=== PATIENT | male | born 1945 | race Caucasian/White ===

== ENCOUNTER 2019-12-08 16:08 | Inpatient (IN) ==
--- NOTE | 2019-12-08 17:37 | XRay Report ---
XR chest 1V portable HISTORY: 74 years-old Male Dyspnea acute shortness of breath COMPARISON: None TECHNIQUE: Portable AP view of the chest FINDINGS: Cardiac silhouette is enlarged. Prior median sternotomy and CABG. Calcified plaque of the thoracic ao rtic arch. No pneumothorax, large pleural effusion, overt pulmonary edema or airspace consolidation t ypical for pneumonia. Blunting of the costophrenic angles is likely secondary to scarring/atelectasis . Degenerative changes of the shoulders and spine. IMPRESSION: Cardiomegaly without acute process. ACT 112: Negative or not required by law. The above report was generated using voice recognition software. It may contain grammatical, syntax o r spelling errors. Electronically signed by: Víctor Whalen M.D. 12/08/2019 5:35 PM
[2019-12-08 17:40] LABS: INR 1.5 (0.9-1.1); Partial Thromboplastin Ratio 1.4; Partial Thromboplastin Time 38.1 Seconds (21.0-31.0); Prothrombin Time 15.1 Seconds (9.0-12.0)
[2019-12-08 17:44] LABS: Alanine Aminotransferase 28 U/L (12-78); Albumin Level 2.4 gm/dl (3.4-5.0); Aspartate Aminotransferase 47 U/L (15-37); Blood Urea Nitrogen 25 mg/dl (7-18); Carbon Dioxide 27 mmol/L (21-32); Chloride 107 mmol/L (98-107); Est GFR (African American) 57.7; Est GFR (Non-African American) 49.7; Glucose 105 mg/dl (70-99); Magnesium 1.7 mg/dl (1.8-2.4); Sodium 139 mmol/L (136-145)
[2019-12-08 17:49] LABS: Albumin Globulin Ratio 0.8 (0.9-2); Alkaline Phosphatase 75 U/L (45-117); Bilirubin,Total 0.3 mg/dl (0.2-1); Globulin 3.2 gm/dl (2.5-4.0); NT Pro B Type Natriuretic Pept 6631 pg/ml (0-1800); Total Protein 5.6 gm/dl (6.4-8.2); Troponin I 0.034 ng/ml (0-0.045)
[2019-12-08 18:00] LABS: Hematocrit (blood only) 21.7 % (42-52); Hemoglobin 6.9 g/dL (14.0-18.0); Mean Corpuscular Hgb Conc 31.8 g/dL (32-36); Mean Corpuscular Volume 91.2 fL (80-100); Mean Platelet Volume 9.7 fL (7.4-10.4); Platelet Count 536 K/uL (130-400); RDW Coefficient of Variation 15.6 % (11.5-14.5); RDW Standard Deviation 48.9 fL (36.4-46.3); Red Blood Count 2.38 M/uL (4.7-6.1); White Blood Count 12.03 K/uL (4.8-10.8)
--- NOTE | 2019-12-08 18:05 | Emergency Department Note ---
Impression & Plan Anemia, Edema, peripheral ED Provider Note NAME: LINA APARICIO AGE: 74 SEX: M : 1945 ARRIVES VIA: Walk-In INFORMANT: Patient, ED PROVIDER(S): Hiram Downs DO CHIEF COMPLAINT: Swelling HPI: The patient is a 74-year-old male who presented to the emergency department for an evaluation of lower extremity swelling. The patient has a history of bladder cancer. Because of bladder cancer he has nephrostomy tubes. He states nephrostomy tubes are continuing to drain clear urine. He denies having any chest pain or difficulty breathing. He was seen at the [facility] and sent to the emergency department for further evaluation. According to his daughter she thought the patient needed to be tested for CHF. He has had multiple procedures recently and some of his fluid pills have been held. He denies having any black stool or bloody stool. The patient denies having any headache. He denies any recent falls. He has had some generalized weakness. ROS: See above HPI for pertinent positives & negatives. A total of 10 systems reviewed and were otherwise negative. PAST MEDICAL HISTORY: See Below PAST SURGICAL HISTORY: See Below FAMILY HISTORY: See Below SOCIAL HISTORY: See Below HOME MEDICATIONS: See Below ALLERGIES: See Below VITALS: See Below PHYSICAL EXAMINATION: GENERAL: Patient is awake alert in no acute distress patient is resting comfortably and showing no signs of anxiety EYES: The conjunctivae are clear. The pupils are round and reactive. EARS, NOSE, MOUTH AND THROAT: The nose is without any evidence of any deformity. Mucous membranes are moist. Tongue is midline. NECK: The neck is nontender and supple. RESPIRATORY: Normal respiratory effort is noted there is no evidence of wheezing rhonchi or rales CARDIOVASCULAR: Regular rate and rhythm noted there no murmurs rubs or gallops normal S1 normal S2. GASTROINTESTINAL: The abdomen is soft. Abdomen is nontender. Rectal exam revealed brown stool which was trace heme positive. MUSCULOSKELETAL/EXTREMITIES: There is no evidence of gross deformity full range of motion is noted in the hips and shoulders. SKIN: There is no obvious evidence of any rash. Pedal edema was noted bilaterally. NEUROLOGIC: Patient is awake alert and oriented x3. MEDICAL DECISION MAKING: The patient is a 74-year-old male who presented to the emergency department for peripheral edema. The patient was seen at the [facility] and sent to the emergency department for further evaluation. The patient was noted to have bilateral lower extremity edema. He did not appear to have pulmonary edema on physical exam or by radiographic studies. The patient has had weight gain as well. He has a history of bladder cancer and has bilateral nephrostomy tubes. The patient was found to have significant anemia. He had further testing and this was reviewed with the patient. I discussed the patient's laboratory and radiographic studies with him. Because of the degree of anemia I also [facility] have agreed to evaluate the patient in the emergency department for further management and disposition. Triage Nursing notes reviewed. Prior medical records reviewed Vital Signs: reviewed and remarkable for low blood pressure. Differential diagnosis: Infection, dehydration, metabolic abnormality, hypo/hyperglycemia, electrolyte disturbance, anemia, hypoxia, cardiac sources, intracerebral event, toxicologic, neurologic, as well as other pathologies. ER treatment provided: See below Diagnostics interpreted by me: ECG: EKG was obtained in the emergency department. My interpretation is normal sinus rhythm at 63 bpm. PVCs were noted. There was lateral ST depressions noted. LVH was suggested by voltage criteria. No previous tracing was available. Cardiac Monitoring: An order was placed for continuous cardiac monitoring. The monitor shows a rate of 66 with sinus rhythm. Laboratory studies: As stated above and show below. Imaging studies: See below Consultation(s): 1850: I discussed this case with Dr. Purvis who [facility] They will evaluate the patient in the emergency department for further management and disposition. Past Med/Surg History Medical History (Updated 12/08/19 @ 19:11 by Hiram Downs DO) Atrial fibrillation Bladder cancer CHF (congestive heart failure) COPD (chronic obstructive pulmonary disease) Surgical History (Updated 12/08/19 @ 18:25 by Hiram Downs DO) History of CEA (carotid endarterectomy) History of left hip replacement Hx of appendectomy Hx of CABG Social History Smoking Status: Former smoker Feels Safe at Home: Yes Results & Data (ED) Vital Signs Vital Signs - 24 hr 12/08/19 16:14 12/08/19 17:20 12/08/19 18:51 Temperature 36.6 C Temperature Source Oral Pulse Rate 59 L Pulse Rate [Apical] 65 Respiratory Rate 18 12 Respiratory Effort / Characteristics Non-Labored Non-Labored Spontaneous Respiratory Depth Normal Normal Respiratory Pattern Regular Blood Pressure 132/51 L Blood Pressure [Right Arm] 126/33 L Blood Pressure Mean 78 Blood Pressure Mean [Right Arm] 64 Blood Pressure Position Sitting Pulse Oximetry 100 97 95 Oxygen Delivery Method Room Air Room Air Room Air Sepsis Recent Fever Within 48 Hours No Sepsis New/Unexplained Change in Mental Status No Sepsis Action Taken by Nursing No Action Required Home Medications Current Medication List: was personally reviewed by me Laboratory Data Attestation: I reviewed the patient's lab results. Result diagrams: 12/08/19 17:15 12/08/19 17:15 Lab Results 12/08/19 12/08/19 12/08/19 Range/Units 17:15 17:15 17:15 WBC 12.03 H (4.8-10.8) K/uL RBC 2.38 L (4.7-6.1) M/uL Hgb 6.9 L* (14.0-18.0) g/dL Hct 21.7 L (42-52) % MCV 91.2 (80-100) fL MCH 29.0 (25-34) pg MCHC 31.8 L (32-36) g/dL RDW Std Deviation 48.9 H (36.4-46.3) fL RDW Coeff of Qiana 15.6 H (11.5-14.5) % Plt Count 536 H (130-400) K/uL MPV 9.7 (7.4-10.4) fL Immature Gran % (Auto) 4.9 % Neut % (Auto) 77.3 % Lymph % (Auto) 6.9 % [place] % (Auto) 10.5 % Eos % (Auto) 0.2 % Baso % (Auto) 0.2 % Neut # (Auto) 9.31 H (1.4-6.5) K/uL Lymph # (Auto) 0.83 L (1.2-3.4) K/uL [place] # (Auto) 1.26 H (0.11-0.59) K/uL Eos # (Auto) 0.02 (0-0.5) K/uL Baso # (Auto) 0.02 (0-0.2) K/uL Immature Gran # (Auto) 0.59 H (0.00-0.02) K/uL Polychromasia 1+ Hypochromasia Present PT 15.1 H (9.0-12.0) Seconds INR 1.5 H (0.9-1.1) APTT 38.1 H (21.0-31.0) Seconds PTT Ratio 1.4 Sodium 139 (136-145) mmol/L Potassium 4.0 (3.5-5.1) mmol/L Chloride 107 (98-107) mmol/L Carbon Dioxide 27 (21-32) mmol/L Anion Gap 5.0 (3-11) BUN 25 H (7-18) mg/dl Creatinine 1.37 (0.6-1.4) mg/dl Est Cr Clr Drug Dosing Not Reportable Est GFR ( Amer) 57.7 Est GFR (Non-Af Amer) 49.7 BUN/Creatinine Ratio 18.0 (10-20) Glucose 105 H (70-99) mg/dl Calcium 8.0 L (8.5-10.1) mg/dl Magnesium 1.7 L (1.8-2.4) mg/dl Total Bilirubin 0.3 (0.2-1) mg/dl AST 47 H (15-37) U/L ALT 28 (12-78) U/L Alkaline Phosphatase 75 (45-117) U/L Troponin I 0.034 (0-0.045) ng/ml NT-Pro-B Natriuret Pep 6631 H (0-1800) pg/ml Total Protein 5.6 L (6.4-8.2) gm/dl Albumin 2.4 L (3.4-5.0) gm/dl Globulin 3.2 (2.5-4.0) gm/dl Albumin/Globulin Ratio 0.8 L (0.9-2) Blood Type Antibody Screen 12/08/19 Range/Units 18:12 WBC (4.8-10.8) K/uL RBC (4.7-6.1) M/uL Hgb (14.0-18.0) g/dL Hct (42-52) % MCV (80-100) fL MCH (25-34) pg MCHC (32-36) g/dL RDW Std Deviation (36.4-46.3) fL RDW Coeff of Qiana (11.5-14.5) % Plt Count (130-400) K/uL MPV (7.4-10.4) fL Immature Gran % (Auto) % Neut % (Auto) % Lymph % (Auto) % [place] % (Auto) % Eos % (Auto) % Baso % (Auto) % Neut # (Auto) (1.4-6.5) K/uL Lymph # (Auto) (1.2-3.4) K/uL [place] # (Auto) (0.11-0.59) K/uL Eos # (Auto) (0-0.5) K/uL Baso # (Auto) (0-0.2) K/uL Immature Gran # (Auto) (0.00-0.02) K/uL Polychromasia Hypochromasia PT (9.0-12.0) Seconds INR (0.9-1.1) APTT (21.0-31.0) Seconds PTT Ratio Sodium (136-145) mmol/L Potassium (3.5-5.1) mmol/L Chloride (98-107) mmol/L Carbon Dioxide (21-32) mmol/L Anion Gap (3-11) BUN (7-18) mg/dl Creatinine (0.6-1.4) mg/dl Est Cr Clr Drug Dosing Est GFR ( Amer) Est GFR (Non-Af Amer) BUN/Creatinine Ratio (10-20) Glucose (70-99) mg/dl Calcium (8.5-10.1) mg/dl Magnesium (1.8-2.4) mg/dl Total Bilirubin (0.2-1) mg/dl AST (15-37) U/L ALT (12-78) U/L Alkaline Phosphatase (45-117) U/L Troponin I (0-0.045) ng/ml NT-Pro-B Natriuret Pep (0-1800) pg/ml Total Protein (6.4-8.2) gm/dl Albumin (3.4-5.0) gm/dl Globulin (2.5-4.0) gm/dl Albumin/Globulin Ratio (0.9-2) Blood Type O Positive Antibody Screen NEGATIVE Administered Medications Magnesium Sulfate/Dextrose (Magnesium Sulfate / D5w) 1 gm in 100 mls @ 100 mls/hr IV Q1H REJI Stop: 12/08/19 20:25 Last Admin: 12/08/19 19:53 Dose: 100 mls/hr Documented by: [id number] Infusion: 12/08/19 19:53 Dose: 100 mls/hr Documented by: [id number] Admin: 12/08/19 19:02 Dose: 100 mls/hr Documented by: [id number] Imaging Data Radiologist's Impression: CT soft tissue neck wo con HISTORY: 74 years-old Male right sided pain acute right-sided neck and abdominal pain COMPARISON: Chest radiograph of same day TECHNIQUE: Multiple axial CT images of the soft tissues of the neck were obtained without use of IV contrast. A dose lowering technique was used consistent with the principals of ZENON. FINDINGS: Cardiomegaly. Prior median sternotomy. Extensive calcified plaque of the thoracic aortic arch, carotid arteries and proximal great vessels. Unremarkable thyroid, parotid and submandibular glands. The imaged intracranial structures appear unremarkable. The nasopharynx, oral pharynx and hypopharynx appear unremarkable. The parapharyngeal fat planes are symmetric. There is no adenopathy, drainable fluid collection or significant inflammatory stranding. Moderate emphysema. No pneumothorax. Mild mucosal thickening of the maxillary sinuses. Is advanced multilevel facet arthrosis. Severe disc space narrowing at C6-C7 with multilevel posterior disc osteophyte complex formations. IMPRESSION: 1. Unremarkable appearance of the soft tissues of the neck. 2. Emphysema. 3. No adenopathy. ACT 112: Negative or not required by law. The above report was generated using voice recognition software. It may contain grammatical, syntax or spelling errors. Electronically signed by: Víctor Whalen M.D. 12/08/2019 6:52 PM Dictated: 12/08/[id number] Transcribed: 12/08/191846 XR chest 1V portable HISTORY: 74 years-old Male Dyspnea acute shortness of breath COMPARISON: None TECHNIQUE: Portable AP view of the chest FINDINGS: Cardiac silhouette is enlarged. Prior median sternotomy and CABG. Calcified plaque of the thoracic aortic arch. No pneumothorax, large pleural effusion, overt pulmonary edema or airspace consolidation typical for pneumonia. Blunting of the costophrenic angles is likely secondary to scarring/atelectasis. Degenerative changes of the shoulders and spine. IMPRESSION: Cardiomegaly without acute process. ACT 112: Negative or not required by law. The above report was generated using voice recognition software. It may contain grammatical, syntax or spelling errors. Electronically signed by: Víctor Whalen M.D. 12/08/2019 5:35 PM Dictated: 12/08/[id number] Transcribed: 12/08/191733 ABDOMEN AND PELVIS CT WITHOUT CONTRAST HISTORY: Acute pelvic pain with bladder mass bladder mass TECHNIQUE: Multiaxial CT images of the abdomen and pelvis were performed without contrast. A dose lowering technique was utilized adhering to the principles of ALARA. COMPARISON STUDY: None. FINDINGS: Limited exam without the use of IV contrast. Trace pleural effusions. Bronchial wall thickening with subsegmental bibasilar atelectasis. No pneumatosis or pneumoperitoneum. Cardiomegaly. The unenhanced liver, spleen, pancreas and adrenal glands are unremarkable. The gallbladder is within normal limits. Common bile duct is dilated measuring up to 12 mm. No obstructing common bile duct stone or lesion identified. Bilateral percutaneous nephrostomy catheters are present. Moderate perinephric stranding is present bilaterally. Limited evaluation of the renal parenchyma without the use of IV contrast. There is probable mild dilation of the right superior pole renal calyx. No significant ureteral dilation. Moderate urinary bladder distention with wall thickening and perivesicular stranding. There is suggestion of a urinary bladder diverticulum on the right measuring 6.8 cm with layering radiodense foci suggestive of bladder calculi with a probable smaller diverticulum on the left. Limited evaluation of the urinary bladder and pelvic structures secondary to streak artifact from ORIF hardware of the left hemipelvis and left hip total joint arthroplasty. 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 Aneurysm measures up to approximately 4.1 x 4.8 cm. Femorofemoral bypass graft. Prostamegaly. No definite adenopathy. No bowel obstruction or bowel wall thickening. Moderate fecal retention. Terminal ileum is unremarkable. Appendix not diagnostically visualized. Mild generalized body wall edema. Degenerative changes of the spine, pelvis and right hip. Lumbar levoscoliosis. No suspicious bone lesions or acute fracture. IMPRESSION: 1. Limited exam without the use of IV contrast. Pelvic structures are suboptimally visualized secondary to artifact from left hip ORIF changes. 2. Prostamegaly with urinary bladder wall thickening and diverticula suggestive of chronic bladder outlet obstruction. Correlate with urinalysis to exclude cystitis. The patient's reportedly known bladder mass is not definitively seen on this limited exam. 3. Urinary bladder calculi. 4. Bilateral nephrostomy catheters without significant hydronephrosis. 5. Moderate fecal retention. 6. No bowel obstruction or bowel wall thickening. 7. Trace pleural effusions. 8. Additional findings as above. ACT 112: Negative or not required by law. The above report was generated using voice recognition software. It may contain grammatical, syntax or spelling errors. Electronically signed by: Víctor Whalen M.D. 12/08/2019 7:27 PM Dictated: 12/08/[id number] Transcribed: 12/08/191901 Blood Pressure Blood Pressure Findings: Low blood pressure Discharge Plan Visit Data Chief Complaint: Edema To Extremity Stated Complaint: GAINED 8.5 LBS OVERNIGHT, R SIDED NECK PAIN, AFIB ED Provider: Hiram Downs Discharge Problem: Anemia, Edema, peripheral Patient Disposition: Being Evaluated by Hospitalist Condition: Good Forms Stand Alone Forms: [facility] Referrals Referrals: Lakisha Carson PA-C [Primary Care Provider] - Discharge Problem: Anemia Qualifiers: Anemia type: unspecified type Qualified Code(s): D64.9 - Anemia, unspecified
[2019-12-08 18:17] LABS: Basophils # (auto) 0.02 K/uL (0-0.2); Basophils % (auto) 0.2 %; Eosinophils # (auto) 0.02 K/uL (0-0.5); Eosinophils % (auto) 0.2 %; Hypochromasia Present; Immature Granulocytes # (auto) 0.59 K/uL (0.00-0.02); Immature Granulocytes % (auto) 4.9 %; Lymphocytes # (auto) 0.83 K/uL (1.2-3.4); Lymphocytes % (auto) 6.9 %; Monocytes # (auto) 1.26 K/uL (0.11-0.59); Monocytes % (auto) 10.5 %; Neutrophils # (auto) 9.31 K/uL (1.4-6.5); Neutrophils % (auto) 77.3 %; Polychromasia 1+
--- NOTE | 2019-12-08 18:52 | History & Physical Report ---
Date of Service December 08, 2019 Assessment & Plan (1) Anemia: Chadwick Ortega is a very pleasant 74 year old man with PMH significant for CHF COPD, and recently diagnosed bladder cancer here for lower limb swelling found to have marked edema. Anemia Hemoglobin of 6.9 in ED No history of melena or hemamtochezia on history minimal hemoccult positivity on , CT abdomen negative for retroperitoneal bleed, no other signs of acute bleeding in history Very possibly secondary to chemotherapy, though white count and platelets elevated, possible secondary to unknown GI losses or hematuria, though none actively anemia of chronic disease possible, We do not know his baseline hemoglobin as we have no records Will need to request records in the am Due to increased risk of both arterial and venous thromboembolism I will continue patient's home eliquis and check h and h closely. H and H every 6 hours, if h and h drops or any sign of active bleeding we can hold eliquis Bladder Cancer Patient with metastatic bladder cancer, status post 1 round of chemotherapy, Nephrostomy tubes in place draining clear non bloody urine Due for replacement of nephrostomy tubes in two weeks Second round of chemotherapy next week Will need to get records [facility] and [facility] Leg swelling Likely secondary to high output heart failure from anemia, hypoalbuminemia likely secondary to Patient tells me he has a history of CHF and a history of mitral valve repair no history of heart attack Lasix 20 mg IV bid Echo ordered for am b/l swelling, Calves non tender, on eliquis will defer doppler u/s at this time COPD Former smoker for many years 35+ pack year smoking history Stable on room air at present Atrial Fibrillation Recently diagnosed and hospitalized at [facility] in [place] On Amiodarone and eliquis will continue Simvastatin and amiodarone have interaction at increased doses will decrease simvastatin to 20 mg Hypomagnesemia Replaced 1 gram MGSO4 IV DVT PPx: Eliquis F/E/N: Heart healthy diet Dispo: PCU for transfusion and further workup DNR/DNI (2) Edema, peripheral: (3) COPD (chronic obstructive pulmonary disease): (4) CHF (congestive heart failure): (5) Bladder cancer: (6) Atrial fibrillation: History of Present Illness Primary Care Provider: Lakisha Carson PA-C Ludwin Ortega is a very nice 74 year old gentleman with past medical history significant for abdominal aortic aneurysm with stent placement, CHF, COPD, and recently diagnosed bladder cancer. Bladder cancer was diagnosed at the end of September, while going on a road trip patients develop pain and severe hematuria and was evaluated at [facility] and found to have widespread metastatic disease. Nephrostomy tubes were placed at that time and he got his first round of chemotherapy. He has been at home prior to that, but last week was admitted to [facility] for new onset atrial fibrillation. He was put on amiodarone and eliquis and returned home. We do not have records of either of these encounters and he is not sure what medications his urologists and oncologists are treating him with. He was seen by his PCP today who noticed some increased lower limb swelling and shakiness in the patient they decided that he needed to be evaluated urgently over concern for CHF. On arrival to ED vitals were within normal limits ECG showing sinus rhythm concerning for ST depression in lateral leads, no ECG to compare to. Labwork was significant for a severe anemia with hemoglobin of 6.9, he is also hypoalbuminemic, has an elevated BNP at 6631. Hypomagnesemia of 1.7 Creatinine at the upper limits of normal. Troponin drawn and detectable but not elevated at .034. patient also reports he has a lump in his neck that comes and goes but is not present currently. Imaging of neck was obtained showing no abnormalities or adenopathy, CT abdomen pelvis showing no sign of retroperitoneal bleeding, nephrostomy tubes properly in place and bladder wall thickening. CXR significant only for cardiomegaly. Hemoccult trace positive. Patient is a poor historian and slightly confused, though he does tell me he has not had any tarry and dark stools, has never had any blood, did have some vomiting after chemotherapy but this was non bloody non bilious and has since subsided. He Called his daughter and put her on speaker phone who was able to relay most of the above history for me. She adds that he has been shaky and cold and this has gotten worse over the past few days, she has not noticed anything else on review of systems. He has lost over twenty pounds prior to his cancer diagnosis but since that time he is eating pretty well and not losing weight currently. Energy levels have been good, his mental status is at his baseline currently. He adamantly denies chest pain shortness of breath, exertional dyspnea dyspnea at rest. He tells me he has a history of CHF and is a former smoker for many years but quit seventeen years ago. Lives with his , son in law and grandchildren whom he is very proud of and quick to show pictures. Next round of chemotherapy is already set up for next week, nephrostomy tubes will need to be replaced in next two weeks, still coordinating care for that. Follows with the [facility], we have no records from previous visits at present. Eli amandacharles legs sent from [facility] bilateral nephrostomy tubes bladder cancer has not gotten any treatment yet but it is scheduled. low hemoblobin 6.9. Troponin elevated to .034 mag low bnp elevated 6000's Lump in neck, comes and goes. Scanned neck. Rectal trace heme positive. Nephrostomy tube placed ? due to be changed in a couple weeks. Allergies Allergy/AdvReac Type Severity Reaction Status Date / Time No Known Allergies Allergy Unverified 12/08/19 20:14 Home Medications Home Medications Medication Instructions Recorded Confirmed Type albuterol sulfate 2 puff INHALATION QID PRN 12/08/19 12/08/19 History amiodarone 400 mg PO BID 12/08/19 12/08/19 History apixaban [Eliquis] 5 mg PO BID 12/08/19 12/08/19 History aspirin [Aspir-81] 81 mg PO DAILY 12/08/19 12/08/19 History bisacodyl 5 mg PO DAILY PRN 12/08/19 12/08/19 History epinephrine [EpiPen] 0.3 mg IM UD PRN 12/08/19 12/08/19 History ezetimibe [Zetia] 10 mg PO DAILY 12/08/19 12/08/19 History melatonin 5 mg PO HS 12/08/19 12/08/19 History olanzapine 2.5 mg PO HS 12/08/19 12/08/19 History oxybutynin chloride 10 mg PO DAILY 12/08/19 12/08/19 History oxycodone [OxyContin] 20 mg PO Q12 12/08/19 12/08/19 History pantoprazole [Protonix] 40 mg PO DAILY 12/08/19 12/08/19 History polyethylene glycol 3350 [Miralax] 17 g PO DAILY PRN 12/08/19 12/08/19 History simvastatin 40 mg PO HS 12/08/19 12/08/19 History Past Med/Surg History Medical History (Updated 12/09/19 @ 19:19 by Faheem Akhtar MD) Bladder cancer CAD (coronary artery disease) Chronic combined systolic and diastolic congestive heart failure COPD (chronic obstructive pulmonary disease) Dyslipidemia Hypoalbuminemia Mitral regurgitation Paroxysmal atrial fibrillation Surgical History (Updated 12/09/19 @ 19:17 by Faheem Akhtar MD) History of CEA (carotid endarterectomy) History of left hip replacement Hx of appendectomy Hx of CABG S/P CABG (coronary artery bypass graft) S/P mitral valve repair Social History Smoking Status: Unknown if ever smoked Hx Alcohol Use: No Hx Substance Use: No Preferred Language: Mauritian Communication Ability: Effective Director Workers Compensation Required: No Beliefs That Will Affect Care: None Other Information That Helps Us Care for You: Yes Feels Safe at Home: Yes Safety Concerns: Feels Safe At This Time Review of Systems Review of Systems: All systems reviewed & are unremarkable except as noted in HPI & below Physical Exam Constitutional: + well hydrated and + cachectic; no acute distress, not ill appearing and no altered mental status Eyes: PERRL, conjunctivae normal, anicteric sclerae ENMT: external ear and nose normal, oropharynx normal Respiratory: normal respiratory effort, lungs clear to auscultation no respiratory distress Cardiovascular: Rate/Rhythm: regular rate and regular rhythm Heart Sounds: + murmur (diastolic light murmur best appreciated at PMI) Gastrointestinal (Abdomen): normal bowel sounds, soft, nontender, no hepatosplenomegaly Skin: no rashes, warm and dry Genitourinary: Nephrostomy tubes in place, clear urine draining no blood. Results & Data Results & Data ([facility]) Vital Signs (Past 12 Hours) Vital Signs Temp Pulse Resp BP Pulse Ox 12/08/19 17:20 97 12/08/19 16:14 36.6 C 59 L 18 132/51 L 100 Supervising Physician Co-Signing Physician Notes Attending addendum: I have physically seen this patient, have supervised the medical residents activities, and agree with the H&P unless as otherwise noted. Assessment and Plan: Anemia- Hemoglobin upon admission 6.9. No baseline available Check H&H every 6 hours Potential causes include: Urinary, GI and secondary to chemotherapy. Lower extremity edema/atrial fibrillation- The patient will be admitted to telemetry for serial cardiac enzymes, serial EKG's, cardiac rhythm monitoring and a 2-D echocardiogram with Dopplers. Causes include: High output heart failure, hypoalbuminemia, ischemia Lasix 20 mg IV twice daily Continue amiodarone and Eliquis. Bladder cancer- Bilateral nephrostomy tubes noted to be in place on CT, with nonbloody urine drainage. Has completed 1 round of chemotherapy, with next round next week. Anticipated nephrostomy tube removal in 2 weeks. Remaining orders and notations as noted. Resident Activity Tracking Resident Involvement: Resident Care Provided Care Provided: Adult Hospital Medicine (1) Anemia Anemia type: unspecified type Qualified Code(s): D64.9 - Anemia, unspecified
--- NOTE | 2019-12-08 18:53 | CT Scan Report ---
CT soft tissue neck wo con HISTORY: 74 years-old Male right sided pain acute right-sided neck and abdominal pain COMPARISON: Chest radiograph of same day TECHNIQUE: Multiple axial CT images of the soft tissues of the neck were obtained without use of IV c ontrast. A dose lowering technique was used consistent with the principals of ZENON. FINDINGS: Cardiomegaly. Prior median sternotomy. Extensive calcified plaque of the thoracic aortic arch, caroti d arteries and proximal great vessels. Unremarkable thyroid, parotid and submandibular glands. The im aged intracranial structures appear unremarkable. The nasopharynx, oral pharynx and hypopharynx appea r unremarkable. The parapharyngeal fat planes are symmetric. There is no adenopathy, drainable fluid collection or significant inflammatory stranding. Moderate emphysema. No pneumothorax. Mild mucosal t hickening of the maxillary sinuses. Is advanced multilevel facet arthrosis. Severe disc space narrowi ng at C6-C7 with multilevel posterior disc osteophyte complex formations. IMPRESSION: 1. Unremarkable appearance of the soft tissues of the neck. 2. Emphysema. 3. No adenopathy. ACT 112: Negative or not required by law. The above report was generated using voice recognition software. It may contain grammatical, syntax o r spelling errors. Electronically signed by: Víctor Whalen M.D. 12/08/2019 6:52 PM
[2019-12-08] MEDS: MAGNESIUM SULFATE / D5W 1 GM/100 ML BAG IV SCH ×2 (19:02→19:53)
--- NOTE | 2019-12-08 19:28 | CT Scan Report ---
ABDOMEN AND PELVIS CT WITHOUT CONTRAST HISTORY: Acute pelvic pain with bladder mass bladder mass TECHNIQUE: Multiaxial CT images of the abdomen and pelvis were performed without contrast. A dose lo wering technique was utilized adhering to the principles of ALARA. COMPARISON STUDY: None. FINDINGS: Limited exam without the use of IV contrast. Trace pleural effusions. Bronchial wall thickening with subsegmental bibasilar atelectasis. No pneumatosis or pneumoperitoneum. Cardiomegaly. The unenhanced liver, spleen, pancreas and adrenal glands are unremarkable. The gallbladder is within normal limits. Common bile duct is dilated measuring up to 12 mm. No obstructing common bile duct st one or lesion identified. Bilateral percutaneous nephrostomy catheters are present. Moderate perineph everette stranding is present bilaterally. Limited evaluation of the renal parenchyma without the use of I V contrast. There is probable mild dilation of the right superior pole renal calyx. No significant ur eteral dilation. Moderate urinary bladder distention with wall thickening and perivesicular stranding . There is suggestion of a urinary bladder diverticulum on the right measuring 6.8 cm with layering r adiodense foci suggestive of bladder calculi with a probable smaller diverticulum on the left. Limite d evaluation of the urinary bladder and pelvic structures secondary to streak artifact from ORIF hard iqbal of the left hemipelvis and left hip total joint arthroplasty. 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 Aneurysm measures up to approximately 4.1 x 4.8 cm. Femorofemoral bypass graft. Prostamegaly. No definite adenopathy. No bowel obstruction or bowel wall thickening. Moderate fecal retention. Terminal ileum is unremarkab le. Appendix not diagnostically visualized. Mild generalized body wall edema. Degenerative changes of the spine, pelvis and right hip. Lumbar levoscoliosis. No suspicious bone lesions or acute fracture. IMPRESSION: 1. Limited exam without the use of IV contrast. Pelvic structures are suboptimally visualized seconda ry to artifact from left hip ORIF changes. 2. Prostamegaly with urinary bladder wall thickening and diverticula suggestive of chronic bladder ou tlet obstruction. Correlate with urinalysis to exclude cystitis. The patient's reportedly known bladd er mass is not definitively seen on this limited exam. 3. Urinary bladder calculi. 4. Bilateral nephrostomy catheters without significant hydronephrosis. 5. Moderate fecal retention. 6. No bowel obstruction or bowel wall thickening. 7. Trace pleural effusions. 8. Additional findings as above. ACT 112: Negative or not required by law. The above report was generated using voice recognition software. It may contain grammatical, syntax o r spelling errors. Electronically signed by: Víctor Whalen M.D. 12/08/2019 7:27 PM
[2019-12-08] MEDS ORDERED: bisacodyL 5 MG TABEC PO PRN (21:59)
[2019-12-08] MEDS ORDERED: POLYETHYLENE (MIRALAX) 17 GM PACK PO PRN (21:59)
[2019-12-08] MEDS ORDERED: ALBUMIN 5% 250 ML IV SCH (21:59)
[2019-12-08] MEDS ORDERED: SODIUM CHLORIDE 0.9% 250 ML IV PRN (21:59)
[2019-12-08] MEDS ORDERED: MAGNESIUM HYDROXIDE SUSP 30 ML UDC PO PRN (21:59)
[2019-12-08] MEDS ORDERED: ACETAMINOPHEN 325 MG TAB PO PRN (21:59)
[2019-12-08] MEDS ORDERED: ONDANSETRON INJ 2 MG/ML 2 ML VIAL IV PRN (21:59)
[2019-12-08] MEDS ORDERED: ALBUTEROL HFA 8 GM INHALER INH PRN (21:59)
[2019-12-08] MEDS ORDERED: FUROSEMIDE 40 MG/4 ML VIAL IV SCH (21:59)
[2019-12-08] MEDS ORDERED: SIMVASTATIN 40 MG TAB PO SCH (21:59)
[2019-12-08] MEDS ORDERED: EPINEPHrine INJ 1 MG/ML AMP IM PRN (22:35)
[2019-12-08 22:41] LABS: Hematocrit (blood only) 22.8 % (42-52); Hemoglobin 7.4 g/dL (14.0-18.0)
[2019-12-08] MEDS: OXYCODONE HCL 20 MG TABCR (OXYCONTIN) PO SCH (22:53)
[2019-12-08] MEDS: OLANZAPINE 2.5 MG TAB PO SCH (22:54)
[2019-12-08] MEDS: AMIODARONE 200 MG TAB PO SCH (22:54)
[2019-12-08] MEDS: FUROSEMIDE 20 MG in SYRINGE 0 ML IV SCH (22:54)
[2019-12-08] MEDS: APIXABAN 5 MG TABLET PO SCH (23:08)
[2019-12-09] MEDS ORDERED: EZETIMIBE 10 MG TABLET PO SCH (09:00)
[2019-12-09] MEDS: FUROSEMIDE 20 MG in SYRINGE 0 ML IV SCH ×2 (09:11→16:45)
[2019-12-09] MEDS: AMIODARONE 200 MG TAB PO SCH (09:11)
[2019-12-09] MEDS: APIXABAN 5 MG TABLET PO SCH ×2 (09:12→21:08)
[2019-12-09] MEDS: PANTOprazole 40 MG TAB PO SCH (09:12)
[2019-12-09] MEDS: ASPIRIN 81 MG ECTAB PO SCH (09:12)
[2019-12-09] MEDS: OXYCODONE HCL 20 MG TABCR (OXYCONTIN) PO SCH ×2 (09:12→21:07)
[2019-12-09] MEDS: OXYBUTYNIN CHLORIDE XL 5 MG TABCR PO SCH (09:12)
[2019-12-09 09:25] LABS: Hematocrit (blood only) 30.4 % (42-52); Hemoglobin 9.7 g/dL (14.0-18.0)
[2019-12-09 10:05] LABS: Calcium 8.1 mg/dl (8.5-10.1); Creatinine Clr Calc Pharmacy 43.8 ml/min; Est GFR (African American) 62.6; Potassium 4.6 mmol/L (3.5-5.1)
--- NOTE | 2019-12-09 11:37 | Medical Student Progress Note ---
Date of Service December 09, 2019 Assessment & Plan (1) CHF (congestive heart failure): - BNP eelvated at 6631 -Has hx of CHF and mitral valve repair - no hx of NE -Lasix 20 mg BID -fluid restriction 1500 ml a day -Echo ordered (2) COPD (chronic obstructive pulmonary disease): former smoker with 35 year pack hx. Stable on room air presently with SPO2 above 95. (3) Edema, peripheral: -peripheral edema likely secondary to CHF - IV lasix was given in ED and has helped decrease lower extrem edema. -Lasix 20 mg BID -fluid restriction 1500 ml a day -Echo ordered - swelling of left lower leg trace edema in right lower leg., calves not tender will defer doppler study at this time (4) Anemia: - Hbg was 7.4 in ED and is now 9.7 - no hx of melena or hematachezia. Ct of abdomen negative for retroperitoneal bleed, no other sings of acute bleeding hx. -anemia could be secondary to hemodilution caused by fluid retention - anemia could also secondary to chemotherapy. Could also be secondary to GI loss or hematuria. - Base line hbg unknown and will need records. -Continue patient on eliquis and check H and H closely. - Will check H and H every 6 hours. If levels drop and or there is any sing of active bl Anemia type: unspecified type Qualified Code(s): D64.9 - Anemia, unspecified (5) Bladder cancer: - Patient with metastatic bladder cancer post round one of chemo -nephrostomy tunes are in place and draining clear urine without blood - no signs of hydronephrosis on CT - patient is scheduled for surgery Friday for placement of mediport. - will need records from [facility] and [facility]. Admission and Anticipated Discharge Date Admission Date: December 08, 2019 Supervising Attestation This is a medical student note. Subjective 74 y/o male with hx of CHF, COPD and bladder carcinoma presented to the ED yesterday with concerns over lower extremity edema. He was diagnosed with bladder cancer about 4 weeks. He has received 1 round of chemotherapy so far. His lasix was stopped one week ago. Since stopping his lasix he began to develop lower extremity edema. He was received IV lasix in the ED and his symptoms have since improved. Today he feels well and does not endorse SOB, cough, orthopnea, PND, chest pain, palpitations or dizziness. Review of Systems Review of Systems: All systems reviewed & are unremarkable except as noted in HPI & below Physical Exam Neck: trachea midline, no thyromegaly normal visual inspection Respiratory: Auscultation: + rhonchi; no crackles and no rales Cardiovascular: RRR, no murmur, no edema Heart Sounds: normal S1 and normal S2 Skin: Trauma: + contusion (Bl contusion of upper arms.) Results & Data ([facility]) Vital Signs (Past 12 Hours) Vital Signs Temp Pulse Pulse Resp BP BP Pulse Ox 12/09/19 07:56 36.7 C 77 19 135/45 L 97 12/09/19 06:15 36.8 C 55 L 18 150/61 H 96 12/09/19 05:18 36.5 C 49 L 18 142/57 H 97 12/09/19 04:18 36.6 C 48 L 17 135/49 L 97 12/09/19 03:48 36.5 C 52 L 18 127/40 L 95 12/09/19 03:33 36.9 C 53 L 18 135/55 L 96 12/09/19 03:15 36.5 C 55 L 18 135/51 L 96 12/09/19 02:55 36.5 C 49 L 18 130/51 L 97 12/09/19 02:00 36.5 C 54 L 18 123/51 L 97 12/09/19 01:36 36.4 C L 57 L 18 121/50 L 99 12/09/19 01:00 36.3 C L 57 L 16 116/42 L 98 12/09/19 00:30 36.7 C 63 18 127/51 L 100 12/09/19 00:15 36.9 C 64 18 146/56 H 95 12/08/19 23:53 36.6 C 75 18 154/56 H 95
[2019-12-09 11:54] LABS: Hematocrit (blood only) 31.6 % (42-52); Hemoglobin 10.5 g/dL (14.0-18.0); Mean Corpuscular Hemoglobin 29.6 pg (25-34); Mean Corpuscular Hgb Conc 33.2 g/dL (32-36); Platelet Count 539 K/uL (130-400); RDW Standard Deviation 47.1 fL (36.4-46.3); Red Blood Count 3.55 M/uL (4.7-6.1); White Blood Count 11.98 K/uL (4.8-10.8)
[2019-12-09 12:13] LABS: BUN Creatinine Ratio 16.2 (10-20); Calcium 8.1 mg/dl (8.5-10.1); Creatinine Clr Calc Pharmacy 43.4 ml/min; Est GFR (Non-African American) 53.5; Potassium 4.3 mmol/L (3.5-5.1)
[2019-12-09 18:17] LABS: Hematocrit (blood only) 30.6 % (42-52); Hemoglobin 10.1 g/dL (14.0-18.0)
--- NOTE | 2019-12-09 19:10 | XCELERA ---
[id number]
--- NOTE | 2019-12-09 19:13 | Cardiology Consultation ---
Date of Consultation December 09, 2019 Assessment & Plan (1) Chronic combined systolic and diastolic congestive heart failure: (2) Paroxysmal atrial fibrillation: (3) CAD (coronary artery disease): (4) S/P CABG (coronary artery bypass graft): (5) S/P mitral valve repair: (6) Edema, peripheral: (7) Anemia: (8) Dyslipidemia: (9) Mitral regurgitation: ASSESSMENT/PLAN: 1. Chronic combined systolic and diastolic CHF: It sounds as though he has had significantly reduced LV systolic function in the past. Currently, LV systolic function appears mildly reduced. He appears mildly hypervolemic. Can continue diuretic. Monitor renal function and electrolytes closely. He had been on CATE- inhibitor and beta-bambi in the past but apparently had issues with hypotension while hospitalized at [facility] with urinary obstruction. Could potentially attempt to resume these meds in the future if able. Low- sodium diet. Daily weights. Strict I&Os. 2. Paroxysmal atrial fibrillation: Diagnosed October of 2019. On amiodarone as per [facility]. Continue amiodarone 200 mg twice daily. Monitor transaminase levels and TSH periodically. Currently in sinus rhythm. On anticoagulation for stroke risk reduction. Monitor for bleeding. 3. CAD s/p CABG x 3: No angina. Can continue aspirin if no contraindications. Beta-abmbi has been discontinued in October of 2019 while hospitalized at [facility] with obstructive uropathy and acute kidney injury. Could potentially resume in the future. Continue statin therapy. 4. Mitral regurgitation: Despite mitral valve repair, appears to have moderate mitral regurgitation. Can monitor over time if appropriate. 5. Mitral valve repair: No significant stenosis on echo. 6. Anemia: As per primary service. Received packed red blood cells during this admission. 7. Edema: Likely multifactorial from underlying heart failure but also with hypoalbuminemia. Continue diuresis as above. Low-sodium diet. 8. Bladder cancer: As per Oncology. 9. Dyslipidemia: To improve polypharmacy, Zetia and simvastatin will be discontinued in favor of atorvastatin. 10. Disposition: Chronically ill gentleman with multiple comorbidities. Cardiology will continue to follow. Recommended heart failure program on discharge and he and daughter are agreeable. Highly complex medical issues. Thank you for allowing me to participate in the care of your patient. Please call for any other questions or concerns. Sincerely, Kevin Giovana, M.D. History of Present Illness Reason for Consultation: CHF, paroxysmal Afib, CAD s/p CABG, Mitral valve repair Requesting Physician: Keron Carter Attending Physician: Keron Carter History of Present Illness Mr. Ortega is a pleasant 74-year-old gentleman with history significant for CAD s/p CABG x 3, mitral valve repair, mitral regurgitation, bladder cancer, paroxysmal atrial fibrillation (diagnosed October 2019), CKD, combined systolic and diastolic CHF, dyslipidemia, and COPD. he also has a history of left lower extremity DVT in 2016. He underwent CABG x3 in 2012 or 2013 in the [place] area. He later had a mitral valve repair in 2018 in [place]. He was diagnosed with bladder cancer in October of 2019 when he developed obstructive uropathy with acute kidney injury. He was treated at [facility] from November 01 to November 20, 2019. During that hospitalization, carvedilol, enalapril, Lasix, Plavix, and potassium chloride were discontinued. He apparently was having issues with hypotension, prompting discontinuation of beta-bambi and CATE-inhibitor and Lasix was discontinued due to renal issues with his obstructive uropathy. Plavix was discontinued with placement of his nephrostomy tubes. Only 3 days later on November 23, 2019, he was admitted to [facility] with atrial fibrillation where he was hospitalized for 1 day and sent home on amiodarone 400 mg twice daily for loading dose and then 200 mg twice daily. He was anticoagulated. He has had the following studies/ procedures: 1. CABG x3 [place]. 2. Mitral valve repair 2017 [place]. He was hospitalized on 12/08/2019 with 9 lb weight gain over a 3-4 day span. He had been on Lasix in the past which was discontinued in October while admitted at [facility] with obstructive uropathy and has since undergone nephrostomy tube placement. He has been diagnosed with bladder cancer and has port placement pending next week for further chemotherapy. He has had fatigue and also shortness of breath but currently denies shortness of breath. He was found to be significantly anemic on presentation with a hemoglobin of 6.9. He receiv ed PRBC x1 with improvement of his hemoglobin is size 10.5 earlier today. He has not noted any bleeding such as melena, hematochezia, hematuria. His daughter, Majo, has provided most of the history via telephone. She reported that his heart pumping function has been reduced. He denies chest pain, syncope, near-syncope, palpitations, fevers, or chills. Review of systems: As above. Review of systems otherwise negative/unremarkable. Family history: Father with colon cancer. Mother with lung cancer. No known premature CAD. Social history: Quit smoking in approximately 2004 after approximately 30 pack years. No alcohol. No drugs. Lives with his daughter, Majo Hinton, in [facility]. He has 3 children. Grandchildren. He is but . He was alone in his hospital room. Allergies Allergy/AdvReac Type Severity Reaction Status Date / Time No Known Allergies Allergy Unverified 12/08/19 20:14 Home Medications Home Medications Medication Instructions Recorded Confirmed Type albuterol sulfate 2 puff INHALATION QID PRN 12/08/19 12/08/19 History amiodarone 400 mg PO BID 12/08/19 12/08/19 History apixaban [Eliquis] 5 mg PO BID 12/08/19 12/08/19 History aspirin [Aspir-81] 81 mg PO DAILY 12/08/19 12/08/19 History bisacodyl 5 mg PO DAILY PRN 12/08/19 12/08/19 History epinephrine [EpiPen] 0.3 mg IM UD PRN 12/08/19 12/08/19 History ezetimibe [Zetia] 10 mg PO DAILY 12/08/19 12/08/19 History melatonin 5 mg PO HS 12/08/19 12/08/19 History olanzapine 2.5 mg PO HS 12/08/19 12/08/19 History oxybutynin chloride 10 mg PO DAILY 12/08/19 12/08/19 History oxycodone [OxyContin] 20 mg PO Q12 12/08/19 12/08/19 History pantoprazole [Protonix] 40 mg PO DAILY 12/08/19 12/08/19 History polyethylene glycol 3350 [Miralax] 17 g PO DAILY PRN 12/08/19 12/08/19 History simvastatin 40 mg PO HS 12/08/19 12/08/19 History Patient History Medical History (Updated 12/09/19 @ 19:19 by Faheem Akhtar MD) Bladder cancer CAD (coronary artery disease) Chronic combined systolic and diastolic congestive heart failure COPD (chronic obstructive pulmonary disease) Dyslipidemia Hypoalbuminemia Mitral regurgitation Paroxysmal atrial fibrillation Surgical History (Updated 12/09/19 @ 19:17 by Faheem Akhtar MD) History of CEA (carotid endarterectomy) History of left hip replacement Hx of appendectomy Hx of CABG S/P CABG (coronary artery bypass graft) S/P mitral valve repair Social History Smoking Status: Unknown if ever smoked Hx Alcohol Use: No Hx Substance Use: No Preferred Language: Kazakh Communication Ability: Effective Gyroscopic Engineering Technician Required: No Beliefs That Will Affect Care: None Other Information That Helps Us Care for You: Yes Feels Safe at Home: Yes Safety Concerns: Feels Safe At This Time Physical Exam Physical Exam: Gen.: No acute distress. Alert and oriented to self and year. He did not know the month. He knew he was in a hospital but not which town. HEENT: Anicteric sclera. Neck: JVD noted. Bilateral carotid bruit, right greater than left. Normal carotid upstrokes bilaterally. Cardiac: PMI was nonpalpable. No ventricular heave. Regular rate and rhythm. Normal S1-S2. 1/6 systolic murmur. No rubs, or gallops. Pulmonary: decreased breath sounds, but otherwise clear to auscultation bilaterally without wheezes, rales, or rhonchi. Abdomen: Soft, nontender, nondistended, with normoactive bowel sounds. No bruits noted. Extremities: 2+ right radial pulse. 1+ left radial pulse. 2+ posterior tibialis pulses bilaterally. 2+ bilateral lower extremity edema custodial to the knees. No cyanosis. Psychiatric: Affect appears appropriate. Results & Data ([facility]) Vital Signs (Past 12 Hours) Vital Signs Temp Pulse Pulse Pulse Resp BP BP 12/09/19 16:00 60 12/09/19 15:29 37.3 C 55 L 18 121/42 L 12/09/19 12:00 36.9 C 66 18 115/47 L 12/09/19 07:56 36.7 C 77 19 135/45 L Intake & Output 12/07/19 12/08/19 12/09/19 12/10/19 06:59 06:59 06:59 06:59 Intake Total 805 / 805 775 / 775 Output Total 1480 / 1480 Balance -675 / -675 775 / 775 Weight 63 kg Laboratory Results Laboratory Results - last 24 hr 12/08/19 12/08/19 12/08/19 18:12 22:32 22:32 WBC RBC Hgb 7.4 L Hct 22.8 L MCV MCH MCHC RDW Std Deviation RDW Coeff of Qiana Plt Count MPV Sodium Potassium Chloride Carbon Dioxide Anion Gap BUN Creatinine Est Cr Clr Drug Dosing Est GFR ( Amer) Est GFR (Non-Af Amer) BUN/Creatinine Ratio Glucose Calcium Troponin I 0.043 Blood Type O Positive Blood Type Recheck Antibody Screen NEGATIVE Crossmatch See Detail 12/08/19 12/09/19 12/09/19 22:32 09:12 09:12 WBC RBC Hgb 9.7 L Hct 30.4 L MCV MCH MCHC RDW Std Deviation RDW Coeff of Qiana Plt Count MPV Sodium 139 Potassium 4.6 Chloride 106 Carbon Dioxide 29 Anion Gap 4.0 BUN 22 H Creatinine 1.28 Est Cr Clr Drug Dosing 43.8 Est GFR ( Amer) 62.6 Est GFR (Non-Af Amer) 54.0 BUN/Creatinine Ratio 17.0 Glucose 97 Calcium 8.1 L Troponin I Blood Type Blood Type Recheck O Positive Antibody Screen Crossmatch 12/09/19 12/09/19 12/09/19 09:12 11:38 11:38 WBC 11.98 H RBC 3.55 L Hgb 10.5 L Hct 31.6 L MCV 89.0 MCH 29.6 MCHC 33.2 RDW Std Deviation 47.1 H RDW Coeff of Qiana 15.0 H Plt Count 539 H MPV 10.0 Sodium Potassium Chloride Carbon Dioxide Anion Gap BUN Creatinine Est Cr Clr Drug Dosing Est GFR ( Amer) Est GFR (Non-Af Amer) BUN/Creatinine Ratio Glucose Calcium Troponin I 0.034 0.022 Blood Type Blood Type Recheck Antibody Screen Crossmatch 12/09/19 12/09/19 11:38 18:09 WBC RBC Hgb 10.1 L Hct 30.6 L MCV MCH MCHC RDW Std Deviation RDW Coeff of Qiana Plt Count MPV Sodium 137 Potassium 4.3 Chloride 103 Carbon Dioxide 29 Anion Gap 5.0 BUN 21 H Creatinine 1.29 Est Cr Clr Drug Dosing 43.4 Est GFR ( Amer) 62.0 Est GFR (Non-Af Amer) 53.5 BUN/Creatinine Ratio 16.2 Glucose 99 Calcium 8.1 L Troponin I Blood Type Blood Type Recheck Antibody Screen Crossmatch Diagnostic Findings Echo 12/09/2019: 1. Mildly dilated left ventricle with mildly reduced systolic function. Estimated EF 45%. Akinesis of the basal inferior wall and mid inferoseptum. Hypokinesis of the basal inferoseptum and mid inferior wall. No left ventricular hypertrophy. 2. Normal right ventricular size with mildly reduced systolic function. 3. Severe left atrial dilation. 4. Sclerotic aortic valve without significant stenosis. 5. Mitral valve repair without significant stenosis. 6. Moderate mitral regurgitation. Telemetry personally reviewed: Sinus rhythm. Four beat run of ventricular tachycardia. ECGs personally reviewed: ECG 12/08/2019: Sinus rhythm with PVC 63 bpm. IVCD. Cannot exclude anterior infarct. Nonspecific ST abnormality. Chest x-ray 12/08/2019: No acute process per Radiology. CT abdomen/pelvis 12/08/19: Noncontrast. Bladder wall thickening. Bilateral nephrostomy catheters without significant hydronephrosis. Medications Administered Current Inpatient Medications Acetaminophen (Acetaminophen 325 Mg Tab) 650 mg PO Q4H PRN PRN Reason: Pain or Fever Stop: 01/07/20 21:58 Albuterol (Albuterol Hfa 8 Gm Inhaler) 2 puffs INH QID PRN PRN Reason: Shortness Of Breath Or Wheezin Stop: 01/07/20 21:58 Amiodarone HCl (Amiodarone 200 Mg Tab) 200 mg PO BIDM [facility] Stop: 01/09/20 08:59 Apixaban (Apixaban 5 Mg Tablet) 5 mg PO BID [facility] Stop: 01/07/20 21:58 Last Admin: 12/09/19 09:12 Dose: 5 mg Documented by: Aspirin (Aspirin 81 Mg Ectab) 81 mg PO DAILY [facility] Stop: 01/08/20 08:59 Last Admin: 12/09/19 09:12 Dose: 81 mg Documented by: Bisacodyl (Bisacodyl 5 Mg Tabec) 5 mg PO DAILY PRN PRN Reason: Constipation Stop: 01/07/20 21:58 Ezetimibe (Ezetimibe 10 Mg Tablet) 10 mg PO DAILY [facility] Stop: 01/08/20 08:59 Last Admin: 12/09/19 09:12 Dose: 10 mg Documented by: Epinephrine HCl (Epinephrine Inj 1 Mg/Ml Amp) 0.3 mg IM UD PRN PRN Reason: Allergic Reaction Stop: 01/07/20 22:34 Furosemide 20 mg/ Syringe 2 mls @ 4 mls/min IV BID17 [facility] Stop: 01/07/20 22:29 Last Admin: 12/09/19 16:45 Dose: 4 mls/min Documented by: Magnesium Hydroxide (Magnesium Hydroxide Susp 30 Ml Udc) 30 ml PO Q12H PRN PRN Reason: Constipation Stop: 01/07/20 21:58 Melatonin (Melatonin 3 Mg Tab) 6 mg PO HS [facility]; Protocol Stop: 01/08/20 20:59 Olanzapine (Olanzapine 2.5 Mg Tab) 2.5 mg PO HS [facility] Stop: 01/07/20 21:58 Last Admin: 12/08/19 22:54 Dose: 2.5 mg Documented by: Ondansetron HCl (Ondansetron Inj 2 Mg/Ml 2 Ml Vial) 4 mg IV Q6H PRN PRN Reason: Nausea Stop: 01/07/20 21:58 Oxybutynin Chloride (Oxybutynin Chloride Xl 5 Mg Tabcr) 10 mg PO DAILY [facility] Stop: 01/08/20 08:59 Last Admin: 12/09/19 09:12 Dose: 10 mg Documented by: Oxycodone HCl (Oxycodone Hcl 20 Mg Tabcr (Oxycontin)) 20 mg PO BID [facility] Stop: 12/22/19 22:29 Last Admin: 12/09/19 09:12 Dose: 20 mg Documented by: Pantoprazole Sodium (Pantoprazole 40 Mg Tab) 40 mg PO DAILY [facility] Stop: 01/08/20 08:59 Last Admin: 12/09/19 09:12 Dose: 40 mg Documented by: Polyethylene Glycol (Polyethylene (Miralax) 17 Gm Pack) 17 gm PO DAILY PRN PRN Reason: Constipation Stop: 01/07/20 21:58 Simvastatin (Simvastatin 20 Mg Tab) 20 mg PO HS [facility] Stop: 01/08/20 20:59 PG Care Time/CCT Total # of Minutes Spent Total Time Spent with Patient: Total time spent is greater than 50% in coord ination of care (as documented) at patient's floor/unit and/or counseling patient: Coding Level of Care Code 16043 Initial Inpt Care Lvl 3 Diagnoses Chronic combined systolic and diastolic congestive heart failure I50.42 Paroxysmal atrial fibrillation I48.0 CAD (coronary artery disease) I25.10 S/P CABG (coronary artery bypass graft) Z95.1 S/P mitral valve repair Z98.890 Edema, peripheral R60.9 Anemia D64.9 Anemia type: unspecified type Dyslipidemia E78.5 Mitral regurgitation I34.0 (1) Anemia Anemia type: unspecified type Qualified Code(s): D64.9 - Anemia, unspecified
[2019-12-09] MEDS ORDERED: ATORVASTATIN 40 MG TAB PO SCH (21:00)
[2019-12-09] MEDS ORDERED: SIMVASTATIN 20 MG TAB PO SCH (21:00)
[2019-12-09] MEDS ORDERED: MELATONIN 3 MG TAB PO SCH (21:00)
[2019-12-09] MEDS: OLANZAPINE 2.5 MG TAB PO SCH (21:07)
--- NOTE | 2019-12-09 22:01 | Billing Data ---
Date of Service December 09, 2019 Coding Level of Care Code 45734 Initial Inpt Care Lvl 3
[2019-12-09 23:33] LABS: Hematocrit (blood only) 28.9 % (42-52); Hemoglobin 9.3 g/dL (14.0-18.0)
--- NOTE | 2019-12-10 05:59 | Electrocardiogram Report ---
Test Reason : Blood Pressure : / mmHG Vent. Rate : 063 BPM Atrial Rate : 063 BPM P-R Int : 158 ms QRS Dur : 126 ms QT Int : 456 ms P-R-T Axes : 082 049 062 degrees QTc Int : 466 ms Poor data quality, interpretation may be adversely affected Sinus rhythm with occasional Premature ventricular complexes Non-specific intra-ventricular conduction block Cannot rule out Anterior infarct , age undetermined Nonspecific ST abnormality Abnormal ECG No previous ECGs available Confirmed by Faheem Akhtar ([id number]) on 12/10/2019 5:59:25 AM Referred By: REFERRED SELF Confirmed By:Faheem Akhtar
[2019-12-10 06:33] LABS: BUN Creatinine Ratio 15.1 (10-20); Calcium 7.3 mg/dl (8.5-10.1); Est GFR (African American) 50.4; Est GFR (Non-African American) 43.5; Potassium 4.2 mmol/L (3.5-5.1)
[2019-12-10] MEDS ORDERED: AMIODARONE 200 MG TAB PO SCH (09:00)
[2019-12-10] MEDS: ASPIRIN 81 MG ECTAB PO SCH (09:07)
[2019-12-10] MEDS: APIXABAN 5 MG TABLET PO SCH (09:07)
[2019-12-10] MEDS: OXYBUTYNIN CHLORIDE XL 5 MG TABCR PO SCH (09:07)
[2019-12-10] MEDS: OXYCODONE HCL 20 MG TABCR (OXYCONTIN) PO SCH (09:07)
[2019-12-10] MEDS: PANTOprazole 40 MG TAB PO SCH (09:08)
--- NOTE | 2019-12-10 10:17 | Cardiology Progress Note ---
Date of Service December 10, 2019 Assessment & Plan (1) Chronic combined systolic and diastolic congestive heart failure: (2) Paroxysmal atrial fibrillation: (3) CAD (coronary artery disease): (4) S/P CABG (coronary artery bypass graft): (5) S/P mitral valve repair: (6) Edema, peripheral: (7) Anemia: (8) Dyslipidemia: (9) Mitral regurgitation: ASSESSMENT/PLAN: 1. Chronic combined systolic and diastolic CHF: It sounds as though he has had significantly reduced LV systolic function in the past. Currently, LV systolic function appears mildly reduced. He now appears euvolemic. I&Os were not completed as he had been discarded in his urine. Hold intravenous diuretic today. Would consider Lasix 20 mg p.o. once daily tomorrow if renal function improves. Monitor renal function and electrolytes closely. He had been on CATE- inhibitor and beta-bambi in the past but apparently had issues with hypotension while hospitalized at [facility] with urinary obstruction. Could potentially attempt to resume these meds in the future if able. Low- sodium diet. Daily weights. Strict I&Os. Heart failure program recommended. Discussed with Radha Terry of the Heart failure program. 2. Paroxysmal atrial fibrillation: Diagnosed October of 2019. On amiodarone as per [facility]. Continue amiodarone 200 mg twice daily. Monitor transaminase levels and TSH periodically. Currently in sinus rhythm. On anticoagulation for stroke risk reduction. Monitor for bleeding. 3. CAD s/p CABG x 3: No angina. Can continue aspirin if no contraindications. Beta-bambi has been discontinued in October of 2019 while hospitalized at [facility] with obstructive uropathy and acute kidney injury. Could potentially resume in the future. Continue statin therapy. 4. Mitral regurgitation: Despite mitral valve repair, appears to have moderate mitral regurgitation, which he states he was told following [facility]. Can monitor over time if appropriate. 5. Mitral valve repair via [facility]: No significant stenosis on echo. 6. Anemia: As per primary service. Received packed red blood cells during this admission. 7. Edema: Likely multifactorial from underlying heart failure but also with hypoalbuminemia. Now only has residual edema in his left lower extremity, which was the site of previous DVT. He appears euvolemic. 8. Bladder cancer: As per Oncology. 9. Dyslipidemia: To improve polypharmacy, Zetia and simvastatin has been discontinued in favor of atorvastatin. 10. Disposition: Chronically ill gentleman with multiple comorbidities. okay to discharge from a cardiac standpoint, but would monitor renal function closely to ensure no worsening. Lasix 20 mg p.o. once daily on discharge if renal function allows. Follow-up next week with heart failure program. Admission and Anticipated Discharge Date Admission Date: December 08, 2019 Subjective He feels much better today. He appears to have diuresed well as he described all the urine that he had made, but he dumped the urine in the toilet before was measured by nursing staff so I&Os are not accurate. He acknowledges that his edema has improved although he has had chronic left lower extremity edema following DVT, which remains unchanged. He denies chest pain, shortness of breath, syncope, near-syncope, palpitations. His energy level has improved. He wants to go home today. Review of systems: As above. Physical Exam Physical Exam: Gen.: No acute distress. Alert. HEENT: Anicteric sclera. Neck: No appreciable JVD. Cardiac: PMI was nonpalpable. No ventricular heave. Regular rate and rhythm. Normal S1-S2. 1/6 systolic murmur. No rubs, or gallops. Pulmonary: Decreased breath sounds, but otherwise clear to auscultation bilaterally without wheezes, rales, or rhonchi. Abdomen: Soft, nontender, nondistended, with normoactive bowel sounds. No bruits noted. Extremities: 2+ right radial pulse. 1+ left radial pulse. 2+ posterior tibialis pulses bilaterally. 1+ left lower extremity (prior DVT). No right lower extremity edema. No cyanosis. Psychiatric: Affect appears appropriate. Results & Data ([facility]) Vital Signs (Past 12 Hours) Vital Signs Temp Pulse Pulse Pulse Resp BP Pulse Ox 12/10/19 08:00 64 12/10/19 07:57 36.6 C 72 18 118/54 L 92 12/10/19 03:00 36.7 C 49 L 18 94/39 L 93 Intake & Output 12/08/19 12/09/19 12/10/19 12/11/19 06:59 06:59 06:59 06:59 Intake Total 805 / 805 1375 / 1375 Output Total 1480 / 1480 250 / 250 Balance -675 / -675 1125 / 1125 Weight 63 kg 61.9 kg Laboratory Results Laboratory Results - last 24 hr 12/09/19 12/09/19 12/09/19 11:38 11:38 11:38 WBC 11.98 H RBC 3.55 L Hgb 10.5 L Hct 31.6 L MCV 89.0 MCH 29.6 MCHC 33.2 RDW Std Deviation 47.1 H RDW Coeff of Qiana 15.0 H Plt Count 539 H MPV 10.0 Sodium 137 Potassium 4.3 Chloride 103 Carbon Dioxide 29 Anion Gap 5.0 BUN 21 H Creatinine 1.29 Est Cr Clr Drug Dosing 43.4 Est GFR ( Amer) 62.0 Est GFR (Non-Af Amer) 53.5 BUN/Creatinine Ratio 16.2 Glucose 99 Calcium 8.1 L Troponin I 0.022 12/09/19 12/09/19 12/10/19 18:09 23:19 05:38 WBC RBC Hgb 10.1 L 9.3 L Hct 30.6 L 28.9 L MCV MCH MCHC RDW Std Deviation RDW Coeff of Qiana Plt Count MPV Sodium 141 Potassium 4.2 Chloride 107 Carbon Dioxide 30 Anion Gap 4.0 BUN 23 H Creatinine 1.53 H Est Cr Clr Drug Dosing 36.0 Est GFR ( Amer) 50.4 Est GFR (Non-Af Amer) 43.5 BUN/Creatinine Ratio 15.1 Glucose 97 Calcium 7.3 L Troponin I Diagnostic Findings Telemetry personally reviewed: Sinus rhythm. No arrhythmia. Medications Administered Current Inpatient Medications Acetaminophen (Acetaminophen 325 Mg Tab) 650 mg PO Q4H PRN PRN Reason: Pain or Fever Stop: 01/07/20 21:58 Albuterol (Albuterol Hfa 8 Gm Inhaler) 2 puffs INH QID PRN PRN Reason: Shortness Of Breath Or Wheezin Stop: 01/07/20 21:58 Amiodarone HCl (Amiodarone 200 Mg Tab) 200 mg PO BIDM [facility] Stop: 01/09/20 08:59 Last Admin: 12/10/19 09:08 Dose: 200 mg Documented by: Apixaban (Apixaban 5 Mg Tablet) 5 mg PO BID [facility] Stop: 01/07/20 21:58 Last Admin: 12/10/19 09:07 Dose: 5 mg Documented by: Aspirin (Aspirin 81 Mg Ectab) 81 mg PO DAILY [facility] Stop: 01/08/20 08:59 Last Admin: 12/10/19 09:07 Dose: 81 mg Documented by: Atorvastatin Calcium (Atorvastatin 40 Mg Tab) 40 mg PO HS [facility] Stop: 01/08/20 20:59 Last Admin: 12/09/19 21:07 Dose: 40 mg Documented by: Bisacodyl (Bisacodyl 5 Mg Tabec) 5 mg PO DAILY PRN PRN Reason: Constipation Stop: 01/07/20 21:58 Epinephrine HCl (Epinephrine Inj 1 Mg/Ml Amp) 0.3 mg IM UD PRN PRN Reason: Allergic Reaction Stop: 01/07/20 22:34 Magnesium Hydroxide (Magnesium Hydroxide Susp 30 Ml Udc) 30 ml PO Q12H PRN PRN Reason: Constipation Stop: 01/07/20 21:58 Melatonin (Melatonin 3 Mg Tab) 6 mg PO HS [facility]; Protocol Stop: 01/08/20 20:59 Last Admin: 12/09/19 21:07 Dose: 6 mg Documented by: Olanzapine (Olanzapine 2.5 Mg Tab) 2.5 mg PO HS [facility] Stop: 01/07/20 21:58 Last Admin: 12/09/19 21:07 Dose: 2.5 mg Documented by: Ondansetron HCl (Ondansetron Inj 2 Mg/Ml 2 Ml Vial) 4 mg IV Q6H PRN PRN Reason: Nausea Stop: 01/07/20 21:58 Oxybutynin Chloride (Oxybutynin Chloride Xl 5 Mg Tabcr) 10 mg PO DAILY [facility] Stop: 01/08/20 08:59 Last Admin: 12/10/19 09:07 Dose: 10 mg Documented by: Oxycodone HCl (Oxycodone Hcl 20 Mg Tabcr (Oxycontin)) 20 mg PO BID [facility] Stop: 12/22/19 22:29 Last Admin: 12/10/19 09:07 Dose: 20 mg Documented by: Pantoprazole Sodium (Pantoprazole 40 Mg Tab) 40 mg PO DAILY [facility] Stop: 01/08/20 08:59 Last Admin: 12/10/19 09:08 Dose: 40 mg Documented by: Polyethylene Glycol (Polyethylene (Miralax) 17 Gm Pack) 17 gm PO DAILY PRN PRN Reason: Constipation Stop: 01/07/20 21:58 PG Care Time/CCT Total # of Minutes Spent Total Time Spent with Patient: Total time spent is greater than 50% in coord ination of care (as documented) at patient's floor/unit and/or counseling patient: Coding Level of Care Code 53754 Subseq Hosp Care Lvl 3 Diagnoses Chronic combined systolic and diastolic congestive heart failure I50.42 Paroxysmal atrial fibrillation I48.0 CAD (coronary artery disease) I25.10 S/P CABG (coronary artery bypass graft) Z95.1 S/P mitral valve repair Z98.890 Edema, peripheral R60.9 Anemia D64.9 Anemia type: unspecified type Dyslipidemia E78.5 Mitral regurgitation I34.0 (1) Anemia Anemia type: unspecified type Qualified Code(s): D64.9 - Anemia, unspecified
[2019-12-10 12:05] LABS: Hematocrit (blood only) 30.9 % (42-52); Hemoglobin 9.4 g/dL (14.0-18.0); Mean Corpuscular Hemoglobin 27.5 pg (25-34); Mean Corpuscular Hgb Conc 30.4 g/dL (32-36); Mean Corpuscular Volume 90.4 fL (80-100); Mean Platelet Volume 10.4 fL (7.4-10.4); Platelet Count 584 K/uL (130-400); RDW Coefficient of Variation 15.4 % (11.5-14.5); Red Blood Count 3.42 M/uL (4.7-6.1); White Blood Count 9.34 K/uL (4.8-10.8)
--- NOTE | 2019-12-10 14:01 | History & Physical Report ---
Date of Service December 10, 2019 Assessment & Plan (1) Anemia: Chadwick Ortega is a very pleasant 74 year old man with PMH significant for CHF COPD, and recently diagnosed bladder cancer here for lower limb swelling found to have marked edema. Anemia Hemoglobin of 6.9 in ED Hemoglobin improved after transfusion. will continue to monitor. No history of melena or hemamtochezia on history minimal hemoccult positivity on , CT abdomen negative for retroperitoneal bleed, no other signs of acute bleeding in history Very possibly secondary to chemotherapy, though white count and platelets elevated, possible secondary to unknown GI losses or hematuria, though none actively anemia of chronic disease possible, We do not know his baseline hemoglobin as we have no records Will need to request records in the am Due to increased risk of both arterial and venous thromboembolism I will continue patient's home eliquis and check h and h closely. Updated daughter Bladder Cancer Patient with metastatic bladder cancer, status post 1 round of chemotherapy, Nephrostomy tubes in place draining clear non bloody urine Due for replacement of nephrostomy tubes in two weeks Second round of chemotherapy next week Will need to get records from [facility] and [facility] Leg swelling Likely secondary to high output heart failure from anemia, hypoalbuminemia likely secondary to Patient tells me he has a history of CHF and a history of mitral valve repair no history of heart attack Lasix 20 mg IV bid Echo ordered for am b/l swelling, Calves non tender, on eliquis will defer doppler u/s at this time COPD Former smoker for many years 35+ pack year smoking history Stable on room air at present Atrial Fibrillation Recently diagnosed and hospitalized at [facility] in [place] On Amiodarone and eliquis will continue Simvastatin and amiodarone have interaction at increased doses will decrease simvastatin to 20 mg Hypomagnesemia Replaced 1 gram MGSO4 IV DVT PPx: Eliquis F/E/N: Heart healthy diet Dispo: PCU for transfusion and further workup DNR/DNI (2) Edema, peripheral: (3) COPD (chronic obstructive pulmonary disease): (4) CHF (congestive heart failure): (5) Bladder cancer: (6) Atrial fibrillation: Admission and Anticipated Discharge Date Admission Date: December 08, 2019 History of Present Illness Primary Care Provider: Lakisha Carson PA-C Allergies Allergy/AdvReac Type Severity Reaction Status Date / Time No Known Allergies Allergy Unverified 12/08/19 20:14 Home Medications Home Medications Medication Instructions Recorded Confirmed Type albuterol sulfate 2 puff INHALATION QID PRN 12/08/19 12/08/19 History amiodarone 400 mg PO BID 12/08/19 12/08/19 History apixaban [Eliquis] 5 mg PO BID 12/08/19 12/08/19 History aspirin [Aspir-81] 81 mg PO DAILY 12/08/19 12/08/19 History bisacodyl 5 mg PO DAILY PRN 12/08/19 12/08/19 History epinephrine [EpiPen] 0.3 mg IM UD PRN 12/08/19 12/08/19 History melatonin 5 mg PO HS 12/08/19 12/08/19 History olanzapine 2.5 mg PO HS 12/08/19 12/08/19 History oxybutynin chloride 10 mg PO DAILY 12/08/19 12/08/19 History oxycodone [OxyContin] 20 mg PO Q12 12/08/19 12/08/19 History pantoprazole [Protonix] 40 mg PO DAILY 12/08/19 12/08/19 History polyethylene glycol 3350 [Miralax] 17 g PO DAILY PRN 12/08/19 12/08/19 History amiodarone 200 mg PO BIDM #30 tab 12/10/19 Rx atorvastatin 40 mg PO HS #30 tab 12/10/19 Rx furosemide [Lasix] 20 mg PO DAILY #30 tab 12/10/19 Rx Past Med/Surg History Medical History (Updated 12/09/19 @ 19:19 by Faheem Akhtar MD) Bladder cancer CAD (coronary artery disease) Chronic combined systolic and diastolic congestive heart failure COPD (chronic obstructive pulmonary disease) Dyslipidemia Hypoalbuminemia Mitral regurgitation Paroxysmal atrial fibrillation Surgical History (Updated 12/09/19 @ 19:17 by Faheem Akhtar MD) History of CEA (carotid endarterectomy) History of left hip replacement Hx of appendectomy Hx of CABG S/P CABG (coronary artery bypass graft) S/P mitral valve repair Social History Smoking Status: Unknown if ever smoked Hx Alcohol Use: No Hx Substance Use: No Preferred Language: Hebrew Communication Ability: Effective Berry Picker Required: No Beliefs That Will Affect Care: None Feels Safe at Home: Yes Results & Data Results & Data ([facility]) Vital Signs (Past 12 Hours) Vital Signs Temp Pulse Pulse Pulse Resp BP BP 12/10/19 11:32 37.1 C 77 18 143/55 H 12/10/19 08:00 64 12/10/19 07:57 36.6 C 72 18 118/54 L 12/10/19 03:00 36.7 C 49 L 18 94/39 L Pulse Ox 12/10/19 11:32 94 12/10/19 08:00 12/10/19 07:57 92 12/10/19 03:00 93 Code Status & VTE Plan VTE Prophylaxis Plan VTE Prophylaxis will be ordered: Yes PG Care Time/CCT Total # of Minutes Spent Total Time Spent with Patient: Total time spent is greater than 50% in coordination of care (as documented) at patient's floor/unit and/or counseling patient: Coding Diagnoses Anemia D64.9 Anemia type: unspecified type Edema, peripheral R60.9 COPD (chronic obstructive pulmonary disease) J44.9 CHF (congestive heart failure) I50.9 Bladder cancer C67.9 Atrial fibrillation I48.91 (1) Anemia Anemia type: unspecified type Qualified Code(s): D64.9 - Anemia, unspecified
--- NOTE | 2019-12-10 14:08 | Hospitalist Progress Note ---
Date of Service December 09, 2019 Assessment & Plan (1) Anemia: Chadwick Ortega is a very pleasant 74 year old man with PMH significant for CHF COPD, and recently diagnosed bladder cancer here for lower limb swelling found to have marked edema. Anemia Hemoglobin of 6.9 in ED Hemoglobin improved after transfusion. will continue to monitor. No history of melena or hemamtochezia on history minimal hemoccult positivity on , CT abdomen negative for retroperitoneal bleed, no other signs of acute bleeding in history Very possibly secondary to chemotherapy, though white count and platelets elevated, possible secondary to unknown GI losses or hematuria, though none actively anemia of chronic disease possible, We do not know his baseline hemoglobin as we have no records Will need to request records in the am Due to increased risk of both arterial and venous thromboembolism I will continue patient's home eliquis and check h and h closely. Updated daughter Bladder Cancer Patient with metastatic bladder cancer, status post 1 round of chemotherapy, Nephrostomy tubes in place draining clear non bloody urine Due for replacement of nephrostomy tubes in two weeks Second round of chemotherapy next week Will need to get records from [facility] and [facility] Leg swelling Likely secondary to high output heart failure from anemia, hypoalbuminemia likely secondary to Patient tells me he has a history of CHF and a history of mitral valve repair no history of heart attack Lasix 20 mg IV bid Echo ordered for am b/l swelling, Calves non tender, on eliquis will defer doppler u/s at this time COPD Former smoker for many years 35+ pack year smoking history Stable on room air at present Atrial Fibrillation Recently diagnosed and hospitalized at [facility] in [place] On Amiodarone and eliquis will continue Simvastatin and amiodarone have interaction at increased doses will decrease simvastatin to 20 mg Hypomagnesemia Replaced 1 gram MGSO4 IV DVT PPx: Eliquis F/E/N: Heart healthy diet Dispo: PCU for transfusion and further workup DNR/DNI (2) Edema, peripheral: (3) COPD (chronic obstructive pulmonary disease): (4) CHF (congestive heart failure): (5) Bladder cancer: (6) Atrial fibrillation: Admission and Anticipated Discharge Date Admission Date: December 08, 2019 Subjective 74 yo male reports feeling much better. He has no new complaints. Review of Systems Review of Systems: All systems reviewed & are unremarkable except as noted in HPI & below Physical Exam Physical Exam: Constitutional: + well hydrated and + cachectic; no acute distress, not ill appearing and no altered mental status Eyes: PERRL, conjunctivae normal, anicteric sclerae ENMT: external ear and nose normal, oropharynx normal Respiratory: normal respiratory effort, lungs clear to auscultation no respiratory distress Cardiovascular: Rate/Rhythm: regular rate and regular rhythm Heart Sounds: + murmur (diastolic light murmur best appreciated at PMI) Gastrointestinal (Abdomen): normal bowel sounds, soft, nontender, no hep atosplenomegaly Skin: no rashes, warm and dry Genitourinary: Nephrostomy tubes in place, clear urine draining no blood. Results & Data Results & Data ([facility]) Vital Signs (Past 12 Hours) Vital Signs Temp Pulse Pulse Pulse Resp BP BP 12/10/19 14:00 37.1 C 72 77 18 143/55 H 118/54 L 12/10/19 11:32 37.1 C 77 18 143/55 H 12/10/19 08:00 64 12/10/19 07:57 36.6 C 72 18 118/54 L 12/10/19 03:00 36.7 C 49 L 18 94/39 L Pulse Ox 12/10/19 14:00 94 12/10/19 11:32 94 12/10/19 08:00 12/10/19 07:57 92 12/10/19 03:00 93 PG Care Time/CCT Total # of Minutes Spent Total Time Spent with Patient: Total time spent is greater than 50% in coordination of care (as documented) at patient's floor/unit and/or counseling patient: Coding Level of Care Code 71798 Subseq Hosp Care Lvl 3 Diagnoses Anemia D64.9 Anemia type: unspecified type Edema, peripheral R60.9 COPD (chronic obstructive pulmonary disease) J44.9 CHF (congestive heart failure) I50.9 Bladder cancer C67.9 Atrial fibrillation I48.91 Time Spent (min) 35 (1) Anemia Anemia type: unspecified type Qualified Code(s): D64.9 - Anemia, unspecified
--- NOTE | 2019-12-10 15:44 | Heart Failure Progress Note ---
Date of Service December 10, 2019 Assessment & Plan (1) Chronic combined systolic and diastolic congestive heart failure: (2) Paroxysmal atrial fibrillation: (3) CAD (coronary artery disease): (4) Edema, peripheral: (5) S/P mitral valve repair: Patient was evaluated at the bedside today. We discussed the nature of heart failure and the goals of the program. He is agreeable to participation. He currently lives with his daughter in [place] and she transports him to appointments. Recommend Lasix 20 mg daily on discharge. Follow up labs next week. Initial heart failure appointment scheduled for 12/16/19. Recommend daily standing weights. He was advised to document weights and bring them to his appointment. Low sodium diet, less than 2,000 mg daily. Discussed reasons to notify the heart failure program. Disposition: Planning for discharge today. He has home services through [facility]. Follow up 12/15 with the heart failure program, labs prior. Admission and Anticipated Discharge Date Admission Date: December 08, 2019 Subjective Mr. Ortega is a pleasant 74-year-old gentleman with history significant for CAD s/p CABG x 3, mitral valve repair, mitral regurgitation, bladder cancer, paroxysmal atrial fibrillation (diagnosed October 2019), CKD, combined systolic and diastolic CHF, dyslipidemia, hypoalbuminemia, and COPD. He also has a history of left lower extremity DVT in 2016. He's currently admitted for anemia. He presented with lower extremity edema and the daughter was concerned for CHF. Patient has recently undergone multiple procedures and diuretics have been held on multiple occasions. He had 9 lb weight gain. According to the ED notes he did not examine hypervolemic on admission. Echocardiogram demonstrates mildly reduced systolic function, EF 45%. He is feeling improved today and is awaiting discharge. He denies shortness of breath. He continues to have lower extremity edema, left side only. He was slightly azotemic on labs today so diuretics were held. I&Os inaccurate. Results & Data ([facility]) Vital Signs (Past 12 Hours) Vital Signs Temp Pulse Pulse Pulse Resp BP BP 12/10/19 14:00 98.8 F 72 77 18 143/55 H 118/54 L 12/10/19 11:32 98.8 F 77 18 143/55 H 12/10/19 08:00 64 12/10/19 07:57 97.9 F 72 18 118/54 L Pulse Ox 12/10/19 14:00 94 12/10/19 11:32 94 12/10/19 08:00 12/10/19 07:57 92 PG Care Time/CCT Total # of Minutes Spent Total Time Spent with Patient: Total time spent is greater than 50% in coordination of care (as documented) at patient's floor/unit and/or counseling patient: Coding Level of Care Code None Diagnoses Chronic combined systolic and diastolic congestive heart failure I50.42 Paroxysmal atrial fibrillation I48.0 CAD (coronary artery disease) I25.10 Edema, peripheral R60.9 S/P mitral valve repair Z98.890
--- NOTE | 2019-12-16 08:00 | Discharge Summary ---
Date of Service December 09, 2019 Principal Diagnosis Anemia Discharge Exam Constitutional: + well hydrated and + cachectic; no acute distress, not ill appearing and no altered mental status Eyes: PERRL, conjunctivae normal, anicteric sclerae ENMT: external ear and nose normal, oropharynx normal Respiratory: normal respiratory effort, lungs clear to auscultation no respiratory distress Cardiovascular: Rate/Rhythm: regular rate and regular rhythm Heart Sounds: + murmur (diastolic light murmur best appreciated at PMI) Gastrointestinal (Abdomen): normal bowel sounds, soft, nontender, no hepatosplenomegaly Skin: no rashes, warm and dry Genitourinary: Nephrostomy tubes in place, clear urine draining no blood. Discharge Data Allergies Allergy/AdvReac Type Severity Reaction Status Date / Time No Known Allergies Allergy Verified 12/14/19 11:06 Consultations 12/08/19 18:54 ED Decision to Admit Stat 12/09/19 09:33 Consult Health Information Management Routine 12/09/19 14:01 Consult Cardiology Routine Ordered Studies 12/08/19 17:30 CT abd pelvis wo con Stat CT soft tissue neck wo con Stat Hospital Course (1) CHF (congestive heart failure): (2) COPD (chronic obstructive pulmonary disease): (3) Edema, peripheral: (4) Anemia: Chadwick Ortega is a very pleasant 74 year old man with PMH significant for CHF COPD, and recently diagnosed bladder cancer here for lower limb swelling found to have marked edema. Anemia Hemoglobin of 6.9 in ED Hemoglobin improved after transfusion. No history of melena or hemamtochezia on history minimal hemoccult positivity on , CT abdomen negative for retroperitoneal bleed, no other signs of acute bleeding in history Very possibly secondary to chemotherapy, though white count and platelets elevated, possible secondary to unknown GI losses or hematuria, though none actively anemia of chronic disease possible, Had discussed hemoglobin with daughter, it appears it has dropped in the past couple of weeks. Will recommend to continue to monitor her level. Due to increased risk of both arterial and venous thromboembolism I will continue patient's home eliquis and check h and h as an outpatient. Bladder Cancer Patient with metastatic bladder cancer, status post 1 round of chemotherapy, Nephrostomy tubes in place draining clear non bloody urine Due for replacement of nephrostomy tubes in two weeks Second round of chemotherapy next week Will need to get records from [facility] and [facility] Leg swelling Likely secondary to high output heart failure from anemia, hypoalbuminemia likely secondary to Patient tells me he has a history of CHF and a history of mitral valve repair no history of heart attack Lasix 20 mg IV bid Echo ordered for am bilateral lef swelling has improved, Calves non tender, on eliquis COPD Former smoker for many years 35+ pack year smoking history Stable on room air at present Atrial Fibrillation Recently diagnosed and hospitalized at [facility] in [place] On Amiodarone and eliquis will continue Simvastatin and amiodarone have interaction at increased doses will decrease simvastatin to 20 mg CHF Patient was evaluated at the bedside today. We discussed the nature of heart failure and the goals of the program. He is agreeable to participation. He currently lives with his daughter in [place] and she transports him to appointments. Recommend Lasix 20 mg daily on discharge. Follow up labs next week. Initial heart failure appointment scheduled for 12/16/19. Recommend daily standing weights. He was advised to document weights and bring them to his ap pointment. Low sodium diet, less than 2,000 mg daily. Discussed reasons to notify the heart failure program. Hypomagnesemia Replaced 1 gram MGSO4 IV DVT PPx: Eliquis F/E/N: Heart healthy diet Dispo: PCU for transfusion and further workup DNR/DNI (5) Bladder cancer: Total Time Total Time Spent Total Time Spent (In Minutes): 32 Total Time Includes: Examination of the Patient, Discharge Planning and Medication Reconciliation Discharge Plan Discharge Items Patient Disposition: Home - Home Health Services Reason For Visit: AMENIA, LOWER EXTREMITY ANEMIA Discharge Diagnosis: Anemia Condition on Discharge: Good Activity: Resume your previous activity Non-emergency contact: Primary Care Provider Call non-emergency contact if: you have any medication questions Follow-up/Referrals: Radha Terry PA-C [Physician Slurry Worker] - 12/16/19 2:00 am (Congestive Heart Failure Program Appointment Information Early follow up is essential to managing your heart failure. An appointment has been scheduled for you with the [facility] Heart Failure Program within 7 days of discharge. Anticipate this visit to be 30-60 minutes long. Please expect a aircraft instrument tester phone call from one of our nurses approximately 48 hours from discharge. They will also be placing an order for lab work to be completed 1-2 days prior to your heart failure follow up appointment. Please be sure to have this done so we can go over the results when you come in. Office Location The cardiology office building is located in front of the hospital at [address] Bring the following with you to your follow-up doctor appointments: Please bring your daily weight log any discharge paperwork all of your medication bottles with you to this visit. ) Lakisha Carson PA-C [Primary Care Provider] - Diet: Heart Healthy Corey Attending Provider Instructions: You have been hospitalized for an acute medical problem. During your stay at [facility], we have made an effort to correct the problem that brought you to the hospital while keeping you as comfortable as possible. Medications were used to bring your condition under control and your discharge instructions will include directions for any medications you should take after leaving the hospital. Please make sure you see your Primary Care Provider as part of your follow up plan. Junie Violin Mechanic Provider Instructions: Call your Primary Care doctor if any of the following symptoms or problems start or get worse: * Shortness of breath or difficulty breathing * Wake up at night short of breath * Chest pain * Cough * Swelling of your hands, feet, or legs * More fatigued or tired with your normal activity * Palpitations - sudden fast heart beats WEIGHT * Weigh yourself every morning after using the bathroom. * Use the same scale. * Wear the same amount of clothing. * Write your weight down on a chart. * Call your Primary Care doctor if you gain more than 2-3 pounds in 1-2 days. MEDICATIONS * Use this discharge instruction sheet for medication instructions. * Take your medications at the time your doctor ordered. * Do not skip a dose of your medicines. * If you miss a dose of medicine, take it as soon as possible, but DO NOT DOUBLE A DOSE. * Read your medicine information when you get home. * Know all of the side effects of your medicine. If in doubt, ask your pharmacist * Call your Primary Care doctor's office if you have any side effects. * Be sure all of your doctors know what medicine and herbs you take (including cold, flu, and herbal medicine). Take the following with you to your follow-up doctor appointments: * Weight Chart * Medication List * List of questions Do not drink excessive alcohol, beer or wine. Pending Studies at Discharge: No Stand-Alone Forms: My [facility], Smoking Cessation Medications and DC Order Prescriptions: New amiodarone 200 mg tablet 200 mg PO BID Qty: 60 RF: 0 atorvastatin 40 mg tablet 40 mg PO PM Qty: 30 RF: 0 Continued polyethylene glycol 3350 [Miralax] 17 gram Powder In Packet 17 g PO DAILY PRN (Reason: Constipation) RF: 0 oxybutynin chloride 10 mg Tablet Extended Release 24hr 10 mg PO QAM RF: 0 olanzapine 2.5 mg Tablet 2.5 mg PO HS RF: 0 aspirin [Aspir-81] 81 mg Tablet,Delayed Release (Dr/Ec) 81 mg PO QAM RF: 0 pantoprazole [Protonix] 40 mg Tablet,Delayed Release (Dr/Ec) 40 mg PO QAM RF: 0 bisacodyl 5 mg Tablet,Delayed Release (Dr/Ec) 5 mg PO DAILY PRN (Reason: Constipation) RF: 0 epinephrine [EpiPen] 0.3 mg/0.3 mL Auto-Injector 0.3 mg IM UD PRN (Reason: Allergic Reaction) RF: 0 melatonin 5 mg Tablet 5 mg PO HS RF: 0 Eliquis 5 mg Tablet 5 mg PO BID RF: 0 albuterol sulfate 90 mcg/actuation Hfa Aerosol Inhaler 2 puff INHALATION QID PRN (Reason: Shortness Of Breath Or Wheezing) RF: 0 Discontinued simvastatin 40 mg Tablet 40 mg PO HS RF: 0 ezetimibe [Zetia] 10 mg Tablet 10 mg PO DAILY RF: 0 No Action furosemide [Lasix] 20 mg tablet 20 mg PO BID RF: 0 oxycodone 20 mg Tablet 20 mg PO BID RF: 0 oxycodone-acetaminophen [Percocet] 5-325 mg tablet 1 tab PO Q6H PRN (Reason: pain) Qty: 10 RF: 0 Discharge Orders: Discharge Order (Routine); Ordered 12/10/19 Ordered By: Keron Carter Admission Data Admit Date/Time: 12/08/19 20:43 Attending Provider: Keron Carter Admit Provider: Baudilio Tsai Primary Care Provider: Lakisha Carson Other Providers: Easton Purvis ; [facility],Home Healthcare ; Merrill Bower Other Interventions: Discharge Summary Assessment (RN) Last Done: 12/10/19 14:00 Coding Level of Care Code D/C Day Management >30 mins Diagnoses CHF (congestive heart failure) I50.9 COPD (chronic obstructive pulmonary disease) J44.9 Edema, peripheral R60.9 Anemia D64.9 Anemia type: unspecified type Bladder cancer C67.9 Time Spent (min) 32
== END 2019-12-10 15:52 | disposition home health service (06) | DRG 812 ==
LOC: ED 16:08 → 2S 20:43 → SUATTDRO 20:43 → 2S 21:37

== ENCOUNTER 2019-12-28 17:56 | Inpatient (IN) ==
[2019-12-28] MEDS ORDERED: SODIUM CHLORIDE 0.9% 1000ML 1,000 ML IV SCH (18:15)
--- NOTE | 2019-12-28 19:03 | Emergency Department Note ---
Impression & Plan Nausea & vomiting, Abdominal pain, lower, Malignant neoplasm metastatic from bladder, Cough ED Provider Note INFORMANT: Patient family ED PROVIDER(S): Clemente Nieves MD CHIEF COMPLAINT: Dehydration PLAN: Disposition: Admitted Condition: Good MEDICAL DECISION MAKING: Patient presented with complaints of dehydration. Chemistry panel revealed dehydration and mild hyperglycemia. CBC was very concerning for profound leukopenia and moderate anemia. Chest x-ray was negative for pneumonia. Cover testing negative. CT imaging of the abdomen pelvis reveals no evidence of obstruction. ECG did not reveal acute findings. The patient was hydrated. He was feeling somewhat better. Given the situation further management in the hospital was felt to be appropriate. The patient had a consultation placed with internal medicine. Patient was evaluated by the [facility] service for further management. Patient has not provided a urine sample at the time of this dictation. Triage Nursing notes reviewed and agree them. Additional history obtained from family Prior medical records reviewed prior labs reviewed and revealed the patient does have baseline anemia. Vital Signs: reviewed and remarkable for no significant abnormalities Differential diagnosis: Etiologies such as complication of chemotherapy, obstruction, pneumonia, COPD, gastroenteritis, food borne illness, infections, appendicitis, diverticulitis, inflammatory bowel disease, GI bleed, biliary pathology, as well as others were entertained. Diagnostics interpreted by me: ECG: Twelve-lead ECG reveals a normal sinus rhythm at 63 bpm. There is a nonspecific intraventricular conduction block present. Nonspecific ST. No elevation. No PVCs. Cardiac Monitoring: Cardiac monitoring ordered by me: The patient was placed on continuous cardiac monitoring and observed. It revealed a normal sinus rhythm at 68 beats per minute without ectopy or evidence of dysrhythmia. Imaging studies: Chest x-ray. Findings: A chest x-ray was performed and revealed no pneumothorax, effusion, infiltrate, pulmonary edema, free air under the diaphragm, or wide mediastinum. Impression: No acute disease. CT scan of the abdomen pelvis reveals no evidence of bowel obstruction. There is abnormality of the urinary bladder. Radiology recommended correlation with urinalysis. Urinalysis is pending at this time. Consultation(s): [facility] service HPI: The patient is a 74 year old male who presents to the Emergency Room with complaints of dehydration. This started 4 days ago and is persisting. The patient also notes the following associated symptoms, runny nose, sore throat, nausea, vomiting, lower abdominal pain, cough productive of yellow sputum. The patient is actively receiving chemotherapy for metastatic bladder cancer. Family states due to the multiple areas of metastasis the patient was told he is a high risk for bowel obstruction. The patient has found no relieving factors. Current pain is rated as 4/10. Patient has nephrostomy tubes. Pt denies LOC, headache, fevers, chills, diaphoresis, visual changes, neck pain, chest pain, breathing difficulties, back pain, melena, hematochezia, numbness, weakness, lymphadenopathy, rash, or other complaints. ROS: See above HPI for pertinent positives & negatives. A total of 10 systems reviewed and were otherwise negative. PAST MEDICAL HISTORY:See Below metastatic bladder cancer, anemia PAST SURGICAL HISTORY:See Below, nephrostomy tube, Mediport FAMILY HISTORY:See Below SOCIAL HISTORY:See Below lives with family HOME MEDICATIONS:See Below ALLERGIES:See Below VITALS:See Below PHYSICAL EXAMINATION: GENERAL: Awake, alert, tired-appearing, in no distress HENT: Normocephalic, atraumatic. Oropharynx unremarkable. EYES: Normal conjunctiva. Sclera non-icteric. NECK: Inspection normal. Non-tender. Supple. No nuchal rigidity. FROM. No masses. RESPIRATORY: Clear to auscultation. No wheezes. No rales. Normal respiratory effort. CARDIAC: Normal rate. Normal rhythm. No murmurs. No rubs. Extremities warm and well perfused. Pulses equal. No JVD. GI: Soft, non-distended. Left lower quadrant tenderness to palpation. No rebound or guarding. No masses. RECTAL: Deferred. MUSCULOSKELETAL: Atraumatic. Chest examination reveals no tenderness. Mediport in the right upper chest. The back is symmetrical on inspection without obvious abnormality. There is no CVA tenderness to palpation. No joint edema. LOWER EXTREMITIES: Calves are equal size bilaterally and non-tender. No edema. No discoloration. NEURO: Normal sensorium. No sensory or motor deficits noted. SKIN: No rash or jaundice noted. ED COURSE: Critical Care: None Clemente Nieves MD Past Med/Surg History Medical History (Updated 12/28/19 @ 19:01 by Clemente Nieves MD) Abdominal aortic aneurysm S/p previous stent placement; per 12/08/19 CT scan - "Fusiform aneurysm dilation of the abdominal aorta with aortobiiliac stent graft. Aneurysm measures up to approximately 4.1 x 4.8 cm. Femoral-femoral bypass graft. Anemia Hgb 6.9 on 12/08/19- did get packed RBCs when admitted to [facility] Bladder cancer DX 6 WEEKS AGO > HAS HAD 1ST ROUND CHEMO CAD (coronary artery disease) S/p CABG 3 vessel 2012 or 2013 Chronic combined systolic and diastolic congestive heart failure Will be following with [facility] COPD (chronic obstructive pulmonary disease) WELL CONTROLLED PER PT DVT (deep venous thrombosis) left leg > 2015 > unknown cause Dyslipidemia Edema, peripheral JUST DC FROM [facility] FOR THIS PER PT 12/08/19 Hard of hearing Hypoalbuminemia Mitral regurgitation S/p MV repair Paroxysmal atrial fibrillation DX OCTOBER 2019 > NO CARDIOVERSIONS Poor historian Surgical History History of cardiac cath 5 yrs ago> no known cardiac stents History of CEA (carotid endarterectomy) 6 YRS AGO- NO MENTION OF CEA PER RECORDS- NO RECENT CAROTID IMAGING ON FILE EITHER History of endovascular stent graft for abdominal aortic aneurysm History of left hip replacement History of pelvic surgery Fractured pelvis repair History of tooth extraction Hx of appendectomy Hx of CABG 7 YRS AGO > [place] > TRIPLE BYPASS> FOLLOWS DR. COOK IN [place] S/P mitral valve repair 2018 per records > [facility] Family History Father Colon cancer Social History Smoking Status: Former smoker Second Hand Exposure: Yes; Hx Alcohol Use: No Hx Substance Use: No Preferred Language: Slovenian Communication Ability: Effective Regional Trainer Required: No Beliefs That Will Affect Care: None Current Living Situation: Family Feels Safe at Home: Yes Allergies Allergies Allergy/AdvReac Type Severity Reaction Status Date / Time No Known Allergies Allergy Verified 12/28/19 23:37 Home Meds Home Medications Medication Instructions Recorded Confirmed Eliquis 5 mg PO BID 12/08/19 12/28/19 albuterol sulfate 2 puff INHALATION QID PRN 12/08/19 12/28/19 aspirin [Aspir-81] 81 mg PO QAM 12/08/19 12/28/19 melatonin 5 mg PO HS 12/08/19 12/28/19 olanzapine 2.5 mg PO HS 12/08/19 12/28/19 oxybutynin chloride 10 mg PO QAM 12/08/19 12/28/19 pantoprazole [Protonix] 40 mg PO QAM 12/08/19 12/28/19 furosemide [Lasix] 20 mg PO BID 12/13/19 12/28/19 oxycodone 20 mg PO BID 12/13/19 12/28/19 Previous Rx's Medication Instructions Recorded amiodarone 200 mg PO BID #60 tab 12/10/19 atorvastatin 40 mg PO PM #30 tab 12/10/19 oxycodone-acetaminophen [Percocet] 1 tab PO Q6H PRN #10 tab 12/14/19 Results & Data (ED) Vital Signs Vital Signs - 24 hr 12/28/19 18:03 12/28/19 18:38 12/28/19 18:40 Temperature 37.1 C Temperature Source Oral Pulse Rate 66 59 L Pulse Rate [Right Finger] Pulse Rate from SpO2 Sensor 59 L Pulse Rhythm Regular Pulse Strength Normal Respiratory Rate 18 15 Respiratory Effort / Characteristics Non-Labored Spontaneous Respiratory Depth Normal Respiratory Pattern Regular Blood Pressure 111/57 L Blood Pressure [Right Arm] Blood Pressure Mean 75 Blood Pressure Mean [Right Arm] Blood Pressure Position Sitting Blood Pressure Position [Right Arm] Pulse Oximetry 99 95 98 Oxygen Delivery Method Room Air Room Air Sepsis Recent Fever Within 48 Hours No Sepsis New/Unexplained Change in Mental Status No Sepsis Action Taken by Nursing No Action Required 12/28/19 18:43 12/28/19 18:45 12/28/19 18:56 Temperature Temperature Source Pulse Rate 60 59 L 58 L Pulse Rate [Right Finger] Pulse Rate from SpO2 Sensor 59 L 59 L 59 L Pulse Rhythm Pulse Strength Respiratory Rate 16 Respiratory Effort / Characteristics Respiratory Depth Respiratory Pattern Blood Pressure 136/52 L 156/54 H Blood Pressure [Right Arm] Blood Pressure Mean 65 89 Blood Pressure Mean [Right Arm] Blood Pressure Position Blood Pressure Position [Right Arm] Pulse Oximetry 95 95 96 Oxygen Delivery Method Sepsis Recent Fever Within 48 Hours Sepsis New/Unexplained Change in Mental Status Sepsis Action Taken by Nursing 12/28/19 19:00 12/28/19 19:01 12/28/19 21:26 Temperature Temperature Source Pulse Rate 57 L 55 L Pulse Rate [Right Finger] 57 L Pulse Rate from SpO2 Sensor 57 L 56 L Pulse Rhythm Pulse Strength Respiratory Rate 16 12 16 Respiratory Effort / Characteristics Respiratory Depth Normal Respiratory Pattern Blood Pressure 156/51 H Blood Pressure [Right Arm] 130/50 L Blood Pressure Mean 88 Blood Pressure Mean [Right Arm] 76 Blood Pressure Position Blood Pressure Position [Right Arm] Lying Pulse Oximetry 94 94 Oxygen Delivery Method Sepsis Recent Fever Within 48 Hours Sepsis New/Unexplained Change in Mental Status Sepsis Action Taken by Nursing Laboratory Data Result diagrams: 12/28/19 18:40 12/28/19 18:40 Lab Results 12/28/19 12/28/19 12/28/19 Range/Units 18:40 18:40 18:40 WBC 0.44 L* (4.8-10.8) K/uL RBC 3.09 L (4.7-6.1) M/uL Hgb 8.8 L (14.0-18.0) g/dL Hct 27.7 L (42-52) % MCV 89.6 (80-100) fL MCH 28.5 (25-34) pg MCHC 31.8 L (32-36) g/dL RDW Std Deviation 50.9 H (36.4-46.3) fL RDW Coeff of Qiana 15.7 H (11.5-14.5) % Plt Count 106 L (130-400) K/uL MPV 11.2 H (7.4-10.4) fL Immature Gran % (Auto) Cancelled Neut % (Auto) Cancelled Lymph % (Auto) Cancelled [place] % (Auto) Cancelled Eos % (Auto) Cancelled Baso % (Auto) Cancelled Neut # (Auto) Cancelled Lymph # (Auto) Cancelled [place] # (Auto) Cancelled Eos # (Auto) Cancelled Baso # (Auto) Cancelled Immature Gran # (Auto) Cancelled Neutrophils % (Manual) Cancelled Band Neutrophils % Cancelled Lymphocytes % (Manual) Cancelled Prolymphocyte % Cancelled Reactive Lymphs % (Man) Cancelled Monocytes % (Manual) Cancelled Eosinophils % (Manual) Cancelled Basophils % (Manual) Cancelled Metamyelocytes % (Man) Cancelled Myelocytes % (Man) Cancelled Promyelocytes % (Man) Cancelled Blast Cells % (Manual) Cancelled Plasma Cell % (Manual) Cancelled Other Cells % Cancelled Nucleated RBC % Cancelled Neutrophils # (Manual) Cancelled Band Neutrophils # Cancelled Total Absolute Neuts Cancelled Lymphocytes # (Manual) Cancelled Prolymphocyte # Cancelled Reactive Lymphs # Cancelled Total Abs Lymphocytes Cancelled Monocytes # (Manual) Cancelled Eosinophils # (Manual) Cancelled Basophils # (Manual) Cancelled Metamyelocytes # (Man) Cancelled Myelocytes # (Manual) Cancelled Promyelocytes # (Man) Cancelled Blast Cells # (Man) Cancelled Plasma Cell # (Manual) Cancelled Other Cells # Cancelled Nucleated RBCs # (Man) Cancelled Hypersegmented Neuts Cancelled Hyposegmented Neuts Cancelled Hypogranular Neuts Cancelled Large Granular Lymphs Cancelled # Lrg Granular Lymphs Cancelled Hairy Cells Cancelled Smudge Cells Cancelled Toxic Granulation Cancelled Toxic Vacuolation Cancelled Dohle Bodies Cancelled Elda Rods Cancelled Hypogranular Platelets Cancelled Clumped Platelets Cancelled Giant Platelets Cancelled Platelet Satelliting Cancelled RBC Morphology Cancelled Polychromasia Cancelled Hypochromasia Cancelled Poikilocytosis Cancelled Basophilic Stippling Cancelled Anisocytosis Cancelled Microcytosis Cancelled Macrocytosis Cancelled Spherocytes Cancelled Pappenheimer Bodies Cancelled Sickle Cells Cancelled Target Cells Cancelled Tear Drop Cells Cancelled Ovalocytes Cancelled Stomatocytes Cancelled [place] Bodies Cancelled Echinocytes Cancelled Acanthocytes (Spur) Cancelled Rouleaux Cancelled RBC Agglutinates Cancelled Schistocytes Cancelled RBC Morph Comment Cancelled Sezary Cell Cancelled PT 13.5 H (9.0-12.0) Seconds INR 1.3 H (0.9-1.1) APTT 40.9 H (21.0-31.0) Seconds PTT Ratio 1.5 Sodium 138 (136-145) mmol/L Potassium 3.8 (3.5-5.1) mmol/L Chloride 103 (98-107) mmol/L Carbon Dioxide 29 (21-32) mmol/L Anion Gap 6.0 (3-11) BUN 39 H (7-18) mg/dl Creatinine 1.31 (0.6-1.4) mg/dl Est Cr Clr Drug Dosing 38.0 ml/min Est GFR ( Amer) 60.9 Est GFR (Non-Af Amer) 52.5 BUN/Creatinine Ratio 30.1 H (10-20) Glucose 152 H (70-99) mg/dl Lactate (0.4-2.0) mmol/L Calcium 8.6 (8.5-10.1) mg/dl Magnesium 1.6 L (1.8-2.4) mg/dl Total Bilirubin 0.7 (0.2-1) mg/dl AST 24 (15-37) U/L ALT 12 (12-78) U/L Alkaline Phosphatase 79 (45-117) U/L Troponin I 0.029 (0-0.045) ng/ml Total Protein 6.3 L (6.4-8.2) gm/dl Albumin 2.7 L (3.4-5.0) gm/dl Globulin 3.6 (2.5-4.0) gm/dl Albumin/Globulin Ratio 0.8 L (0.9-2) COVID-19 Eval Order COVID-19 PCR (Negative) 12/28/19 12/28/19 12/28/19 Range/Units 18:40 18:50 18:50 WBC (4.8-10.8) K/uL RBC (4.7-6.1) M/uL Hgb (14.0-18.0) g/dL Hct (42-52) % MCV (80-100) fL MCH (25-34) pg MCHC (32-36) g/dL RDW Std Deviation (36.4-46.3) fL RDW Coeff of Qiana (11.5-14.5) % Plt Count (130-400) K/uL MPV (7.4-10.4) fL Immature Gran % (Auto) Neut % (Auto) Lymph % (Auto) [place] % (Auto) Eos % (Auto) Baso % (Auto) Neut # (Auto) Lymph # (Auto) [place] # (Auto) Eos # (Auto) Baso # (Auto) Immature Gran # (Auto) Neutrophils % (Manual) Band Neutrophils % Lymphocytes % (Manual) Prolymphocyte % Reactive Lymphs % (Man) Monocytes % (Manual) Eosinophils % (Manual) Basophils % (Manual) Metamyelocytes % (Man) Myelocytes % (Man) Promyelocytes % (Man) Blast Cells % (Manual) Plasma Cell % (Manual) Other Cells % Nucleated RBC % Neutrophils # (Manual) Band Neutrophils # Total Absolute Neuts Lymphocytes # (Manual) Prolymphocyte # Reactive Lymphs # Total Abs Lymphocytes Monocytes # (Manual) Eosinophils # (Manual) Basophils # (Manual) Metamyelocytes # (Man) Myelocytes # (Manual) Promyelocytes # (Man) Blast Cells # (Man) Plasma Cell # (Manual) Other Cells # Nucleated RBCs # (Man) Hypersegmented Neuts Hyposegmented Neuts Hypogranular Neuts Large Granular Lymphs # Lrg Granular Lymphs Hairy Cells Smudge Cells Toxic Granulation Toxic Vacuolation Dohle Bodies Elda Rods Hypogranular Platelets Clumped Platelets Giant Platelets Platelet Satelliting RBC Morphology Polychromasia Hypochromasia Poikilocytosis Basophilic Stippling Anisocytosis Microcytosis Macrocytosis Spherocytes Pappenheimer Bodies Sickle Cells Target Cells Tear Drop Cells Ovalocytes Stomatocytes [place] Bodies Echinocytes Acanthocytes (Spur) Rouleaux RBC Agglutinates Schistocytes RBC Morph Comment Sezary Cell PT (9.0-12.0) Seconds INR (0.9-1.1) APTT (21.0-31.0) Seconds PTT Ratio Sodium (136-145) mmol/L Potassium (3.5-5.1) mmol/L Chloride (98-107) mmol/L Carbon Dioxide (21-32) mmol/L Anion Gap (3-11) BUN (7-18) mg/dl Creatinine (0.6-1.4) mg/dl Est Cr Clr Drug Dosing ml/min Est GFR ( Amer) Est GFR (Non-Af Amer) BUN/Creatinine Ratio (10-20) Glucose (70-99) mg/dl Lactate 1.2 (0.4-2.0) mmol/L Calcium (8.5-10.1) mg/dl Magnesium (1.8-2.4) mg/dl Total Bilirubin (0.2-1) mg/dl AST (15-37) U/L ALT (12-78) U/L Alkaline Phosphatase (45-117) U/L Troponin I (0-0.045) ng/ml Total Protein (6.4-8.2) gm/dl Albumin (3.4-5.0) gm/dl Globulin (2.5-4.0) gm/dl Albumin/Globulin Ratio (0.9-2) COVID-19 Eval Order Covid19 Done at [facility] COVID-19 PCR NEGATIVE (Negative) Administered Medications Discontinued Medications Sodium Chloride (Nss 1000ml) 1,000 mls @ 999 mls/hr IV .[id number] REJI Stop: 12/28/19 19:12 Last Admin: 12/28/19 19:05 Dose: 999 mls/hr Documented by: [id number] Discharge Plan Visit Data Chief Complaint: Dehydration Stated Complaint: severly dehydrated, vomit, nausea ED Provider: Clemente Nieves Discharge Problem: Nausea & vomiting, Abdominal pain, lower, Malignant neoplasm metastatic from bladder, Cough Forms Stand Alone Forms: [facility] [place] Prescriptions Prescriptions: No Action oxybutynin chloride 10 mg Tablet Extended Release 24hr 10 mg PO QAM RF: 0 olanzapine 2.5 mg Tablet 2.5 mg PO HS RF: 0 aspirin [Aspir-81] 81 mg Tablet,Delayed Release (Dr/Ec) 81 mg PO QAM RF: 0 pantoprazole [Protonix] 40 mg Tablet,Delayed Release (Dr/Ec) 40 mg PO QAM RF: 0 melatonin 5 mg Tablet 5 mg PO HS RF: 0 Eliquis 5 mg Tablet 5 mg PO BID RF: 0 albuterol sulfate 90 mcg/actuation Hfa Aerosol Inhaler 2 puff INHALATION QID PRN (Reason: Shortness Of Breath Or Wheezing) RF: 0 amiodarone 200 mg tablet 200 mg PO BID Qty: 60 RF: 0 atorvastatin 40 mg tablet 40 mg PO PM Qty: 30 RF: 0 furosemide [Lasix] 20 mg tablet 20 mg PO BID RF: 0 oxycodone 20 mg Tablet 20 mg PO BID RF: 0 oxycodone-acetaminophen [Percocet] 5-325 mg tablet 1 tab PO Q6H PRN (Reason: pain) Qty: 10 RF: 0
[2019-12-28 19:28] LABS: INR 1.3 (0.9-1.1); Partial Thromboplastin Ratio 1.5; Partial Thromboplastin Time 40.9 Seconds (21.0-31.0); Prothrombin Time 13.5 Seconds (9.0-12.0)
[2019-12-28 19:29] LABS: Albumin Level 2.7 gm/dl (3.4-5.0); BUN Creatinine Ratio 30.1 (10-20); Calcium 8.6 mg/dl (8.5-10.1); Est GFR (African American) 60.9; Est GFR (Non-African American) 52.5; Magnesium 1.6 mg/dl (1.8-2.4); Potassium 3.8 mmol/L (3.5-5.1)
[2019-12-28 19:34] LABS: Albumin Globulin Ratio 0.8 (0.9-2); Bilirubin,Total 0.7 mg/dl (0.2-1); Globulin 3.6 gm/dl (2.5-4.0); Total Protein 6.3 gm/dl (6.4-8.2); Troponin I 0.029 ng/ml (0-0.045)
--- NOTE | 2019-12-28 19:38 | XRay Report ---
SINGLE VIEW CHEST CLINICAL HISTORY: Sepsis. FINDINGS: An AP, portable, upright chest radiograph is compared to study dated 12/14/2019. A right int ernal jugular central venous infusion port is unchanged in position. The patient is status post midli ne sternotomy. The heart is mildly enlarged noting atherosclerotic calcification of the thoracic aort a. The pulmonary vasculature is noncongested. Enlargement of the central pulmonary arteries suggests pulmonary artery hypertension. Emphysematous change is again noted. There is bibasilar scarring/atele ctasis. No airspace consolidation or large pleural effusion is identified. No pneumothorax is seen. T he skeletal structures are osteopenic. The bony thorax is grossly intact. IMPRESSION: Clinically and emphysema with no acute cardiopulmonary abnormality. ACT 112: Negative or not required by law. Electronically signed by: Yandel Holley M.D. 12/28/2019 7:37 PM
[2019-12-28 19:41] LABS: Hematocrit (blood only) 27.7 % (42-52); Hemoglobin 8.8 g/dL (14.0-18.0); Mean Corpuscular Hemoglobin 28.5 pg (25-34); Mean Corpuscular Hgb Conc 31.8 g/dL (32-36); Mean Corpuscular Volume 89.6 fL (80-100); Mean Platelet Volume 11.2 fL (7.4-10.4); Platelet Count 106 K/uL (130-400); RDW Coefficient of Variation 15.7 % (11.5-14.5); RDW Standard Deviation 50.9 fL (36.4-46.3); Red Blood Count 3.09 M/uL (4.7-6.1); White Blood Count 0.44 K/uL (4.8-10.8)
[2019-12-29] MEDS ORDERED: OLANZAPINE 2.5 MG TAB PO SCH (00:04)
--- NOTE | 2019-12-29 00:33 | History & Physical Report ---
Date of Service December 29, 2019 Assessment & Plan (1) Nausea & vomiting: Ludwin Ortega is a 74 y/o male with past medical hx of metastatic bladder ca (on palliative chemo), chronic combined systolic and diastolic CHF, paroxysmal afib, CAD s/p CABG, Mitral regurg, mitral valve repair, anemia, edema, HLD, who presented to [facility] ED for intractable vomiting. - Suspect side effect from chemotherapy. No SBO to support cause from CT Abd/pelvis imaging. I don't see any record of Zofran or anti-emetics being given in ED. But currently no abdominal pain and no active vomiting. - Treatment will be supportive care, already received 1L NSS bolus in ED. Still appears dry on exam, will give another 500cc bolus. Suspect with reported number of episodes of emesis and lack of PO intake that he would benefit from more IV fluids. - He is aware of guarded prognosis with his bladder cancer, but wants to continue to fight. He is a DNR/DNI, and wouldn't want peg tube placement. Review of old EMR shows that current treatment is palliative. - Will have Zofran 4mg IV ordered PRN. - Will continue with supportive care, anti-emetics. - Discussed Palliative care visit but he defers this as he notes he [facility] but denies having seen a Palliative care provider there. Perhaps could benefit patient to have ongoing discussion. - Measure Is and Os - No signs of hemodynamic instability, BP same as prior and Pulse as well. No current need for Tele. - Aspiration precautions FENGI: Start Heart healthy (hx of edema consider risks/benefits of no food restrictions as low weight and poor care home prognosis); c/w home PPI DVT ppx: C/w home Eliquis Code: DNR/DNI Dispo: Full admit, med/surg (2) Malignant neoplasm metastatic from bladder: w/bilateral nephrostomy tubes. I told him that I wasn't familiar with timing/frequency for standard nephrostomy tubing, will defer to day team if able to provide outpatient referral or if case management could assist...? Note from Onc states home health was providing dressing change. Finished chemo last week Since supportive care for current visit, will defer any current need for Oncology referral. c/w home pain regimen Will add docusate to help with bowel movements Currently sees Dr. 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 First chem was on 11/16/19 Etoposide/carboplatin Day 1,2,3every 3 weeks for a total of 6 cycles, last session last week. He now has new onset Leukopenia, CBC w/diff wasn't performed. Will order for AM labs. - will order Isolation precautions bc possibly neutropenic. (3) Cough: clinically follow, not currently requiring supplemental O2, no dyspnea complaints (4) Anemia: No signs of active bleeding, is on eliquis monitor for bleeding, most likely lower value from chemotherapy effect on Bone Marrow Most likely contributing to general weakness (5) S/P CABG (coronary artery bypass graft): No angina c/w home aspirin Beta-bambi has been discontinued in October of 2019 while hospitalized at [facility] with obstructive uropathy and acute kidney injury. Continue statin therapy. (6) Dyslipidemia: Continue statin therapy. (7) Mitral regurgitation: moderate mitral regurgitation, Mitral valve repair via Mitraclip: No significant stenosis on prior echo (8) S/P mitral valve repair: as above (9) Hypoalbuminemia: history suggests difficulty maintaining proper nutrition (10) CAD (coronary artery disease): as above (11) Paroxysmal atrial fibrillation: (12) Chronic combined systolic and diastolic congestive heart failure: follow with heart failure clinic at [facility], saw them on 12/24/19 Dry weight will be 125 lb In setting of hypovoluemia will hold home Lasix 20mg, monitor for LE edema. (13) COPD (chronic obstructive pulmonary disease): notes well controlled will hold on PRN meds for now (14) Drug-induced leukopenia: Etiology most likely from chemotherapy Contact precautions as above No signs of any current infectious etiology. Trend. States he got WBC stimulating factor after last chemo session last friday but wasn't sure. (15) Hypomagnesemia: 1.6, 2gm IV Mag replacement ordered Trend in AM COVID 19 testing done in ED and negative History of Present Illness Chief Complaint: Intractable Vomiting Primary Care Provider: Lakisha Carson PA-C Ludwin Ortega is a 74 y/o male with past medical hx of metastatic bladder ca (on palliative chemo), chronic combined systolic and diastolic CHF, paroxysmal afib, CAD s/p CABG, Mitral regurg, mitral valve repair, anemia, edema, HLD, who presented to [facility] ED for intractable vomiting. He notes onset was about 3.5-4 days ago. He notes numerous episodes daily of vomiting without bloody, coffee ground, or blood tinged emesis. He notes vomiting was worsened with food. He has no current abdominal pain. He was concerned about a possible bowel obstruction as was told his is high risk because of bladder mets. He notes feeling weak, having poor PO intake of solids and liquids, he noted that he felt dehydrated. He received NSS 1.6L total in ED. He denies fever, chills. He does not productive sputum that yellow now clear for the past 3-4 days. He notes former smoker and has had productive cough intermittently. He did have a Port inserted 12/13. He recently was hospitalized here with DC on 12/10/19. He also notes that he felt constipated with no BM over the past 3 days. He notes poor PO intake of food again as well. He noted to take Miralax yesterday with two additional laxatives today. He notes a small BM today of loose stools. He had chemotherapy last week on Friday, Friday, and Friday. He has bilateral nephrostomy tubes that he notes were placed at [place] or [facility]. He notes he was told they would need to be changed but does not know frequency/timing. He states that changing is overdue. He notes that [facility] to [facility] out [facility] information for him. He states he wasn't given any provider follow up/instructions regarding care of his nephrostomy tubes. He did have a CT Abd/Pelvis that wasn't remarkable for acute process, no bowel obstruction seen. There was colonic stool retention seen. Allergies Allergy/AdvReac Type Severity Reaction Status Date / Time No Known Allergies Allergy Verified 12/28/19 23:37 Home Medications Home Medications Medication Instructions Recorded Confirmed Type Eliquis 5 mg PO BID 12/08/19 12/28/19 History albuterol sulfate 2 puff INHALATION QID PRN 12/08/19 12/28/19 History aspirin [Aspir-81] 81 mg PO QAM 12/08/19 12/28/19 History melatonin 5 mg PO HS 12/08/19 12/28/19 History olanzapine 2.5 mg PO HS 12/08/19 12/28/19 History oxybutynin chloride 10 mg PO QAM 12/08/19 12/28/19 History pantoprazole [Protonix] 40 mg PO QAM 12/08/19 12/28/19 History amiodarone 200 mg PO BID #60 tab 12/10/19 12/28/19 Rx atorvastatin 40 mg PO PM #30 tab 12/10/19 12/28/19 Rx furosemide [Lasix] 20 mg PO BID 12/13/19 12/28/19 History oxycodone 20 mg PO BID 12/13/19 12/28/19 History oxycodone-acetaminophen [Percocet] 1 tab PO Q6H PRN #10 tab 12/14/19 12/28/19 Rx docusate sodium 100 mg PO BID #30 cap 12/29/19 Rx ondansetron 4 mg PO Q8H PRN 10 Days #10 tab 12/29/19 Rx Past Med/Surg History Medical History (Updated 12/30/19 @ 00:03 by Jaiden Hoffman) Abdominal aortic aneurysm S/p previous stent placement; per 12/08/19 CT scan - "Fusiform aneurysm dilation of the abdominal aorta with aortobiiliac stent graft. Aneurysm measures up to approximately 4.1 x 4.8 cm. Femoral-femoral bypass graft. Abdominal pain, lower Anemia Hgb 6.9 on 12/08/19- did get packed RBCs when admitted to [facility] Bladder cancer DX 6 WEEKS AGO > HAS HAD 1ST ROUND CHEMO CAD (coronary artery disease) S/p CABG 3 vessel 2012 or 2013 Chronic combined systolic and diastolic congestive heart failure Will be following with Heart Failure Clinic COPD (chronic obstructive pulmonary disease) WELL CONTROLLED PER PT Cough DVT (deep venous thrombosis) left leg > 2015 > unknown cause Dyslipidemia Edema, peripheral JUST DC FROM [facility] FOR THIS PER PT 12/08/19 Hard of hearing Hypoalbuminemia Mitral regurgitation S/p MV repair Nausea & vomiting Paroxysmal atrial fibrillation DX OCTOBER 2019 > NO CARDIOVERSIONS Poor historian Surgical History History of cardiac cath 5 yrs ago> no known cardiac stents History of CEA (carotid endarterectomy) 6 YRS AGO- NO MENTION OF CEA PER RECORDS- NO RECENT CAROTID IMAGING ON FILE EITHER History of endovascular stent graft for abdominal aortic aneurysm History of left hip replacement History of pelvic surgery Fractured pelvis repair History of tooth extraction Hx of appendectomy Hx of CABG 7 YRS AGO > [place] > TRIPLE BYPASS> 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 Beliefs That Will Affect Care: None Current Living Situation: Family Current Living Situation Comment: dtr Feels Safe at Home: Yes Review of Systems Review of Systems: All systems reviewed & are unremarkable except as noted in HPI & below Constitutional: no fever and no chills Eyes: no diplopia and no spots in vision Ear, Nose, Mouth, Throat: no nasal congestion, no nasal obstruction and no epistaxis Respiratory: as per Subjective / HPI; no hemoptysis Cardiovascular: no chest pain and no syncope Gastrointestinal: as per Subjective / HPI; no hematemesis and no blood in stools Genitourinary: + as per Subjective / HPI Musculoskeletal: no back pain and no neck pain Integumentary: no rash and no lesions Neurologic: no localized weakness and no syncope Physical Exam Constitutional: + thin, cooperative and comfortable no active vomiting in room Eyes: PERRL, conjunctivae normal, anicteric sclerae ENMT: dry mucous membranes, external ear and nose normal Neck: normal visual inspection and trachea midline Respiratory: normal respiratory effort, lungs clear to auscultation Cardiovascular: Rate/Rhythm: regular rhythm and + bradycardic infusiport to right chest wall with dressing and no active signs of infection Gastrointestinal (Abdomen): Percussion/Palpation: abdomen soft; abdomen nontender, no guarding and abdomen not rigid Musculoskeletal: Head/Neck/Chest: normocephalic and head atraumatic Skin: no rashes, warm and dry scalp alopecia Neurologic: moves all extremities and awake Psychiatric: A+Ox3, euthymic affect Results & Data Results & Data ([facility]) Vital Signs (Past 12 Hours) Vital Signs Temp Pulse Pulse Resp BP BP Pulse Ox 12/28/19 21:26 57 L 16 130/50 L 12/28/19 19:01 55 L 12 94 12/28/19 19:00 57 L 16 156/51 H 94 12/28/19 18:56 58 L 156/54 H 96 12/28/19 18:45 59 L 95 12/28/19 18:43 60 16 136/52 L 95 12/28/19 18:40 98 12/28/19 18:38 59 L 15 95 12/28/19 18:03 37.1 C 66 18 111/57 L 99 Laboratory Results Laboratory Results - last 24 hr 12/28/19 12/28/19 12/28/19 18:40 18:40 18:40 WBC 0.44 L* RBC 3.09 L Hgb 8.8 L Hct 27.7 L MCV 89.6 MCH 28.5 MCHC 31.8 L RDW Std Deviation 50.9 H RDW Coeff of Qiana 15.7 H Plt Count 106 L MPV 11.2 H Immature Gran % (Auto) Cancelled Neut % (Auto) Cancelled Lymph % (Auto) Cancelled Coosa % (Auto) Cancelled Eos % (Auto) Cancelled Baso % (Auto) Cancelled Neut # (Auto) Cancelled Lymph # (Auto) Cancelled Coosa # (Auto) Cancelled Eos # (Auto) Cancelled Baso # (Auto) Cancelled Immature Gran # (Auto) Cancelled Neutrophils % (Manual) Cancelled Band Neutrophils % Cancelled Lymphocytes % (Manual) Cancelled Prolymphocyte % Cancelled Reactive Lymphs % (Man) Cancelled Monocytes % (Manual) Cancelled Eosinophils % (Manual) Cancelled Basophils % (Manual) Cancelled Metamyelocytes % (Man) Cancelled Myelocytes % (Man) Cancelled Promyelocytes % (Man) Cancelled Blast Cells % (Manual) Cancelled Plasma Cell % (Manual) Cancelled Other Cells % Cancelled Nucleated RBC % Cancelled Neutrophils # (Manual) Cancelled Band Neutrophils # Cancelled Total Absolute Neuts Cancelled Lymphocytes # (Manual) Cancelled Prolymphocyte # Cancelled Reactive Lymphs # Cancelled Total Abs Lymphocytes Cancelled Monocytes # (Manual) Cancelled Eosinophils # (Manual) Cancelled Basophils # (Manual) Cancelled Metamyelocytes # (Man) Cancelled Myelocytes # (Manual) Cancelled Promyelocytes # (Man) Cancelled Blast Cells # (Man) Cancelled Plasma Cell # (Manual) Cancelled Other Cells # Cancelled Nucleated RBCs # (Man) Cancelled Hypersegmented Neuts Cancelled Hyposegmented Neuts Cancelled Hypogranular Neuts Cancelled Large Granular Lymphs Cancelled # Lrg Granular Lymphs Cancelled Hairy Cells Cancelled Smudge Cells Cancelled Toxic Granulation Cancelled Toxic Vacuolation Cancelled Dohle Bodies Cancelled Elda Rods Cancelled Hypogranular Platelets Cancelled Clumped Platelets Cancelled Giant Platelets Cancelled Platelet Satelliting Cancelled RBC Morphology Cancelled Polychromasia Cancelled Hypochromasia Cancelled Poikilocytosis Cancelled Basophilic Stippling Cancelled Anisocytosis Cancelled Microcytosis Cancelled Macrocytosis Cancelled Spherocytes Cancelled Pappenheimer Bodies Cancelled Sickle Cells Cancelled Target Cells Cancelled Tear Drop Cells Cancelled Ovalocytes Cancelled Stomatocytes Cancelled Peña-Parksdale Bodies Cancelled Echinocytes Cancelled Acanthocytes (Spur) Cancelled Rouleaux Cancelled RBC Agglutinates Cancelled Schistocytes Cancelled RBC Morph Comment Cancelled Sezary Cell Cancelled PT 13.5 H INR 1.3 H APTT 40.9 H PTT Ratio 1.5 Sodium 138 Potassium 3.8 Chloride 103 Carbon Dioxide 29 Anion Gap 6.0 BUN 39 H Creatinine 1.31 Est Cr Clr Drug Dosing 38.0 Est GFR ( Amer) 60.9 Est GFR (Non-Af Amer) 52.5 BUN/Creatinine Ratio 30.1 H Glucose 152 H Lactate Calcium 8.6 Magnesium 1.6 L Total Bilirubin 0.7 AST 24 ALT 12 Alkaline Phosphatase 79 Troponin I 0.029 Total Protein 6.3 L Albumin 2.7 L Globulin 3.6 Albumin/Globulin Ratio 0.8 L COVID-19 Eval Order COVID-19 PCR 12/28/19 12/28/19 12/28/19 18:40 18:50 18:50 WBC RBC Hgb Hct MCV MCH MCHC RDW Std Deviation RDW Coeff of Qiana Plt Count MPV Immature Gran % (Auto) Neut % (Auto) Lymph % (Auto) Coosa % (Auto) Eos % (Auto) Baso % (Auto) Neut # (Auto) Lymph # (Auto) Coosa # (Auto) Eos # (Auto) Baso # (Auto) Immature Gran # (Auto) Neutrophils % (Manual) Band Neutrophils % Lymphocytes % (Manual) Prolymphocyte % Reactive Lymphs % (Man) Monocytes % (Manual) Eosinophils % (Manual) Basophils % (Manual) Metamyelocytes % (Man) Myelocytes % (Man) Promyelocytes % (Man) Blast Cells % (Manual) Plasma Cell % (Manual) Other Cells % Nucleated RBC % Neutrophils # (Manual) Band Neutrophils # Total Absolute Neuts Lymphocytes # (Manual) Prolymphocyte # Reactive Lymphs # Total Abs Lymphocytes Monocytes # (Manual) Eosinophils # (Manual) Basophils # (Manual) Metamyelocytes # (Man) Myelocytes # (Manual) Promyelocytes # (Man) Blast Cells # (Man) Plasma Cell # (Manual) Other Cells # Nucleated RBCs # (Man) Hypersegmented Neuts Hyposegmented Neuts Hypogranular Neuts Large Granular Lymphs # Lrg Granular Lymphs Hairy Cells Smudge Cells Toxic Granulation Toxic Vacuolation Dohle Bodies Elda Rods Hypogranular Platelets Clumped Platelets Giant Platelets Platelet Satelliting RBC Morphology Polychromasia Hypochromasia Poikilocytosis Basophilic Stippling Anisocytosis Microcytosis Macrocytosis Spherocytes Pappenheimer Bodies Sickle Cells Target Cells Tear Drop Cells Ovalocytes Stomatocytes Peña-Parksdale Bodies Echinocytes Acanthocytes (Spur) Rouleaux RBC Agglutinates Schistocytes RBC Morph Comment Sezary Cell PT INR APTT PTT Ratio Sodium Potassium Chloride Carbon Dioxide Anion Gap BUN Creatinine Est Cr Clr Drug Dosing Est GFR ( Amer) Est GFR (Non-Af Amer) BUN/Creatinine Ratio Glucose Lactate 1.2 Calcium Magnesium Total Bilirubin AST ALT Alkaline Phosphatase Troponin I Total Protein Albumin Globulin Albumin/Globulin Ratio COVID-19 Eval Order Covid19 Done at [facility] COVID-19 PCR NEGATIVE Diagnostic Findings CT Abd/pelvis without contrast. CXR with no acute process, emphysema Code Status & VTE Plan VTE Prophylaxis Plan VTE Prophylaxis will be ordered: Yes Supervising Physician Co-Signing Physician Notes Attending addendum: I have physically seen this patient, have supervised the medical residents activities, and agree with the H&P unless as otherwise noted. Assessment and Plan: Intractable nausea and vomiting- Likely related to chemotherapy, with most recent therapy last week. Zofran 4 mg IV every 6 hours PRN Received 1 L normal saline in ED. Give additional 5 g cc normal saline now, and then 100 mils per hour. Follow serial laboratories. No signs of infection at this time. Probable neutropenia, without fever- Differential pending. Place on neutropenic precautions Follow serial laboratories Malignant neoplasm metastatic to bladder, with bilateral nephrostomy tubes- Follow urine culture and sensitivity. 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 Resident Activity Tracking Resident Involvement: Resident Care Provided Care Provided: Adult Hospital Medicine (1) Anemia Anemia type: unspecified type Qualified Code(s): D64.9 - Anemia, unspecified
[2019-12-29] MEDS: SODIUM CHLORIDE 0.9% 1000ML 600 ML IV SCH ×2 (01:53→02:47)
[2019-12-29] MEDS ORDERED: POLYETHYLENE (MIRALAX) 17 GM PACK PO PRN (02:37)
[2019-12-29] MEDS ORDERED: OXYCODONE/ACETAMINOPHEN 5mg/325mg TAB PO PRN (02:37)
[2019-12-29] MEDS ORDERED: MELATONIN 3 MG TAB PO PRN (02:37)
[2019-12-29] MEDS ORDERED: ACETAMINOPHEN 325 MG TAB PO PRN (02:37)
[2019-12-29] MEDS ORDERED: SODIUM CHLORIDE 0.9% 1000ML 500 ML IV ONE (02:37)
[2019-12-29] MEDS ORDERED: ONDANSETRON INJ 2 MG/ML 2 ML VIAL IV PRN (02:37)
[2019-12-29] MEDS: AMIODARONE 200 MG TAB PO SCH ×2 (03:00→09:13)
[2019-12-29] MEDS: APIXABAN 5 MG TABLET PO SCH ×2 (03:01→09:13)
[2019-12-29] MEDS: MAGNESIUM SULFATE / D5W 1 GM/100 ML BAG IV SCH ×2 (03:01→05:03)
[2019-12-29] MEDS ORDERED: HEPARIN 100 UNIT/ML 5ML FLUSH FLUSH PRN (05:48)
[2019-12-29 06:48] LABS: Estimated Average Glucose 128 mg/dl; Hemoglobin A1C 6.1 % (4.5-5.6)
[2019-12-29 06:59] LABS: BUN Creatinine Ratio 30.8 (10-20); Calcium 8.1 mg/dl (8.5-10.1); Creatinine Clr Calc Pharmacy 51.2 ml/min; Est GFR (African American) 77.7; Est GFR (Non-African American) 67.1; Magnesium 2.1 mg/dl (1.8-2.4); Potassium 3.6 mmol/L (3.5-5.1)
[2019-12-29 07:19] LABS: Basophils # (auto) 0.01 K/uL (0-0.2); Basophils % (auto) 1.9 %; Eosinophils # (auto) 0.01 K/uL (0-0.5); Eosinophils % (auto) 1.9 %; Hematocrit (blood only) 24.8 % (42-52); Hemoglobin 8.1 g/dL (14.0-18.0); Lymphocytes # (auto) 0.35 K/uL (1.2-3.4); Lymphocytes % (auto) 64.8 %; Mean Corpuscular Hgb Conc 32.7 g/dL (32-36); Mean Corpuscular Volume 91.9 fL (80-100); Mean Platelet Volume 12.2 fL (7.4-10.4); Monocytes # (auto) 0.07 K/uL (0.11-0.59); Neutrophils % (auto) 18.4 %; Platelet Count 96 K/uL (130-400); Platelet Estimate Decreased (Normal); RDW Coefficient of Variation 15.6 % (11.5-14.5); RDW Standard Deviation 52.5 fL (36.4-46.3); White Blood Count 0.54 K/uL (4.8-10.8)
--- NOTE | 2019-12-29 07:38 | CT Scan Report ---
CT SCAN OF THE ABDOMEN AND PELVIS WITHOUT CONTRAST CLINICAL HISTORY: Lower abdominal pain. Possible bowel obstruction COMPARISON STUDY: 12/08/2019 TECHNIQUE: CT scan of the abdomen and pelvis was performed from the lung bases to the proximal femurs . Images are reviewed in the axial, sagittal, and coronal planes. IV contrast was not administered fo r this examination. A dose lowering technique was utilized adhering to the principles of ALARA. CT DOSE: 310.49 mGy.cm FINDINGS: Lower chest: There is lower lobe bronchial wall thickening and mucous plugging. There are no signific ant pleural effusions Liver: The unenhanced liver is normal in size, contour, and attenuation. There is no intrahepatic jean pierre iary ductal dilatation. Gallbladder: Unremarkable. Spleen: Normal in size and attenuation. Pancreas: Unremarkable. Adrenal glands: Unremarkable. Kidneys: Bilateral nephrostomy tubes are visualized. No renal calculi are identified Bowel: There is mild fecal retention. There are no transition zones indicate bowel obstruction. There are no findings to indicate acute diverticulitis. The appendix is not visualized with certainty. The re are no findings to indicate acute appendicitis. Peritoneum: There is no intraperitoneal free air or abdominal ascites. Vasculature: There is a 4.8 cm infrarenal abdominal aortic aneurysm status post aortobiiliac stenting . There are diffuse atheromatous changes present. There is a femorofemoral bypass graft present. Adenopathy: None. Pelvic viscera: Large cystic structures posterior the bladder likely represent bladder diverticula. T here is artifact from prior pelvic surgery. Skeletal structures: There is a total left hip arthroplasty. There is extensive artifact secondary to an internally fixated left pelvic fracture. IMPRESSION: 1. No evidence of bowel obstruction. No evidence of free air 2. Moderate fecal retention 3. Indwelling bilateral nephrostomy catheters 4. Suspected large bladder diverticula 5. Lower lobe bronchial wall thickening and mucous plugging ACT 112: Negative or not required by law. Electronically signed by: Fab Callaway M.D. 12/29/2019 7:36 AM
[2019-12-29] MEDS ORDERED: OXYCODONE HCL 20 MG TABCR (OXYCONTIN) PO SCH (09:00)
[2019-12-29] MEDS ORDERED: DOCUSATE SODIUM 100 MG CAP PO SCH (09:00)
[2019-12-29] MEDS ORDERED: PANTOprazole 40 MG TAB PO SCH (09:00)
[2019-12-29] MEDS ORDERED: ASPIRIN 81 MG ECTAB PO SCH (09:00)
--- NOTE | 2019-12-29 11:25 | Hospitalist Progress Note ---
Date of Service December 29, 2019 Assessment & Plan Admission and Anticipated Discharge Date Admission Date: December 28, 2019 Results & Data Results & Data ([facility]) Vital Signs (Past 12 Hours) Vital Signs Temp Pulse Pulse Resp BP BP Pulse Ox 12/29/19 07:28 36.2 C L 67 16 123/57 L 94 12/29/19 02:32 36.8 C 62 18 136/42 L 94 12/29/19 01:56 56 L 16 121/51 L 98 12/29/19 00:00 57 L 16 124/46 L 98 Pulse Ox 12/29/19 07:28 12/29/19 02:32 94 12/29/19 01:56 12/29/19 00:00 PG Care Time/CCT Total # of Minutes Spent Total Time Spent with Patient: Total time spent is greater than 50% in coordination of care (as documented) at patient's floor/unit and/or counseling patient: Coding
--- NOTE | 2019-12-29 15:51 | Discharge Summary ---
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 ED for intractable vomiting. He notes onset was about 3.5-4 days ago. He notes numerous episodes daily of vomiting without bloody, coffee ground, or blood tinged emesis. He notes vomiting was worsened with food. He has no current abdominal pain. He was concerned about a possible bowel obstruction as was told his is high risk because of bladder mets. He notes feeling weak, having poor PO intake of solids and liquids, he noted that he felt dehydrated. He received NSS 1.6L total in ED. He denies fever, chills. He does not productive sputum that yellow now clear for the past 3-4 days. He notes former smoker and has had productive cough intermittently. He did have a Port inserted 12/13. He recently was hospitalized here with DC on 12/10/19. He also notes that he felt constipated with no BM over the past 3 days. He notes poor PO intake of food again as well. He noted to take Miralax yesterday with two additional laxatives today. He notes a small BM today of loose stools. He had chemotherapy last week on Friday, Friday, and Friday. He has bilateral nephrostomy tubes that he notes were placed at [facility] or [facility]. He notes he was told they would need to be changed but does not know frequency/timing. He states that changing is overdue. He notes that the [facility] is working to try to find out this information for him. He states he wasn't given any provider follow up/instructions regarding care of his nephrostomy tubes. He did have a CT Abd/Pelvis that wasn't remarkable for acute process, no bowel obstruction seen. There was colonic stool retention seen. Admission Exam Per Admitting Provider Constitutional: + thin, cooperative and comfortable no active vomiting in room Eyes: PERRL, conjunctivae normal, anicteric sclerae ENMT: dry mucous membranes, external ear and nose normal Neck: normal visual inspection and trachea midline Respiratory: normal respiratory effort, lungs clear to auscultation Cardiovascular: Rate/Rhythm: regular rhythm and + bradycardic infusiport to right chest wall with dressing and no active signs of infection Gastrointestinal (Abdomen): Percussion/Palpation: abdomen soft; abdomen nontender, no guarding and abdomen not rigid Musculoskeletal: Head/Neck/Chest: normocephalic and head atraumatic Skin: no rashes, warm and dry scalp alopecia Neurologic: moves all extremities and awake Psychiatric: A+Ox3, euthymic affect Principal Diagnosis Intractable Nausea and Vomiting Discharge Exam Constitutional + thin and + cachectic; no acute distress Eyes + anicteric sclerae and PERRL ENMT Ears: no hearing impairment Nose: no external nose abnormality Neck normal visual inspection Respiratory normal respiratory effort, lungs clear to auscultation Auscultation: + diminished lung sounds Cardiovascular Rate/Rhythm: regular rhythm and + bradycardic Heart Sounds: no murmur Vessels: no JVD Extremities: no edema Chest (Breasts) Additional Comments: Aport -- R chest Gastrointestinal (Abdomen) normal bowel sounds, soft, nontender, no hepatosplenomegaly b/l nephrostomy tubes in place dressings c/d/i Musculoskeletal no cyanosis or clubbing, extremities motor strength 5/5 Skin cool, dry Neurologic patellar DTR's 2+ bilat, sensation intact and PERRL, EOMI, accommodation nl, no face palsy, no dysarthria Psychiatric Orientation: alert and oriented x 3 Lymphatic no cervical or axillary lymphadenopathy Discharge Data Allergies Allergy/AdvReac Type Severity Reaction Status Date / Time No Known Allergies Allergy Verified 12/31/19 14:09 Consultations 12/28/19 22:22 ED Decision to Admit Stat 12/29/19 02:37 Consult Case Management - Discharge Planning Routine 12/29/19 09:13 Consult Oncology Routine Ordered Studies 12/28/19 20:30 CT abd pelvis wo con Urgent CXR Hospital Course (1) Nausea & vomiting: Ludwin Ortega is a 74 y/o male with past medical hx of metastatic bladder ca (on palliative chemo), chronic combined systolic and diastolic CHF, paroxysmal afib, CAD s/p CABG, Mitral regurg, mitral valve repair, anemia, edema, HLD, who presented to [facility] ED for intractable vomiting. Suspect side effect from chemotherapy. No SBO to support cause from CT Abd/pelvis imaging. Treated with supportive care: IVF, antiemetics. Guarded prognosis with bladder ca but still wanting to fight to have grandchildren remember him. Is a DNR/DNI and would not want PEG tube placement if it came to that. Current treatment plan is palliative in nature. [facility]. Advanced diet to clears --> patient wanting to continue liquid diet for couple of days but I did discuss continuing Ensure/Boost/nutiritional supplements to ensure proper nutrition. Patient also had relief of n/v following BM with colace and rec'd to continue at discharge to keep him regular and prevent further constipation/pain/n/v due to this. Patient feeling vastly improved and no further n/v and requested to be discharged. Labs do show neutropenia although patient did just have chemo. --> Had engineering secretary call for follow up appointment this upcoming week with his oncologist with repeat labs prior to appointment. 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 w/bilateral nephrostomy tubes. Discussed that these were placed approximately 8-9 weeks ago and that we had nurse navigator arrange follow up appointment in two weeks at [facility] for exchange. Home health had previously been flushing these at home. No current s/sx infection from these although discussed that he will need follow up and if any issues arise prior to that, he should return to the closest emergency room Docusate to be continued at discharge as he had great success with regulating his bowels and req'd at discharge First chem was on 11/16/19 Etoposide/carboplatin Day 1,2,3every 3 weeks for a total of 6 cycles, last session last week. Neutropenic on labs but without fever or s/sx acute infection and patient at higher risk of analisa illness inpatient and stating he felt vastly improved and ready for discharge. Follow up scheduled for Oncology in next week with repeat labs -- he follows with Dr. Montes in [place] (3) Cough: Not currently requiring supplemental O2 (95% on RA), no dyspnea complaints (4) Anemia: No signs of active bleeding, is on eliquis. Expect from chemotherapy effect on bone marrow. No cp/sob/signs of bleeding. H/h 8.1/24.8 Given order for repeat labs outpatient prior to appt with oncology (5) S/P CABG (coronary artery bypass graft): No angina Continued home aspirin Beta-bambi has been discontinued in October of 2019 while hospitalized at [facility] with obstructive uropathy and acute kidney injury. Continued statin therapy. (6) Dyslipidemia: Continued statin therapy. (7) Mitral regurgitation: Noted moderate mitral regurgitation, Mitral valve repair via Mitraclip: No significant stenosis on prior echo (8) S/P mitral valve repair: as above (9) Hypoalbuminemia: history suggests difficulty maintaining proper nutrition Encouraged to continue Ensure/Boost supplementation at discharge (10) CAD (coronary artery disease): as above (11) Paroxysmal atrial fibrillation: (12) Chronic combined systolic and diastolic congestive heart failure: follows with heart failure clinic at [facility], saw them on 12/24/19 In setting of hypovoluemia, initially held home lasix 20mg Resumed at discharge F/u as scheduled with CHF clinic at discharge (13) COPD (chronic obstructive pulmonary disease): notes well controlled (14) Drug-induced leukopenia: Etiology most likely from chemotherapy Contact precautions as above No signs of any current infectious etiology. States he got WBC stimulating factor after last chemo session last Friday but wasn't sure To follow up with Oncology in the next week (15) Hypomagnesemia: 1.6 -- 2gm IV Mag replacement ordered Resolved -- Repeat 2.1 A1c 6.1 and technically pre-DM. --Education/counseling although patient with poor nutritional status and likely would benefit from electrical tech outpatient if continues to have poor PO intake/weight loss Patient scheduled appt for [facility] Jan 11 for nephrostomy tubes. Follow up with Oncology in next week -- will have repeat CBC, BMP, Mag prior to that appointment. To have follow up with PCP nikita -- may benefit from Palliative care at follow up appointment if continues to decline. Total Time Total Time Spent Total Time Spent (In Minutes): 70 Discharge Plan Discharge Items Patient Disposition: Home - Self-Care Reason For Visit: INTRACTABLE VOMITING Discharge Diagnosis: Intractable Nausea and Vomiting Goals: You have been hospitalized for an acute medical problem. During [facility] stay [facility], we have made an effort to correct the problem that brought you to the hospital while keeping you as comfortable as possible. Medications were used to bring your condition under control and your discharge instructions will include directions for any medications you should take after leaving the hospital. Please make sure you see your Primary Care Provider as part of your follow up plan. Activity: Resume your previous activity Non-emergency contact: Primary Care Provider and Oncologist Call non-emergency contact if: you have any medication questions, your symptoms worsen and your pain is not controlled Follow-up/Referrals: Lakisha Carson PA-C [Primary Care Provider] - ([facility] WILL SET UP FOLLOW UP APPT. STATED PATIENT WAS BEING DC'D TODAY.) Cheryl Montes MD [Hospitalist] - (1 week - [facility] Secretary will be in touch with you regarding an appt with Dr. Montes.) Diet: Heart Healthy Ambulatory Orders: Basic Metabolic Panel (Routine) Timeframe: 3 Days Location: Determined by Patient Ordered By: Halie Rothman Complete Blood Count with Diff (Timed) Timeframe: 3 Days Location: Determined by Patient Ordered By: Halie Rothman Magnesium (Routine) Timeframe: 3 Days Location: Determined by Patient Ordered By: Halie Zaman Attending Provider Instructions: An appointment has been made for you at [facility] to change your nephrostomy tubes. This is for at 12:30pm and this is their first available appt. If you have questions or need to change the appt., please call [phone], option 1. 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 This is likely as a side effect from your chemotherapy and you were treated with IV fluids and antiemetics (anti-nausea medications). You should continue to try and stay well hydrated and you may utilize COLACE as needed to help with constipation. This medication can be purchased over the counter. It is important to get protein and nutrition in for proper healing and to prevent infection and you should continue to utilize Ensure/Boost multiple times throughout the day to make sure you get enough calories. You have been given a short prescription of Zofran to use as needed for nausea. You have been set up follow up appointments with Hematology/Oncology to monitor your progress and chemotherapy. Please have repeat labs drawn prior to this appointment at the facility of your choosing. Lab slips have been provided. You have also been set up an appointment with [facility] January 11 for changing of your nephrostomy tubes unless otherwise directed by your oncologist at follow up appointment. Please follow up with your PCP in the next week to monitor your progress. Your A1c level was elevated at 6.1 and this is termed pre-DM. Please return to the emergency department if you are unable to keep oral intake down, worsening nausea/vomiting, fever, or for any other symptoms that are concerning for you. It has been a pleasure being a part of the care team providing for you while you have been in the hospital. Take care! Pending Studies at Discharge: No Stand-Alone Forms: My [facility], Opioid Pain Management, Smoking Cessation Medications and DC Order Prescriptions: New ondansetron 4 mg tablet,disintegrating 4 mg PO Q8H PRN (Reason: nausea and vomiting) 10 Days Qty: 10 RF: 0 Continued oxybutynin chloride 10 mg Tablet Extended Release 24hr 10 mg PO QAM RF: 0 olanzapine 2.5 mg Tablet 2.5 mg PO HS RF: 0 aspirin [Aspir-81] 81 mg Tablet,Delayed Release (Dr/Ec) 81 mg PO QAM RF: 0 pantoprazole [Protonix] 40 mg Tablet,Delayed Release (Dr/Ec) 40 mg PO QAM RF: 0 melatonin 5 mg Tablet 5 mg PO HS RF: 0 Eliquis 5 mg Tablet 5 mg PO BID RF: 0 albuterol sulfate 90 mcg/actuation Hfa Aerosol Inhaler 2 puff INHALATION QID PRN (Reason: Shortness Of Breath Or Wheezing) RF: 0 amiodarone 200 mg tablet 200 mg PO BID Qty: 60 RF: 0 atorvastatin 40 mg tablet 40 mg PO PM Qty: 30 RF: 0 oxycodone-acetaminophen [Percocet] 5-325 mg tablet 1 tab PO Q6H PRN (Reason: pain) Qty: 10 RF: 0 No Action docusate sodium 100 mg capsule 100 mg PO BID PRN (Reason: Constipation) RF: 0 OxyContin 20 mg Tablet Extended Release 12 Hr 20 mg PO BID RF: 0 Discharge Orders: Discharge Order (Routine); Ordered 12/29/19 Ordered By: Halie Sheldon/Other Patient Handouts: A1C Admission Data Admit Date/Time: 12/28/19 23:58 Attending Provider: Yahir Walker Admit Provider: William Addison Primary Care Provider: Lakisha Carson Other Providers: Josue Russell Isak Sharpe Other Interventions: Discharge Summary Assessment (RN) Last Done: 12/29/19 18:05 Supervising Physician Co-Signing Physician Notes Patient seen and examined on the day of discharge. I agree with the discharge summary by Halie LEBLANC. I have reviewed the chart including labs, imaging and plans for discharge. patient feeling a lot better, he is tolerating clears, has no interest in trying more food, will try to drink nutritional supplements he has no pain, is breathing well he feels energized, wants to go home to have more time with his family - Nausea and vomiting: likely chemotherapy induced, now nearly resolved, he will follow a liquid diet for time being - Bladder cancer with mets: follow up with oncology he is DNR/DNI and would not want PEG tube for nutrition he is continuing with treatment to try to get more time with grand children has bilateral nephrostomy tubes, scheduled for follow up with [facility] in two weeks to get them changed - Chronic combined heart failure: follow up heart failure clinic Coding Level of Care Code D/C Day Management >30 mins Diagnoses Nausea & vomiting R11.2 Malignant neoplasm metastatic from bladder C67.9 Cough R05 Anemia D64.9 Anemia type: unspecified type S/P CABG (coronary artery bypass graft) Z95.1 Dyslipidemia E78.5 Mitral regurgitation I34.0 S/P mitral valve repair Z98.890 Hypoalbuminemia E88.09 CAD (coronary artery disease) I25.10 Paroxysmal atrial fibrillation I48.0 Chronic combined systolic and diastolic congestive heart failure I50.42 COPD (chronic obstructive pulmonary disease) J44.9 Drug-induced leukopenia D70.2 Hypomagnesemia E83.42
[2019-12-29] MEDS ORDERED: ATORVASTATIN 40 MG TAB PO SCH (21:00)
--- NOTE | 2019-12-29 21:01 | Electrocardiogram Report ---
Test Reason : Blood Pressure : / mmHG Vent. Rate : 063 BPM Atrial Rate : 063 BPM P-R Int : 136 ms QRS Dur : 132 ms QT Int : 462 ms P-R-T Axes : 072 069 099 degrees QTc Int : 472 ms Poor data quality, interpretation may be adversely affected Normal sinus rhythm Non-specific intra-ventricular conduction block Nonspecific ST and T wave abnormality Abnormal ECG When compared with ECG of 08-DEC-2019 17:24, Premature ventricular complexes are no longer Present Minimal criteria for Anterior infarct are no longer Present Confirmed by Faheem Akhtar ([id number]) on 12/29/2019 9:00:48 PM Referred By: Lakisha Carson Confirmed By:Faheem Akhtar
--- NOTE | 2019-12-30 02:06 | Billing Data ---
Date of Service December 30, 2019 Coding Level of Care Code 57372 Initial Inpt Care Lvl 3
== END 2019-12-29 18:33 | disposition home or self-care (01) | DRG 392 ==
LOC: ED 17:56 → SUATTDRO 12-29 → 3W 12-29

== ENCOUNTER 2019-12-31 11:10 | Inpatient (IN) ==
[2019-12-31] MEDS ORDERED: SODIUM CHLORIDE 0.9% 250 ML IV PRN ×3 (12:18→21:30)
[2019-12-31] MEDS ORDERED: SODIUM CHLORIDE 0.9% 1000ML 500 ML IV ONE (12:18)
[2019-12-31 12:28] LABS: Mean Corpuscular Hgb Conc 32.2 g/dL (32-36)
[2019-12-31 12:33] LABS: Hematocrit (blood only) 24.5 % (42-52); Hemoglobin 7.9 g/dL (14.0-18.0); Mean Corpuscular Hemoglobin 29.2 pg (25-34); Mean Corpuscular Volume 90.4 fL (80-100); RDW Coefficient of Variation 15.8 % (11.5-14.5); Red Blood Count 2.71 M/uL (4.7-6.1); White Blood Count 1.59 K/uL (4.8-10.8)
[2019-12-31 12:46] LABS: Alanine Aminotransferase 24 U/L (12-78); Albumin Level 2.4 gm/dl (3.4-5.0); Aspartate Aminotransferase 38 U/L (15-37); BUN Creatinine Ratio 24.1 (10-20); Blood Urea Nitrogen 45 mg/dl (7-18); Calcium 8.3 mg/dl (8.5-10.1); Carbon Dioxide 24 mmol/L (21-32); Chloride 102 mmol/L (98-107); Est GFR (African American) 39.6; Est GFR (Non-African American) 34.2; Glucose 131 mg/dl (70-99); Magnesium 1.9 mg/dl (1.8-2.4); Potassium 3.8 mmol/L (3.5-5.1); Sodium 136 mmol/L (136-145)
--- NOTE | 2019-12-31 12:53 | XRay Report ---
XR chest 1V portable HISTORY: weakness COMPARISON: Chest 12/28/2019. FINDINGS: The lungs are hyperexpanded with apical predominant emphysematous changes. No pneumothorax. No pleural effusions. The heart remains stable in size. There are poststernotomy changes. Right jugu lar Port-A-Cath terminates at the proximal SVC. There is a new left basilar airspace opacity. The rig ht lung appears clear. No evidence for pulmonary edema. IMPRESSION: A new left base airspace opacity. This likely represents a pneumonia. Recommend follow-up to ensure r esolution. ACT 112: Negative or not required by law. Electronically signed by: Fei Flores M.D. 12/31/2019 12:52 PM
[2019-12-31 12:56] LABS: Albumin Globulin Ratio 0.7 (0.9-2); Alkaline Phosphatase 74 U/L (45-117); Bilirubin,Total 0.7 mg/dl (0.2-1); Globulin 3.5 gm/dl (2.5-4.0); Total Protein 5.9 gm/dl (6.4-8.2); Troponin I 0.016 ng/ml (0-0.045)
[2019-12-31 13:01] LABS: Immature Granulocytes # (auto) 0.02 K/uL (0.00-0.02); Immature Granulocytes % (auto) 1.3 %; Lymphocytes # (auto) 0.26 K/uL (1.2-3.4); Lymphocytes % (auto) 16.4 %; Monocytes # (auto) 0.24 K/uL (0.11-0.59); Monocytes % (auto) 15.1 %; Neutrophils # (auto) 1.07 K/uL (1.4-6.5); Neutrophils % (auto) 67.2 %; Platelet Count 52 K/uL (130-400); Platelet Estimate Decreased (Normal)
[2019-12-31] MEDS: SODIUM CHLORIDE 0.9% 1000ML 1,000 ML IV SCH ×2 (13:14→20:37)
[2019-12-31] MEDS ORDERED: CEFEPIME 2,000 MG/20 ML VIAL IV STA (13:54)
[2019-12-31] MEDS ORDERED: DOXYCYCLINE HYCLATE 100 MG in DEXTROSE 5% 100 ML IV STA (13:54)
[2019-12-31] MEDS ORDERED: VANCOMYCIN HCL 1,500 MG in SODIUM CHLORIDE 0.9% 500 ML IV STA (14:00)
--- NOTE | 2019-12-31 15:44 | Emergency Department Note ---
History of Present Illness General Chief complaint: Abnormal Labs/Diagnostic Testing Stated complaint: REF BY HELENA LOCKHART Source: patient and RN notes reviewed Mode of arrival: ambulatory Limitations: no limitations History of Present Illness Provider complaint: Shortness of breath, abnormal labs, sent in by Dr. Islas Pain Intensity: 0 This patient is a 74-year-old male who presents emergency department with complaints of shortness of breath. He states he was contacted by his oncologist today and sent to the emergency department for abnormal laboratory work. He states his blood counts are down including his hemoglobin and platelets. He thinks he needs a "blood exchange." Patient does have a history of metastatic bladder cancer and has bilateral nephrostomy tubes. He also has a history of COPD. He was seen here just several days ago for vomiting presumably related to chemotherapy. He spent approximately 24 hours here and was discharged. Patient denies any fevers, chest pain, vomiting or diarrhea. He states he is eating but not well. He does [facility]. Home Medications Home Medications Medication Instructions Recorded Confirmed Type Eliquis 5 mg PO BID 12/08/19 12/31/19 History albuterol sulfate 2 puff INHALATION QID PRN 12/08/19 12/31/19 History aspirin [Aspir-81] 81 mg PO QAM 12/08/19 12/31/19 History melatonin 5 mg PO HS 12/08/19 12/31/19 History olanzapine 2.5 mg PO HS 12/08/19 12/31/19 History oxybutynin chloride 10 mg PO QAM 12/08/19 12/31/19 History pantoprazole [Protonix] 40 mg PO QAM 12/08/19 12/31/19 History amiodarone 200 mg PO BID #60 tab 12/10/19 12/31/19 Rx atorvastatin 40 mg PO PM #30 tab 12/10/19 12/31/19 Rx oxycodone 20 mg PO BID 12/13/19 12/31/19 History oxycodone-acetaminophen [Percocet] 1 tab PO Q6H PRN #10 tab 12/14/19 12/31/19 Rx ondansetron 4 mg PO Q8H PRN 10 Days #10 tab 12/29/19 12/31/19 Rx docusate sodium 100 mg capsule 100 mg PO BID PRN cap 12/31/19 12/31/19 History Allergies Allergy/AdvReac Type Severity Reaction Status Date / Time No Known Allergies Allergy Verified 12/31/19 14:09 Past Med/Surg History Medical History Abdominal aortic aneurysm S/p previous stent placement; per 12/08/19 CT scan - "Fusiform aneurysm dilation of the abdominal aorta with aortobiiliac stent graft. Aneurysm measures up to approximately 4.1 x 4.8 cm. Femoral-femoral bypass graft. Abdominal pain, lower Anemia Hgb 6.9 on 12/08/19- did get packed RBCs when admitted to [facility] Bladder cancer DX 6 WEEKS AGO > HAS HAD 1ST ROUND CHEMO CAD (coronary artery disease) S/p CABG 3 vessel 2012 or 2013 Chronic combined systolic and diastolic congestive heart failure Will be following with [facility] COPD (chronic obstructive pulmonary disease) WELL CONTROLLED PER PT Cough DVT (deep venous thrombosis) left leg > 2016 > unknown cause Dyslipidemia Edema, peripheral JUST DC FROM [facility] FOR THIS PER PT 12/08/19 Hard of hearing Hypoalbuminemia Mitral regurgitation S/p MV repair Nausea & vomiting Paroxysmal atrial fibrillation DX OCTOBER 2019 > NO CARDIOVERSIONS Poor historian Surgical History History of cardiac cath 5 yrs ago> no known cardiac stents History of CEA (carotid endarterectomy) 6 YRS AGO- NO MENTION OF CEA PER RECORDS- NO RECENT CAROTID IMAGING ON FILE EITHER History of endovascular stent graft for abdominal aortic aneurysm History of left hip replacement History of pelvic surgery Fractured pelvis repair History of tooth extraction Hx of appendectomy Hx of CABG 7 YRS AGO > [place] > TRIPLE BYPASS> [facility] per records > [facility] Family History Father Colon cancer Social History Smoking Status: Never smoker Second Hand Exposure: Yes; Hx Alcohol Use: No Hx Substance Use: No Preferred Language: Yoruba Communication Ability: Effective Body Man Required: No Beliefs That Will Affect Care: None Current Living Situation: Family Current Living Situation Comment: dtr Feels Safe at Home: Yes Review of Systems See HPI for pertinent positives & negatives. and A total of 10 systems reviewed and were otherwise negative Physical Exam Vital Signs Vital Signs - 24 hr 12/31/19 11:30 12/31/19 11:59 12/31/19 12:01 Temperature 36.9 C Temperature Source Oral Pulse Rate 64 64 64 Pulse Rate [Apical] Pulse Rate from SpO2 Sensor Respiratory Rate 17 19 14 Respiratory Effort / Characteristics Non-Labored Spontaneous Respiratory Depth Normal Respiratory Pattern Regular Blood Pressure 110/29 L 124/69 102/76 Blood Pressure Mean 56 73 78 Pulse Oximetry 96 94 94 Oxygen Delivery Method Room Air Oxygen Flow Rate 2 2 Sepsis Recent Fever Within 48 Hours No Sepsis New/Unexplained Change in Mental Status No Sepsis Action Taken by Nursing No Action Required 12/31/19 12:30 12/31/19 13:00 12/31/19 13:31 Temperature Temperature Source Pulse Rate 60 59 L 61 Pulse Rate [Apical] Pulse Rate from SpO2 Sensor 60 59 L 61 Respiratory Rate 16 17 16 Respiratory Effort / Characteristics Respiratory Depth Respiratory Pattern Blood Pressure 124/43 L 125/44 L 118/54 L Blood Pressure Mean 60 68 107 Pulse Oximetry 98 96 94 Oxygen Delivery Method Oxygen Flow Rate 2 2 Sepsis Recent Fever Within 48 Hours Sepsis New/Unexplained Change in Mental Status Sepsis Action Taken by Nursing 12/31/19 14:00 12/31/19 14:30 12/31/19 15:00 Temperature Temperature Source Pulse Rate 58 L 56 L 56 L Pulse Rate [Apical] Pulse Rate from SpO2 Sensor 60 62 Respiratory Rate 15 17 22 Respiratory Effort / Characteristics Respiratory Depth Respiratory Pattern Blood Pressure 130/70 130/44 L 135/46 L Blood Pressure Mean 105 79 84 Pulse Oximetry 94 93 96 Oxygen Delivery Method Oxygen Flow Rate Sepsis Recent Fever Within 48 Hours Sepsis New/Unexplained Change in Mental Status Sepsis Action Taken by Nursing 12/31/19 15:11 12/31/19 15:12 12/31/19 15:31 Temperature 36.6 C Temperature Source Oral Pulse Rate 59 L 60 63 Pulse Rate [Apical] Pulse Rate from SpO2 Sensor Respiratory Rate 18 21 22 Respiratory Effort / Characteristics Respiratory Depth Respiratory Pattern Blood Pressure 108/54 L 108/54 L 131/45 L Blood Pressure Mean 72 74 73 Pulse Oximetry 96 96 94 Oxygen Delivery Method Oxygen Flow Rate 3 Sepsis Recent Fever Within 48 Hours Sepsis New/Unexplained Change in Mental Status Sepsis Action Taken by Nursing 12/31/19 15:46 12/31/19 16:16 12/31/19 16:52 Temperature 36.6 C 36.6 C Temperature Source Oral Oral Pulse Rate 60 72 Pulse Rate [Apical] 79 Pulse Rate from SpO2 Sensor Respiratory Rate 21 18 24 Respiratory Effort / Characteristics Spontaneous Respiratory Depth Respiratory Pattern Blood Pressure 134/50 L 155/99 H Blood Pressure Mean 78 117 Pulse Oximetry 93 95 100 Oxygen Delivery Method Oxymask Oxygen Flow Rate 3 3 10 Sepsis Recent Fever Within 48 Hours Sepsis New/Unexplained Change in Mental Status Sepsis Action Taken by Nursing Vital signs reviewed. General: Chronically ill-appearing, thin and frail. HEENT: No scleral icterus, PERRLA, neck supple. Atraumatic. Cardiovascular: Regular rate and rhythm, no extra sounds. Pulmonary: Rhonchi bilaterally, slightly increased work of breathing. Abdomen: Soft, nontender, nondistended, positive bowel sounds. Musculoskeletal: Bilateral nephrostomy tubes. No peripheral edema, atraumatic. Neurologic: Patient awake alert and oriented x 3 Skin: Warm, dry, no rash Course Administered Medications Sodium Chloride (Nss 1000ml) 1,000 mls @ 125 mls/hr IV .Q8H REJI Stop: 01/30/20 12:29 Last Admin: 12/31/19 13:14 Dose: 125 mls/hr Documented by: [id number] Discontinued Medications Albuterol (Albut/Ipratrop 3mg/0.5mg Neb 3 Ml Vial) 3 ml NEB NOW STA Stop: 12/31/19 16:35 Last Admin: 12/31/19 16:51 Dose: 3 ml Documented by: [id number] Sodium Chloride (Nss 1000ml) 500 mls @ 999 mls/hr IV .Q31M ONE Stop: 12/31/19 12:48 Last Infusion: 12/31/19 13:14 Dose: 0 mls/hr Documented by: [id number] Admin: 12/31/19 12:39 Dose: 999 mls/hr Documented by: [id number] Cefepime HCl (Maxipime) 2,000 mg in 20 mls @ 5 mls/min IV NOW STA; Protocol Stop: 12/31/19 13:57 Last Admin: 12/31/19 15:30 Dose: 5 mls/min Documented by: [id number] Doxycycline Hyclate 100 mg/ (Dextrose) 110 mls @ 50 mls/hr IV NOW STA Stop: 12/31/19 16:05 Last Admin: 12/31/19 14:56 Dose: 50 mls/hr Documented by: [id number] Vancomycin HCl 1,500 mg/ (Sodium Chloride) 530 mls @ 200 mls/hr IV NOW STA Stop: 12/31/19 16:38 Last Admin: 12/31/19 14:56 Dose: 200 mls/hr Documented by: [id number] Critical Care Time Critical Care Time: Yes I have personally spent greater than 45 minutes of critical care time in the direct management of this patient. This includes bedside care, interpretation of diagnostic studies, and testing, discussion with consultants, patient, and family members, and other required patient management activities. This 45 minutes is in excess of all separately billable procedures. Medical Decision Making Differential Diagnosis Differential diagnosis: Etiologies such as infections, reactive airway disease, COPD, pneumonia, pleural effusion, pulmonary edema, ARDS, pneumothorax, CHF, cardiac ischemia, cardiac tamponade, dysrhythmia, anemia, pulmonary embolism, musculoskeletal, gastrointestinal process, as well as others were entertained. Medical Records Attestation: I reviewed the patient's medical records. Home Medications Current Medication List: was personally reviewed by me Laboratory Data Attestation: I reviewed the patient's lab results. Result diagrams: 12/31/19 12:10 12/31/19 12:10 Lab Results 12/31/19 12/31/19 12/31/19 Range/Units 12:10 12:10 12:27 WBC 1.59 L (4.8-10.8) K/uL RBC 2.71 L (4.7-6.1) M/uL Hgb 7.9 L (14.0-18.0) g/dL Hct 24.5 L (42-52) % MCV 90.4 (80-100) fL MCH 29.2 (25-34) pg MCHC 32.2 (32-36) g/dL RDW Std Deviation 52.0 H (36.4-46.3) fL RDW Coeff of Qiana 15.8 H (11.5-14.5) % Plt Count 52 L (130-400) K/uL Immature Gran % (Auto) 1.3 % Neut % (Auto) 67.2 % Lymph % (Auto) 16.4 % Beaver % (Auto) 15.1 % Eos % (Auto) 0.0 % Baso % (Auto) 0.0 % Neut # (Auto) 1.07 L (1.4-6.5) K/uL Lymph # (Auto) 0.26 L (1.2-3.4) K/uL Beaver # (Auto) 0.24 (0.11-0.59) K/uL Eos # (Auto) 0.00 (0-0.5) K/uL Baso # (Auto) 0.00 (0-0.2) K/uL Immature Gran # (Auto) 0.02 (0.00-0.02) K/uL Platelet Estimate Decreased L (Normal) Sodium 136 (136-145) mmol/L Potassium 3.8 (3.5-5.1) mmol/L Chloride 102 (98-107) mmol/L Carbon Dioxide 24 (21-32) mmol/L Anion Gap 10.0 (3-11) BUN 45 H (7-18) mg/dl Creatinine 1.87 H (0.6-1.4) mg/dl Est Cr Clr Drug Dosing Not Reportable Est GFR ( Amer) 39.6 Est GFR (Non-Af Amer) 34.2 BUN/Creatinine Ratio 24.1 H (10-20) Glucose 131 H (70-99) mg/dl Calcium 8.3 L (8.5-10.1) mg/dl Magnesium 1.9 (1.8-2.4) mg/dl Total Bilirubin 0.7 (0.2-1) mg/dl AST 38 H (15-37) U/L ALT 24 (12-78) U/L Alkaline Phosphatase 74 (45-117) U/L Troponin I 0.016 (0-0.045) ng/ml Total Protein 5.9 L (6.4-8.2) gm/dl Albumin 2.4 L (3.4-5.0) gm/dl Globulin 3.5 (2.5-4.0) gm/dl Albumin/Globulin Ratio 0.7 L (0.9-2) TSH 1.680 (0.300-4.500) uIu/ml Blood Type O Positive Antibody Screen NEGATIVE Crossmatch See Detail Imaging Data Radiologist's Impression: XR chest 1V portable HISTORY: weakness COMPARISON: Chest 12/28/2019. FINDINGS: The lungs are hyperexpanded with apical predominant emphysematous changes. No pneumothorax. No pleural effusions. The heart remains stable in size. There are poststernotomy changes. Right jugular Port-A-Cath terminates at the proximal SVC. There is a new left basilar airspace opacity. The right lung appears clear. No evidence for pulmonary edema. IMPRESSION: A new left base airspace opacity. This likely represents a pneumonia. Recommend follow-up to ensure resolution. ACT 112: Negative or not required by law. Electronically signed by: Fei Flores M.D. 12/31/2019 12:52 PM Dictated: 12/31/19 1251 Transcribed: 12/31/19 1251 ECG Data Attestation: I personally reviewed and interpreted this ECG as follows: Indication: + SOB/dyspnea Rate (beats per minute): 65 Rhythm: + normal sinus ECG ST segments: + Nonspecific ST abnormalities ECG Findings: + LVH; no PACs and no PVCs Additional Comments: QRS widening Blood Pressure Blood Pressure Findings: Normal blood pressure Blood Pressure Disposition: did not require urgent referral MDM Narrative This patient was evaluated and appeared to be in no significant distress. IV a ccess was obtained through the patient's indwelling port. An order for cardiac monitoring was placed and the patient is noted to be in a sinus rhythm at 65 bpm. Chest x-ray was performed and is concerning for a new left basilar opacity. Blood cultures were performed. Patient was hydrated with normal saline solution. WBC is 1.59. The patient is no longer neutropenic. He was typed and crossed for 2 units. 1 unit was ordered for transfusion due to hemoglobin of 7.9. Patient also has an acute thrombocytopenia with a platelet count of 59. Patient was medicated with IV cefepime and doxycycline. Case was discussed with the hospitalist service for admission and further management. Patient was updated to the findings and plan. I was called back to the room at approximately 1645 PM for acute shortness of breath. IV fluids were DC'd. Blood was stopped temporarily. Patient was ordered 40 mg of IV Lasix and a DuoNeb treatment. Dr. Poe was called to the bedside for handoff. Impression & Plan Anemia, COPD (chronic obstructive pulmonary disease), Malignant neoplasm metastatic from bladder, Thrombocytopenia, Pneumonia Discharge Plan Visit Data Chief Complaint: Abnormal Labs/Diagnostic Testing Stated Complaint: REF BY DOC, SOB ED Provider: Ni Trimble Discharge Problem: Anemia, COPD (chronic obstructive pulmonary disease), Malignant neoplasm metastatic from bladder, Thrombocytopenia, Pneumonia Forms Stand Alone Forms: Zita Carnegie Speech Prescriptions Prescriptions: No Action docusate sodium 100 mg capsule 100 mg PO BID PRN (Reason: Constipation) RF: 0 oxybutynin chloride 10 mg Tablet Extended Release 24hr 10 mg PO QAM RF: 0 olanzapine 2.5 mg Tablet 2.5 mg PO HS RF: 0 aspirin [Aspir-81] 81 mg Tablet,Delayed Release (Dr/Ec) 81 mg PO QAM RF: 0 pantoprazole [Protonix] 40 mg Tablet,Delayed Release (Dr/Ec) 40 mg PO QAM RF: 0 melatonin 5 mg Tablet 5 mg PO HS RF: 0 Eliquis 5 mg Tablet 5 mg PO BID RF: 0 albuterol sulfate 90 mcg/actuation Hfa Aerosol Inhaler 2 puff INHALATION QID PRN (Reason: Shortness Of Breath Or Wheezing) RF: 0 amiodarone 200 mg tablet 200 mg PO BID Qty: 60 RF: 0 atorvastatin 40 mg tablet 40 mg PO PM Qty: 30 RF: 0 oxycodone 20 mg Tablet 20 mg PO BID RF: 0 oxycodone-acetaminophen [Percocet] 5-325 mg tablet 1 tab PO Q6H PRN (Reason: pain) Qty: 10 RF: 0 ondansetron 4 mg tablet,disintegrating 4 mg PO Q8H PRN (Reason: nausea and vomiting) 10 Days Qty: 10 RF: 0 Discharge Problem: Anemia Qualifiers: Anemia type: unspecified type Qualified Code(s): D64.9 - Anemia, unspecified COPD (chronic obstructive pulmonary disease) Qualifiers: COPD type: COPD with acute lower respiratory infection Qualified Code(s): J44.0 - Chronic obstructive pulmonary disease with (acute) lower respiratory infection Pneumonia Qualifiers: Pneumonia type: due to unspecified organism Laterality: left Lung location: lower lobe of lung Qualified Code(s): J18.9 - Pneumonia, unspecified organism
--- NOTE | 2019-12-31 16:07 | History & Physical Report ---
Date of Service December 31, 2019 Assessment & Plan (1) Sepsis: SIRS criteria with RR and low WBC Source PNA (also getting urine culture from nephrostomy tubes), suspect aspiration with recent nausea and vomiting Reduced IV fluid boluses due to large amount of fluids given as blood and antib iotics and recent history of hypervolemia requiring lasix (2) Acute respiratory failure with hypoxia: Aim O2 sats > 94 %, no CO2 retention on ABG (3) Pneumonia: Vancomycin, cefepime, doxycycline given in ER. MRSA nasal swab negative therefore will d/c vancomycin. COVID-19 negative Concern for aspiration given RLL/N&V - aspiration precautions, consult SLT, no overt aspirations noted at bedside and denied by patient therefore will start an easy to chew diet. Sputum culture (4) Acute sinusitis: IV doxycycline as above (5) Mucus plugging of bronchi: Suspect this was the cause of this acute deterioration in ER. Improved w chris janeneb. Consider CPAP if he acutely deteriorates again as likely will have further mucus plugging during his illness course. Incentive spirometry, flutter valve (6) Acute delirium: Hallucinating in the ER with transient short lived apneic episodes. CT head - acute sinusitis but otherwise unremarkable. Suspect metabolic-toxic encephalopathy due to ativan given in ER in setting of JUANITA/infection/opate use Continue olanzepine 2.5mg PO HS Falls risk (7) Malignant neoplasm metastatic from bladder: UA +/- culture from both nephrostomy tubes. Will need outpatient follow up to change these as they should have been changed already. Reduce OxyContin to 10mg PO BID due to acute delirium (?increased metabolites due to current JUANITA) Continue Percocet for breakthrough pain. Continue Oxybutynin for bladder spasms (8) JUANITA (acute kidney injury): Agree with outpatient heart failure clinic note that patient significantly hypovolemic on presentation. Will carefully rehydrate with blood +/- IV fluids while monitoring shortness of breath to make sure not getting hypervolemic. Repeat BMP (9) Thrombocytopenia: Suspected chemotherapy induced. Hold ASA. Continue to monitor with repeat CBC in AM. (10) Dyslipidemia: Continue atorvastatin 40mg PO daily (11) Mitral regurgitation: (12) CAD (coronary artery disease): ASA on hold as above. Continue Eliquis since Plt > 50. (13) Paroxysmal atrial fibrillation: Continue Eliquis 5mg PO BID Rhythm control with amiodarone 200mg PO BID (14) COPD (chronic obstructive pulmonary disease): On no maintenance inhalers. No recent exacerbation. No wheezing on exam. No acute exacerbation. Duoneb given in ER. Will continue PRN only. Not suspected to be exacerbation on admission. (15) Antineoplastic chemotherapy induced pancytopenia: Transfused 1 unit PRBCs in ER. Repeat CBC to determine if requires further transfusion Admission and Anticipated Discharge Date Admission Date: 12/31/2019 History of Present Illness Chief Complaint: Shortness of breath Primary Care Provider: Lakisha Carson PA-C Ludwin Ghosh is a 74 year old male who presents to the ER with shortness of breath and abnormal labs. He was recently hospitalized from December 27 to with intractable nausea and vomiting with CT A/P at that time showing colonic stool retention but otherwise no acute process. His nausea and vomiting was suspected to be a side effect from his chemotherapy. His nausea and vomiting improved and he was subsequently discharged the following day. On discharge he was recommended to continue on a clear liquid diet but his daughter notes he hasn't had anything significant to eat or drink after he was discharged. He had follow up labs performed today by his oncologist (results not available) but the patient reports he was told he may need a blood transfusion. Since discharge his daughter has noted he has been getting increasingly short of breath significantly worse today. Associated productive cough (worse than usual). On follow up with Liliana Terry earlier today in heart failure clinic he was noted to he hypotensive and hypoxic and sent straight to the ER I discussed his case with Liliana prior to the patient arriving in the ER with concerns he was dry and hypovolemic on exam. No chest pain, palpitations, orthopnea, PND, claudication. Regarding his anemia he denies any external bleeding, melena or bright red blood in stool. Suspected to be chemotherapy induced given concurrent suppression of platelets. He has a known diagnosis of metastatic bladder cancer with bilateral nephrostomy tubes which are overdue to be changed due to his recent hospitalizations. In the ER he became acutely short of breath after starting blood transfusion, cefepime, IV fluids. Concern for fluid overload given history of this by ER provider and initial prescribed lasix but CXR, history and exam more concerning for mucus plug which appeared to resolve with a duoneb. Possible also patient had panic attack as never became significantly hypoxic. Ativan 0.25mg IV given which caused some hallucinations and delirium. Given complex medical history with metastatic cancer CT head obtained which showed no acute intracranial bleed but was significant for acute sinusitis (although patient denies any fullness over his sinuses). Blood transfusion, vancomycin and doxycycline delayed administration due to concerns of acute pulmonary edema, resumed after this was ruled out. No arrhythmia on telemetry to explain acute deterioration (prior history of atrial flutter/fibrillation. Allergies Allergy/AdvReac Type Severity Reaction Status Date / Time No Known Allergies Allergy Verified 12/31/19 14:09 Home Medications Home Medications Medication Instructions Recorded Confirmed Type Eliquis 5 mg PO BID 12/08/19 12/31/19 History albuterol sulfate 2 puff INHALATION QID PRN 12/08/19 12/31/19 History aspirin [Aspir-81] 81 mg PO QAM 12/08/19 12/31/19 History melatonin 5 mg PO HS 12/08/19 12/31/19 History olanzapine 2.5 mg PO HS 12/08/19 12/31/19 History oxybutynin chloride 10 mg PO QAM 12/08/19 12/31/19 History pantoprazole [Protonix] 40 mg PO QAM 12/08/19 12/31/19 History amiodarone 200 mg PO BID #60 tab 12/10/19 12/31/19 Rx atorvastatin 40 mg PO PM #30 tab 12/10/19 12/31/19 Rx oxycodone-acetaminophen [Percocet] 1 tab PO Q6H PRN #10 tab 12/14/19 12/31/19 Rx ondansetron 4 mg PO Q8H PRN 10 Days #10 tab 12/29/19 12/31/19 Rx docusate sodium 100 mg capsule 100 mg PO BID PRN cap 12/31/19 12/31/19 History oxycodone [OxyContin] 20 mg PO BID 12/31/19 12/31/19 History Past Med/Surg History Medical History Abdominal aortic aneurysm S/p previous stent placement; per 12/08/19 CT scan - "Fusiform aneurysm dilation of the abdominal aorta with aortobiiliac stent graft. Aneurysm measures up to approximately 4.1 x 4.8 cm. Femoral-femoral bypass graft. Abdominal pain, lower Anemia Hgb 6.9 on 12/08/19- did get packed RBCs when admitted to [facility] Bladder cancer DX 6 WEEKS AGO > HAS HAD 1ST ROUND CHEMO CAD (coronary artery disease) S/p CABG 3 vessel 2012 or 2013 Chronic combined systolic and diastolic congestive heart failure Will be following with Heart Failure Clinic COPD (chronic obstructive pulmonary disease) WELL CONTROLLED PER PT Cough DVT (deep venous thrombosis) left leg > 2016 > unknown cause Dyslipidemia Edema, peripheral JUST DC FROM [facility] FOR THIS PER PT 12/08/19 Hard of hearing Hypoalbuminemia Mitral regurgitation S/p MV repair Nausea & vomiting Paroxysmal atrial fibrillation DX OCTOBER 2019 > NO CARDIOVERSIONS Poor historian Surgical History History of cardiac cath 5 yrs ago> no known cardiac stents History of CEA (carotid endarterectomy) 6 YRS AGO- NO MENTION OF CEA PER RECORDS- NO RECENT CAROTID IMAGING ON FILE EITHER History of endovascular stent graft for abdominal aortic aneurysm History of left hip replacement History of pelvic surgery Fractured pelvis repair History of tooth extraction Hx of appendectomy Hx of CABG 7 YRS AGO > [place] > TRIPLE BYPASS> FOLLOWS DR. 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 Stake Runner Required: No Beliefs That Will Affect Care: None marital status: Single Current Living Situation: Family Current Living Situation Comment: daughter Feels Safe at Home: Yes Review of Systems Review of Systems: All systems reviewed & are unremarkable except as noted in HPI & below Physical Exam Constitutional: well developed, + acute distress (short of breath) and + frail appearing; + not well nourished Eyes: PERRL, conjunctivae normal, anicteric sclerae ENMT: Ears: no external ear abnormality Nose: no external nose abnormality Mouth: + dry oral mucous membranes Neck: trachea midline, no thyromegaly Respiratory: + respiratory distress, + labored breathing, + retractions, + uses accessory muscles, + cough and + tachypneic; + not able to speak in complete sentence Auscultation: + diminished lung sounds (throughout) and + crackles (bibasal); no wheezes Cardiovascular: Rate/Rhythm: regular rate and regular rhythm Heart Sounds: + murmur Vessels: no JVD Extremities: normal capillary refill (peripheral); no calf tenderness and no pedal edema Gastrointestinal (Abdomen): normal bowel sounds, soft, nontender, no hepatosplenomegaly Musculoskeletal: no cyanosis or clubbing, extremities motor strength 5/5 Skin: no rashes, warm and dry Neurologic: moves all extremities and awake; not confused Psychiatric: Orientation: alert and oriented x 3 Genitourinary: no CVA tenderness Lymphatic: no cervical or axillary lymphadenopathy Results & Data Results & Data ([facility]) Vital Signs (Past 12 Hours) Vital Signs Temp Pulse Resp BP Pulse Ox 12/31/19 15:46 36.6 C 60 21 134/50 L 93 12/31/19 15:31 63 22 131/45 L 94 12/31/19 15:12 60 21 108/54 L 96 12/31/19 15:11 36.6 C 59 L 18 108/54 L 96 12/31/19 15:00 56 L 22 135/46 L 96 12/31/19 14:30 56 L 17 130/44 L 93 12/31/19 14:00 58 L 15 130/70 94 12/31/19 13:31 61 16 118/54 L 94 12/31/19 13:00 59 L 17 125/44 L 96 12/31/19 12:30 60 16 124/43 L 98 12/31/19 12:01 64 14 102/76 94 12/31/19 11:59 64 19 124/69 94 12/31/19 11:30 36.9 C 64 17 110/29 L 96 Diagnostic Findings XR chest 1V portable IMPRESSION: A new left base airspace opacity. This likely represents a pneumonia. Recommend follow-up to ensure resolution. XR chest 1V portable IMPRESSION: Progressively worsened airspace opacities of the left lung base suspicious for pneumonia. CT head/brain wo con IMPRESSION: 1. Motion degraded exam without acute intracranial abnormality. 2. Moderate acute sinusitis. ECG Indication: SOB/dyspnea Rate (beats per minute): 65 Findings: + other (non-specific intraventricular block) Comparison ECG Date: from (Dec 28, 2019) Change: no significant change Code Status & VTE Plan Code Status DNR/DNI as confirmed with patient; consistent with prior wishes VTE Prophylaxis Plan VTE Prophylaxis will be ordered: Yes Critical Care Time Critical Care Time: Yes Total Critical Care Time: 25 PG Care Time/CCT Total # of Minutes Spent Total Time Spent: 135 Total Time Spent with Patient: Total time spent is greater than 50% in coordination of care (as documented) at patient's floor/unit and/or counseling patient: Critical Care Time: Yes Total Critical Care Time: 25 Management of acute hypoxic respiratory failure at bedside with acute deterioration Coding Level of Care Code 92995 Initial Inpt Care Lvl 3 Diagnoses Sepsis A41.9 Acute respiratory failure with hypoxia J96.01 Pneumonia J18.9 Laterality: left Lung location: lower lobe of lung Pneumonia type: due to unspecified organism Acute sinusitis J01.90 Mucus plugging of bronchi J98.09 Acute delirium R41.0 Malignant neoplasm metastatic from bladder C67.9 JUANITA (acute kidney injury) N17.9 Thrombocytopenia D69.6 Dyslipidemia E78.5 Mitral regurgitation I34.0 CAD (coronary artery disease) I25.10 Paroxysmal atrial fibrillation I48.0 COPD (chronic obstructive pulmonary disease) J44.0 COPD type: COPD with acute lower respiratory infection Antineoplastic chemotherapy induced pancytopenia D61.810; T45.1X5A Additional Codes Critical Care Time - Critical Care Time: Yes ([id number]) (1) COPD (chronic obstructive pulmonary disease) COPD type: COPD with acute lower respiratory infection Qualified Code(s): J44.0 - Chronic obstructive pulmonary disease with (acute) lower respiratory infection (2) Pneumonia Laterality: left Lung location: lower lobe of lung Pneumonia type: due to unspecified organism Qualified Code(s): J18.9 - Pneumonia, unspecified organism
[2019-12-31] MEDS ORDERED: FUROSEMIDE 40 MG/4 ML VIAL IV STA (16:33)
[2019-12-31] MEDS ORDERED: ALBUT/IPRATROP 3MG/0.5MG NEB 3 ML VIAL NEB STA (16:34)
[2019-12-31] MEDS ORDERED: LORazepam 0.25 MG/0.5 ML VIAL IV STA (16:51)
[2019-12-31 17:23] LABS: Base Excess ABG -3.2 mEq/L (-9-1.8); HCO3 ABG 21 mmol/L (19-24); Oxygen Saturation ABG 93.6 % (90-95); PCO2 ABG 36 mmHg (35-46); PO2 ABG 79 mmHg (80-95); pH ABG 7.39 (7.35-7.45)
[2019-12-31 17:24] LABS: Allen Test Pos (Pos)
--- NOTE | 2019-12-31 17:33 | XRay Report ---
XR chest 1V portable HISTORY: 74 years-old Male sob acute shortness of breath COMPARISON: Chest radiograph 12/31/2019 at 12:29 PM TECHNIQUE: Portable AP view of the chest FINDINGS: Cardiac silhouette upper limits of normal in size, unchanged. Prior median sternotomy. Calcified plaq ue of the thoracic aortic arch. Unchanged positioning of the right IJ [id number] catheter. Mild ch ronic interstitial coarsening. No pneumothorax. Progressively worsened left lung base opacities. No l arge pleural effusion or overt pulmonary edema. Degenerative changes of the shoulders and spine. IMPRESSION: Progressively worsened airspace opacities of the left lung base suspicious for pneumonia. ACT 112: Negative or not required by law. The above report was generated using voice recognition software. It may contain grammatical, syntax o r spelling errors. Electronically signed by: Víctor Whalen M.D. 12/31/2019 5:32 PM
--- NOTE | 2019-12-31 19:35 | CT Scan Report ---
CT head/brain wo con CLINICAL HISTORY: 74 years-old Male with delirium. Acutely altered mental status TECHNIQUE: Multiple axial CT images of the head were obtained without contrast. A dose lowering tech nique was utilized adhering to the principles of ALARA. CT DOSE: 691.05 mGy.cm COMPARISON: None. FINDINGS: Motion degraded exam. The study was then partially repeated. No acute intracranial hemorrhage, midlin e shift, intracranial mass, hydrocephalus, territorial ischemia or abnormal extra-axial collection. A ge-related involutional changes with ex vacuo ventriculomegaly. Mild patchy white matter hypodensitie s suggest chronic microvascular ischemic disease. Cerebral vascular calcifications. The calvarium is intact. Mastoid air cells are clear. Moderate mucosal thickening of the visualized paranasal sinuses with maxillary and left sphenoid sinus air-fluid levels. IMPRESSION: 1. Motion degraded exam without acute intracranial abnormality. 2. Moderate acute sinusitis. ACT 112: Negative or not required by law. The above report was generated using voice recognition software. It may contain grammatical, syntax o r spelling errors. Electronically signed by: Víctor Whalen M.D. 12/31/2019 7:34 PM
[2019-12-31 19:42] LABS: INR 1.7 (0.9-1.1); Prothrombin Time 17.2 Seconds (9.0-12.0)
[2019-12-31 19:46] LABS: Appearance Urine Turbid (Clear); Bacteria Urine Automated 1+ (Negative); Bilirubin Urine Negative (Negative); Blood Urine 3+ (Negative); Color Urine Dark Yellow; Glucose Urine UA Negative (Negative); Ketones Urine Negative (Negative); Leukocyte Esterase Urine 1+ (Negative); Nitrite Urine Negative (Negative); Protein Urine 2+ (Negative); Specific Gravity Urine 1.014 (1.000-1.030); Urobilinogen Urine Negative (Negative); WBC Urine Automated >30 /hpf (0-5); pH Urine 5.5 (4.5-7.5)
[2019-12-31 19:48] LABS: Partial Thromboplastin Time 55.8 Seconds (21.0-31.0)
[2019-12-31] MEDS ORDERED: ALBUTEROL HFA 8 GM INHALER INH PRN (19:51)
[2019-12-31] MEDS ORDERED: ALBUT/IPRATROP 3MG/0.5MG NEB 3 ML VIAL NEB SCH (19:51)
[2019-12-31] MEDS ORDERED: oxyCODONE/ACETAMINOPHEN 5mg/325mg TAB PO PRN (19:51)
[2019-12-31] MEDS ORDERED: metroNIDAZOLE 500 MG/100 ML BAG IV SCH (20:45)
[2019-12-31] MEDS ORDERED: oxyCODONE HCL 20 MG TABCR (OxyCONTIN) PO SCH (21:00)
[2019-12-31 21:07] LABS: Hematocrit (blood only) 24.8 % (42-52); Mean Corpuscular Hemoglobin 29.1 pg (25-34); Mean Corpuscular Volume 90.2 fL (80-100); RDW Coefficient of Variation 15.7 % (11.5-14.5); RDW Standard Deviation 50.8 fL (36.4-46.3); Red Blood Count 2.75 M/uL (4.7-6.1); White Blood Count 1.54 K/uL (4.8-10.8)
[2019-12-31 21:24] LABS: Albumin Level 2.2 gm/dl (3.4-5.0); BUN Creatinine Ratio 24.9 (10-20); Calcium 8.3 mg/dl (8.5-10.1); Creatinine Clr Calc Pharmacy 32.3 ml/min; Est GFR (African American) 49.3; Est GFR (Non-African American) 42.5; Potassium 3.8 mmol/L (3.5-5.1)
[2019-12-31] MEDS ORDERED: oxyCODONE HCL 10 MG TABCR (OxyCONTIN) PO SCH (21:24)
[2019-12-31 21:27] LABS: Albumin Globulin Ratio 0.7 (0.9-2); Bilirubin,Total 1.1 mg/dl (0.2-1); Globulin 3.4 gm/dl (2.5-4.0); Total Protein 5.6 gm/dl (6.4-8.2)
[2019-12-31] MEDS: MELATONIN 3 MG TAB PO SCH (21:55)
[2019-12-31] MEDS: oxyCODONE HCL 10 MG TABCR (OxyCONTIN) PO SCH (21:55)
[2019-12-31] MEDS: APIXABAN 5 MG TABLET PO SCH (21:56)
[2019-12-31] MEDS: AMIODARONE 200 MG TAB PO SCH (21:56)
[2019-12-31] MEDS: ATORVASTATIN 40 MG TAB PO SCH (21:56)
[2019-12-31 22:01] LABS: Dohle Bodies 2+; Giant Platelets 2+; Immature Granulocytes # (auto) 0.05 K/uL (0.00-0.02); Immature Granulocytes % (auto) 3.2 %; Lymphocytes # (auto) 0.28 K/uL (1.2-3.4); Lymphocytes % (auto) 18.2 %; Mean Corpuscular Hgb Conc 32.3 g/dL (32-36); Mean Platelet Volume 11.5 fL (7.4-10.4); Monocytes # (auto) 0.16 K/uL (0.11-0.59); Monocytes % (auto) 10.4 %; Neutrophils # (auto) 1.05 K/uL (1.4-6.5); Neutrophils % (auto) 68.2 %; Platelet Count 38 K/uL (130-400); Tear Drop Cells 1+; Toxic Granulation 2+
[2019-12-31] MEDS: OLANZAPINE 2.5 MG TAB PO SCH (22:24)
[2019-12-31 22:29] LABS: Appearance Urine Turbid (Clear); Bacteria Urine Automated Negative (Negative); Bilirubin Urine Negative (Negative); Blood Urine 1+ (Negative); Color Urine Yellow; Epithelial Cell Urine Auto >30 /lpf (0-5); Glucose Urine UA Negative (Negative); Ketones Urine Negative (Negative); Leukocyte Esterase Urine Trace (Negative); Nitrite Urine Negative (Negative); Protein Urine 2+ (Negative); Specific Gravity Urine 1.022 (1.000-1.030); Urobilinogen Urine Negative (Negative); WBC Urine Automated >30 /hpf (0-5)
[2019-12-31 22:30] LABS: Appearance Urine Cloudy (Clear); Bacteria Urine Automated Negative (Negative); Bilirubin Urine Negative (Negative); Blood Urine 3+ (Negative); Color Urine Yellow; Glucose Urine UA Negative (Negative); Ketones Urine Negative (Negative); Leukocyte Esterase Urine 2+ (Negative); Nitrite Urine Negative (Negative); Protein Urine 2+ (Negative); Specific Gravity Urine 1.016 (1.000-1.030); Urobilinogen Urine Negative (Negative); WBC Urine Automated >30 /hpf (0-5); pH Urine 5.5 (4.5-7.5)
[2019-12-31 22:48] LABS: RBC Urine Automated 0-4 /hpf (0-4)
[2020-01-01] MEDS: DOXYCYCLINE HYCLATE 100 MG in DEXTROSE 5% 100 ML IV SCH ×2 (03:48→15:25)
[2020-01-01] MEDS: ALBUT/IPRATROP 3MG/0.5MG NEB 3 ML VIAL NEB PRN ×6 (04:52→20:18)
[2020-01-01 08:02] LABS: Hemoglobin 8.7 g/dL (14.0-18.0); Mean Corpuscular Hemoglobin 29.2 pg (25-34); Mean Corpuscular Hgb Conc 32.2 g/dL (32-36); Mean Corpuscular Volume 90.6 fL (80-100); Mean Platelet Volume 12.1 fL (7.4-10.4); Platelet Count 34 K/uL (130-400); RDW Coefficient of Variation 15.4 % (11.5-14.5); Red Blood Count 2.98 M/uL (4.7-6.1); White Blood Count 2.72 K/uL (4.8-10.8)
[2020-01-01 08:36] LABS: Albumin Level 2.1 gm/dl (3.4-5.0); BUN Creatinine Ratio 24.7 (10-20); Calcium 8.4 mg/dl (8.5-10.1); Creatinine Clr Calc Pharmacy 34.7 ml/min; Dohle Bodies 2+; Eosinophils # (auto) 0.01 K/uL (0-0.5); Eosinophils % (auto) 0.4 %; Est GFR (African American) 51.7; Est GFR (Non-African American) 44.6; Immature Granulocytes # (auto) 0.03 K/uL (0.00-0.02); Immature Granulocytes % (auto) 1.1 %; Lymphocytes # (auto) 0.17 K/uL (1.2-3.4); Lymphocytes % (auto) 6.3 %; Monocytes # (auto) 0.31 K/uL (0.11-0.59); Monocytes % (auto) 11.4 %; Neutrophils % (auto) 80.8 %; Potassium 3.8 mmol/L (3.5-5.1); Toxic Granulation 2+
[2020-01-01 08:39] LABS: Albumin Globulin Ratio 0.6 (0.9-2); Bilirubin,Total 1.3 mg/dl (0.2-1); Globulin 3.3 gm/dl (2.5-4.0); Total Protein 5.4 gm/dl (6.4-8.2)
[2020-01-01] MEDS ORDERED: ASPIRIN 81 MG ECTAB PO SCH (09:00)
[2020-01-01] MEDS: PANTOprazole 40 MG TAB PO SCH (09:21)
[2020-01-01] MEDS: oxyCODONE HCL 10 MG TABCR (OxyCONTIN) PO SCH ×2 (09:21→21:32)
[2020-01-01] MEDS: AMIODARONE 200 MG TAB PO SCH ×2 (09:21→21:29)
[2020-01-01] MEDS: OXYBUTYNIN CHLORIDE XL 5 MG TABCR PO SCH (09:21)
[2020-01-01] MEDS: APIXABAN 5 MG TABLET PO SCH (09:22)
[2020-01-01] MEDS: ACETYLCYSTEINE 20% INHAL SOLN 4ML ***DISPENSED BY RESP. INH SCH ×2 (11:22→19:34)
--- NOTE | 2020-01-01 17:30 | Hospitalist Progress Note ---
Date of Service January 01, 2020 Assessment & Plan (1) Sepsis: SIRS criteria with RR and low WBC Source PNA UA is + for leuk est, neg for nitrites in the setting of b/l nephrostomy tubes--urine cx pending Blood cx pending Reduced IV fluid boluses due to large amount of fluids given as blood and antibiotics and recent history of hypervolemia requiring lasix Also note slight increase in total bili, monitor Neg for GI sx (2) Pneumonia: Vancomycin, cefepime, doxycycline given in ER. MRSA nasal swab negative therefore will d/c vancomycin. COVID-19 negative Concern for aspiration given RLL - aspiration precautions, consult SLT, no overt aspirations noted at bedside and denied by patient therefore will start an easy to chew diet. Sputum culture (3) Acute sinusitis: IV doxycycline as above (4) Mucus plugging of bronchi: Suspect this was the cause of this acute deterioration in ER. Improved with duoneb, will continue Add mucomyst Consider CPAP if he acutely deteriorates again as likely will have further mucus plugging during his illness course. Incentive spirometry, flutter valve Home O2 3L continuous via [facility] Hx of COPD but only inhaler use is albuterol rescue that he states he never needs (5) Acute delirium: Hallucinating in the ER with transient short lived apneic episodes. CT head - acute sinusitis but otherwise unremarkable. Suspect metabolic-toxic encephalopathy due to ativan given in ER in setting of JUANITA/infection/opate use Continue olazepine 2.5mg PO HS Falls risk (6) Malignant neoplasm metastatic from bladder: UA +/- culture from both nephrostomy tubes. Will need outpatient follow up to change these as they should have been changed already. Reduce oxycontin to 10mg PO BID due to acute delirium (?increased metabolites due to current JUANITA) Continue percocet for breakthrough pain. Continue Oxybutynin for bladder spasms (7) JUANITA (acute kidney injury): Agree with outpatient heart failure clinic note that patient significantly hypovolemic on presentation. Will carefully rehydrate with blood +/- IV fluids while monitoring shortness of breath to make sure not getting hypervolemic. Repeat BMP Cr on admission 1.8 Baseline is 1.0 (8) Thrombocytopenia: Suspected chemotherapy induced. Hold ASA. Continue to monitor with repeat CBC in AM. Family requesting c/s with pt's oncology team, follows with [facility]. [facility] at [facility] (9) Dyslipidemia: (10) Mitral regurgitation: (11) CAD (coronary artery disease): (12) Paroxysmal atrial fibrillation: Continue Eliquis 5mg PO BID (13) COPD (chronic obstructive pulmonary disease): On no maintenance inhalers. No wheezing on exam. No acute exacerbation. Duoneb given in ER. Will continue scheduled nebs, add mucomyst (14) Antineoplastic chemotherapy induced pancytopenia: Transfused 1 unit PRBCs in ER for Hb 7.9, additional 1 unit later for a total of 2 units on admission Repeat CBC improved to 8.7 Hx of 2 units PRBC on 12/08 Admission and Anticipated Discharge Date Admission Date: December 31, 2019 PT/OT pending Subjective Pt states he is feeling better. Still with some SOB, but improving. Tolerating PO. His biggest concern is that he has not been able to sleep much since admission and he is tired. Pt denies fever, chest pain, abd pain, n/v/c/d, LE pain or swelling. Pt denies choking or coughing with PO. Daughter agrees. Daughter is present and states that pt is living with her currently. Review of Systems Review of Systems: Pertinent positives and negatives reviewed in HPI--all others negative Physical Exam Constitutional: WD/WN, vitals as above Eyes: normal visual ponce by confrontation and + anicteric sclerae Neck: normal visual inspection and trachea midline Respiratory: normal respiratory effort; no respiratory distress Auscultation: + crackles and + rhonchi; no wheezes Cardiovascular: Rate/Rhythm: regular rate and regular rhythm Gastrointestinal (Abdomen): Inspection/Auscultation: abdomen not distended Percussion/Palpation: abdomen soft; abdomen nontender Musculoskeletal: Head/Neck/Chest: normocephalic and head atraumatic negative for edema, peripheral pulses intact Skin: no rashes, warm and dry + pallor Neurologic: awake; not confused Speech / Cognition: normal speech Psychiatric: A+Ox3, euthymic affect Results & Data Results & Data ([facility]) Vital Signs (Past 12 Hours) Vital Signs Temp Pulse Resp BP Pulse Ox 01/01/20 15:37 37.1 C 63 16 141/45 H 97 01/01/20 14:21 96 01/01/20 12:12 36.6 C 97 H 22 134/55 L 94 01/01/20 11:48 36.6 C 88 20 140/60 100 01/01/20 11:26 72 22 94 01/01/20 09:37 61 22 98 01/01/20 07:21 36.3 C L 70 21 105/64 95 PG Care Time/CCT Total # of Minutes Spent Total Time Spent with Patient: Total time spent is greater than 50% in coordination of care (as documented) at patient's floor/unit and/or counseling patient: Coding Level of Care Code 28563 Subseq Hosp Care Lvl 3 Diagnoses Sepsis A41.9 Pneumonia J18.9 Laterality: left Lung location: lower lobe of lung Pneumonia type: due to unspecified organism Acute sinusitis J01.90 Mucus plugging of bronchi J98.09 Acute delirium R41.0 Malignant neoplasm metastatic from bladder C67.9 JUANITA (acute kidney injury) N17.9 Thrombocytopenia D69.6 Dyslipidemia E78.5 Mitral regurgitation I34.0 CAD (coronary artery disease) I25.10 Paroxysmal atrial fibrillation I48.0 COPD (chronic obstructive pulmonary disease) J44.0 COPD type: COPD with acute lower respiratory infection Antineoplastic chemotherapy induced pancytopenia D61.810; T45.1X5A (1) Pneumonia Laterality: left Lung location: lower lobe of lung Pneumonia type: due to unspecified organism Qualified Code(s): J18.9 - Pneumonia, unspecified organism (2) COPD (chronic obstructive pulmonary disease) COPD type: COPD with acute lower respiratory infection Qualified Code(s): J44.0 - Chronic obstructive pulmonary disease with (acute) lower respiratory infection
[2020-01-01] MEDS: OLANZAPINE 2.5 MG TAB PO SCH (19:54)
[2020-01-01] MEDS ORDERED: CEFEPIME 2,000 MG in SYRINGE 7.5 ML IV SCH (20:00)
[2020-01-01] MEDS ORDERED: methylPREDNISolone 125 MG in SYRINGE 0 ML IV STA (20:01)
[2020-01-01] MEDS ORDERED: methylPREDNISolone 125 MG/2 ML VIAL ONE (20:03)
[2020-01-01] MEDS ORDERED: MoRPHine SULFATE 2 MG/ML CARP IV STA (20:27)
[2020-01-01] MEDS ORDERED: MoRPHine SULFATE 2 MG/ML CARP ONE (20:28)
[2020-01-01] MEDS ORDERED: PIPERACILL/TAZOBAC CONSULT ACTIVE PRN ×2 (20:30→22:33)
[2020-01-01] MEDS ORDERED: VANCOMYCIN CONSULT ACTIVE PRN ×2 (20:30)
[2020-01-01] MEDS ORDERED: LEVALBUTEROL HCL 1.25 MG/3 ML NEB NEB PRN (20:33)
[2020-01-01] MEDS ORDERED: PIPERACILLIN/TAZOBACTAM 3.375 GM in DEXTROSE 5% 100 ML IV STA (20:45)
[2020-01-01] MEDS ORDERED: VANCOMYCIN HCL 1,250 MG in SODIUM CHLORIDE 0.9% 250 ML IV ONE (21:00)
[2020-01-01] MEDS ORDERED: METOPROLOL TARTRATE 1 MG/ML VIAL IV STA (21:10)
[2020-01-01] MEDS ORDERED: METOPROLOL TARTRATE 1 MG/ML VIAL IV ONE (21:11)
[2020-01-01 21:16] LABS: Hemoglobin 9.6 g/dL (14.0-18.0); Mean Corpuscular Hemoglobin 29.4 pg (25-34); Mean Corpuscular Volume 91.7 fL (80-100); RDW Coefficient of Variation 15.5 % (11.5-14.5); RDW Standard Deviation 51.5 fL (36.4-46.3); Red Blood Count 3.27 M/uL (4.7-6.1); White Blood Count 5.86 K/uL (4.8-10.8)
[2020-01-01] MEDS ORDERED: AMIODARONE 150MG / 100ML D5W IV ONE (21:17)
[2020-01-01] MEDS ORDERED: AMIODARONE 360MG / 200ML D5W IV ONE (21:18)
[2020-01-01] MEDS: MELATONIN 3 MG TAB PO SCH (21:30)
[2020-01-01] MEDS: ATORVASTATIN 40 MG TAB PO SCH (21:30)
--- NOTE | 2020-01-01 21:33 | Communication Note ---
Date of Service: January 01, 2020 S: was called at 8:00 pm for acute worsening of SOB. Respiratory therapy was already present at bedside and had administered duo-nebs x 2 and a dose of IV solumedrol prior to physician arrival. Patient was receiving supplemental O2 via oxymask- respiratory therapy attempted to apply BIPAP but patient would not tolerate. Patient denied any chest pains. O: Respiratory rate was in the 30s, O2 sat at 92%. HR was elevated in the 140s, BP 170/80s. patient had retractions on exam. Air movement restricted - faint wheezes on expiration. Heart rhythm was regular. Patient had mild epistaxis that resolved with compression. Repeat CXR was obtained showing possible progression of LLL PNA. stat EKG obtained - machine read showed sinus tach with LBBB (patient has known LBBB). Upon reviewing telemetry, patient appeared to have slipped into atrial flutter. 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 As for the etiology of his SOB, consider acute arrhythmia (A flutter) vs. progression of known LLL PNA vs. mucous plugging event. - Cardiac monitoring revealed patient slipped into atrial flutter just prior to the onset of his SOB. He was given 5mg of IV metoprolol - rate improved to the 70s and he converted back to sinus rhythm. Cards consult placed, as patient has repeatedly slipped in a-flutter during previous hospital admissions. - Repeat CBC showing further improvement in hemoglobin - elevated HR not likely to be from symptomatic anemia. Suspect no active bleed. Platelets also improved to 42K. No indication for additional transfusion at this time. Anticoagulation and ASA have been on hold since admission. - CXR showing progression of LLL PNA. *Please note - there is no concern for aspiration pneumonia in this patient. His PNA has always been in the Left lower lobe (not the right)* IV vancomycin was added back on to his abx regimen (despite the fact that nasal swab was neg for MRSA) given his clinical worsening, his immunocompromised state (chemotherapy), and his risk factor of recent hospitalization. Consider discontinuing the vancomycin in the am if clinically improving. - Patient has had issues with mucous plugging throughout admission but cannot tolerate BiPAP. Consider chest physiotherapy in AM. - He was made NPO - due to his respiratory distress (not due to a concern for aspiration). Recommend resuming normal diet in the AM for breakfast. Speech therapy consult likely not needed. Resident Activity Tracking Resident Involvement: Resident Care Provided Care Provided: [facility]
--- NOTE | 2020-01-01 21:37 | Pharmacy Report ---
Pharmacy Abx Initial Consult - Date of Service January 01, 2020 - Pharmacy Dosing Scope Date of Consult: 01/01/20 Consultation requested by: Dr. Gudino Pharmacy is consulted to initiate Vancomycin IV dosing therapy, order appropriate labs and adjust drug dose/frequency. - Subjective The patient is a 74 year old M admitted on 12/31/19 16:07. - Objective Height: 5 ft 9 in Weight: 58.5 kg Vital Signs (Past 12hrs): Vital Signs Temp Pulse Pulse Resp BP Pulse Ox 01/01/20 20:18 128 H 33 H 95 01/01/20 19:52 98 H 31 H 96 01/01/20 19:40 93 H 34 H 92 01/01/20 19:34 70 25 H 88 L 01/01/20 19:15 36.8 C 61 16 134/55 L 98 01/01/20 15:37 37.1 C 63 16 141/45 H 97 01/01/20 14:21 96 01/01/20 12:12 36.6 C 97 H 22 134/55 L 94 01/01/20 11:48 36.6 C 88 20 140/60 100 01/01/20 11:26 72 22 94 01/01/20 09:37 61 22 98 Lab Results (24hrs): Laboratory Tests (24 Hours) 01/01/20 01/01/20 01/01/20 20:51 07:19 07:19 WBC 5.86 2.72 L Neut # (Auto) 2.20 Creatinine 1.50 H Est Cr Clr Drug Dosing 34.7 12/31/19 20:52 WBC Neut # (Auto) 1.05 L Creatinine Est Cr Clr Drug Dosing Micro Results: 01/01/20 04:45 Gram Stain - Final Sputum, Expectorated Sputum Culture - Pending 12/31/19 19:00 Urine Culture - Pending Urine,Kidney - Risk Factors for Resistance * Hospitalization for 48 hours or more within the past 90 days - 12/07-12/09 * Immunocompromised (chronic steroid therapy, chemotherapy, immunomodulators) - cancer patient - Assessment & Plan Assessment 74 year old M on IV Vancomycin, Cefepime (not a consult), and Doxycycline (not a consult) for sepsis secondary to pneumonia. * Patient with renal impairment; sCr = 1.5 mg/dL with CrCl ~35 mL/min. * Patient did receive Vancomycin in the ED yesterday afternoon, but this was >24 hours ago, therefore need to re-load * Provider aware of negative MSRA nasal swab, but patient is doing worse, therefore antibiotic coverage broadened Plan Vancomycin IV * Estimated PK Parameters: Hilton 0.033 hr-1, t1/2 21 hr * Loading dose: 1250 mg (~21 mg/kg) * Maintenance dose: 750 mg IV (~13 mg/kg) every 24 hours * Goal trough level for pneumonia : 15 to 20 mcg/mL * Trough level ordered for 01/03/20 @ 1930 (prior to 2nd dose and therefore not reflective of steady state, but want to assess dosing regimen early) Pharmacy will continue to follow and will adjust dose/frequency as necessary. Thank you.
[2020-01-01 21:47] LABS: Platelet Count 42 K/uL (130-400)
[2020-01-01 21:53] LABS: Basophils # (auto) 0.01 K/uL (0-0.2); Basophils % (auto) 0.2 %; Dohle Bodies 1+; Echinocytes 2+; Eosinophils # (auto) 0.04 K/uL (0-0.5); Eosinophils % (auto) 0.7 %; Immature Granulocytes # (auto) 0.12 K/uL (0.00-0.02); Lymphocytes # (auto) 0.75 K/uL (1.2-3.4); Lymphocytes % (auto) 12.8 %; Monocytes # (auto) 0.57 K/uL (0.11-0.59); Monocytes % (auto) 9.7 %; Neutrophils # (auto) 4.37 K/uL (1.4-6.5); Neutrophils % (auto) 74.6 %; Platelet Estimate SIGNIFIC DECREASED (Normal)
[2020-01-01 22:19] LABS: BUN Creatinine Ratio 21.4 (10-20); Calcium 8.2 mg/dl (8.5-10.1); Creatinine Clr Calc Pharmacy 32.5 ml/min; Est GFR (African American) 47.8; Est GFR (Non-African American) 41.2; Potassium 4.5 mmol/L (3.5-5.1)
[2020-01-02] MEDS ORDERED: PIPERACILLIN/TAZOBACTAM 3.375 GM in DEXTROSE 5% 100 ML IV ONE
[2020-01-02] MEDS ORDERED: LEVALBUTEROL HCL 1.25 MG/3 ML NEB NEB SCH (01:00)
[2020-01-02] MEDS ORDERED: PIPERACILLIN/TAZOBACTAM 3.375 GM in DEXTROSE 5% 100 ML IV SCH ×2 (02:00→06:00)
[2020-01-02] MEDS: PIPERACILLIN/TAZOBACTAM 3.375 GM in DEXTROSE 5% 100 ML IV SCH ×3 (02:22→18:42)
[2020-01-02] MEDS: DOXYCYCLINE HYCLATE 100 MG in DEXTROSE 5% 100 ML IV SCH ×2 (02:22→13:58)
--- NOTE | 2020-01-02 04:44 | Electrocardiogram Report ---
Test Reason : Blood Pressure : / mmHG Vent. Rate : 065 BPM Atrial Rate : 065 BPM P-R Int : 144 ms QRS Dur : 138 ms QT Int : 462 ms P-R-T Axes : 079 049 069 degrees QTc Int : 480 ms Normal sinus rhythm Left ventricular hypertrophy Non-specific intra-ventricular conduction block Cannot rule out Septal infarct , age undetermined Abnormal ECG When compared with ECG of 28-DEC-2019 18:24, No significant change was found Confirmed by Faheem Akhtar ([id number]) on 01/02/2020 4:44:00 AM Referred By: Confirmed By:Faheem Akhtar
[2020-01-02 06:20] LABS: Hematocrit (blood only) 26.2 % (42-52); Hemoglobin 8.6 g/dL (14.0-18.0); Mean Corpuscular Hgb Conc 32.8 g/dL (32-36); Mean Corpuscular Volume 91.3 fL (80-100); Platelet Count 33 K/uL (130-400); RDW Coefficient of Variation 15.6 % (11.5-14.5); RDW Standard Deviation 51.9 fL (36.4-46.3); Red Blood Count 2.87 M/uL (4.7-6.1); White Blood Count 3.32 K/uL (4.8-10.8)
[2020-01-02 06:21] LABS: Echinocytes 2+; Immature Granulocytes # (auto) 0.25 K/uL (0.00-0.02); Immature Granulocytes % (auto) 7.5 %; Lymphocytes # (auto) 0.16 K/uL (1.2-3.4); Lymphocytes % (auto) 4.8 %; Monocytes # (auto) 0.13 K/uL (0.11-0.59); Monocytes % (auto) 3.9 %; Neutrophils # (auto) 2.78 K/uL (1.4-6.5); Neutrophils % (auto) 83.8 %; Toxic Granulation 2+
[2020-01-02 06:35] LABS: Albumin Level 2.1 gm/dl (3.4-5.0); BUN Creatinine Ratio 23.3 (10-20); Bilirubin Direct 0.3 mg/dl (0-0.2); Calcium 8.2 mg/dl (8.5-10.1); Est GFR (African American) 51.7; Est GFR (Non-African American) 44.6; Potassium 4.6 mmol/L (3.5-5.1)
[2020-01-02 06:46] LABS: Bilirubin,Total 0.6 mg/dl (0.2-1); Total Protein 5.5 gm/dl (6.4-8.2)
[2020-01-02] MEDS: LEVALBUTEROL HCL 1.25 MG/3 ML NEB NEB PRN ×3 (07:16→18:05)
[2020-01-02] MEDS: ACETYLCYSTEINE 20% INHAL SOLN 4ML ***DISPENSED BY RESP. INH SCH ×2 (07:17→18:15)
[2020-01-02] MEDS ORDERED: Nursing to Pharmacy Communication SCH (08:45)
--- NOTE | 2020-01-02 09:23 | XRay Report ---
XR chest 1V portable HISTORY: 74 years-old Male Shortness of breath, hypoxia acute shortness of breath with hypoxia COMPARISON: Chest radiograph 12/31/2019 TECHNIQUE: Portable AP view of the chest FINDINGS: Cardiac silhouette is enlarged, unchanged. Prior median sternotomy. Calcified plaque of the thoracic aortic arch. Unchanged positioning of the right IJ [id number]-[id number] catheter. Chronic interstitial coars ening. Mild pulmonary vascular congestion. Persistent patchy left basilar consolidation. Mild bluntin g of the costophrenic angles. Degenerative changes of the shoulders and spine. IMPRESSION: 1. Persistent left lung base opacities suspicious for pneumonia. 2. Cardiomegaly with mild pulmonary vascular congestion. ACT 112: Negative or not required by law. The above report was generated using voice recognition software. It may contain grammatical, syntax o r spelling errors. Electronically signed by: Víctor Whalen M.D. 01/02/2020 9:22 AM
[2020-01-02] MEDS: oxyCODONE HCL 10 MG TABCR (OxyCONTIN) PO SCH ×2 (09:43→20:31)
[2020-01-02] MEDS: PANTOprazole 40 MG TAB PO SCH (09:43)
[2020-01-02] MEDS: APIXABAN 5 MG TABLET PO SCH ×2 (09:43→20:32)
[2020-01-02] MEDS: DOCUSATE SODIUM 100 MG CAP PO PRN ×2 (09:43→20:43)
[2020-01-02] MEDS: OXYBUTYNIN CHLORIDE XL 5 MG TABCR PO SCH (09:43)
[2020-01-02] MEDS: AMIODARONE 200 MG TAB PO SCH ×2 (09:44→20:32)
--- NOTE | 2020-01-02 15:52 | Hospitalist Progress Note ---
Date of Service January 02, 2020 Assessment & Plan (1) Sepsis: SIRS criteria with RR and low WBC Source PNA UA is + for leuk est, neg for nitrites in the setting of b/l nephrostomy tubes--urine cx + for 100K strep species Blood cx neg Reduced IV fluid boluses due to large amount of fluids given as blood and antibiotics and recent history of hypervolemia requiring lasix Also note slight increase in total bili on admission that is now WNL Neg for GI sx (2) Pneumonia: Vancomycin, cefepime, doxycycline given in ER MRSA nasal swab negative therefore will d/c vancomycin initially, however this was restarted with acute SOB on 12/31. COVID-19 negative Concern for aspiration on admission, however this is less likely given LLL PNA and pt/daughter deny choking/coughing ST eval reveals no concerns, will advance diet Sputum culture pending (3) Acute sinusitis: IV doxycycline as above (4) Mucus plugging of bronchi: Suspect this was the cause of this acute deterioration in ER and HS 12/31. Improved with duoneb, will continue Mucomyst added on 12/31, however pt had only received one dose prior to deterioration on 12/31 and has been able to produce more sputum today after further dosing Consider CPAP if he acutely deteriorates again as likely will have further mucus plugging during his illness course. Incentive spirometry, flutter valve Home O2 3L [facility] Hx of COPD but only inhaler use is albuterol rescue that he states he never needs (5) Acute delirium: Hallucinating in the ER with transient short lived apneic episodes. CT head - acute sinusitis but otherwise unremarkable. Suspect metabolic-toxic encephalopathy due to ativan given in ER in setting of JUANITA/infection/opate use Continue olazepine 2.5mg PO HS Falls risk (6) Malignant neoplasm metastatic from bladder: UA +/- culture from both nephrostomy tubes. Will need outpatient follow up to change these as they should have been changed already. Reduce oxycontin to 10mg PO BID due to acute delirium (?increased metabolites due to current JUANITA) Continue percocet for breakthrough pain. Continue Oxybutynin for bladder spasms (7) JUANITA (acute kidney injury): Agree with outpatient heart failure clinic note that patient significantly hypovolemic on presentation. Will carefully rehydrate with blood +/- IV fluids while monitoring shortness of breath to make sure not getting hypervolemic. Repeat BMP Cr on admission 1.8 Baseline is 1.0 Improving (8) Thrombocytopenia: Suspected chemotherapy induced. Hold ASA. Continue to monitor with repeat CBC in AM. Family requesting c/s with pt's oncology team, follows with Dr. Montes at [facility] (9) Dyslipidemia: (10) Mitral regurgitation: (11) CAD (coronary artery disease): (12) Paroxysmal atrial fibrillation: Continue Eliquis 5mg PO BID (13) COPD (chronic obstructive pulmonary disease): On no maintenance inhalers. No wheezing on exam. No acute exacerbation. Duoneb given in ER. Will continue scheduled nebs, add mucomyst (14) Antineoplastic chemotherapy induced pancytopenia: Transfused 1 unit PRBCs in ER for Hb 7.9, additional 1 unit later for a total of 2 units on admission Repeat CBC improved to 8.7 Hx of 2 units PRBC on 12/08 Admission and Anticipated Discharge Date Admission Date: December 31, 2019 Subjective Pt with acute SOB episode around 8pm last night. CXR done at that time showing increased LLL PNA. Pt was restarted on vanco with ceftriaxone changed to zosyn. Ongoing doxy. Today, pt states he feels much better. He has been on O2 via NC today and no further SOB. He has been working with a flutter valve, which he says helps. He has been able to bring up more sputum today than prior. Pt denies fever, chest pain, abd pain, n/v/c/d, LE pain or swelling. Tolerating PO. Review of Systems Review of Systems: Pertinent positives and negatives reviewed in HPI--all ot hers negative Physical Exam Constitutional: WD/WN, vitals as above Eyes: normal visual ponce by confrontation and + anicteric sclerae Neck: normal visual inspection and trachea midline Respiratory: normal respiratory effort; no respiratory distress Auscultation: + crackles; no rhonchi and no wheezes Cardiovascular: Rate/Rhythm: regular rate and regular rhythm Gastrointestinal (Abdomen): Inspection/Auscultation: abdomen not distended Percussion/Palpation: abdomen soft; abdomen nontender Musculoskeletal: Head/Neck/Chest: normocephalic and head atraumatic Skin: no rashes, warm and dry + pallor Neurologic: awake; not confused Speech / Cognition: normal speech Psychiatric: A+Ox3, euthymic affect Results & Data Results & Data ([place]) Vital Signs (Past 12 Hours) Vital Signs Temp Pulse Pulse Pulse Resp BP Pulse Ox 01/02/20 15:41 60 01/02/20 15:14 36.3 C L 65 20 146/43 H 98 01/02/20 10:50 36.4 C L 62 20 113/53 L 97 01/02/20 07:19 69 20 98 01/02/20 07:06 36.4 C L 60 19 120/59 L 97 PG Care Time/CCT Total # of Minutes Spent Total Time Spent with Patient: Total time spent is greater than 50% in coordination of care (as documented) at patient's floor/unit and/or counseling patient: Coding Level of Care Code 39741 Subseq Hosp Care Lvl 3 Diagnoses Sepsis A41.9 Pneumonia J18.9 Laterality: left Lung location: lower lobe of lung Pneumonia type: due to unspecified organism Acute sinusitis J01.90 Mucus plugging of bronchi J98.09 Acute delirium R41.0 Malignant neoplasm metastatic from bladder C67.9 JUANITA (acute kidney injury) N17.9 Thrombocytopenia D69.6 Dyslipidemia E78.5 Mitral regurgitation I34.0 CAD (coronary artery disease) I25.10 Paroxysmal atrial fibrillation I48.0 COPD (chronic obstructive pulmonary disease) J44.0 COPD type: COPD with acute lower respiratory infection Antineoplastic chemotherapy induced pancytopenia D61.810; T45.1X5A (1) Pneumonia Laterality: left Lung location: lower lobe of lung Pneumonia type: due to unspecified organism Qualified Code(s): J18.9 - Pneumonia, unspecified organism (2) COPD (chronic obstructive pulmonary disease) COPD type: COPD with acute lower respiratory infection Qualified Code(s): J44.0 - Chronic obstructive pulmonary disease with (acute) lower respiratory infection
[2020-01-02] MEDS: MELATONIN 3 MG TAB PO SCH (20:31)
[2020-01-02] MEDS: OLANZAPINE 2.5 MG TAB PO SCH (20:33)
[2020-01-02] MEDS: ATORVASTATIN 40 MG TAB PO SCH (20:33)
[2020-01-02] MEDS: VANCOMYCIN HCL 750 MG in SODIUM CHLORIDE 0.9% 250 ML IV SCH (20:33)
[2020-01-03] MEDS: PIPERACILLIN/TAZOBACTAM 3.375 GM in DEXTROSE 5% 100 ML IV SCH ×3 (02:26→17:31)
[2020-01-03] MEDS: DOXYCYCLINE HYCLATE 100 MG in DEXTROSE 5% 100 ML IV SCH ×2 (02:27→14:07)
[2020-01-03 06:25] LABS: BUN Creatinine Ratio 27.7 (10-20); Calcium 7.9 mg/dl (8.5-10.1); Creatinine Clr Calc Pharmacy 35.3 ml/min; Est GFR (African American) 50.9; Est GFR (Non-African American) 43.9; Potassium 4.6 mmol/L (3.5-5.1)
[2020-01-03 06:29] LABS: Hematocrit (blood only) 24.9 % (42-52); Hemoglobin 8.1 g/dL (14.0-18.0); Mean Corpuscular Hemoglobin 29.5 pg (25-34); Mean Corpuscular Hgb Conc 32.5 g/dL (32-36); Mean Corpuscular Volume 90.5 fL (80-100); Platelet Count 40 K/uL (130-400); RDW Coefficient of Variation 15.7 % (11.5-14.5); RDW Standard Deviation 51.3 fL (36.4-46.3); Red Blood Count 2.75 M/uL (4.7-6.1); White Blood Count 8.97 K/uL (4.8-10.8)
[2020-01-03 06:32] LABS: Echinocytes 1+; Giant Platelets 1+; Immature Granulocytes # (auto) 0.13 K/uL (0.00-0.02); Immature Granulocytes % (auto) 1.4 %; Lymphocytes # (auto) 0.32 K/uL (1.2-3.4); Lymphocytes % (auto) 3.6 %; Monocytes # (auto) 0.66 K/uL (0.11-0.59); Monocytes % (auto) 7.4 %; Neutrophils # (auto) 7.86 K/uL (1.4-6.5); Neutrophils % (auto) 87.6 %
--- NOTE | 2020-01-03 06:35 | Electrocardiogram Report ---
Test Reason : Blood Pressure : / mmHG Vent. Rate : 128 BPM Atrial Rate : 128 BPM P-R Int : 124 ms QRS Dur : 138 ms QT Int : 386 ms P-R-T Axes : 000 -18 091 degrees QTc Int : 563 ms Atrial flutter vs Sinus tachycardia with occasional Fusion complexes Left bundle branch block Abnormal ECG When compared with ECG of 31-DEC-2019 12:18, Fusion complexes are now Present Vent. rate has increased BY 63 BPM Left bundle branch block is now Present Confirmed by Faheem Akhtar ([id number]) on 01/03/2020 6:34:37 AM Referred By: REFERRED SELF Confirmed By:Faheem Akhtar
[2020-01-03] MEDS: ACETYLCYSTEINE 20% INHAL SOLN 4ML ***DISPENSED BY RESP. INH SCH ×2 (06:54→18:54)
[2020-01-03] MEDS: LEVALBUTEROL HCL 1.25 MG/3 ML NEB NEB PRN ×4 (06:54→18:53)
[2020-01-03] MEDS: oxyCODONE HCL 10 MG TABCR (OxyCONTIN) PO SCH ×2 (08:44→20:22)
[2020-01-03] MEDS: OXYBUTYNIN CHLORIDE XL 5 MG TABCR PO SCH (08:45)
[2020-01-03] MEDS: AMIODARONE 200 MG TAB PO SCH ×2 (08:45→20:26)
[2020-01-03] MEDS: PANTOprazole 40 MG TAB PO SCH (08:45)
[2020-01-03] MEDS: APIXABAN 5 MG TABLET PO SCH ×2 (08:45→20:23)
[2020-01-03] MEDS: DOCUSATE SODIUM 100 MG CAP PO PRN (08:48)
--- NOTE | 2020-01-03 15:31 | Hospitalist Progress Note ---
Date of Service January 03, 2020 Assessment & Plan (1) Sepsis: SIRS criteria with RR and low WBC Source PNA (also getting urine culture from nephrostomy tubes), suspect aspiration with recent nausea and vomiting Reduced IV fluid boluses due to large amount of fluids given as blood and antib iotics and recent history of hypervolemia requiring lasix (2) UTI (urinary tract infection): UA with 2+ leuk est, neg nitrites Urine cx with 2 bacteria with MDR, both sensitive to dapto, vanco, nitrofurantoin + yeast, not chun Ongoing abx as above Add fluconazole 200mg QD 01/02 Daughter tells me that his nephrostomy tubes were placed with [facility] the beginning of October. They were to be changed in 6-8 weeks, however they were told that it would not be with [facility] as that was done emergently. The OR was to arrange this for pt, however daughter states she has been calling them over the last 2.5 weeks and no return call with an appt. It appears that on last d/c pt was set up for an appt with [facility] on 01/11 for exchange. Contact at [facility] is Natalie [phone]. LMOM on 01/02 (3) Acute respiratory failure with hypoxia: Aim O2 sats > 94 %, no CO2 retention on ABG Likely related to mucous plugging, improving with mucomyst (4) Pneumonia: Vancomycin, cefepime, doxycycline given in ER. MRSA nasal swab negative therefore will d/c vancomycin. COVID-19 negative Concern for aspiration given RLL/N&V - aspiration precautions, consult SLT, no overt aspirations noted at bedside and denied by patient therefore will start an easy to chew diet. Sputum culture (5) Acute sinusitis: IV doxycycline as above (6) Mucus plugging of bronchi: Suspect this was the cause of this acute deterioration in ER and HS 12/31. Improved with duoneb, will continue Mucomyst added on 12/31, however pt had only received one dose prior to deterioration on 12/31 and has been able to produce more sputum today after further dosing Consider CPAP if he acutely deteriorates again as likely will have further mucus plugging during his illness course. Incentive spirometry, flutter valve Home O2 3L continuous via NC added by OR a few days ago Hx of COPD but only inhaler use is albuterol rescue that he states he never needs (7) Acute delirium: Hallucinating in the ER with transient short lived apneic episodes. CT head - acute sinusitis but otherwise unremarkable. Suspect metabolic-toxic encephalopathy due to ativan given in ER in setting of JUANITA/infection/opate use Continue olanzepine 2.5mg PO HS Falls risk (8) Malignant neoplasm metastatic from bladder: UA +/- culture from both nephrostomy tubes. Will need outpatient follow up to change these as they should have been changed already. Reduce OxyContin to 10mg PO BID due to acute delirium (?increased metabolites due to current JUANITA) Continue Percocet for breakthrough pain. Continue Oxybutynin for bladder spasms (9) JUANITA (acute kidney injury): Agree with outpatient heart failure clinic note that patient significantly hypovolemic on presentation. Will carefully rehydrate with blood +/- IV fluids while monitoring shortness of breath to make sure not getting hypervolemic. Repeat BMP Cr on admission 1.8 Baseline is 1.0 Improving (10) Thrombocytopenia: Suspected chemotherapy induced. Hold ASA. Continue to monitor with repeat CBC in AM. Family requesting c/s with pt's oncology team, follows with Dr. Montes at [facility] (11) Dyslipidemia: Continue atorvastatin 40mg PO daily (12) Mitral regurgitation: (13) CAD (coronary artery disease): ASA on hold as above. Continue Eliquis since Plt > 50. (14) Paroxysmal atrial fibrillation: Continue Eliquis 5mg PO BID Rhythm control with amiodarone 200mg PO BID (15) COPD (chronic obstructive pulmonary disease): On no maintenance inhalers. No recent exacerbation. No wheezing on exam. No acute exacerbation. Duoneb given in ER. Will continue PRN only. Not suspected to be exacerbation on admission. (16) Antineoplastic chemotherapy induced pancytopenia: Transfused 1 unit PRBCs in ER for Hb 7.9, additional 1 unit later for a total of 2 units on admission Repeat CBC improved to 8.7 Hx of 2 units PRBC on 12/08 Admission and Anticipated Discharge Date Admission Date: December 31, 2019 Subjective Pt says he is feeling much better today. He is up and in the chair. He ate breakfast and feels that his appetite is improving. Ongoing coughing with sputum production. He feels he is bringing this up easier now, especially with the flutter valve. He did have a bit of SOB last night, but not a major episode as has been seen in the past. Pt denies fever, chest pain, abd pain, n/v/c/d, LE pain or swelling. Daughter tells me that his nephrostomy tubes were placed with [facility] the beginning of October. They were to be changed in 6-8 weeks, however they were told that it would not be with [facility] as that was [facility] emergently. [facility] however daughter states she has been calling them over the last 2.5 weeks and no return call with an appt. It appears that on last d/c pt was set up for an appt with [facility] on 01/11 for exchange. Review of Systems Review of Systems: Pertinent positives and negatives reviewed in HPI--all others negative Physical Exam Constitutional: WD/WN, vitals as above Eyes: normal visual ponce by confrontation and + anicteric sclerae Neck: normal visual inspection and trachea midline Respiratory: normal respiratory effort; no respiratory distress Auscultation: no crackles, no rhonchi and no wheezes Cardiovascular: Rate/Rhythm: regular rate and regular rhythm Gastrointestinal (Abdomen): Inspection/Auscultation: abdomen not distended Percussion/Palpation: abdomen soft; abdomen nontender Musculoskeletal: Head/Neck/Chest: normocephalic and head atraumatic Skin: no rashes, warm and dry + pallor Neurologic: awake; not confused Speech / Cognition: normal speech Psychiatric: A+Ox3, euthymic affect Results & Data Results & Data ([facility]) Vital Signs (Past 12 Hours) Vital Signs Temp Pulse Pulse Pulse Resp BP Pulse Ox 01/03/20 14:58 36.5 C 59 L 20 144/63 H 99 01/03/20 12:50 56 L 20 90 01/03/20 11:10 36.4 C L 56 L 19 117/48 L 97 01/03/20 08:00 61 01/03/20 07:13 36.3 C L 62 20 149/73 H 100 01/03/20 06:57 57 L 18 100 PG Care Time/CCT Total # of Minutes Spent Total Time Spent with Patient: Total time spent is greater than 50% in coordination of care (as documented) at patient's floor/unit and/or counseling patient: Coding Level of Care Code 04103 Subseq Hosp Care Lvl 3 Diagnoses Sepsis A41.9 UTI (urinary tract infection) N39.0 Acute respiratory failure with hypoxia J96.01 Pneumonia J18.9 Laterality: left Lung location: lower lobe of lung Pneumonia type: due to unspecified organism Acute sinusitis J01.90 Mucus plugging of bronchi J98.09 Acute delirium R41.0 Malignant neoplasm metastatic from bladder C67.9 JUANITA (acute kidney injury) N17.9 Thrombocytopenia D69.6 Dyslipidemia E78.5 Mitral regurgitation I34.0 CAD (coronary artery disease) I25.10 Paroxysmal atrial fibrillation I48.0 COPD (chronic obstructive pulmonary disease) J44.0 COPD type: COPD with acute lower respiratory infection Antineoplastic chemotherapy induced pancytopenia D61.810; T45.1X5A (1) COPD (chronic obstructive pulmonary disease) COPD type: COPD with acute lower respiratory infection Qualified Code(s): J44.0 - Chronic obstructive pulmonary disease with (acute) lower respiratory infection (2) Pneumonia Laterality: left Lung location: lower lobe of lung Pneumonia type: due to unspecified organism Qualified Code(s): J18.9 - Pneumonia, unspecified organism
[2020-01-03] MEDS: HEPARIN 100 UNIT/ML 5ML FLUSH FLUSH PRN (16:17)
[2020-01-03] MEDS: FLUCONAZOLE 200 MG/5 ML UDP PO SCH (17:29)
[2020-01-03] MEDS ORDERED: VANCOMYCIN TROUGH ONE (19:30)
[2020-01-03] MEDS: VANCOMYCIN HCL 750 MG in SODIUM CHLORIDE 0.9% 250 ML IV SCH (20:23)
[2020-01-03] MEDS: MELATONIN 3 MG TAB PO SCH (20:23)
[2020-01-03] MEDS: OLANZAPINE 2.5 MG TAB PO SCH (20:25)
[2020-01-03] MEDS: ATORVASTATIN 40 MG TAB PO SCH (20:26)
--- NOTE | 2020-01-03 21:13 | Pharmacy Report ---
Pharmacy Abx Dose Short Note - Date of Service January 03, 2020 - Assessment & Plan Assessment * 74 year old M receiving Zosyn and vanc for PNA * MRSA nasal swab negative, but consult pharmacist earlier today discussed with Dr. Gudino and vancomycin is to continue for now * Renal function impaired, but SCr stable * Goal trough 15-20 mcg/mL * Trough of 12.6 mcg/mL is subtherapeutic, although this was obtained prior to steady state and may increase slightly. Despite this, will slightly increase vancomycin dose due to clinical status (which is the reason vanco is continuing at this time per above) * Will check early trough to ensure increase dose not cause supratherapeutic levels Plan * Increase vancomycin to 1 g IV q24h * Trough 01/04 @ 1530 Pharmacy will continue to follow and will adjust dose/frequency as necessary. Thank you.
[2020-01-04] MEDS: DOXYCYCLINE HYCLATE 100 MG in DEXTROSE 5% 100 ML IV SCH (03:28)
[2020-01-04] MEDS: PIPERACILLIN/TAZOBACTAM 3.375 GM in DEXTROSE 5% 100 ML IV SCH ×3 (03:28→18:22)
[2020-01-04] MEDS: LEVALBUTEROL HCL 1.25 MG/3 ML NEB NEB PRN ×5 (03:41→23:52)
[2020-01-04 07:00] LABS: Mean Corpuscular Hgb Conc 31.4 g/dL (32-36)
[2020-01-04 07:07] LABS: Hemoglobin 8.8 g/dL (14.0-18.0); Mean Corpuscular Hemoglobin 28.9 pg (25-34); Mean Corpuscular Volume 91.8 fL (80-100); RDW Coefficient of Variation 16.1 % (11.5-14.5); RDW Standard Deviation 53.8 fL (36.4-46.3); Red Blood Count 3.05 M/uL (4.7-6.1); White Blood Count 10.72 K/uL (4.8-10.8)
[2020-01-04 07:10] LABS: Platelet Count 54 K/uL (130-400)
[2020-01-04 07:22] LABS: Basophils # (auto) 0.01 K/uL (0-0.2); Basophils % (auto) 0.1 %; Eosinophils # (auto) 0.02 K/uL (0-0.5); Eosinophils % (auto) 0.2 %; Immature Granulocytes # (auto) 0.18 K/uL (0.00-0.02); Immature Granulocytes % (auto) 1.7 %; Lymphocytes # (auto) 0.82 K/uL (1.2-3.4); Lymphocytes % (auto) 7.6 %; Monocytes % (auto) 8.4 %; Neutrophils # (auto) 8.79 K/uL (1.4-6.5)
[2020-01-04] MEDS: ACETYLCYSTEINE 20% INHAL SOLN 4ML ***DISPENSED BY RESP. INH SCH ×2 (07:25→19:28)
[2020-01-04 07:31] LABS: BUN Creatinine Ratio 30.5 (10-20); Calcium 8.2 mg/dl (8.5-10.1); Creatinine Clr Calc Pharmacy 38.9 ml/min; Est GFR (African American) 57.2; Est GFR (Non-African American) 49.3
[2020-01-04] MEDS: PANTOprazole 40 MG TAB PO SCH (08:07)
[2020-01-04] MEDS: AMIODARONE 200 MG TAB PO SCH ×2 (08:07→20:48)
[2020-01-04] MEDS: MELATONIN 3 MG TAB PO SCH (08:07)
[2020-01-04] MEDS: OXYBUTYNIN CHLORIDE XL 5 MG TABCR PO SCH (08:08)
[2020-01-04] MEDS: APIXABAN 5 MG TABLET PO SCH ×2 (08:08→20:47)
[2020-01-04] MEDS: FLUCONAZOLE 200 MG/5 ML UDP PO SCH (08:10)
[2020-01-04] MEDS: oxyCODONE HCL 10 MG TABCR (OxyCONTIN) PO SCH ×2 (08:14→20:47)
--- NOTE | 2020-01-04 12:02 | Hospitalist Progress Note ---
Date of Service January 04, 2020 Assessment & Plan (1) Sepsis: SIRS criteria with RR and low WBC Source PNA (also getting urine culture from nephrostomy tubes), some concern on admission due to recent nausea and vomiting [employer], however pt was found to have no issues with ST eval See below Overall current abx plan: Vancomycin, cefepime, doxycycline given in ER Pt was changed from cefepime to zosyn on 12/31 HS after acute respiratory distress Fluconazole added for urine cx resulted for yeast on 01/02 Doxy IV -> PO on 01/03 (last IV dose was 01/03 at 3a) D/C vanco on 01/03 (last dose was 01/02 at 2100) Maintain zosyn for today in an effort to not change all coverage in the event of respiratory distress Add macrobid 01/03 for UTI given limited PO options noted on current sensitivities Ideally doxy will cover for both PNA and sinusitis on d/c, t/c 14days total tx t/c d/c zosyn tomorrow if pt still doing well Add probiotic (2) UTI (urinary tract infection): UA with 2+ leuk est, neg nitrites Urine cx with 2 bacteria with MDR, both sensitive to dapto, vanco, nitrofurantoin + yeast, not chun Ongoing abx as above Add fluconazole 200mg QD 01/02 Daughter tells me that his nephrostomy tubes were placed with [facility] the beginning of October. They were to be changed in 6-8 weeks, however they were told that it would not be with [facility] as that was done emergently. The [facility] was to arrange this for pt, however daughter states she has been calling them over the last 2.5 weeks and no return call with an appt. It appears that on last d/c from [facility] pt was set up for an appt with [facility] on 01/11 for exchange. I did discuss the status of the nephrostomy tubes with Dr. Wills today. He states that as long as they are draining properly, pt will not need urgent exchange of tubing. Pt should remain on abx until exchange can take place, even if he has finished the recommended course of abx tx. Spoke with pt's daughter. She would prefer somewhere closer if possible for nephrostomy tube exchange. Her preference would be [facility]. Spoke with [facility]. They will try to arrange, although they have concerns that facility might not agree without a prior c/s with pt as he has not been seen there prior. (3) Acute respiratory failure with hypoxia: Aim O2 sats > 94 %, no CO2 retention on ABG Likely related to mucous plugging, improving with mucomyst, flutter valve (4) Pneumonia: Vancomycin, cefepime, doxycycline given in ER. COVID-19 negative Concern for aspiration on admission given RLL/N&V - aspiration precautions, consult SLT, no overt aspirations noted at bedside and denied by patient therefore will start an easy to chew diet. Sputum culture ST has found no issues on their eval Aspiration PNA is less likely (5) Acute sinusitis: IV doxycycline as above (6) Mucus plugging of bronchi: Suspect this was the cause of this acute deterioration in ER and HS 12/31. Improved with duoneb, will continue Mucomyst added on 12/31, however pt had only received one dose prior to deterioration on 12/31 and has been able to produce more sputum today after further dosing Consider CPAP if he acutely deteriorates again as likely will have further mucus plugging during his illness course. Incentive spirometry, flutter valve Home O2 3L continuous via [facility] Hx of COPD but pre-admission only inhaler use is albuterol rescue that he states he never needs (7) Acute delirium: Hallucinating in the ER with transient short lived apneic episodes. CT head - acute sinusitis but otherwise unremarkable. Suspect metabolic-toxic encephalopathy due to ativan given in ER in setting of JUANITA/infection/opate use Continue olanzepine 2.5mg PO HS Fall risk (8) Malignant neoplasm metastatic from bladder: UA +/- culture from both nephrostomy tubes. Will need outpatient follow up to change these as they should have been changed already. Reduce OxyContin to 10mg PO BID due to acute delirium (?increased metabolites due to current JUANITA) Continue Percocet for breakthrough pain. Continue Oxybutynin for bladder spasms (9) JUANITA (acute kidney injury): Agree with outpatient heart failure clinic note that patient significantly hypovolemic on presentation. Will carefully rehydrate with blood +/- IV fluids while monitoring shortness of breath to make sure not getting hypervolemic. Repeat BMP Cr on admission 1.8 Baseline is 1.0 Improving (10) Thrombocytopenia: Suspected chemotherapy induced. Hold ASA. Continue to monitor with repeat CBC in AM. Family requesting c/s with pt's oncology team, follows with Dr. Montes at [facility] c/s placed on 12/31 (11) Dyslipidemia: Continue atorvastatin 40mg PO daily (12) Mitral regurgitation: (13) CAD (coronary artery disease): ASA on hold as above. Continue Eliquis since Plt > 50. (14) Paroxysmal atrial fibrillation: Continue Eliquis 5mg PO BID Rhythm control with amiodarone 200mg PO BID (15) COPD (chronic obstructive pulmonary disease): On no maintenance inhalers. No recent exacerbation. No wheezing on exam. No acute exacerbation. Duoneb given in ER. Will continue PRN only. Not suspected to be in exacerbation on admission. (16) Antineoplastic chemotherapy induced pancytopenia: Transfused 1 unit PRBCs in ER for Hb 7.9, additional 1 unit later for a total of 2 units on admission Repeat CBC improved to 8.7 and has been stable since that time Hx of 2 units PRBC needed during prior admission (given on 12/08) Admission and Anticipated Discharge Date Admission Date: December 31, 2019 Case management contact at [facility] is Natalie, [phone] Discussed case 01/03 with pt's outpt PCP, Gabi Moran-JESSICA. She has just established with pt as home PCP service through the [facility]. Please CC her on pt's d/c summary Please CC Dr. Montes on pt's d/c summary Subjective Pt again notes feeling improved. Slightly decreased appetite with breakfast this AM, but he did eat most of it. Ongoing coughing with sputum production. No major SOB episodes. He does get a bit SOB with ambulation to the toilet, but feels this is more related to having to manage the IV pole, O2 mask, nephrostomy bags. Pt denies fever, chest pain, abd pain, n/v/c/d, LE pain or swelling. Review of Systems Review of Systems: Pertinent positives and negatives reviewed in HPI--all others negative Physical Exam Constitutional: WD/WN, vitals as above Eyes: normal visual ponce by confrontation and + anicteric sclerae Neck: normal visual inspection and trachea midline Respiratory: normal respiratory effort; no respiratory distress Auscultation: no crackles, no rhonchi and no wheezes Cardiovascular: Rate/Rhythm: regular rate and regular rhythm Gastrointestinal (Abdomen): Inspection/Auscultation: abdomen not distended Percussion/Palpation: abdomen soft; abdomen nontender Musculoskeletal: Head/Neck/Chest: normocephalic and head atraumatic Skin: no rashes, warm and dry + pallor Neurologic: awake; not confused Speech / Cognition: normal speech Psychiatric: A+Ox3, euthymic affect Results & Data Results & Data ([facility]) Vital Signs (Past 12 Hours) Vital Signs Temp Pulse Pulse Resp BP Pulse Ox 01/04/20 09:52 52 L 01/04/20 07:26 53 L 18 100 01/04/20 07:18 36.7 C 51 L 18 132/59 L 100 01/04/20 03:43 57 L 22 95 01/04/20 02:56 36.3 C L 54 L 20 124/48 L 96 PG Care Time/CCT Total # of Minutes Spent Total Time Spent with Patient: Total time spent is greater than 50% in coordination of care (as documented) at patient's floor/unit and/or counseling patient: Coding Level of Care Code 39071 Subseq Hosp Care Lvl 3 Diagnoses Sepsis A41.9 UTI (urinary tract infection) N39.0 Acute respiratory failure with hypoxia J96.01 Pneumonia J18.9 Laterality: left Lung location: lower lobe of lung Pneumonia type: due to unspecified organism Acute sinusitis J01.90 Mucus plugging of bronchi J98.09 Acute delirium R41.0 Malignant neoplasm metastatic from bladder C67.9 JUANITA (acute kidney injury) N17.9 Thrombocytopenia D69.6 Dyslipidemia E78.5 Mitral regurgitation I34.0 CAD (coronary artery disease) I25.10 Paroxysmal atrial fibrillation I48.0 COPD (chronic obstructive pulmonary disease) J44.0 COPD type: COPD with acute lower respiratory infection Antineoplastic chemotherapy induced pancytopenia D61.810; T45.1X5A (1) COPD (chronic obstructive pulmonary disease) COPD type: COPD with acute lower respiratory infection Qualified Code(s): J44.0 - Chronic obstructive pulmonary disease with (acute) lower respiratory infection (2) Pneumonia Laterality: left Lung location: lower lobe of lung Pneumonia type: due to unspecified organism Qualified Code(s): J18.9 - Pneumonia, unspecified organism
[2020-01-04] MEDS ORDERED: VANCOMYCIN HCL 1,000 MG in SODIUM CHLORIDE 0.9% 250 ML IV SCH (16:00)
[2020-01-04] MEDS: NITROFURANTOIN MONOHYDRATE 100 MG CAP PO SCH ×2 (17:24→23:57)
[2020-01-04] MEDS: LACTOBACILLUS ACIDOPHILUS (FLORANEX) TAB PO SCH ×2 (17:25→20:48)
[2020-01-04] MEDS: DOXYCYCLINE HYCLATE 100 MG CAP PO SCH (17:25)
[2020-01-04] MEDS: ATORVASTATIN 40 MG TAB PO SCH (20:48)
[2020-01-04] MEDS: OLANZAPINE 2.5 MG TAB PO SCH (20:49)
[2020-01-04] MEDS ORDERED: NITROFURANTOIN MONOHYDRATE 100 MG CAP PO SCH (21:00)
[2020-01-05] MEDS: LEVALBUTEROL HCL 1.25 MG/3 ML NEB NEB PRN ×3 (02:29→07:11)
[2020-01-05] MEDS: PIPERACILLIN/TAZOBACTAM 3.375 GM in DEXTROSE 5% 100 ML IV SCH ×3 (02:38→17:09)
[2020-01-05 06:41] LABS: Basophils # (auto) 0.01 K/uL (0-0.2); Basophils % (auto) 0.1 %; Eosinophils # (auto) 0.08 K/uL (0-0.5); Eosinophils % (auto) 0.5 %; Hematocrit (blood only) 29.6 % (42-52); Hemoglobin 9.4 g/dL (14.0-18.0); Immature Granulocytes # (auto) 0.43 K/uL (0.00-0.02); Immature Granulocytes % (auto) 2.9 %; Lymphocytes # (auto) 1.17 K/uL (1.2-3.4); Mean Corpuscular Hemoglobin 29.3 pg (25-34); Mean Corpuscular Hgb Conc 31.8 g/dL (32-36); Mean Corpuscular Volume 92.2 fL (80-100); Mean Platelet Volume 12.5 fL (7.4-10.4); Monocytes % (auto) 7.5 %; Neutrophils # (auto) 11.85 K/uL (1.4-6.5); Platelet Count 79 K/uL (130-400); RDW Coefficient of Variation 16.3 % (11.5-14.5); RDW Standard Deviation 54.8 fL (36.4-46.3); Red Blood Count 3.21 M/uL (4.7-6.1); White Blood Count 14.64 K/uL (4.8-10.8)
[2020-01-05 07:11] LABS: BUN Creatinine Ratio 24.3 (10-20); Calcium 8.6 mg/dl (8.5-10.1); Creatinine Clr Calc Pharmacy 40.9 ml/min; Est GFR (Non-African American) 53.5; Potassium 4.5 mmol/L (3.5-5.1)
[2020-01-05] MEDS: ACETYLCYSTEINE 20% INHAL SOLN 4ML ***DISPENSED BY RESP. INH SCH ×2 (07:12→18:53)
[2020-01-05] MEDS ORDERED: VANCOMYCIN CONSULT ACTIVE PRN (07:56)
[2020-01-05] MEDS: AMIODARONE 200 MG TAB PO SCH ×2 (08:27→20:30)
[2020-01-05] MEDS: oxyCODONE HCL 10 MG TABCR (OxyCONTIN) PO SCH ×2 (08:27→20:31)
[2020-01-05] MEDS: LACTOBACILLUS ACIDOPHILUS (FLORANEX) TAB PO SCH ×4 (08:28→20:31)
[2020-01-05] MEDS: APIXABAN 5 MG TABLET PO SCH ×2 (08:29→20:31)
[2020-01-05] MEDS: OXYBUTYNIN CHLORIDE XL 5 MG TABCR PO SCH (08:29)
[2020-01-05] MEDS: DOXYCYCLINE HYCLATE 100 MG CAP PO SCH ×2 (08:30→20:30)
[2020-01-05] MEDS: PANTOprazole 40 MG TAB PO SCH (08:30)
[2020-01-05] MEDS ORDERED: VANCOMYCIN HCL 1,250 MG in SODIUM CHLORIDE 0.9% 250 ML IV ONE (08:30)
[2020-01-05] MEDS: VORICONAZOLE 200 MG TABLET PO SCH ×2 (09:23→20:35)
--- NOTE | 2020-01-05 10:50 | Hospitalist Progress Note ---
Date of Service January 05, 2020 Assessment & Plan (1) LLL pneumonia: radiographically improved -- cxr today with clearing of LLL infiltrate. day #6 of broad-spectrum IV abx (initially cefepime, then zosyn). cont 1 more day of zosyn. day #6 of doxy; continue 1 more day. (2) UTI (urinary tract infection): COMPLICATED/catheter-associated (b/l nephrostomy tubes). 2nd to e. faecalis, e. faecium, and chun non-albicans. zosyn will cover e. faecalis; add vanco for e. faecium; change diflucan to voriconazole for chun non-albicans species. day #4 of zosyn. day #1 vanco. day #1 voriconazole. (3) Acute respiratory failure with hypoxia: 2nd LLL pneumonia +/- volume overload from systolic/diastolic CHF. COPD exacerbation also likely - see below. latter resolved. former resolving. (4) Sepsis: 2nd to pneumonia, LLL, along with complicated UTI. sepsis resolved. (5) COPD (chronic obstructive pulmonary disease): with exacerbation. start solumedrol 40mg BID. duonebs q6h. pulm toilet. mucomyst nebs. (6) Antineoplastic chemotherapy induced pancytopenia: improving cbc in am (7) Mucus plugging of bronchi: LLL, as seen on imaging earlier this admission. cont mucomyst. cont nebs. add mucinex. slowly improving. (8) Acute sinusitis: zosyn / cefepime (received earlier this admission) along with doxy is more than adequate. if fungal sinusitis (doubtful) voriconazole will cover. 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 follows with Dr Montes, [facility] oncology I spoke with Dr Montes directly today patient with f/u appt next week on Jan 09 at 0815 can discuss then to cont chemo vs transition to hospice daughter leaning towards latter DNR status remains (11) Dyslipidemia: statin (12) CAD (coronary artery disease): no ACS or ischemic sx's (13) Paroxysmal atrial fibrillation: remains in NSR cont eliquis BID cont amiodarone 200mg BID (14) Chronic combined systolic and diastolic congestive heart failure: EF 45% on echo 11/2019 compensated at this time lasix prn (15) DVT prophylaxis: eliquis 5mg BID discussed care with Dr Montes by phone discussed care with daughter by phone discussed care with social work discussed care with patient at bedside and also by phone total time today 65 minutes Admission and Anticipated Discharge Date Admission Date: December 31, 2019 Subjective patient states that his cough and respiratory symptoms are "20% better" in comparison to when he first got admitted. nephrostomy tubes are still in place and draining w/o difficulty. telemetry wnl overnight. he still feels quite tired with poor appetite. cough is productive of thick sputum. feels wheezy. has mild subcostal pain when he coughs. Review of Systems Constitutional: no fever and no chills Respiratory: + cough, + dyspnea, + dyspnea on exertion and + wheezing Cardiovascular: no chest pain, no orthopnea and no edema Gastrointestinal: no abdominal pain, no nausea and no vomiting Physical Exam Constitutional: + ill appearing and + frail appearing; no acute distress and no altered mental status ENMT: external ear and nose normal, oropharynx normal Respiratory: no respiratory distress Auscultation: + diminished lung sounds, + crackles (left base) and + wheezes Cardiovascular: Rate/Rhythm: regular rate and regular rhythm Heart Sounds: normal S1 and normal S2; no murmur Vessels: posterior tibial pulses present and dorsalis pedis pulses present; no JVD Extremities: no edema Gastrointestinal (Abdomen): normal bowel sounds, soft, nontender, no hepatosplenomegaly Musculoskeletal: nephrostomy tubes b/l draining concentrated urine Skin: + pallor Psychiatric: Orientation: alert and oriented x 3 Results & Data Results & Data ([facility]) Vital Signs (Past 12 Hours) Vital Signs Temp Pulse Pulse Resp BP Pulse Ox 01/05/20 07:14 68 20 100 01/05/20 07:08 36.3 C L 66 18 143/67 H 100 01/05/20 05:36 53 L 18 96 01/05/20 04:29 36.3 C L 65 20 163/75 H 93 01/05/20 02:29 59 L 20 94 01/05/20 00:00 36.5 C 59 L 20 140/54 L 95 01/04/20 23:53 58 L 18 95 Laboratory Results Laboratory Results - last 24 hr 01/05/20 01/05/20 06:06 06:06 WBC 14.64 H RBC 3.21 L Hgb 9.4 L Hct 29.6 L MCV 92.2 MCH 29.3 MCHC 31.8 L RDW Std Deviation 54.8 H RDW Coeff of Qiana 16.3 H Plt Count 79 L MPV 12.5 H Immature Gran % (Auto) 2.9 Neut % (Auto) 81.0 Lymph % (Auto) 8.0 Marin % (Auto) 7.5 Eos % (Auto) 0.5 Baso % (Auto) 0.1 Neut # (Auto) 11.85 H Lymph # (Auto) 1.17 L Marin # (Auto) 1.10 H Eos # (Auto) 0.08 Baso # (Auto) 0.01 Immature Gran # (Auto) 0.43 H Sodium 140 Potassium 4.5 Chloride 107 Carbon Dioxide 27 Anion Gap 6.0 BUN 31 H Creatinine 1.29 Est Cr Clr Drug Dosing 40.9 Est GFR ( Amer) 62.0 Est GFR (Non-Af Amer) 53.5 BUN/Creatinine Ratio 24.3 H Glucose 112 H Calcium 8.6 PG Care Time/CCT Total # of Minutes Spent Total Time Spent with Patient: Total time spent is greater than 50% in coordination of care (as documented) at patient's floor/unit and/or counseling patient: Prolonged Care Time Prolonged Care Time: Yes Total Prolonged Care Time: 65 Coding Level of Care Code 81722 Subseq Hosp Care Lvl 3 (25 - SIGNIFICANT, SEPARATELY IDENTIFIABLE ) Diagnoses LLL pneumonia J18.9 UTI (urinary tract infection) N39.0 Acute respiratory failure with hypoxia J96.01 Sepsis A41.9 COPD (chronic obstructive pulmonary disease) J44.0 COPD type: COPD with acute lower respiratory infection Antineoplastic chemotherapy induced pancytopenia D61.810; T45.1X5A Mucus plugging of bronchi J98.09 Acute sinusitis J01.90 Thrombocytopenia D69.6 Malignant neoplasm metastatic from bladder C67.9 Dyslipidemia E78.5 CAD (coronary artery disease) I25.10 Paroxysmal atrial fibrillation I48.0 Chronic combined systolic and diastolic congestive heart failure I50.42 DVT prophylaxis Z29.9 Additional Codes Prolonged Care Time - Prolonged Care Time: Yes ([id number]) Time Spent (min) 65 (1) COPD (chronic obstructive pulmonary disease) COPD type: COPD with acute lower respiratory infection Qualified Code(s): J44.0 - Chronic obstructive pulmonary disease with (acute) lower respiratory infection
[2020-01-05] MEDS: ALBUT/IPRATROP 3MG/0.5MG NEB 3 ML VIAL NEB SCH ×3 (10:55→18:53)
[2020-01-05] MEDS: guaiFENesin 600 MG TABCR PO SCH ×2 (11:11→20:31)
[2020-01-05] MEDS: methylPREDNISolone 40 MG in SYRINGE 0 ML IV SCH ×2 (11:12→20:31)
--- NOTE | 2020-01-05 12:04 | Pharmacy Report ---
Pharmacy Abx Dose Short Note - Date of Service January 05, 2020 - Assessment & Plan Assessment * 74 year old M receiving VANCOMYCIN + ZOSYN (dosing per Pharmacy Consult). He is also receiving DOXYCYCLINE + VORICONAZOLE dosing per Provider. * He is currently on Day 5 of ABX therapy, however ABX have been changed several times. For the Vancomycin, treatment started 12/31 then d/c'd 01/03 and resumed this AM. Today is Day 5 Zosyn/Doxy therapy. * Current indications for ABX include: pneumonia, COPD, complicated UTI and sinusitis * 01/01 CXR read as LLL opacity suspicious for pneumonia. Sputum cx growing normal deb. Nasal swab negative for MRSA performed 12/30 * Urine cx's taken from nephrostomy tubes growing multiple organisms, some of which are MDR, colonization vs infxn. Patient has been awaiting nephrostomy tube replacement. Enterococcus faecalis and faecium are both sensitive to vancomycin, faecium is resistant to PCNs. Non-albicans yeast in urine cx's as well, species unknown. Voriconazole added today. EKG to be monitored per provider given underling QTc prolongation > 500 on 12/31 * Renal fxn appears to be stable based upon SCr and UOP. Plan Vancomycin * Loading dose: 1250mg x 1 as last dose of vancomycin administer > 36 hrs ago * Maint dose: 1000mg IV Q 24 hrs based upon last trough level obtained * Goal trough level for sepsis possible pulm source, and UTI : 15 to 20 mcg/mL however a level 10 to 20 mcg/mL may also be acceptable if not septic and treating a urinary infection * Will check trough level in 2 days to confirm targets met Zosyn * eCrCl > 20, BMI < 35, continue 3.375gm ext-infusion Q 8 hrs Pharmacy will continue to follow and will adjust dose/frequency as necessary. Thank you.
--- NOTE | 2020-01-05 12:36 | XRay Report ---
XR chest 2V PA/lateral CLINICAL HISTORY: b/l rales, decreased BS COMPARISON STUDY: Chest radiograph January 01, 2020. FINDINGS: Right internal jugular [id number] and median sternotomy wires are noted. There are small bilateral pleural effusions. Interstitial thickening has improved. Left basilar opacity has improved . There is a 5 mm nodular opacity within the right lower lung. Mediastinal contours are stable. IMPRESSION: 1. Interval improvement in pulmonary edema and left basilar opacity which may reflect consolidation o r atelectasis. 2. Small bilateral pleural effusions. 3. 5 mm nodular opacity within the right lower lung which should be assessed on subsequent exams to e nsure resolution. ACT 112: Negative or not required by law. Electronically signed by: Darian Mayen M.D. 01/05/2020 12:34 PM
[2020-01-05] MEDS ORDERED: VANCOMYCIN TROUGH ONE (15:30)
--- NOTE | 2020-01-05 19:23 | Electrocardiogram Report ---
Test Reason : Blood Pressure : / mmHG Vent. Rate : 059 BPM Atrial Rate : 059 BPM P-R Int : 164 ms QRS Dur : 132 ms QT Int : 568 ms P-R-T Axes : -11 015 096 degrees QTc Int : 562 ms Normal sinus rhythm Left bundle branch block Abnormal ECG When compared with ECG of 01-JAN-2020 20:14, Fusion complexes are no longer Present Confirmed by Dain Bower [id number]) on 01/05/2020 7:23:19 PM Referred By: REFERRED SELF Confirmed By:Jian Bower
[2020-01-05] MEDS: OLANZAPINE 2.5 MG TAB PO SCH (20:30)
[2020-01-05] MEDS: MELATONIN 3 MG TAB PO SCH (20:30)
[2020-01-05] MEDS: ATORVASTATIN 40 MG TAB PO SCH (20:31)
[2020-01-06] MEDS: PIPERACILLIN/TAZOBACTAM 3.375 GM in DEXTROSE 5% 100 ML IV SCH ×4 (03:47→17:31)
[2020-01-06] MEDS: LEVALBUTEROL HCL 1.25 MG/3 ML NEB NEB PRN (03:59)
[2020-01-06 06:54] LABS: Hematocrit (blood only) 28.7 % (42-52); Hemoglobin 9.3 g/dL (14.0-18.0); Mean Corpuscular Hemoglobin 29.6 pg (25-34); Mean Corpuscular Hgb Conc 32.4 g/dL (32-36); Mean Corpuscular Volume 91.4 fL (80-100); Mean Platelet Volume 12.1 fL (7.4-10.4); Platelet Count 119 K/uL (130-400); RDW Coefficient of Variation 16.4 % (11.5-14.5); RDW Standard Deviation 54.4 fL (36.4-46.3); Red Blood Count 3.14 M/uL (4.7-6.1); White Blood Count 14.09 K/uL (4.8-10.8)
[2020-01-06] MEDS: ALBUT/IPRATROP 3MG/0.5MG NEB 3 ML VIAL NEB SCH ×4 (06:58→19:26)
[2020-01-06] MEDS: ACETYLCYSTEINE 20% INHAL SOLN 4ML ***DISPENSED BY RESP. INH SCH ×2 (06:58→19:26)
[2020-01-06 07:10] LABS: Calcium 8.5 mg/dl (8.5-10.1); Creatinine Clr Calc Pharmacy 42.1 ml/min; Est GFR (African American) 65.7; Est GFR (Non-African American) 56.7; Potassium 4.8 mmol/L (3.5-5.1)
[2020-01-06] MEDS: methylPREDNISolone 40 MG in SYRINGE 0 ML IV SCH (09:48)
[2020-01-06] MEDS: VANCOMYCIN HCL 1,000 MG in SODIUM CHLORIDE 0.9% 250 ML IV SCH (09:48)
[2020-01-06] MEDS: DOXYCYCLINE HYCLATE 100 MG CAP PO SCH ×2 (09:50→21:32)
[2020-01-06] MEDS: AMIODARONE 200 MG TAB PO SCH ×2 (09:50→21:31)
[2020-01-06] MEDS: VORICONAZOLE 200 MG TABLET PO SCH ×2 (09:51→21:34)
[2020-01-06] MEDS: PANTOprazole 40 MG TAB PO SCH (09:51)
[2020-01-06] MEDS: guaiFENesin 600 MG TABCR PO SCH ×2 (09:52→21:33)
[2020-01-06] MEDS: LACTOBACILLUS ACIDOPHILUS (FLORANEX) TAB PO SCH ×4 (09:52→21:30)
[2020-01-06] MEDS: APIXABAN 5 MG TABLET PO SCH ×2 (09:52→21:34)
[2020-01-06] MEDS: OXYBUTYNIN CHLORIDE XL 5 MG TABCR PO SCH (09:52)
[2020-01-06] MEDS: oxyCODONE HCL 10 MG TABCR (OxyCONTIN) PO SCH ×2 (09:57→21:38)
--- NOTE | 2020-01-06 19:43 | Hospitalist Progress Note ---
Date of Service January 06, 2020 Assessment & Plan (1) LLL pneumonia: improved/resolving. day #7 of broad-spectrum IV abx (initially cefepime, then zosyn) - stop after tonight's dose. day #7 of doxy; stop after tonight's dose. cont steroids for COPD, pulmonary toilet. wean O2 off as tolerated. (2) UTI (urinary tract infection): COMPLICATED/catheter-associated (b/l nephrostomy tubes). 2nd to e. faecalis, e. faecium, and chun non-albicans. zosyn or vanco will cover e. faecalis; vanco for e. faecium; voriconazole for chun non-albicans species. day #5 of zosyn. day #2 vanco. day #2 voriconazole. stop zosyn. cont on with vanco and voriconazole. ultimately we could consider using PO zyvox in kristal of vanco at time of discharge. (3) Nephrostomy status: b/l to be exchanged at [facility] next week both functioning well at this time (4) Acute respiratory failure with hypoxia: nearly resolved 2nd LLL pneumonia + volume overload from systolic/diastolic CHF + COPD exacerbation wean O2 off as tolerated (5) Sepsis: 2nd to pneumonia and complicated UTI. sepsis resolved. (6) COPD (chronic obstructive pulmonary disease): with exacerbation. IMPROVED overnight with steroids. cont solumedrol but wean to 30mg BID. duonebs q6h. pulm toilet. mucomyst nebs. (7) Antineoplastic chemotherapy induced pancytopenia: cont to improve repeat cbc in 48 hours (8) Mucus plugging of bronchi: LLL, as seen on imaging earlier this admission. cont mucomyst. cont nebs. cont mucinex. clinically improved with improved airation on exam and decreasing O2 requirements (9) Acute sinusitis: zosyn / cefepime (received earlier this admission) along with doxy is more than adequate. no sinus complaints at this time. if fungal sinusitis (doubtful) voriconazole will cover. 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 follows with Dr Montes, [facility] oncology I spoke with Dr Montes directly on 01/05/20 patient with f/u appt next week on Sep at [address] Montes can discuss then to cont chemo vs transition to hospice daughter leaning towards latter DNR status remains (12) Dyslipidemia: statin (13) CAD (coronary artery disease): no ACS or ischemic sx's (14) Paroxysmal atrial fibrillation: remains in NSR cont eliquis BID cont amiodarone 200mg BID QTc prolonged on recent EKG is on several QT prolonging agents thus keep patient on telemetry (15) Chronic combined systolic and diastolic congestive heart failure: EF 45% on echo 11/2019 compensated today lasix prn (16) DVT prophylaxis: eliquis 5mg BID updated daughter by phone on 01/04 and 01/05 cont PT and OT home next 48 hours?? Admission and Anticipated Discharge Date Admission Date: December 31, 2019 Subjective patient feeling much better today. still with cough & sputum production but improving. better energy and appetite today. no dyspnea at rest. some mild CHACON lingering. tele overnight wnl. has had periods of O2 being off and O2 sats have remained stable. no new complaints. Review of Systems Constitutional: no fever and no chills Respiratory: + cough, + dyspnea on exertion and + sputum production; no hemoptysis and no wheezing Cardiovascular: no chest pain Gastrointestinal: no abdominal pain, no nausea, no vomiting and no diarrhea/loose stools Physical Exam Constitutional: + frail appearing; no acute distress and no altered mental status overall looks better today ENMT: external ear and nose normal, oropharynx normal Respiratory: no respiratory distress Auscultation: + crackles (left base - minimal); no diminished lung sounds (improved airation today ) and no wheezes (resolved today) Cardiovascular: Rate/Rhythm: regular rate and regular rhythm Heart Sounds: normal S1 and normal S2; no murmur Vessels: posterior tibial pulses present and dorsalis pedis pulses present; no JVD Extremities: no edema Gastrointestinal (Abdomen): normal bowel sounds, soft, nontender, no hepatosplenomegaly Skin: + pallor Psychiatric: Orientation: alert and oriented x 3 Results & Data Results & Data ([facility]) Vital Signs (Past 12 Hours) Vital Signs Temp Pulse Pulse Resp BP Pulse Ox 01/06/20 19:30 67 19 95 01/06/20 19:19 36.4 C L 66 19 153/62 H 95 01/06/20 15:18 36.4 C L 66 22 143/62 H 96 01/06/20 15:07 61 16 93 01/06/20 12:17 63 01/06/20 11:16 36.5 C 65 19 137/55 L 90 01/06/20 10:40 67 18 90 Laboratory Results Laboratory Results - last 24 hr 01/06/20 01/06/20 06:08 06:08 WBC 14.09 H RBC 3.14 L Hgb 9.3 L Hct 28.7 L MCV 91.4 MCH 29.6 MCHC 32.4 RDW Std Deviation 54.4 H RDW Coeff of Qiana 16.4 H Plt Count 119 L D MPV 12.1 H Sodium 140 Potassium 4.8 Chloride 106 Carbon Dioxide 28 Anion Gap 6.0 BUN 31 H Creatinine 1.23 Est Cr Clr Drug Dosing 42.1 Est GFR ( Amer) 65.7 Est GFR (Non-Af Amer) 56.7 BUN/Creatinine Ratio 25.0 H Glucose 159 H Calcium 8.5 PG Care Time/CCT Total # of Minutes Spent Total Time Spent with Patient: Total time spent is greater than 50% in coordination of care (as documented) at patient's floor/unit and/or counseling patient: Coding Level of Care Code 38675 Subseq Hosp Care Lvl 3 Diagnoses LLL pneumonia J18.9 Pneumonia type: due to unspecified organism UTI (urinary tract infection) T83.512D; N39.0 Urinary tract infection type: catheter-associated UTI Indwelling urinary catheter type: nephrostomy catheter Encounter type: subsequent encounter Nephrostomy status Z93.6 Acute respiratory failure with hypoxia J96.01 Sepsis A41.9 COPD (chronic obstructive pulmonary disease) J44.0 COPD type: COPD with acute lower respiratory infection Antineoplastic chemotherapy induced pancytopenia D61.810; T45.1X5A Mucus plugging of bronchi J98.09 Acute sinusitis J01.90 Thrombocytopenia D69.6 Malignant neoplasm metastatic from bladder C67.9 Dyslipidemia E78.5 CAD (coronary artery disease) I25.10 Paroxysmal atrial fibrillation I48.0 Chronic combined systolic and diastolic congestive heart failure I50.42 DVT prophylaxis Z29.9 (1) LLL pneumonia Pneumonia type: due to unspecified organism Qualified Code(s): J18.9 - Pneumonia, unspecified organism (2) UTI (urinary tract infection) Urinary tract infection type: catheter-associated UTI Indwelling urinary catheter type: nephrostomy catheter Encounter type: subsequent encounter Qualified Code(s): T83.512D - Infection and inflammatory reaction due to nephrostomy catheter, subsequent encounter; N39.0 - Urinary tract infection, site not specified (3) COPD (chronic obstructive pulmonary disease) COPD type: COPD with acute lower respiratory infection Qualified Code(s): J44.0 - Chronic obstructive pulmonary disease with (acute) lower respiratory infection
[2020-01-06] MEDS: ATORVASTATIN 40 MG TAB PO SCH (21:31)
[2020-01-06] MEDS: methylPREDNISolone 30 MG in SYRINGE 0 ML IV SCH (21:32)
[2020-01-06] MEDS: OLANZAPINE 2.5 MG TAB PO SCH (21:32)
[2020-01-06] MEDS: MELATONIN 3 MG TAB PO SCH (21:33)
[2020-01-07] MEDS: ACETYLCYSTEINE 20% INHAL SOLN 4ML ***DISPENSED BY RESP. INH SCH ×2 (07:08→18:57)
[2020-01-07] MEDS: ALBUT/IPRATROP 3MG/0.5MG NEB 3 ML VIAL NEB SCH ×4 (07:08→18:58)
[2020-01-07] MEDS: VORICONAZOLE 200 MG TABLET PO SCH ×2 (08:29→20:24)
[2020-01-07] MEDS: APIXABAN 5 MG TABLET PO SCH ×2 (08:29→20:25)
[2020-01-07] MEDS: PANTOprazole 40 MG TAB PO SCH (08:29)
[2020-01-07] MEDS ORDERED: VANCOMYCIN TROUGH ONE (08:30)
[2020-01-07] MEDS: guaiFENesin 600 MG TABCR PO SCH ×2 (08:30→20:23)
[2020-01-07] MEDS: methylPREDNISolone 30 MG in SYRINGE 0 ML IV SCH ×2 (08:30→20:25)
[2020-01-07] MEDS: OXYBUTYNIN CHLORIDE XL 5 MG TABCR PO SCH (08:31)
[2020-01-07] MEDS: LACTOBACILLUS ACIDOPHILUS (FLORANEX) TAB PO SCH ×4 (08:31→20:23)
[2020-01-07] MEDS: AMIODARONE 200 MG TAB PO SCH ×2 (08:31→20:23)
[2020-01-07] MEDS: oxyCODONE HCL 10 MG TABCR (OxyCONTIN) PO SCH ×2 (08:35→20:25)
[2020-01-07] MEDS: VANCOMYCIN HCL 1,000 MG in SODIUM CHLORIDE 0.9% 250 ML IV SCH (08:35)
[2020-01-07 09:06] LABS: Creatinine Clr Calc Pharmacy 33.2 ml/min; Est GFR (African American) 48.9; Est GFR (Non-African American) 42.2; Potassium 5.2 mmol/L (3.5-5.1)
--- NOTE | 2020-01-07 10:28 | Pharmacy Report ---
Pharmacy Abx Dose Short Note - Date of Service January 07, 2020 - Assessment & Plan Assessment * 74 year old M receiving VANCOMYCIN (dosing per Pharmacy Consult). He is also receiving VORICONAZOLE dosing per Provider. * He is currently on Day 7 of ABX therapy, however ABX have been changed several times. For the Vancomycin, treatment started 12/31 then d/c'd 01/03 and resumed 01/04 AM. Today is Day 5 Zosyn therapy. * Current indications for ABX include: pneumonia, COPD, complicated UTI and sin usitis * 01/01 CXR read as LLL opacity suspicious for pneumonia. Sputum cx growing normal deb. Nasal swab negative for MRSA performed 12/30 * Urine cx's taken from nephrostomy tubes growing multiple organisms, some of which are MDR, colonization vs infxn. Patient has been awaiting nephrostomy tube replacement. Enterococcus faecalis and faecium are both sensitive to vancomycin, faecium is resistant to PCNs. Non-albicans yeast in urine cx's as well, species unknown. Voriconazole on board. EKG to be monitored per provider given underling QTc prolongation > 500 on 12/31 and 01/04 * Renal fxn may be worsening. SCr increased > 0.3 in last 24 hrs (1.23 --> 1.57). UOP appears adequate however, >0.5mL/kg/hr. No significant hypotension noted on recorded VS last 24 hrs. Plan Vancomycin * Trough level of 16.2 mcg/mL is therapeutic * Continue dose of 1000 mg IV every 24 hours today, however will recheck trough level and SCr tomorrow to assess for decline in renal fxn and drug accumulation * Goal trough level for possible pulm source, and UTI : 15 to 20 mcg/mL however a level 10 to 20 mcg/mL may also be acceptable if not septic and treating a urinary infection Pharmacy will continue to follow and will adjust dose/frequency as necessary. Thank you.
[2020-01-07] MEDS ORDERED: LINEZOLID CONSULT ACTIVE PRN (11:10)
[2020-01-07] MEDS ORDERED: ALPRAZolam 0.25 MG TABLET PO STA (11:50)
[2020-01-07] MEDS ORDERED: ALPRAZolam 0.25 MG TABLET PO PRN (14:41)
[2020-01-07] MEDS ORDERED: FUROSEMIDE 20 MG TAB PO ONE (15:45)
--- NOTE | 2020-01-07 16:45 | Palliative Care Consultation ---
Date of Consultation January 07, 2020 Assessment & Plan (1) Goals of care, counseling/discussion: Patient is a 73-year-old male who was recently diagnosed with small cell cancer of the bladder with mets to bone-diagnosed 6 to 8 weeks ago. Status post bilateral nephrostomy tubes. Patient states he is received 2 rounds of chemo, the first course went fairly well, the second course he had more issues with nausea vomiting-patient is now questioning whether or not to continue with chemo. Past medical history is significant for AAA-status post stent placement, CHF, COPD, CAD-status post CABG, mitral valve repair, and left CEA. -Met with patient in room 204-patient appears anxious, shortness of breath with conversation, denies shortness of breath at rest. Is on O2 at 3 L-had used O2 at home once. -Patient defers most of his history as well as goals to his daughter-states he has problems keeping track of all the doctors he is seen as well as timeframe. Spoke with daughter, Majo Hinton , by [phone]. Daughter reports anxiety has not been a significant issue until this recent diagnosis. -Patient lived in his own home until recently when he moved in with his daughter, Majo Hinton, her and their 3 children-ages 10, 5 and 2. -Patient is -have been for 12 years, do stay in contact. Patient has another daughter in [place], [place] and a son in [place]. -Patient did state his main goal is for quality, not quantity of life. Stated he wants to be around his 3 grandchildren and have them have good memories of him. -Patient is willing to try low-dose Roxanol and Ativan for anxiety/shortness of breath. Patient is not sure what occurs first anxiety or the shortness of breath, but when he does get shortness of breath his anxiety increases. -Patient's CODE STATUS is DNR, daughter reports they do have a POLST form at home. -Patient has an appointment scheduled with Dr. Montes on 01/10 -which daughter wishes to keep to discuss possible transition to hospice. Patient has appointment on 01/12 to have his nephrostomy tubes changed. -Patient is active with [place] [facility]-daughter reports they are ready to admit to hospice once the patient and family decide on it. - PPS 40% (2) Malignant neoplasm metastatic from bladder: (3) Shortness of breath: (4) Anxiety about health: (5) Nephrostomy status: (6) COPD (chronic obstructive pulmonary disease): COPD type: COPD with acute lower respiratory infection Qualified Code(s): J44.0 - Chronic obstructive pulmonary disease with (acute) lower respiratory infection (7) Chronic combined systolic and diastolic congestive heart failure: History of Present Illness Reason for Consultation: Address goals of care Requesting Physician: Dr Purvis Attending Physician: Easton Purvis History of Present Illness Chart reviewed, patient seen and examined in room 204-no family or friends at bedside. Patient is a 73-year-old male who was recently diagnosed with small cell cancer of the bladder with mets to bone-diagnosed 6 to 8 weeks ago. Status post bilateral nephrostomy tubes. Patient states he is received 2 rounds of chemo, the first course went fairly well, the second course he had more issues with nausea vomiting-patient is now questioning whether or not to continue with chemo. Past medical history is significant for AAA-status post stent placement, CHF, COPD, CAD-status post CABG, mitral valve repair, and left CEA. -Met with patient in room 204-patient appears anxious, shortness of breath with conversation, denies shortness of breath at rest. Is on O2 at 3 L-had used O2 at home once. -Patient defers most of his history as well as goals to his daughter-states he has problems keeping track of all the doctors he is seen as well as timeframe. Spoke with daughter, Majo Hinton , by [phone]. Daughter reports anxiety has not been a significant issue until this recent diagnosis. -Patient lived in his own home until recently when he moved in with his daughter, Majo Hinton, her and their 3 children-ages 10, 5 and 2. -Patient is -have been for 12 years, do stay in contact. Patient has another daughter in [place], [place] and a son in [place]. -Patient did state his main goal is for quality, not quantity of life. Stated he wants to be around his 3 grandchildren and have them have good memories of him. -Patient is willing to try low-dose Roxanol and Ativan for anxiety/shortness of breath. Patient is not sure what occurs first anxiety or the shortness of breath, but when he does get shortness of breath his anxiety increases. -Patient's CODE STATUS is DNR, daughter reports they do have a POLST form at home. -Patient has an appointment scheduled with Dr. Montes on 01/10 -which daughter wishes to keep to discuss possible transition to hospice. Patient has appointment on 01/12 to have his nephrostomy tubes changed. -Patient is active with [place] [facility]-daughter reports they are ready to admit to hospice once the patient and family decide on it. - PPS 40% Allergies Allergy/AdvReac Type Severity Reaction Status Date / Time No Known Allergies Allergy Verified 12/31/19 14:09 Home Medications Home Medications Medication Instructions Recorded Confirmed Type Eliquis 5 mg PO BID 12/08/19 12/31/19 History albuterol sulfate 2 puff INHALATION QID PRN 12/08/19 12/31/19 History aspirin [Aspir-81] 81 mg PO QAM 12/08/19 12/31/19 History melatonin 5 mg PO HS 12/08/19 12/31/19 History olanzapine 2.5 mg PO HS 12/08/19 12/31/19 History oxybutynin chloride 10 mg PO QAM 12/08/19 12/31/19 History pantoprazole [Protonix] 40 mg PO QAM 12/08/19 12/31/19 History amiodarone 200 mg PO BID #60 tab 12/10/19 12/31/19 Rx atorvastatin 40 mg PO PM #30 tab 12/10/19 12/31/19 Rx oxycodone-acetaminophen [Percocet] 1 tab PO Q6H PRN #10 tab 12/14/19 12/31/19 Rx ondansetron 4 mg PO Q8H PRN 10 Days #10 tab 12/29/19 12/31/19 Rx docusate sodium 100 mg capsule 100 mg PO BID PRN cap 12/31/19 12/31/19 History oxycodone [OxyContin] 20 mg PO BID 12/31/19 12/31/19 History linezolid [Zyvox] 600 mg PO BID 7 Days #14 tab 01/07/20 Rx voriconazole 200 mg PO Q12H 7 Days #14 tab 01/07/20 Rx Patient History Medical History Abdominal aortic aneurysm S/p previous stent placement; per 12/08/19 CT scan - "Fusiform aneurysm dilation of the abdominal aorta with aortobiiliac stent graft. Aneurysm measures up to approximately 4.1 x 4.8 cm. Femoral-femoral bypass graft. Abdominal pain, lower Anemia Hgb 6.9 on 12/08/19- did get packed RBCs when admitted to [facility] Bladder cancer DX 6 WEEKS AGO > HAS HAD 1ST ROUND CHEMO CAD (coronary artery disease) S/p CABG 3 vessel 2012 or 2013 Chronic combined systolic and diastolic congestive heart failure Will be following with [facility] COPD (chronic obstructive pulmonary disease) WELL CONTROLLED PER PT Cough DVT (deep venous thrombosis) left leg > 2015 > unknown cause Dyslipidemia Edema, peripheral JUST DC FROM [facility] FOR THIS PER PT 12/08/19 Hard of hearing Hypoalbuminemia Mitral regurgitation S/p MV repair Nausea & vomiting Paroxysmal atrial fibrillation DX OCTOBER 2019 > NO CARDIOVERSIONS Poor historian Surgical History History of cardiac cath 5 yrs ago> no known cardiac stents History of CEA (carotid endarterectomy) 6 YRS AGO- NO MENTION OF CEA PER RECORDS- NO RECENT CAROTID IMAGING ON FILE EITHER History of endovascular stent graft for abdominal aortic aneurysm History of left hip replacement History of pelvic surgery Fractured pelvis repair History of tooth extraction Hx of appendectomy Hx of CABG 7 YRS AGO > [place] IN [place] > TRIPLE BYPASS> FOLLOWS DR. C[place] IN [place], [place] S/P mitral valve repair 2017 per records > [facility] Family History Father Colon cancer Social History Smoking Status: Former smoker Second Hand Exposure: Yes; Hx Alcohol Use: No Hx Substance Use: No Preferred Language: Citizen Of [place] Communication Ability: Effective Programming Internship Required: No Beliefs That Will Affect Care: None marital status: Single Current Living Situation: Family Current Living Situation Comment: daughter Feels Safe at Home: Yes Review of Systems Review of Systems: Patient denies fever, chills, chest pain, abdominal pain Positive for acute onset of episodic shortness of breath, positive for anxiety Physical Exam Physical Exam: PE: Patient awake and alert, appears anxious at rest. Patient sitting in a chair at bedside HEENT: EOMI, mild [place] Respirations: Unlabored, diminished breath sounds all lung ponce, O2 sats 100% on 3 L O2 CV: Regular rate, heart rate 61, no edema Abdomen: Not distended Extremities: Thin, cachectic Neuro: Alert and oriented Psych: Anxious Results & Data ([facility]) Vital Signs (Past 12 Hours) Vital Signs Temp Pulse Resp BP Pulse Ox 01/07/20 15:20 58 L 18 100 01/07/20 15:09 97.5 F L 57 L 18 141/52 H 96 01/07/20 11:34 97.3 F L 74 20 143/65 H 85 L 01/07/20 11:12 67 20 81 L 01/07/20 07:11 68 20 96 01/07/20 06:57 97.9 F 62 18 139/51 L 91 PG Care Time/CCT Total # of Minutes Spent Total Time Spent with Patient: Total time spent 70 minutes with greater than 50% of the time spent at bedside reviewing patient's goals of care, discussing treatment options as well as discussing with the patient's healthcare surrogate by phone. Collaborated with attending physician. Coding Level of Care Code 28281 Inpt Consult Level 3 Diagnoses Goals of care, counseling/discussion Z71.89 Malignant neoplasm metastatic from bladder C67.9 Shortness of breath R06.02 Anxiety about health F41.8 Nephrostomy status Z93.6 COPD (chronic obstructive pulmonary disease) J44.0 COPD type: COPD with acute lower respiratory infection Chronic combined systolic and diastolic congestive heart failure I50.42 Time Spent (min) 70
[2020-01-07] MEDS ORDERED: MoRPHine SULFATE 5 MG/0.25 ML UDP SL PRN (16:51)
[2020-01-07] MEDS ORDERED: LORazepam 0.5 MG TAB PO PRN (16:51)
[2020-01-07] MEDS: MELATONIN 3 MG TAB PO SCH (20:23)
[2020-01-07] MEDS: OLANZAPINE 2.5 MG TAB PO SCH (20:23)
[2020-01-07] MEDS: ATORVASTATIN 40 MG TAB PO SCH (20:23)
[2020-01-07] MEDS: LINEZOLID 600 MG TAB PO SCH (20:24)
--- NOTE | 2020-01-07 20:27 | Hospitalist Progress Note ---
Date of Service January 07, 2020 Assessment & Plan (1) LLL pneumonia: improved/resolving. completed 7 days of cefepime/zosyn along with doxy. abx discontinued. cont steroids for COPD, pulmonary toilet. due to episodes of dyspnea will obtain repeat cxr in am to ensure no new pathology. (2) UTI (urinary tract infection): COMPLICATED/catheter-associated (b/l nephrostomy tubes). 2nd to e. faecalis, e. faecium, and chun non-albicans. zosyn or vanco will cover e. faecalis; vanco for e. faecium; voriconazole for chun non-albicans species. zosyn now stopped. day #3 vanco. day #3 voriconazole. plan: stop vanco - change to zyvox 600mg BID which will cover both enterococcal species. cont voriconazole. would treat for 10-14 days of the zyvox and voriconazole given the nephrostomy tubes and how ill he has been. could easily have had kidney involvement as well. (3) Nephrostomy status: b/l to be exchanged at [facility] next week as an outpatient- January 12 both functioning well at this time (4) Acute respiratory failure with hypoxia: resolving 2nd LLL pneumonia + volume overload from systolic/diastolic CHF + COPD exacerb ation formal 2-step ordered - he already has [facility] but how much and when to use will be answered from 2-step (5) Sepsis: 2nd to pneumonia and complicated UTI. sepsis resolved. (6) COPD (chronic obstructive pulmonary disease): with exacerbation. IMPROVING w/ steroids. cont solumedrol but leave at 30mg BID today. duonebs q6. pulm toilet. mucomyst nebs. treat anxiety. consider chest PT to help mobilize his thick secretions. (7) Antineoplastic chemotherapy induced pancytopenia: cont to improve repeat cbc in am. (8) Mucus plugging of bronchi: LLL, as seen on imaging earlier this admission. cont mucomyst. cont nebs. cont mucinex. clinically improved with improved airation on exam and decreasing O2 requirements consider chest PT (9) Acute sinusitis: zosyn / cefepime (received earlier this admission) along with doxy was likely more than adequate. no sinus complaints at this time. if fungal sinusitis (doubtful) voriconazole will cover. 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 follows with Dr Montes [facility] oncology I spoke with Dr Montes directly on 01/05/20 patient with f/u appt next week on Jan [address] Montes can discuss then to cont chemo vs transition to hospice formal palliative care consult placed to Dr Galvan today daughter aware of palliative care consult patient agreeable to consult (12) Dyslipidemia: statin (13) CAD (coronary artery disease): no ACS or ischemic sx's (14) Paroxysmal atrial fibrillation: remains in NSR cont eliquis BID cont amiodarone 200mg BID QTc prolonged on recent EKG is on several QT prolonging agents thus keep patient on telemetry (15) Chronic combined systolic and diastolic congestive heart failure: EF 45% on echo 11/2019 will give lasix 20mg x 1 today and re-eval tomorrow repeat cxr in am (16) Anxiety about health: xanax 0.25mg q6h prn (17) DVT prophylaxis: eliquis 5mg BID updated daughter by phone on 01/04 and 01/05 and 01/06 cont PT and OT home next 48 hours?? Admission and Anticipated Discharge Date Admission Date: December 31, 2019 Subjective Mr Ortega continues to eat well. This is his 2nd day in a row with such. He has episodes of dyspnea, most with ambulating in the room, and he gets quite anxious when he has the dyspnea. Alternatively he has anxiety in and of itself, and then he starts to have dyspnea after that. He had an episode of dyspnea trying to use the toilet earlier today. Has intermittent production of sputum - thick, white/yellow. We discussed palliative care consultation today. He was agreeable. Denies pain in any location today. Lastly, mentions that he has vivid dreams and episodes of brief confusion. Has had this for a few days. Review of Systems Constitutional: + fatigue; no fever, no chills and no anorexia Ear, Nose, Mouth, Throat: no sore throat and no dysphagia Respiratory: + cough and + dyspnea on exertion Cardiovascular: no chest pain Gastrointestinal: no nausea and no vomiting Physical Exam Constitutional: + frail appearing; no acute distress and no altered mental status ENMT: external ear and nose normal, oropharynx normal Respiratory: no respiratory distress Auscultation: + crackles (left base - minimal); no diminished lung sounds (improved airation today ) and no wheezes Cardiovascular: Rate/Rhythm: regular rate and regular rhythm Heart Sounds: normal S1 and normal S2; no murmur Vessels: posterior tibial pulses present and dorsalis pedis pulses present; no JVD Extremities: no edema Gastrointestinal (Abdomen): normal bowel sounds, soft, nontender, no he patosplenomegaly Skin: + pallor Psychiatric: Orientation: alert and oriented x 3 Mood: + anxious mood Results & Data Results & Data ([facility]) Vital Signs (Past 12 Hours) Vital Signs Temp Pulse Resp BP Pulse Ox 01/07/20 19:44 36.4 C L 68 21 162/87 H 97 01/07/20 19:00 67 18 91 01/07/20 15:20 58 L 18 100 01/07/20 15:09 36.4 C L 57 L 18 141/52 H 96 01/07/20 11:34 36.3 C L 74 20 143/65 H 85 L 01/07/20 11:12 67 20 81 L Laboratory Results Laboratory Results - last 24 hr 01/07/20 01/07/20 08:23 08:23 Sodium 139 Potassium 5.2 H Chloride 105 Carbon Dioxide 25 Anion Gap 9.0 BUN 44 H Creatinine 1.57 H D Est Cr Clr Drug Dosing 33.2 Est GFR ( Amer) 48.9 Est GFR (Non-Af Amer) 42.2 BUN/Creatinine Ratio 28.0 H Glucose 171 H Calcium 9.0 Vancomycin Trough 16.2 PG Care Time/CCT Total # of Minutes Spent Total Time Spent with Patient: Total time spent is greater than 50% in coordination of care (as documented) at patient's floor/unit and/or counseling patient: Coding Level of Care Code 95766 Subseq Hosp Care Lvl 3 Diagnoses LLL pneumonia J18.9 Pneumonia type: due to unspecified organism UTI (urinary tract infection) T83.512D; N39.0 Encounter type: subsequent encounter Indwelling urinary catheter type: nephrostomy catheter Urinary tract infection type: catheter-associated UTI Nephrostomy status Z93.6 Acute respiratory failure with hypoxia J96.01 Sepsis A41.9 COPD (chronic obstructive pulmonary disease) J44.0 COPD type: COPD with acute lower respiratory infection Antineoplastic chemotherapy induced pancytopenia D61.810; T45.1X5A Mucus plugging of bronchi J98.09 Acute sinusitis J01.90 Thrombocytopenia D69.6 Malignant neoplasm metastatic from bladder C67.9 Dyslipidemia E78.5 CAD (coronary artery disease) I25.10 Paroxysmal atrial fibrillation I48.0 Chronic combined systolic and diastolic congestive heart failure I50.42 Anxiety about health F41.8 DVT prophylaxis Z29.9 (1) UTI (urinary tract infection) Encounter type: subsequent encounter Indwelling urinary catheter type: nephrostomy catheter Urinary tract infection type: catheter-associated UTI Qualified Code(s): T83.512D - Infection and inflammatory reaction due to nephrostomy catheter, subsequent encounter; N39.0 - Urinary tract infection, site not specified (2) COPD (chronic obstructive pulmonary disease) COPD type: COPD with acute lower respiratory infection Qualified Code(s): J44.0 - Chronic obstructive pulmonary disease with (acute) lower respiratory infection (3) LLL pneumonia Pneumonia type: due to unspecified organism Qualified Code(s): J18.9 - Pneumonia, unspecified organism
[2020-01-08 06:36] LABS: Hematocrit (blood only) 27.2 % (42-52); Hemoglobin 8.6 g/dL (14.0-18.0); Mean Corpuscular Hemoglobin 28.9 pg (25-34); Mean Corpuscular Hgb Conc 31.6 g/dL (32-36); Mean Corpuscular Volume 91.3 fL (80-100); Mean Platelet Volume 11.5 fL (7.4-10.4); Platelet Count 195 K/uL (130-400); RDW Coefficient of Variation 16.8 % (11.5-14.5); RDW Standard Deviation 55.4 fL (36.4-46.3); Red Blood Count 2.98 M/uL (4.7-6.1); White Blood Count 18.61 K/uL (4.8-10.8)
[2020-01-08] MEDS: ACETYLCYSTEINE 20% INHAL SOLN 4ML ***DISPENSED BY RESP. INH SCH ×2 (07:02→18:47)
[2020-01-08] MEDS: ALBUT/IPRATROP 3MG/0.5MG NEB 3 ML VIAL NEB SCH ×4 (07:02→18:47)
[2020-01-08 07:22] LABS: BUN Creatinine Ratio 31.9 (10-20); Calcium 8.5 mg/dl (8.5-10.1); Creatinine Clr Calc Pharmacy 31.8 ml/min; Est GFR (African American) 46.4; Magnesium 1.7 mg/dl (1.8-2.4); Phosphorus 4.3 mg/dl (2.5-4.9); Potassium 6.1 mmol/L (3.5-5.1)
[2020-01-08] MEDS ORDERED: CALCIUM GLUCONATE 10% 10 ML VIAL IV STA (08:29)
[2020-01-08] MEDS ORDERED: VANCOMYCIN TROUGH ONE (08:30)
[2020-01-08] MEDS: SODIUM CHLORIDE 0.9% 1000ML 1,000 ML IV SCH ×2 (08:49→21:51)
[2020-01-08] MEDS: LACTOBACILLUS ACIDOPHILUS (FLORANEX) TAB PO SCH ×4 (09:00→21:37)
[2020-01-08] MEDS: OXYBUTYNIN CHLORIDE XL 5 MG TABCR PO SCH (09:00)
[2020-01-08] MEDS ORDERED: FUROSEMIDE 20 MG in SYRINGE 0 ML IV ONE ×2 (09:00→14:45)
[2020-01-08] MEDS: AMIODARONE 200 MG TAB PO SCH ×2 (09:00→21:41)
[2020-01-08] MEDS: APIXABAN 5 MG TABLET PO SCH ×2 (09:01→21:41)
[2020-01-08] MEDS: PANTOprazole 40 MG TAB PO SCH (09:02)
[2020-01-08] MEDS: guaiFENesin 600 MG TABCR PO SCH ×2 (09:02→21:40)
[2020-01-08] MEDS: VORICONAZOLE 200 MG TABLET PO SCH ×2 (09:03→21:39)
[2020-01-08] MEDS: methylPREDNISolone 30 MG in SYRINGE 0 ML IV SCH ×2 (09:03→21:40)
[2020-01-08] MEDS: LINEZOLID 600 MG TAB PO SCH ×2 (09:04→21:37)
[2020-01-08] MEDS ORDERED: CALCIUM GLUCONATE 10% 2,000 MG in SODIUM CHLORIDE 0.9% 50 ML IV ONE (09:15)
[2020-01-08] MEDS: oxyCODONE HCL 10 MG TABCR (OxyCONTIN) PO SCH ×2 (09:25→21:36)
--- NOTE | 2020-01-08 10:27 | Electrocardiogram Report ---
Test Reason : Blood Pressure : / mmHG Vent. Rate : 057 BPM Atrial Rate : 057 BPM P-R Int : 186 ms QRS Dur : 142 ms QT Int : 528 ms P-R-T Axes : -26 -05 128 degrees QTc Int : 513 ms Sinus bradycardia Left bundle branch block Abnormal ECG When compared with ECG of 05-JAN-2020 12:29, No significant change was found Confirmed by Garrick Baker ([id number]) on 01/08/2020 10:27:13 AM Referred By: REFERRED SELF Confirmed By:Garrick Baker
[2020-01-08] MEDS ORDERED: SODIUM POLYSTYRENE SULFONATE 15G/60ML SUSP PO STA (11:22)
--- NOTE | 2020-01-08 11:38 | Ultrasound Report ---
EXAMINATION: RENAL ULTRASOUND CLINICAL HISTORY: Worsening renal insufficiency. Patient with history of nephrostomy tubes. COMPARISON STUDY: Noncontrast CT scan dated 12/28/2019 FINDINGS: The right kidney measures 8.8 cm. The left kidney measures 9.6 cm. There is no evidence of hydronephrosis. Bilateral nephrostomy tubes are visualized. There is trace fluid adjacent to the ri ght kidney. Cortical and parapelvic cysts are suspected. There are dominant posterior bladder diverticula. Debris is visualized within the posterior diverticu la. Clinical correlation regards to hemorrhage or infection is recommended. Neither ureteral jet was visualized. IMPRESSION : 1. There are indwelling bilateral nephrostomy tubes 2. No evidence of significant hydronephrosis 3. Distended bladder demonstrating with prominent posterior diverticula which contain dependent debri s ACT 112: Negative or not required by law. Electronically signed by: Fab Callaway M.D. 01/08/2020 11:36 AM
--- NOTE | 2020-01-08 11:51 | Nephrology Consultation ---
Date of Consultation January 08, 2020 Assessment & Plan (1) Hyperkalemia: Mr. Ortega was found to have acute hyperkalemia with mild JUANITA in the setting of recent diagnosis of bladder cancer, chemotherapy and admission for shortness of breath and possible pneumonia. Blood pressure has been widely variable although reports adequate p.o. intake. Urine output has been decent, nephrostomy tube seems to be functioning well. Baseline creatinine has been 1.1-1.3. Creatinine has been staying around 1.5-1.7 since admission and potassium this morning increased to 6.1. Has not been on any CATE-inhibitor ARB. Hyperkalemia most likely related to high potassium food intake in the setting o f JUANITA. no other offending medications. although he continues to have shortness of breath with minimum exertion however, clinically otherwise no sign of volume overload. -- okay to start on IV fluid, monitor respiratory status closely, encourage adequate p.o. intake, monitor intake and output -- Kayexalate 30 g x1 dose now, repeat renal function electrolyte in few hours -- change to renal diet with low potassium -- shortness of breath could be secondary to underlying pneumonia / atelectasis and pleural effusion, would get a chest x-ray to follow up on the pleural effusion will follow Thank you for allowing me to participate in your patient's care. It was a pleasure to see Mr. Ortega the (2) JUANITA (acute kidney injury): (3) Nephrostomy status: (4) Anemia: (5) Bladder cancer: History of Present Illness Reason for Consultation: Acute kidney injury, hyperkalemia. Attending Physician: Fransisco Luciano MD History of Present Illness is a 74-year-old gentleman with complex past medical history incl uding recent diagnosis of bladder cancer, CAD, hypertension, paroxysmal AFib and COPD admitted to the hospital with shortness of breath presumably secondary to pneumonia. Nephrology consult was requested as patient developed JUANITA and hyperkalemia. Electronic medical records are reviewed in detail during patient's visit. Mr. Ortega admitted to the hospital on 12/31/2019 with shortness of breath and possible pneumonia and has been empirically treated with initially vancomycin which changed to linezolid. He was also found to have fungal UTI and being treated with Vericonazole. Was diagnosed with metastatic bladder cancer recently, has bilateral nephrostomy tube. Was started on chemotherapy and 2nd dose of chemo was almost 3 weeks ago. After 2nd course of chemotherapy overall he was feeling poorly and presented to ER once almost a week prior to the current admission with nausea and vomiting which eventually resolved. At baseline, has decent renal function, baseline creatinine seems to be around 1.1-1.3. On admission creatinine was 1.9 which slightly improved and over last almost 10 days creatinine remained quite variable staying around 1.4-1.7. Nephrostomy tube has been functioning well, has been having decent urine output, renal ultrasound without any postrenal obstruction. Urinalysis has proteinuria, hematuria, pyuria in the setting of bacteriuria and fungal UTI. he has not been on CATE-inhibitor or ARB. Lab on 01/07/2020 showed mild hyperkalemia potassium 5.2 which worsened further to 6.1 this morning. Patient reports decent p.o. intake and he has been eating raisins and bananas daily. Has been having shortness of breath with minimum exertion and talking for a while. Last chest x-ray on 01/05/2020 showed bilateral small pleural effusion and atelectasis. blood pressure has been variable although mostly within range. Allergies Allergy/AdvReac Type Severity Reaction Status Date / Time No Known Allergies Allergy Verified 12/31/19 14:09 Home Medications Home Medications Medication Instructions Recorded Confirmed Type Eliquis 5 mg PO BID 12/08/19 12/31/19 History albuterol sulfate 2 puff INHALATION QID PRN 12/08/19 12/31/19 History aspirin [Aspir-81] 81 mg PO QAM 12/08/19 12/31/19 History melatonin 5 mg PO HS 12/08/19 12/31/19 History olanzapine 2.5 mg PO 12/08/19 12/31/19 History oxybutynin chloride 10 mg PO QAM 12/08/19 12/31/19 History pantoprazole [Protonix] 40 mg PO QAM 12/08/19 12/31/19 History amiodarone 200 mg PO BID #60 tab 12/10/19 12/31/19 Rx atorvastatin 40 mg PO PM #30 tab 12/10/19 12/31/19 Rx oxycodone-acetaminophen [Percocet] 1 tab PO Q6H PRN #10 tab 12/14/19 12/31/19 Rx ondansetron 4 mg PO Q8H PRN 10 Days #10 tab 12/29/19 12/31/19 Rx docusate sodium 100 mg capsule 100 mg PO BID PRN cap 12/31/19 12/31/19 History oxycodone [OxyContin] 20 mg PO BID 12/31/19 12/31/19 History linezolid [Zyvox] 600 mg PO BID 7 Days #14 tab 01/07/20 Rx voriconazole 200 mg PO Q12H 7 Days #14 tab 01/07/20 Rx Patient History Medical History Abdominal aortic aneurysm S/p previous stent placement; per 12/08/19 CT scan - "Fusiform aneurysm dilation of the abdominal aorta with aortobiiliac stent graft. Aneurysm measures up to approximately 4.1 x 4.8 cm. Femoral-femoral bypass graft. Abdominal pain, lower Anemia Hgb 6.9 on 12/08/19- did get packed RBCs when admitted to [facility] Bladder cancer DX 6 WEEKS AGO > HAS HAD 1ST ROUND CHEMO CAD (coronary artery disease) S/p CABG 3 vessel 2012 or 2013 Chronic combined systolic and diastolic congestive heart failure Will be following with [facility] COPD (chronic obstructive pulmonary disease) WELL CONTROLLED PER PT Cough DVT (deep venous thrombosis) left leg > 2015 > unknown cause Dyslipidemia Edema, peripheral JUST DC FROM [facility] FOR THIS PER PT 12/08/19 Hard of hearing Hypoalbuminemia Mitral regurgitation S/p MV repair Nausea & vomiting Paroxysmal atrial fibrillation DX OCTOBER 2019 > NO CARDIOVERSIONS Poor historian Surgical History History of cardiac cath 5 yrs ago> no known cardiac stents History of CEA (carotid endarterectomy) 6 YRS AGO- NO MENTION OF CEA PER RECORDS- NO RECENT CAROTID IMAGING ON FILE EITHER History of endovascular stent graft for abdominal aortic aneurysm History of left hip replacement History of pelvic surgery Fractured pelvis repair History of tooth extraction Hx of appendectomy Hx of CABG 7 YRS AGO > [place] > TRIPLE BYPASS> 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 Beliefs That Will Affect Care: None marital status: Single Current Living Situation: Family Current Living Situation Comment: daughter Feels Safe at Home: Yes Review of Systems Review of Systems: All systems reviewed & are unremarkable except as noted in HPI & below Physical Exam Constitutional: WD/WN, vitals as above + ill appearing and + cachectic; no acute distress Eyes: PERRL, conjunctivae normal, anicteric sclerae ENMT: external ear and nose normal, oropharynx normal Ears: no hearing impairment Neck: trachea midline Respiratory: normal respiratory effort, lungs clear to auscultation normal respiratory effort; no respiratory distress and no cough Auscultation: + diminished lung sounds and + rales Cardiovascular: RRR, no murmur, no edema Gastrointestinal (Abdomen): normal bowel sounds, soft, nontender, no hepatosplenomegaly Percussion/Palpation: abdomen nontender, no guarding and abdomen not rigid Musculoskeletal: Extremities: extremities normal to inspection Gait: normal gait Skin: no rashes, warm and dry Neurologic: moves all extremities and awake Psychiatric: A+Ox3, euthymic affect Results & Data ([facility]) Vital Signs (Past 12 Hours) Vital Signs Temp Pulse Pulse Pulse Resp BP Pulse Ox 01/08/20 11:24 36.5 C 60 18 164/55 H 96 01/08/20 07:48 36.6 C 63 18 132/47 L 96 01/08/20 07:04 59 L 20 94 01/08/20 03:08 36.5 C 60 19 123/54 L 93 01/08/20 00:00 53 L PG Care Time/CCT Total # of Minutes Spent Total Time Spent with Patient: Total time spent is greater than 50% in coordination of care (as documented) at patient's floor/unit and/or counseling patient: Coding Level of Care Code 25870 Inpt Consult Level 5 Diagnoses Hyperkalemia E87.5 JUANITA (acute kidney injury) N17.9 Nephrostomy status Z93.6 Anemia D64.9 Anemia type: unspecified type Bladder cancer C67.9 (1) Anemia Anemia type: unspecified type Qualified Code(s): D64.9 - Anemia, unspecified
[2020-01-08 13:36] LABS: BUN Creatinine Ratio 31.5 (10-20); Calcium 8.9 mg/dl (8.5-10.1); Creatinine Clr Calc Pharmacy 29.1 ml/min; Est GFR (African American) 41.7; Potassium 6.2 mmol/L (3.5-5.1)
--- NOTE | 2020-01-08 14:06 | XRay Report ---
XR chest 2V PA/lateral CLINICAL HISTORY: recent LLL pneumonia, interval change COMPARISON STUDY: 01/05/2020 FINDINGS: The heart is borderline enlarged. There are postsurgical changes of midline sternotomy. The re is a right-sided A-Port catheter present. The patient remains hyperinflated. There is slight incre ase in size and small bilateral pleural effusions. There are persistent left basilar airspace opaciti es, atelectatic versus infectious/inflammatory. An element of mild pulmonary vascular congestion is s uspected[. There is a stable 5 mm right lower lung zone nodule. IMPRESSION: 1. Suspected mild pulmonary vascular congestion/fluid overload 2. Slight increase in the size of a small bilateral pleural effusions 3. Persistent left basilar opacities, atelectasis versus infectious/inflammatory ACT 112: Negative or not required by law. Electronically signed by: Fab Callaway M.D. 01/08/2020 2:05 PM
--- NOTE | 2020-01-08 15:01 | Hospitalist Progress Note ---
Date of Service January 08, 2020 Assessment & Plan (1) Acute kidney failure: Baseline Cr ~1.2-1.3, CKD Stage III. - Cr up to 1.8 on 01/07. K+ up to 6.2. Nephrostomy tubes both draining; renal u/s on 01/07 shows no hydronephrosis. CXR on 01/07 shows mild fluid overload. EKG on 01/07 showed no acute hyperK+ changes. - Given Ca gluconate, IV fluids, Kayexalate, and Lasix (2) LLL pneumonia: Improved/resolving. Completed 7 days of cefepime/Zosyn/doxy. - Continue steroids for COPD, pulmonary toilet. (3) Acute respiratory failure with hypoxia: Resolving; 2nd to LLL pneumonia + volume overload from systolic/diastolic CHF + COPD exacerbation. - Formal 2-step ordered - he already [facility] but how much and when to use will be answered from 2-step. (4) UTI (urinary tract infection): COMPLICATED/catheter-associated (b/l nephrostomy tubes). 2nd to e. faecalis, e. faecium, and Emily non-albicans. - Zosyn or vanc will cover E. faecalis; vanc for E. faecium; voriconazole for Emily non-albicans species. * Would treat for 14 days of the Zyvox and voriconazole given the nephrostomy tubes and how ill he has been. (End date: Linezolid 01/14/2020; voriconazole 01/19/2020). * Will consult [facility] ID given complex nature of infection. (5) Nephrostomy status: B/l. To be exchanged at [facility] next week as an outpatient- January 12. - Both functioning well at this time (6) Sepsis: 2nd to pneumonia and complicated UTI. - Sepsis resolved. (7) COPD (chronic obstructive pulmonary disease): With exacerbation. - IMPROVING w/ steroids. - Continue Solumedrol, DuoNebs, Mucomyst (8) Antineoplastic chemotherapy induced pancytopenia: Continues to improve. - Follow CBC (9) Mucus plugging of bronchi: LLL, as seen on imaging earlier this admission. 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 Aggressive type. Follows with Dr Montes [facility] oncology. - Patient with f/u appt next week on Jan [address] Montes. (11) CAD (coronary artery disease): No ACS or ischemic sx's. (12) Paroxysmal atrial fibrillation: Remains in NSR. - Continue Eliquis BID - Continue amiodarone 200mg BID (13) Chronic combined systolic and diastolic congestive heart failure: EF 45% on echo in 11/2019. - Giving some IV fluids due to his K+. - Giving Lasix 20 mg IV BID (14) Anxiety about health: Very anxious. - Continue Xanax 0.25mg q6h PO PRN (15) DVT prophylaxis: Eliquis 5mg PO BID Admission and Anticipated Discharge Date Admission Date: December 31, 2019 Subjective No major concerns today. He feels very tired. Reports no fevers/chills, chest pain, shortness of breath, abdominal pain, nausea, or vomiting. Physical Exam Constitutional: WD/WN, vitals as above Eyes: EOM intact bilaterally; no conjunctival abnormality ENMT: external ear and nose normal, oropharynx normal Neck: trachea midline, no thyromegaly normal visual inspection Respiratory: normal respiratory effort, lungs clear to auscultation no respiratory distress Cardiovascular: RRR, no murmur, no edema Gastrointestinal (Abdomen): Inspection/Auscultation: abdomen normal to inspection; abdomen not distended Musculoskeletal: no cyanosis or clubbing, extremities motor strength 5/5 Skin: no rashes, warm and dry Neurologic: moves all extremities and awake Psychiatric: Orientation: alert, oriented to person and cooperative Genitourinary: no testicular masses, no penis abnormality (Bilateral nephrostomy tubes with yellowish drainage) Results & Data Results & Data ([facility]) Vital Signs (Past 12 Hours) Vital Signs Temp Pulse Pulse Pulse Resp BP Pulse Ox 01/08/20 14:26 77 20 94 01/08/20 11:41 56 L 01/08/20 11:24 36.5 C 60 18 164/55 H 96 01/08/20 07:48 36.6 C 63 18 132/47 L 96 01/08/20 07:04 59 L 20 94 01/08/20 03:08 36.5 C 60 19 123/54 L 93 PG Care Time/CCT Total # of Minutes Spent Total Time Spent with Patient: Total time spent is greater than 50% in coordination of care (as documented) at patient's floor/unit and/or counseling patient: Coding Level of Care Code 84609 Subseq Hosp Care Lvl 3 Diagnoses Acute kidney failure N17.9 LLL pneumonia J18.9 Pneumonia type: due to unspecified organism Acute respiratory failure with hypoxia J96.01 UTI (urinary tract infection) T83.512D; N39.0 Urinary tract infection type: catheter-associated UTI Indwelling urinary catheter type: nephrostomy catheter Encounter type: subsequent encounter Nephrostomy status Z93.6 Sepsis A41.9 COPD (chronic obstructive pulmonary disease) J44.0 COPD type: COPD with acute lower respiratory infection Antineoplastic chemotherapy induced pancytopenia D61.810; T45.1X5A Mucus plugging of bronchi J98.09 Malignant neoplasm metastatic from bladder C67.9 CAD (coronary artery disease) I25.10 Paroxysmal atrial fibrillation I48.0 Chronic combined systolic and diastolic congestive heart failure I50.42 Anxiety about health F41.8 DVT prophylaxis Z29.9 (1) LLL pneumonia Pneumonia type: due to unspecified organism Qualified Code(s): J18.9 - Pneumonia, unspecified organism (2) UTI (urinary tract infection) Urinary tract infection type: catheter-associated UTI Indwelling urinary catheter type: nephrostomy catheter Encounter type: subsequent encounter Qualified Code(s): T83.512D - Infection and inflammatory reaction due to nephrostomy catheter, subsequent encounter; N39.0 - Urinary tract infection, site not specified (3) COPD (chronic obstructive pulmonary disease) COPD type: COPD with acute lower respiratory infection Qualified Code(s): J44.0 - Chronic obstructive pulmonary disease with (acute) lower respiratory infection
[2020-01-08 17:36] LABS: BUN Creatinine Ratio 31.9 (10-20); Calcium 9.2 mg/dl (8.5-10.1); Creatinine Clr Calc Pharmacy 29.4 ml/min; Est GFR (African American) 42.3; Est GFR (Non-African American) 36.5; Phosphorus 4.4 mg/dl (2.5-4.9)
[2020-01-08] MEDS: DOCUSATE SODIUM 100 MG CAP PO PRN (21:36)
[2020-01-08] MEDS: ATORVASTATIN 40 MG TAB PO SCH (21:37)
[2020-01-08] MEDS: MELATONIN 3 MG TAB PO SCH (21:37)
[2020-01-08] MEDS: OLANZAPINE 2.5 MG TAB PO SCH (21:37)
[2020-01-09] MEDS: LEVALBUTEROL HCL 1.25 MG/3 ML NEB NEB PRN (05:05)
[2020-01-09 06:03] LABS: Hematocrit (blood only) 28.5 % (42-52); Hemoglobin 9.2 g/dL (14.0-18.0); Mean Corpuscular Hemoglobin 29.7 pg (25-34); Mean Corpuscular Hgb Conc 32.3 g/dL (32-36); Mean Corpuscular Volume 91.9 fL (80-100); Mean Platelet Volume 10.8 fL (7.4-10.4); Platelet Count 263 K/uL (130-400); RDW Coefficient of Variation 16.9 % (11.5-14.5); White Blood Count 23.02 K/uL (4.8-10.8)
[2020-01-09 06:19] LABS: INR 1.4 (0.9-1.1); Prothrombin Time 14.1 Seconds (9.0-12.0)
[2020-01-09 06:30] LABS: Albumin Level 2.6 gm/dl (3.4-5.0); BUN Creatinine Ratio 35.5 (10-20); Calcium 9.2 mg/dl (8.5-10.1); Creatinine Clr Calc Pharmacy 31.8 ml/min; Est GFR (African American) 45.4; Est GFR (Non-African American) 39.2; Magnesium 1.7 mg/dl (1.8-2.4); Potassium 5.5 mmol/L (3.5-5.1)
[2020-01-09 06:33] LABS: Albumin Globulin Ratio 0.9 (0.9-2); Bilirubin,Total 0.6 mg/dl (0.2-1); Total Protein 5.6 gm/dl (6.4-8.2)
[2020-01-09 06:56] LABS: Phosphorus 5.3 mg/dl (2.5-4.9)
[2020-01-09] MEDS: ALBUT/IPRATROP 3MG/0.5MG NEB 3 ML VIAL NEB SCH ×4 (07:02→19:16)
[2020-01-09] MEDS: ACETYLCYSTEINE 20% INHAL SOLN 4ML ***DISPENSED BY RESP. INH SCH ×2 (07:07→19:16)
[2020-01-09] MEDS: oxyCODONE HCL 10 MG TABCR (OxyCONTIN) PO SCH ×2 (09:13→20:41)
[2020-01-09] MEDS: OXYBUTYNIN CHLORIDE XL 5 MG TABCR PO SCH (09:13)
[2020-01-09] MEDS: guaiFENesin 600 MG TABCR PO SCH ×2 (09:13→20:34)
[2020-01-09] MEDS: PANTOprazole 40 MG TAB PO SCH (09:13)
[2020-01-09] MEDS: methylPREDNISolone 30 MG in SYRINGE 0 ML IV SCH (09:13)
[2020-01-09] MEDS: APIXABAN 5 MG TABLET PO SCH ×2 (09:14→20:34)
[2020-01-09] MEDS: LINEZOLID 600 MG TAB PO SCH ×2 (09:14→20:35)
[2020-01-09] MEDS: AMIODARONE 200 MG TAB PO SCH ×2 (09:14→20:35)
[2020-01-09] MEDS: VORICONAZOLE 200 MG TABLET PO SCH ×2 (09:14→21:08)
[2020-01-09] MEDS: LACTOBACILLUS ACIDOPHILUS (FLORANEX) TAB PO SCH ×4 (09:15→20:33)
[2020-01-09] MEDS ORDERED: SODIUM POLYSTYRENE SULFONATE 15G/60ML SUSP PO STA (09:40)
[2020-01-09] MEDS: SODIUM CHLORIDE 0.9% 1000ML 1,000 ML IV SCH (10:52)
--- NOTE | 2020-01-09 12:04 | Nephrology Progress Note ---
Date of Service January 09, 2020 Assessment & Plan (1) Hyperkalemia: Mr. Ortega was found to have acute hyperkalemia with mild JUANITA in the setting of recent diagnosis of bladder cancer, chemotherapy and admission for shortness of breath and possible pneumonia. Blood pressure has been widely variable although reports adequate p.o. intake. Urine output has been decent, nephrostomy tube seems to be functioning well. Baseline creatinine has been 1.1-1.3. Creatinine has been staying around 1.5-1.7 since admission and potassium this morning increased to 6.1. Has not been on any CATE-inhibitor ARB. Hyperkalemia most likely related to high potassium food intake in the setting of JUANITA. no other offending medications. potassium remains slightly elevated with JUANITA and elevated phosphate. Calcium normal. Although from lab, can be diagnosed to have tumor lysis syndrome however unlikely as last chemotherapy was almost 3 weeks ago, calcium remained normal and potassium has been improving -- Kayexalate 30 g x1 dose now, repeat renal function electrolyte in few hours -- check uric acid -- continue on low-potassium diet will follow the (2) JUANITA (acute kidney injury): (3) Nephrostomy status: (4) Anemia: (5) Bladder cancer: Admission and Anticipated Discharge Date Admission Date: December 31, 2019 Subjective Mr. Ortega was seen and examined in his room this morning. Appetite has been decent, denies shortness of breath or chest pain. Voiding normally. Blood pressure stable. Renal function relatively stable. Potassium remained elevated but slightly improved. Review of Systems Review of Systems: All systems reviewed & are unremarkable except as noted in HPI & below Physical Exam Constitutional: WD/WN, vitals as above + thin; no acute distress Respiratory: normal respiratory effort; no respiratory distress Auscultation: + crackles Cardiovascular: RRR, no murmur, no edema Skin: no rashes, warm and dry Neurologic: moves all extremities and awake; not confused Psychiatric: A+Ox3, euthymic affect Results & Data ([facility]) Vital Signs (Past 12 Hours) Vital Signs Temp Pulse Resp BP Pulse Ox 01/09/20 11:09 61 18 97 01/09/20 11:05 36.3 C L 62 18 141/59 H 97 01/09/20 07:09 36.7 C 93 H 19 147/65 H 92 01/09/20 07:03 64 20 94 01/09/20 05:07 64 20 92 01/09/20 04:44 36.5 C 111 H 18 122/41 L 95 PG Care Time/CCT Total # of Minutes Spent Total Time Spent with Patient: Total time spent is greater than 50% in coordination of care (as documented) at patient's floor/unit and/or counseling patient: Coding Level of Care Code 24901 Subseq Hosp Care Lvl 3 Diagnoses Hyperkalemia E87.5 JUANITA (acute kidney injury) N17.9 Nephrostomy status Z93.6 Anemia D64.9 Anemia type: unspecified type Bladder cancer C67.9 (1) Anemia Anemia type: unspecified type Qualified Code(s): D64.9 - Anemia, unspecified
[2020-01-09 15:06] LABS: Potassium 4.7 mmol/L (3.5-5.1)
[2020-01-09 15:10] LABS: Uric Acid 6.6 mg/dl (2.6-7.2)
--- NOTE | 2020-01-09 15:39 | Hospitalist Progress Note ---
Date of Service January 09, 2020 Assessment & Plan (1) Acute kidney failure: Baseline Cr ~1.2-1.3, CKD Stage III. - Cr up to 1.8 on 01/07. K+ up to 6.2. Nephrostomy tubes both draining; renal u/s on 01/07 shows no hydronephrosis. CXR on 01/07 shows mild fluid overload. EKG on 01/07 showed no acute hyperK+ changes. - Given Ca gluconate, IV fluids, Kayexalate, and Lasix on 01/07. - Improving today. K+ down to 4.7. Thought to be from mild hypovolemia. Cr down to 1.7. (2) LLL pneumonia: Improved/resolving. Completed 7 days of cefepime/Zosyn/doxy. - Continue steroids for COPD, pulmonary toilet. (3) Acute respiratory failure with hypoxia: Resolving; 2nd to LLL pneumonia + volume overload from systolic/diastolic CHF + COPD exacerbation. - Formal 2-step ordered - [facility] already [facility] but how much and when to use will be answered from 2-step. (4) UTI (urinary tract infection): COMPLICATED/catheter-associated (b/l nephrostomy tubes). 2nd to e. faecalis, e. faecium, and Emily non-albicans. - Zosyn or vanc will cover E. faecalis; vanc for E. faecium; voriconazole for Emily non-albicans species. * Would treat for 14 days of the Zyvox and voriconazole given the nephrostomy tubes and how ill he has been. (End date: Linezolid 01/14/2020; voriconazole 01/19/2020). (5) Nephrostomy status: B/l. To be exchanged at [facility] next week as an outpatient- January 12. - Both functioning well at this time (6) Sepsis: 2nd to pneumonia and complicated UTI. - Sepsis resolved. (7) COPD (chronic obstructive pulmonary disease): With exacerbation. - IMPROVING w/ steroids. - Continue DuoNebs, Mucomyst - Will transition to PO steroids tomorrow. (8) Antineoplastic chemotherapy induced pancytopenia: Continues to improve. - Follow CBC (9) Mucus plugging of bronchi: LLL, as seen on imaging earlier this admission. 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 Aggressive type. Follows with Dr Montes, [facility] oncology. - Patient with f/u appt next week on Jan [address] Montes. (11) CAD (coronary artery disease): No ACS or ischemic sx's. (12) Paroxysmal atrial fibrillation: Remains in NSR. - Continue Eliquis BID - Continue amiodarone 200mg BID (13) Chronic combined systolic and diastolic congestive heart failure: EF 45% on echo in 11/2019. - Received some IV fluids for his hyperkalemia along with Lasix. NOT acute exacerbation. (14) Anxiety about health: Very anxious. - Continue Xanax 0.25mg q6h PO PRN (15) DVT prophylaxis: Eliquis 5mg PO BID Admission and Anticipated Discharge Date Admission Date: December 31, 2019 Subjective Breathing better today. No major concerns. Reports no fevers/chills, chest pain, shortness of breath, abdominal pain, nausea, or vomiting. Physical Exam Constitutional: WD/WN, vitals as above Eyes: EOM intact bilaterally; no conjunctival abnormality ENMT: external ear and nose normal, oropharynx normal Neck: trachea midline, no thyromegaly normal visual inspection Respiratory: normal respiratory effort, lungs clear to auscultation no respiratory distress Cardiovascular: RRR, no murmur, no edema Gastrointestinal (Abdomen): Inspection/Auscultation: abdomen normal to inspection; abdomen not distended Musculoskeletal: no cyanosis or clubbing, extremities motor strength 5/5 Skin: no rashes, warm and dry Neurologic: moves all extremities and awake Psychiatric: Orientation: alert, oriented to person and cooperative Genitourinary: no testicular masses, no penis abnormality (Bilateral nephrostomy tubes with yellowish drainage) Results & Data Results & Data ([facility]) Vital Signs (Past 12 Hours) Vital Signs Temp Pulse Pulse Resp BP Pulse Ox 01/09/20 15:13 36.3 C L 66 18 161/69 H 98 01/09/20 15:06 77 18 95 01/09/20 13:07 62 01/09/20 11:09 61 18 97 01/09/20 11:05 36.3 C L 62 18 141/59 H 97 01/09/20 07:09 36.7 C 93 H 19 147/65 H 92 01/09/20 07:03 64 20 94 01/09/20 05:07 64 20 92 01/09/20 04:44 36.5 C 111 H 18 122/41 L 95 PG Care Time/CCT Total # of Minutes Spent Total Time Spent with Patient: Total time spent is greater than 50% in coordination of care (as documented) at patient's floor/unit and/or counseling patient: Coding Level of Care Code 40934 Subseq Hosp Care Lvl 2 Diagnoses Acute kidney failure N17.9 LLL pneumonia J18.9 Pneumonia type: due to unspecified organism Acute respiratory failure with hypoxia J96.01 UTI (urinary tract infection) T83.512D; N39.0 Urinary tract infection type: catheter-associated UTI Indwelling urinary catheter type: nephrostomy catheter Encounter type: subsequent encounter Nephrostomy status Z93.6 Sepsis A41.9 COPD (chronic obstructive pulmonary disease) J44.0 COPD type: COPD with acute lower respiratory infection Antineoplastic chemotherapy induced pancytopenia D61.810; T45.1X5A Mucus plugging of bronchi J98.09 Malignant neoplasm metastatic from bladder C67.9 CAD (coronary artery disease) I25.10 Paroxysmal atrial fibrillation I48.0 Chronic combined systolic and diastolic congestive heart failure I50.42 Anxiety about health F41.8 DVT prophylaxis Z29.9 (1) LLL pneumonia Pneumonia type: due to unspecified organism Qualified Code(s): J18.9 - Pneumonia, unspecified organism (2) UTI (urinary tract infection) Urinary tract infection type: catheter-associated UTI Indwelling urinary catheter type: nephrostomy catheter Encounter type: subsequent encounter Qualified Code(s): T83.512D - Infection and inflammatory reaction due to nephrostomy catheter, subsequent encounter; N39.0 - Urinary tract infection, site not specified (3) COPD (chronic obstructive pulmonary disease) COPD type: COPD with acute lower respiratory infection Qualified Code(s): J44.0 - Chronic obstructive pulmonary disease with (acute) lower respiratory infection
[2020-01-09] MEDS: ATORVASTATIN 40 MG TAB PO SCH (20:34)
[2020-01-09] MEDS: OLANZAPINE 2.5 MG TAB PO SCH (20:36)
[2020-01-09] MEDS: MELATONIN 3 MG TAB PO SCH (20:36)
[2020-01-10 06:33] LABS: Basophils # (auto) 0.01 K/uL (0-0.2); Basophils % (auto) 0.1 %; Hematocrit (blood only) 24.9 % (42-52); Hemoglobin 8.1 g/dL (14.0-18.0); Immature Granulocytes # (auto) 0.62 K/uL (0.00-0.02); Immature Granulocytes % (auto) 3.6 %; Lymphocytes # (auto) 0.99 K/uL (1.2-3.4); Lymphocytes % (auto) 5.7 %; Mean Corpuscular Hemoglobin 29.3 pg (25-34); Mean Corpuscular Hgb Conc 32.5 g/dL (32-36); Mean Corpuscular Volume 90.2 fL (80-100); Mean Platelet Volume 10.3 fL (7.4-10.4); Monocytes # (auto) 0.26 K/uL (0.11-0.59); Monocytes % (auto) 1.5 %; Neutrophils # (auto) 15.36 K/uL (1.4-6.5); Neutrophils % (auto) 89.1 %; Platelet Count 229 K/uL (130-400); RDW Standard Deviation 54.4 fL (36.4-46.3); Red Blood Count 2.76 M/uL (4.7-6.1); White Blood Count 17.24 K/uL (4.8-10.8)
[2020-01-10] MEDS: ALBUT/IPRATROP 3MG/0.5MG NEB 3 ML VIAL NEB SCH ×3 (06:54→14:06)
[2020-01-10] MEDS: ACETYLCYSTEINE 20% INHAL SOLN 4ML ***DISPENSED BY RESP. INH SCH (06:55)
[2020-01-10 07:05] LABS: Albumin Level 2.3 gm/dl (3.4-5.0); BUN Creatinine Ratio 41.2 (10-20); Calcium 8.1 mg/dl (8.5-10.1); Creatinine Clr Calc Pharmacy 41.1 ml/min; Est GFR (Non-African American) 53.5; Magnesium 1.6 mg/dl (1.8-2.4); Potassium 4.6 mmol/L (3.5-5.1)
[2020-01-10 07:06] LABS: Phosphorus 3.9 mg/dl (2.5-4.9)
[2020-01-10] MEDS ORDERED: predniSONE 20 MG TAB PO SCH (09:00)
[2020-01-10] MEDS: MAGNESIUM SULFATE / D5W 1 GM/100 ML BAG IV SCH ×2 (09:22→11:26)
[2020-01-10] MEDS: LINEZOLID 600 MG TAB PO SCH (09:24)
[2020-01-10] MEDS: PANTOprazole 40 MG TAB PO SCH (09:25)
[2020-01-10] MEDS: APIXABAN 5 MG TABLET PO SCH (09:25)
[2020-01-10] MEDS: OXYBUTYNIN CHLORIDE XL 5 MG TABCR PO SCH (09:25)
[2020-01-10] MEDS: guaiFENesin 600 MG TABCR PO SCH (09:25)
[2020-01-10] MEDS: LACTOBACILLUS ACIDOPHILUS (FLORANEX) TAB PO SCH ×2 (09:26→12:07)
[2020-01-10] MEDS: AMIODARONE 200 MG TAB PO SCH (09:26)
[2020-01-10] MEDS: VORICONAZOLE 200 MG TABLET PO SCH (09:27)
[2020-01-10] MEDS: oxyCODONE HCL 10 MG TABCR (OxyCONTIN) PO SCH (09:36)
--- NOTE | 2020-01-10 10:04 | Nephrology Progress Note ---
Date of Service January 10, 2020 Assessment & Plan (1) Hyperkalemia: Mr. Ortega was found to have acute hyperkalemia with mild JUANITA in the setting of recent diagnosis of bladder cancer, chemotherapy and admission for shortness of breath and possible pneumonia. Blood pressure has been widely variable although reports adequate p.o. intake. Urine output has been decent, nephrostomy tube seems to be functioning well. Baseline creatinine has been 1.1-1.3. Creatinine has been staying around 1.5-1.7 since admission and potassium this morning increased to 6.1. Has not been on any CATE-inhibitor ARB. Hyperkalemia most likely related to high potassium food intake in the setting of JUANITA. no other offending medications. potassium remains slightly elevated with JUANITA and elevated phosphate. Calcium normal. Renal function improved, potassium normalized. Repeat phosphate, calcium and uric acid normal. -- Encouraged to continue to maintain adequate hydration, avoid NSAIDs, avoid high potassium diet will sign off. No further Nephrology follow-up needed at this time. Follow- up in future as needed. the (2) JUANITA (acute kidney injury): (3) Nephrostomy status: (4) Anemia: (5) Bladder cancer: Admission and Anticipated Discharge Date Admission Date: December 31, 2019 Subjective Mr. Ortega was seen and examined in his room this morning. Appetite has been decent, denies shortness of breath or chest pain. Voiding normally. Blood pressure stable. Renal function and Potassium improved. Review of Systems Review of Systems: All systems reviewed & are unremarkable except as noted in HPI & below Physical Exam Constitutional: WD/WN, vitals as above + ill appearing, + thin and + cachectic; no acute distress Neck: trachea midline Respiratory: normal respiratory effort, lungs clear to auscultation normal respiratory effort; no respiratory distress and no cough Cardiovascular: RRR, no murmur, no edema Skin: no rashes, warm and dry Neurologic: moves all extremities and awake; not confused Psychiatric: A+Ox3, euthymic affect Results & Data ([facility]) Vital Signs (Past 12 Hours) Vital Signs Temp Pulse Pulse Pulse Resp BP Pulse Ox 01/10/20 07:06 36.9 C 65 16 174/69 H 90 01/10/20 07:00 56 L 01/10/20 06:55 60 16 94 01/10/20 04:00 36.3 C L 57 L 20 136/56 L 96 01/10/20 00:00 64 01/09/20 23:38 36.5 C 62 20 138/48 L 97 PG Care Time/CCT Total # of Minutes Spent Total Time Spent with Patient: Total time spent is greater than 50% in coordination of care (as documented) at patient's floor/unit and/or counseling patient: Coding Level of Care Code 47121 Subseq Hosp Care Lvl 2 Diagnoses Hyperkalemia E87.5 JUANITA (acute kidney injury) N17.9 Nephrostomy status Z93.6 Anemia D64.9 Anemia type: unspecified type Bladder cancer C67.9 (1) Anemia Anemia type: unspecified type Qualified Code(s): D64.9 - Anemia, unspecified
[2020-01-10] MEDS: HEPARIN 100 UNIT/ML 5ML FLUSH FLUSH PRN (10:33)
--- NOTE | 2020-01-10 18:36 | Discharge Summary ---
Date of Service January 10, 2020 Admission HPI Per Admitting Provider Ludwin Ghosh is a 74 year old male who presents to the ER with shortness of breath and abnormal labs. He was recently hospitalized from December 27 to with intractable nausea and vomiting with CT A/P at that time showing colonic stool retention but otherwise no acute process. His nausea and vomiting was suspected to be a side effect from his chemotherapy. His nausea and vomiting improved and he was subsequently discharged the following day. On discharge he was recommended to continue on a clear liquid diet but his daughter notes he hasn't had anything significant to eat or drink after he was discharged. He had follow up labs performed today by his oncologist (results not available) but the patient reports he was told he may need a blood transfusion. Since discharge his daughter has noted he has been getting increasingly short of breath significantly worse today. Associated productive cough (worse than usual). On follow up with Liliana Terry earlier today in heart failure clinic he was noted to he hypotensive and hypoxic and sent straight to the ER I discussed his case with Liliana prior to the patient arriving in the ER with concerns he was dry and hypovolemic on exam. No chest pain, palpitations, orthopnea, PND, claudication. Regarding his anemia he denies any external bleeding, melena or bright red blood in stool. Suspected to be chemotherapy induced given concurrent suppression of platelets. He has a known diagnosis of metastatic bladder cancer with bilateral nephrostomy tubes which are overdue to be changed due to his recent hospitalizations. In the ER he became acutely short of breath after starting blood transfusion, cefepime, IV fluids. Concern for fluid overload given history of this by ER provider and initial prescribed lasix but CXR, history and exam more concerning for mucus plug which appeared to resolve with a duoneb. Possible also patient had panic attack as never became significantly hypoxic. Ativan 0.25mg IV given which caused some hallucinations and delirium. Given complex medical history with metastatic cancer CT head obtained which showed no acute intracranial bleed but was significant for acute sinusitis (although patient denies any fullness over his sinuses). Blood transfusion, vancomycin and doxycycline delayed administration due to concerns of acute pulmonary edema, resumed after this was ruled out. No arrhythmia on telemetry to explain acute deterioration (prior history of atrial flutter/fibrillation. Principal Diagnosis Pneumonia, JUANITA Discharge Exam Constitutional WD/WN, vitals as above Eyes EOM intact bilaterally; no conjunctival abnormality ENMT external ear and nose normal, oropharynx normal Neck trachea midline, no thyromegaly normal visual inspection Respiratory normal respiratory effort, lungs clear to auscultation no respiratory distress Cardiovascular RRR, no murmur, no edema Gastrointestinal (Abdomen) Inspection/Auscultation: abdomen normal to inspection; abdomen not distended Musculoskeletal no cyanosis or clubbing, extremities motor strength 5/5 Skin no rashes, warm and dry Neurologic moves all extremities and awake Psychiatric Orientation: alert, oriented to person and cooperative Genitourinary no testicular masses, no penis abnormality (Bilateral nephrostomy tubes with yellowish drainage) Discharge Data Allergies Allergy/AdvReac Type Severity Reaction Status Date / Time No Known Allergies Allergy Verified 12/31/19 14:09 Consultations 01/01/20 17:26 Consult Oncology Routine 01/07/20 15:36 Consult Palliative Care Routine 01/08/20 08:30 Consult Nephrology Routine Ordered Studies 12/31/19 18:36 CT head/brain wo con Stat 01/08/20 08:37 US renal/blad retro comp Stat Hospital Course (1) Acute kidney failure: Baseline Cr ~1.2-1.3, CKD Stage III. - Cr up to 1.8 on 01/07. K+ up to 6.2. Nephrostomy tubes both draining; renal u/s on 01/07 shows no hydronephrosis. CXR on 01/07 shows mild fluid overload. EKG on 01/07 showed no acute hyperK+ changes. - Given Ca gluconate, IV fluids, Kayexalate, and Lasix on 01/07. - Improving today. K+ down to 4.7. Thought to be from mild hypovolemia. Cr down to 1.3 on discharge. (2) LLL pneumonia: Improved/resolving. Completed 7 days of cefepime/Zosyn/doxy. - Continue steroids for COPD, pulmonary toilet. - Discharged on steroid taper and nebulizers. - Of note, the patient was actually not on O2 prior to a few days before admission. Possibly due to some fluid overload. He will follow with Marlen Terry in the clinic. He really has not much else in the way of signs of volume overload, and just got over an JUANITA. Discharged on Lasix PRN. (3) Acute respiratory failure with hypoxia: Resolving; 2nd to LLL pneumonia + volume overload from systolic/diastolic CHF + COPD exacerbation. - Formal 2-step ordered - he already [facility] but how much and when to use will be answered from 2-step. (4) UTI (urinary tract infection): COMPLICATED/catheter-associated (b/l nephrostomy tubes). 2nd to e. faecalis, e. faecium, and Emily non-albicans. - Zosyn or vanc will cover E. faecalis; vanc for E. faecium; voriconazole for Emily non-albicans species. * Would treat for 14 days of the Zyvox and voriconazole given the nephrostomy tubes and how ill he has been. (End date: Linezolid 01/14/2020; voriconazole 01/19/2020). (5) Nephrostomy status: B/l. To be exchanged at [facility] next week as an outpatient- January 12. - Both functioning well at this time (6) Sepsis: 2nd to pneumonia and complicated UTI. - Sepsis resolved. (7) COPD (chronic obstructive pulmonary disease): With exacerbation. - IMPROVING w/ steroids. - Continue DuoNebs, Mucomyst - Will transition to PO steroids tomorrow. (8) Antineoplastic chemotherapy induced pancytopenia: Continues to improve. - Follow CBC (9) Mucus plugging of bronchi: LLL, as seen on imaging earlier this admission. 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 Aggressive type. Follows with Dr Montes, [facility] oncology. - Patient with f/u appt next week on Jan [address] Montes. (11) CAD (coronary artery disease): No ACS or ischemic sx's. (12) Paroxysmal atrial fibrillation: Remains in NSR. - Continue Eliquis BID - Continue amiodarone 200mg BID (13) Chronic combined systolic and diastolic congestive heart failure: EF 45% on echo in 11/2019. - Received some IV fluids for his hyperkalemia along with Lasix. NOT acute exacerbation. (14) Anxiety about health: Very anxious. - Continue Xanax 0.25mg q6h PO PRN (15) DVT prophylaxis: Eliquis 5mg PO BID Total Time Total Time Spent Total Time Spent (In Minutes): 35 Discharge Plan Discharge Items Patient Disposition: Home - Self-Care Reason For Visit: HYPOXIA,PNEUMONIA,IMMUNOSUPPRESSED STATE Discharge Diagnosis: Pneumonia, kidney issues, high potassium Activity: Resume your previous activity Non-emergency contact: Primary Care Provider and Oncologist Call non-emergency contact if: your symptoms worsen and your temperature is above 101 Follow-up/Referrals: Lakisha Carson PA-C [Primary Care Provider] - Cheryl Montes MD [Hospitalist] - Diet: Heart Healthy Addtl Attending Provider Instructions: Mr. Ortega, You were admitted to the hospital with trouble breathing. We diagnosed you with an infection in the lung. We have given you antibiotics for that infection. While you were in the hospital, we also treated you for an infection from your nephrostomy tubes. The cultures from these tubes grew out several bacteria and a fungus. We are treating you with two weeks of antibiotics for these infections. The fungus in particular can be hard to kill off. First, we are treating you with linezolid for the bacteria. You will need to take this for a total of 14 days. It is taken 2 times per day. The last day is 01/14/2020. Second, we are treating you with voriconazole for the fungal infection in the tubes. Please take this two times per day as well until 01/19/2020. (This was started a bit later, so you will keep taking this longer than the linezolid.) Finally, for your breathing, we are starting a steroid taper to help your lung inflammation remain calm. Take the steroid taper as follows: Prednisone 40 mg (4 tablets) once a day for 3 days, then Prednisone 30 mg (3 tablets) once a day for 3 days, then Prednisone 20 mg (2 tablets) once a day for 3 days, then Prednisone 10 mg (1 tablets) once a day for 3 days, then stop. Pending Studies at Discharge: No Stand-Alone Forms: [employer], Smoking Cessation Medications and DC Order Prescriptions: New linezolid [Zyvox] 600 mg tablet 600 mg PO BID 7 Days Qty: 14 RF: 0 prednisone 10 mg tablet 10 mg PO DAILY Qty: 30 RF: 0 voriconazole 200 mg tablet 200 mg PO Q12H Qty: 20 RF: 0 furosemide 20 mg tablet 20 mg PO DAILY PRN (Reason: edema) Qty: 20 RF: 0 acetylcysteine 200 mg/mL (20 %) Solution 4 ml inhalation Q12R PRN (Reason: Cough or secretions) Qty: 100 RF: 0 ipratropium-albuterol 0.5 mg-3 mg(2.5 mg base)/3 mL Solution For Nebulization 3 ml NEB Q6H PRN (Reason: shortness of breath or wheezing) Qty: 90 RF: 0 Continued docusate sodium 100 mg capsule 100 mg PO BID PRN (Reason: Constipation) RF: 0 oxybutynin chloride 10 mg Tablet Extended Release 24hr 10 mg PO QAM RF: 0 olanzapine 2.5 mg Tablet 2.5 mg PO HS RF: 0 aspirin [Aspir-81] 81 mg Tablet,Delayed Release (Dr/Ec) 81 mg PO QAM RF: 0 pantoprazole [Protonix] 40 mg Tablet,Delayed Release (Dr/Ec) 40 mg PO QAM RF: 0 melatonin 5 mg Tablet 5 mg PO HS RF: 0 Eliquis 5 mg Tablet 5 mg PO BID RF: 0 albuterol sulfate 90 mcg/actuation Hfa Aerosol Inhaler 2 puff INHALATION QID PRN (Reason: Shortness Of Breath Or Wheezing) RF: 0 amiodarone 200 mg tablet 200 mg PO BID Qty: 60 RF: 0 atorvastatin 40 mg tablet 40 mg PO PM Qty: 30 RF: 0 oxycodone-acetaminophen [Percocet] 5-325 mg tablet 1 tab PO Q6H PRN (Reason: pain) Qty: 10 RF: 0 ondansetron 4 mg tablet,disintegrating 4 mg PO Q8H PRN (Reason: nausea and vomiting) 10 Days Qty: 10 RF: 0 oxycodone 20 mg Tablet Extended Release 12 Hr 20 mg PO BID RF: 0 Discharge Orders: Discharge Order (Routine); Ordered 01/10/20 Ordered By: Fransisco Sheldon/Other Patient Handouts: What Is Pneumonia?, Preventing Pneumonia Admission Data Admit Date/Time: 12/31/19 16:07 Attending Provider: Fransisco Luciano Admit Provider: Easton Poe Primary Care Provider: Lakisha Carson Other Providers: Cheryl Montes ; Teresita Ross ; Luz Maria Hernandez Other Interventions: Discharge Summary Assessment (RN) Last Done: 01/10/20 10:44 Coding Level of Care Code D/C Day Management >30 mins Diagnoses Acute kidney failure N17.9 LLL pneumonia J18.9 Pneumonia type: due to unspecified organism Acute respiratory failure with hypoxia J96.01 UTI (urinary tract infection) T83.512D; N39.0 Urinary tract infection type: catheter-associated UTI Indwelling urinary catheter type: nephrostomy catheter Encounter type: subsequent encounter Nephrostomy status Z93.6 Sepsis A41.9 COPD (chronic obstructive pulmonary disease) J44.0 COPD type: COPD with acute lower respiratory infection Antineoplastic chemotherapy induced pancytopenia D61.810; T45.1X5A Mucus plugging of bronchi J98.09 Malignant neoplasm metastatic from bladder C67.9 CAD (coronary artery disease) I25.10 Paroxysmal atrial fibrillation I48.0 Chronic combined systolic and diastolic congestive heart failure I50.42 Anxiety about health F41.8 DVT prophylaxis Z29.9
== END 2020-01-10 14:30 | disposition home or self-care (01) | DRG 871 ==
LOC: ED 11:10 → 2E 16:07 → SUATTDRO 16:07 → 2E 19:23

== ENCOUNTER 2020-01-19 08:41 | Inpatient (IN) ==
[2020-01-19] MEDS ORDERED: ATROPINE SULFATE 0.1 MG/ML 5ML SYR IV ONE (09:06)
[2020-01-19] MEDS ORDERED: ALBUT/IPRATROP 3MG/0.5MG NEB 3 ML VIAL NEB ONE (09:10)
[2020-01-19] MEDS ORDERED: MAGNESIUM SULFATE / D5W 1 GM/100 ML BAG IV STA (09:11)
[2020-01-19] MEDS ORDERED: STAT IV Infusion **Titration per Protocol STA (09:16)
[2020-01-19] MEDS ORDERED: ATROPINE SULFATE 0.1 MG/ML 10ML SYR IV STA (09:17)
[2020-01-19] MEDS ORDERED: PIPERACILLIN/TAZOBACTAM 4.5 GM/120 ML BAG IV ONE (09:19)
[2020-01-19] MEDS ORDERED: LEVOFLOXACIN/D5W 750 MG/150 ML BAG IV STA (09:19)
[2020-01-19] MEDS ORDERED: PIPERACILL/TAZOBAC CONSULT ACTIVE PRN ×2 (09:19→14:48)
[2020-01-19] MEDS ORDERED: DAPTOmycin 350 MG in SYRINGE 0 ML IV ONE (09:23)
[2020-01-19] MEDS ORDERED: DAPTOMYCIN CONSULT ACTIVE PRN (09:23)
[2020-01-19] MEDS ORDERED: CALCIUM GLUCONATE 10% 1,000 MG in SODIUM CHLORIDE 0.9% 50 ML IV STA ×2 (09:25→16:13)
[2020-01-19] MEDS ORDERED: SODIUM BICARB 8.4% INJ 50 MEQ/50 ML SYR IV STA (09:25)
[2020-01-19] MEDS ORDERED: SODIUM CHLORIDE 0.9% 500 ML IV ONE (09:25)
[2020-01-19] MEDS ORDERED: NovoLIN-R INSULIN PER UNIT CHARGE IV STA (09:25)
[2020-01-19] MEDS ORDERED: DEXTROSE 50% 50 ML SYRINGE IV ONE (09:25)
[2020-01-19] MEDS ORDERED: NOREPINEPHRINE BIT INJ 8 MG in DEXTROSE 5% 500 ML IV SCH (09:30)
[2020-01-19] MEDS ORDERED: SODIUM CHLORIDE 0.9% 250 ML IV PRN (09:31)
[2020-01-19] MEDS ORDERED: SODIUM CHLORIDE 0.9% 1000ML 500 ML IV ONE ×2 (09:37→10:51)
[2020-01-19 09:41] LABS: iSTAT Creatinine 3.3 mg/dl (0.6-1.3); iSTAT Hemoglobin 7.1 g/dl (14.0-18.0); iSTAT Ionized Calcium 1.04 mmol/l (1.12-1.32)
[2020-01-19 09:43] LABS: Base Excess VBG -9.7 mEq/L; Oxygen Saturation VBG 66.7 %; pH VBG 7.21 (7.36-7.41)
--- NOTE | 2020-01-19 09:50 | XRay Report ---
XR chest 1V portable HISTORY: 74 years-old Male SEPSIS acute sepsis COMPARISON: Chest radiograph 01/08/2020, CT soft tissue neck 12/08/2019 TECHNIQUE: Portable AP view of the chest FINDINGS: Cardiac silhouette is enlarged. Prior median sternotomy and probable CABG. Unchanged positioning of t he right IJ [id number] catheter. Moderate emphysema with chronic interstitial coarsening. Blunting of the costophrenic angles may reflect trace effusions. Persistent left basilar opacities. No pneumo thorax or overt pulmonary edema. Degenerative changes of the shoulders and spine. IMPRESSION: 1. Persistent asymmetric left lung base opacities suggest atelectasis versus pneumonia. 2. Blunting of the costophrenic angles may reflect scarring/atelectasis versus trace effusions. 3. Moderate emphysema with chronic interstitial coarsening. ACT 112: Negative or not required by law. The above report was generated using voice recognition software. It may contain grammatical, syntax o r spelling errors. Electronically signed by: Víctor Whalen M.D. 01/19/2020 9:49 AM
[2020-01-19 09:52] LABS: INR 2.2 (0.9-1.1); Partial Thromboplastin Ratio 1.2; Partial Thromboplastin Time 33.3 Seconds (21.0-31.0); Prothrombin Time 22.2 Seconds (9.0-12.0)
--- NOTE | 2020-01-19 09:56 | Emergency Department Note ---
History of Present Illness General Chief complaint: Confusion Stated complaint: confused Time Seen by Provider: 01/19/20 08:49 Source: patient, family (daughter), EMS, RN notes reviewed and old records reviewed Mode of arrival: EMS Limitations: no limitations History of Present Illness Provider complaint: Seizure like activity Onset (ago): hour(s) 1 Severity: moderate Pain Consistency: + now resolved Maximum Pain Intensity: 8 Current Pain Intensity: 8 Quality: + aching Relieved By: + movement Exacerbated By: + immobilization Associated symptoms: + fever/chills, + shortness of breath and + weakness Treatments prior to arrival: none This is a 74-year-old male who was recently admitted to [facility] for sepsis who returns to the emergency department over concerns that he was having seizure- like activity this morning. Upon arrival to the emergency department the patient is bradycardic and hypothermic. He is complaining of increased weakness. EMS was summoned and placed the patient on 15 L of oxygen nonrebreather. Home Medications Home Medications Medication Instructions Recorded Confirmed Type Eliquis 5 mg PO BID 12/08/19 01/19/20 History albuterol sulfate 2 puff INHALATION QID PRN 12/08/19 01/19/20 History aspirin [Aspir-81] 81 mg PO QAM 12/08/19 01/19/20 History melatonin 5 mg PO HS 12/08/19 01/19/20 History olanzapine 2.5 mg PO HS 12/08/19 01/19/20 History oxybutynin chloride 10 mg PO QAM 12/08/19 01/19/20 History amiodarone 200 mg PO BID #60 tab 12/10/19 01/19/20 Rx atorvastatin 40 mg PO PM #30 tab 12/10/19 01/19/20 Rx oxycodone-acetaminophen [Percocet] 1 tab PO Q6H PRN #10 tab 12/14/19 01/19/20 Rx docusate sodium 100 mg capsule 100 mg PO BID PRN cap 12/31/19 01/19/20 History prednisone 10 mg PO DAILY #30 tab 01/09/20 01/19/20 Rx voriconazole 200 mg PO Q12H #20 tab 01/09/20 01/19/20 Rx acetylcysteine 4 ml INHALATION Q12R PRN #100 ml 09/14/20 09/23/20 Rx furosemide 20 mg PO DAILY PRN #20 tab 01/10/20 01/19/20 Rx ipratropium-albuterol 3 ml NEB Q6H PRN #90 ml 01/10/20 01/19/20 Rx ondansetron 4 mg PO Q6H PRN 01/19/20 01/19/20 History oxycodone 20 mg PO BID 01/19/20 01/19/20 History pantoprazole 20 mg PO QAM 01/19/20 01/19/20 History potassium chloride 20 meq PO QAM 01/19/20 01/19/20 History tamsulosin 0.4 mg PO BID 01/19/20 01/19/20 History Allergies Allergy/AdvReac Type Severity Reaction Status Date / Time No Known Allergies Allergy Verified 01/19/20 10:15 Past Med/Surg History Medical History (Updated 01/21/20 @ 14:15 by Hayes Blake MD) Abdominal aortic aneurysm S/p previous stent placement; per 12/08/19 CT scan - "Fusiform aneurysm dilation of the abdominal aorta with aortobiiliac stent graft. Aneurysm measures up to approximately 4.1 x 4.8 cm. Femoral-femoral bypass graft. Abdominal pain, lower Acute and chronic respiratory failure with hypoxia Acute kidney injury superimposed on CKD Anemia Hgb 6.9 on 12/08/19- did get packed RBCs when admitted to [facility] Bladder cancer CAD (coronary artery disease) S/p CABG 3 vessel 2012 or 2013 Chronic combined systolic and diastolic congestive heart failure Follows with Heart failure program Chronic respiratory acidosis COPD (chronic obstructive pulmonary disease) WELL CONTROLLED PER PT Cough DVT (deep venous thrombosis) left leg > 2015 > unknown cause Dyslipidemia Edema, peripheral Hard of hearing Hypoalbuminemia Malignant neoplasm metastatic from bladder Metabolic acidosis, increased anion gap Mitral regurgitation S/p MV repair Nausea & vomiting Palliative care encounter Paroxysmal atrial fibrillation DX OCTOBER 2019 > NO CARDIOVERSIONS Poor historian Sepsis with multi-organ dysfunction Shock liver Status post admission to intensive care unit Third degree heart block Surgical History History of cardiac cath 5 yrs ago> no known cardiac stents History of CEA (carotid endarterectomy) 6 YRS AGO- NO MENTION OF CEA PER RECORDS- NO RECENT CAROTID IMAGING ON FILE EITHER History of endovascular stent graft for abdominal aortic aneurysm History of left hip replacement History of pelvic surgery Fractured pelvis repair History of tooth extraction Hx of appendectomy Hx of CABG 7 YRS AGO > [facility] [place] > TRIPLE BYPASS> [facility] valve repair [facility] per records > [facility] Family History Father Colon cancer Social History Smoking Status: Former smoker Tobacco Type: Cigarettes Second Hand Exposure: Yes; Hx Alcohol Use: No Hx Substance Use: No Preferred Language: Tanzanian Communication Ability: Effective [employer] Required: No Beliefs That Will Affect Care: None marital status: Unknown Current Living Situation: Family Current Living Situation Comment: Daughter Feels Safe at Home: Yes Assistive Devices: Glasses and Oxygen - Continuous Review of Systems A total of 10 systems reviewed and were otherwise negative Physical Exam Vital Signs Vital Signs - 24 hr 01/19/20 08:41 01/19/20 08:53 01/19/20 08:54 Temperature 35 C L Temperature Source Rectal Pulse Rate 48 L 48 L 46 L Pulse Rate [Right Apical] Pulse Rate from SpO2 Sensor Respiratory Rate 22 21 18 Respiratory Effort / Characteristics Labored Short of Breath Respiratory Depth Respiratory Pattern Blood Pressure 115/32 L 100/25 L 115/32 L Blood Pressure Mean 59 53 62 Pulse Oximetry 96 Oxygen Delivery Method Non-rebreather BiPAP BiPAP Oxygen Flow Rate 10 10 Fraction of Inspired Oxygen 5 5 Sepsis Recent Fever Within 48 Hours No Sepsis New/Unexplained Change in Mental Status Yes Sepsis Action Taken by Nursing Physician Notified 01/19/20 09:18 01/19/20 09:34 01/19/20 09:46 Temperature Temperature Source Pulse Rate 65 60 58 L Pulse Rate [Right Apical] 65 Pulse Rate from SpO2 Sensor 60 57 L Respiratory Rate 24 19 20 Respiratory Effort / Characteristics Non-Labored Respiratory Depth Normal Respiratory Pattern Regular Blood Pressure 91/29 L 88/32 L Blood Pressure Mean 45 60 Pulse Oximetry 100 100 Oxygen Delivery Method BiPAP BiPAP BiPAP Oxygen Flow Rate 10 10 Fraction of Inspired Oxygen 100 5 5 Sepsis Recent Fever Within 48 Hours Sepsis New/Unexplained Change in Mental Status Sepsis Action Taken by Nursing 01/19/20 10:00 01/19/20 10:15 01/19/20 10:30 Temperature Temperature Source Pulse Rate 64 73 70 Pulse Rate [Right Apical] Pulse Rate from SpO2 Sensor 66 71 70 Respiratory Rate 19 19 17 Respiratory Effort / Characteristics Respiratory Depth Respiratory Pattern Blood Pressure 105/40 L Blood Pressure Mean 67 Pulse Oximetry 83 L 100 100 Oxygen Delivery Method BiPAP BiPAP BiPAP Oxygen Flow Rate 10 10 10 Fraction of Inspired Oxygen 5 5 5 Sepsis Recent Fever Within 48 Hours Sepsis New/Unexplained Change in Mental Status Sepsis Action Taken by Nursing 01/19/20 10:31 01/19/20 10:45 Temperature Temperature Source Pulse Rate 70 69 Pulse Rate [Right Apical] Pulse Rate from SpO2 Sensor 69 70 Respiratory Rate 19 15 Respiratory Effort / Characteristics Respiratory Depth Respiratory Pattern Blood Pressure 115/27 L 118/38 L Blood Pressure Mean 72 51 Pulse Oximetry 100 100 Oxygen Delivery Method BiPAP BiPAP Oxygen Flow Rate 10 10 Fraction of Inspired Oxygen 5 5 Sepsis Recent Fever Within 48 Hours Sepsis New/Unexplained Change in Mental Status Sepsis Action Taken by Nursing Course Administered Medications Discontinued Medications Acetaminophen (Acetaminophen 1000 Mg/100 Ml Iv) 1,000 mg IV NOW STA Stop: 01/19/20 10:02 Last Admin: 01/19/20 10:38 Dose: 1,000 mg Documented by: [id number] Albuterol (Albut/Ipratrop 3mg/0.5mg Neb 3 Ml Vial) 12 ml NEB ONE ONE Stop: 01/19/20 09:11 Last Admin: 01/19/20 10:10 Dose: 12 ml Documented by: [id number] Aspirin (Aspirin 81 Mg Ectab) 81 mg PO QAM REJI Stop: 02/19/20 08:59 Last Admin: 01/20/20 09:29 Dose: 81 mg Documented by: [id number] Atropine Sulfate (Atropine Sulfate 0.1 Mg/Ml 5ml Syr) Confirm Administered Dose 0.5 mg IV .STK-MED ONE Stop: 01/19/20 09:07 Last Admin: 01/19/20 09:13 Dose: 0.5 mg Documented by: [id number] Atropine Sulfate (Atropine Sulfate 0.1 Mg/Ml 10ml Syr) 0.5 mg IV NOW STA Stop: 01/19/20 09:18 Last Admin: 01/19/20 10:18 Dose: Not Given Documented by: [id number] Dextrose (Dextrose 50% 50 Ml Syringe) 50 ml IV NOW ONE Stop: 01/19/20 09:26 Last Admin: 01/19/20 09:40 Dose: 50 ml Documented by: [id number] Dextrose (Dextrose 50% 50 Ml Syringe) 50 ml IV NOW STA Stop: 01/19/20 16:16 Last Admin: 01/19/20 17:10 Dose: 50 ml Documented by: [id number] Dextrose (Dextrose 50% 50 Ml Syringe) 50 ml IV NOW ONE Stop: 01/20/20 03:37 Last Admin: 01/20/20 04:10 Dose: 50 ml Documented by: [id number] Hydromorphone HCl (Hydromorphone Inj 0.5 Mg/0.5 Ml Syr) 0.25 mg IV NOW STA Stop: 01/19/20 10:02 Last Admin: 01/19/20 10:35 Dose: 0.25 mg Documented by: [id number] Hydromorphone HCl (Hydromorphone Inj 0.5 Mg/0.5 Ml Syr) 0.5 mg IV Q2H PRN PRN Reason: Moderate Pain (4,5,6) on NRS Stop: 02/02/20 14:47 Last Admin: 01/19/20 20:48 Dose: 0.5 mg Documented by: [id number] Magnesium Sulfate/Dextrose (Magnesium Sulfate / D5w) 1 gm in 100 mls @ 100 m ls/hr IV NOW STA Stop: 01/19/20 10:10 Last Infusion: 01/19/20 09:45 Dose: 0 mls/hr Documented by: [id number] Admin: 01/19/20 09:17 Dose: 100 mls/hr Documented by: [id number] Norepinephrine Bitartrate 8 mg (/ Dextrose) 508 mls @ 0 mls/hr IV .Q0M REJI; Protocol Stop: 02/18/20 09:29 Last Titration: 01/20/20 10:02 Dose: 0 mcg/kg/min, 0 mls/hr Documented by: [id number] Titration: 01/19/20 23:47 Dose: 0 mcg/kg/min, 0 mls/hr Documented by: [id number] Titration: 01/19/20 22:55 Dose: 0.02 mcg/kg/min, 4.4 mls/hr Documented by: [id number] Titration: 01/19/20 22:05 Dose: 0.04 mcg/kg/min, 8.9 mls/hr Documented by: [id number] Titration: 01/19/20 21:42 Dose: 0.06 mcg/kg/min, 13.3 mls/hr Documented by: [id number] Titration: 01/19/20 21:00 Dose: 0.08 mcg/kg/min, 17.7 mls/hr Documented by: [id number] Titration: 01/19/20 18:58 Dose: 0.1 mcg/kg/min, 22.2 mls/hr Documented by: [id number] Cosigned by: [id number] Titration: 01/19/20 13:02 Dose: 0.1 mcg/kg/min, 22.2 mls/hr Documented by: [id number] Titration: 01/19/20 12:44 Dose: 0.07 mcg/kg/min, 15.5 mls/hr Documented by: [id number] Admin: 01/19/20 09:55 Dose: 0.05 mcg/kg/min, 11.1 mls/hr Documented by: [id number] Cosigned by: [id number] Piperacillin Sod/Tazobactam Sod (Zosyn) 4.5 gm in 120 mls @ 240 mls/hr IV NOW ONE Stop: 01/19/20 09:48 Last Infusion: 01/19/20 10:30 Dose: 0 mls/hr Documented by: [id number] Admin: 01/19/20 09:51 Dose: 240 mls/hr Documented by: [id number] Levofloxacin/Dextrose (Levaquin/D5w) 750 mg in 150 mls @ 100 mls/hr IV NOW STA Stop: 01/19/20 10:48 Last Admin: 01/19/20 11:32 Dose: Not Given Documented by: [id number] Daptomycin 350 mg/ Syringe 7 mls @ 3.5 mls/min IV NOW ONE; Protocol Stop: 01/19/20 09:24 Last Admin: 01/19/20 09:50 Dose: 3.5 mls/min Documented by: [id number] Calcium Gluconate 1,000 mg/ (Sodium Chloride) 60 mls @ 240 mls/hr IV NOW STA Stop: 01/19/20 09:39 Last Infusion: 01/19/20 10:01 Dose: 0 mls/hr Documented by: [id number] Admin: 01/19/20 09:46 Dose: 240 mls/hr Documented by: [id number] Sodium Chloride (Nss) 500 mls @ 999 mls/hr IV .Q31M ONE Stop: 01/19/20 09:55 Last Admin: 01/19/20 10:23 Dose: Not Given Documented by: [id number] Sodium Chloride (Nss 1000ml) 500 mls @ 999 mls/hr IV .Q31M ONE Stop: 01/19/20 10:07 Last Infusion: 01/19/20 18:34 Dose: 0 mls/hr Documented by: [id number] Admin: 01/19/20 10:00 Dose: 60 mls/hr Documented by: [id number] Sodium Chloride (Nss 1000ml) 500 mls @ 999 mls/hr IV .Q31M ONE Stop: 01/19/20 11:21 Last Infusion: 01/19/20 12:12 Dose: 0 mls/hr Documented by: [id number] Admin: 01/19/20 11:33 Dose: 999 mls/hr Documented by: [id number] Sodium Chloride (Nss 1000ml) 250 mls @ 999 mls/hr IV .Q16M ONE Stop: 01/19/20 11:06 Last Infusion: 01/19/20 15:52 Dose: 0 mls/hr Documented by: [id number] Admin: 01/19/20 12:11 Dose: 999 mls/hr Documented by: [id number] Vancomycin HCl 1,250 mg/ (Sodium Chloride) 275 mls @ 125 mls/hr IV TODAY@1145 ONE Stop: 01/19/20 13:56 Last Admin: 01/19/20 12:11 Dose: Not Given Documented by: [id number] Piperacillin Sod/Tazobactam (Sod 3.375 gm/ Dextrose) 115 mls @ 28.75 mls/hr IV Q12H [facility]; Protocol Stop: 01/21/20 17:59 Last Infusion: 01/20/20 10:07 Dose: 0 mls/hr Documented by: [id number] Admin: 01/20/20 06:07 Dose: 28.8 mls/hr Documented by: [id number] Infusion: 01/19/20 21:15 Dose: 0 mls/hr Documented by: [id number] Admin: 01/19/20 17:10 Dose: 28.8 mls/hr Documented by: [id number] Vancomycin HCl 1,250 mg/ (Sodium Chloride) 275 mls @ 125 mls/hr IV 1530 ONE Stop: 01/19/20 17:41 Last Infusion: 01/19/20 18:34 Dose: 0 mls/hr Documented by: [id number] Admin: 01/19/20 16:08 Dose: 125 mls/hr Documented by: [id number] Doxycycline Hyclate 100 mg/ (Dextrose) 110 mls @ 50 mls/hr IV Q12H REJI Stop: 01/26/20 15:59 Last Infusion: 01/20/20 05:50 Dose: 0 mls/hr Documented by: [id number] Admin: 01/20/20 03:48 Dose: 50 mls/hr Documented by: [id number] Infusion: 01/19/20 19:46 Dose: 0 mls/hr Documented by: [id number] Admin: 01/19/20 16:59 Dose: 50 mls/hr Documented by: [id number] Calcium Gluconate 1,000 mg/ (Sodium Chloride) 60 mls @ 240 mls/hr IV NOW STA Stop: 01/19/20 16:27 Last Infusion: 01/19/20 18:34 Dose: 0 mls/hr Documented by: [id number] Admin: 01/19/20 16:59 Dose: 240 mls/hr Documented by: [id number] Insulin Human Regular 10 units (/ Syringe) 9.9 mls @ 3 mls/sec IV NOW STA Stop: 01/19/20 16:15 Last Admin: 01/19/20 16:59 Dose: 3 mls/sec Documented by: [id number] Cosigned by: [id number] Calcium Gluconate 1,000 mg/ (Sodium Chloride) 60 mls @ 240 mls/hr IV NOW STA Stop: 01/20/20 03:50 Last Infusion: 01/20/20 04:28 Dose: 0 mls/hr Documented by: [id number] Admin: 01/20/20 04:09 Dose: 240 mls/hr Documented by: [id number] Insulin Human Regular 6 units/ (Syringe) 6 mls @ 36 mls/min IV ONE ONE Stop: 01/20/20 04:01 Last Admin: 01/20/20 04:09 Dose: 36 mls/min Documented by: [id number] Cosigned by: [id number] Vancomycin HCl 500 mg/ Sodium (Chloride) 110 mls @ 125 mls/hr IV NOW ONE; Protocol Stop: 01/20/20 08:22 Last Infusion: 09/24/20 09:30 Dose: 0 mls/hr Documented by: [id number] Admin: 01/20/20 08:35 Dose: 125 mls/hr Documented by: [id number] Lorazepam (Ativan) 0.5 mg in 1 mls @ 1 mls/min IV Q1H PRN PRN Reason: Agitation/ vertigo Stop: 02/19/20 13:07 Last Admin: 01/21/20 05:04 Dose: 1 mls/min Documented by: [id number] Promethazine HCl 12.5 mg/ (Sodium Chloride) 50.5 mls @ 202 mls/hr IV Q6H PRN PRN Reason: Nausea And Vomiting Stop: 02/19/20 13:07 Last Infusion: 01/20/20 18:51 Dose: 0 mls/hr Documented by: [id number] Admin: 01/20/20 18:30 Dose: 202 mls/hr Documented by: [id number] Insulin Human Regular (Novolin-R Insulin Per Unit Charge) 10 units IV NOW STA Stop: 01/19/20 09:26 Last Admin: 01/19/20 09:42 Dose: 10 units Documented by: [id number] Cosigned by: [id number] Metoclopramide HCl (Metoclopramide Hcl Inj 5 Mg/Ml 2 Ml Vial) 5 mg IV ONE ONE Stop: 01/19/20 10:03 Last Admin: 01/19/20 10:30 Dose: 5 mg Documented by: [id number] Miscellaneous (Stat Iv Infusion Titration Per Protocol) 1 ea N/A NOW STA Stop: 01/19/20 09:17 Last Admin: 01/19/20 10:19 Dose: Not Given Documented by: [id number] Miscellaneous (Check Scopolamine Patch Placement) 1 ea N/A QS REJI Stop: 02/19/20 15:59 Last Admin: 01/20/20 23:49 Dose: 1 ea Documented by: [id number] Admin: 01/20/20 15:51 Dose: 1 ea Documented by: [id number] Miscellaneous (Remove Transderm-Scop Patch) 1 ea N/A Q72H REJI Stop: 02/19/20 13:28 Last Admin: 01/20/20 14:47 Dose: 1 ea Documented by: [id number] Morphine Sulfate (Morphine Sulfate 2 Mg/Ml Carp) 2 mg IV Q1H PRN PRN Reason: Pain/ sob Stop: 02/03/20 13:07 Last Admin: 01/21/20 04:58 Dose: 2 mg Documented by: [id number] Admin: 01/21/20 04:00 Dose: 2 mg Documented by: [id number] Admin: 01/21/20 00:13 Dose: 2 mg Documented by: [id number] Admin: 01/20/20 20:22 Dose: 2 mg Documented by: [id number] Admin: 01/20/20 18:13 Dose: 2 mg Documented by: [id number] Admin: 01/20/20 15:19 Dose: 2 mg Documented by: [id number] Morphine Sulfate (Morphine Sulfate 2 Mg/Ml Carp) 2 mg IV NOW STA Stop: 01/21/20 05:20 Last Admin: 01/21/20 05:27 Dose: 2 mg Documented by: [id number] Ondansetron HCl (Ondansetron Inj 2 Mg/Ml 2 Ml Vial) 4 mg IV Q6H PRN PRN Reason: Nausea Stop: 02/19/20 13:07 Last Admin: 01/20/20 15:48 Dose: 4 mg Documented by: [id number] Pantoprazole Sodium (Pantoprazole 40 Mg Tab) 40 mg PO QAM REJI Stop: 02/19/20 08:59 Last Admin: 01/20/20 09:29 Dose: 40 mg Documented by: [id number] Scopolamine (Scopolamine 1.5 Mg Tdsy) 1.5 mg TD Q72H REJI Stop: 02/19/20 13:29 Last Admin: 01/20/20 14:46 Dose: 1.5 mg Documented by: [id number] Sodium Bicarbonate (Sodium Bicarb 8.4% Inj 50 Meq/50 Ml Syr) 50 meq IV NOW STA Stop: 01/19/20 09:26 Last Admin: 01/19/20 10:00 Dose: 50 meq Documented by: [id number] Sodium Polystyrene Sulfonate (Sodium Polystyrene Sulfonate 15g/60ml Susp) 15 gm PO TID REJI Stop: 02/19/20 08:59 Last Admin: 01/20/20 09:29 Dose: 15 gm Documented by: [id number] Tamsulosin HCl (Tamsulosin Hcl 0.4 Mg Cap) 0.4 mg PO BID REJI Stop: 02/18/20 20:59 Last Admin: 01/20/20 09:29 Dose: 0.4 mg Documented by: [id number] Admin: 01/19/20 20:23 Dose: 0.4 mg Documented by: [id number] Critical Care Time I have personally spent greater than 90 minutes of critical care time in the direct management of this patient. This includes bedside care, interpretation of diagnostic studies, and testing, discussion with consultants, patient, and family members, and other required patient management activities. This 90 minutes is in excess of all separately billable procedures. Medical Decision Making Differential Diagnosis Sepsis, UTI, pneumonia, metabolic, electrolyte abnormalities, cardiac sources, intracerebral event, toxicologic, neurologic, as well as other pathologies. Medical Records Attestation: I reviewed the patient's medical records. Home Medications Current Medication List: was personally reviewed by me Laboratory Data Attestation: I reviewed the patient's lab results. Result diagrams: 01/20/20 02:39 01/20/20 02:39 Lab Results 01/19/20 01/19/20 01/19/20 Range/Units 09:23 09:30 09:30 WBC 23.79 H (4.8-10.8) K/uL RBC 2.40 L (4.7-6.1) M/uL Hgb 7.3 L (14.0-18.0) g/dL POC Hgb 7.1 L (14.0-18.0) g/dl Hct 23.2 L (42-52) % POC Hct 21 L (42-52) % MCV 96.7 (80-100) fL MCH 30.4 (25-34) pg MCHC 31.5 L (32-36) g/dL RDW Std Deviation 61.0 H (36.4-46.3) fL RDW Coeff of Qiana 19.2 H (11.5-14.5) % Plt Count 105 L (130-400) K/uL MPV 13.0 H (7.4-10.4) fL Immature Gran % (Auto) 0.8 % Neut % (Auto) 92.0 % Lymph % (Auto) 3.6 % Gentry % (Auto) 3.6 % Eos % (Auto) 0.0 % Baso % (Auto) 0.0 % Neut # (Auto) 21.88 H (1.4-6.5) K/uL Lymph # (Auto) 0.85 L (1.2-3.4) K/uL Gentry # (Auto) 0.86 H (0.11-0.59) K/uL Eos # (Auto) 0.00 (0-0.5) K/uL Baso # (Auto) 0.00 (0-0.2) K/uL Immature Gran # (Auto) 0.20 H (0.00-0.02) K/uL Absolute Nucleated RBC 0.14 H (0-0) K/uL Nucleated RBC % (auto) 0.6 % Platelet Estimate Decreased L (Normal) PT 22.2 H (9.0-12.0) Seconds INR 2.2 H (0.9-1.1) APTT 33.3 H (21.0-31.0) Seconds PTT Ratio 1.2 VBG pH (7.36-7.41) VBG pCO2 (38-50) mmHg VBG pO2 mmHg VBG HCO3 mmol/L VBG O2 Saturation % VBG Base Excess mEq/L Barometric Pressure mm/Hg POC Sodium 137 (135-144) mmol/L Sodium (136-145) mmol/L POC Potassium 7.0 H* (3.3-5.0) mmol/L Potassium (3.5-5.1) mmol/L POC Chloride 104 (101-112) mmol/L Chloride (98-107) mmol/L Carbon Dioxide (21-32) mmol/L POC Total CO2 18 L (24-31) mmol/L Anion Gap (3-11) POC Anion Gap 23.0 (16-25) mmol/L POC BUN 107 H* (7-18) mg/dl BUN (7-18) mg/dl Creatinine (0.6-1.4) mg/dl POC Creatinine 3.3 H (0.6-1.3) mg/dl Est Cr Clr Drug Dosing ml/min Est GFR ( Amer) Est GFR (Non-Af Amer) BUN/Creatinine Ratio (10-20) Glucose (70-99) mg/dl POC Glucose (other) 131 H (70-99) mg/dl Lactate (0.4-2.0) mmol/L Calcium (8.5-10.1) mg/dl POC Ioniz Calcium Pollo 1.04 L (1.12-1.32) mmol/l Magnesium (1.8-2.4) mg/dl Total Bilirubin (0.2-1) mg/dl AST (15-37) U/L ALT (12-78) U/L Alkaline Phosphatase (45-117) U/L Total Creatine Kinase (39-308) U/L CK-MB (CK-2) (0.5-3.6) ng/ml CK/CKMB % Calc (0-3.0) Troponin I (0-0.045) ng/ml Total Protein (6.4-8.2) gm/dl Albumin (3.4-5.0) gm/dl Globulin (2.5-4.0) gm/dl Albumin/Globulin Ratio (0.9-2) Procalcitonin (0-0.5) ng/ml Specimen Hemolysis Adenovirus (PCR) (NotDetected) B. pertussis DNA (PCR) (NotDetected) B.parapertussis DNA PCR (NotDetected) C. pneumoniae DNA (PCR) (NotDetected) Coronavirus OC43 (PCR) (NotDetected) Coronavirus HKU1 (PCR) (NotDetected) Coronavirus 229E (PCR) (NotDetected) COVID-19 PCR (NotDetected) Coronavirus NL63 (PCR) (NotDetected) Human Metapneumovir PCR (NotDetected) Influenza Type A (PCR) (NotDetected) Influenza Type B (PCR) (NotDetected) M. pneumoniae (PCR) (NotDetected) Parainfluenza 1 (PCR) (NotDetected) Parainfluenza 2 (PCR) (NotDetected) Parainfluenza 3 (PCR) (NotDetected) Parainfluenza 4 (PCR) (NotDetected) RSV (PCR) (NotDetected) Entero/Rhino (PCR) (NotDetected) Blood Type Antibody Screen Crossmatch 01/19/20 01/19/20 01/19/20 Range/Units 09:30 09:30 09:30 WBC (4.8-10.8) K/uL RBC (4.7-6.1) M/uL Hgb (14.0-18.0) g/dL POC Hgb (14.0-18.0) g/dl Hct (42-52) % POC Hct (42-52) % MCV (80-100) fL MCH (25-34) pg MCHC (32-36) g/dL RDW Std Deviation (36.4-46.3) fL RDW Coeff of Qiana (11.5-14.5) % Plt Count (130-400) K/uL MPV (7.4-10.4) fL Immature Gran % (Auto) % Neut % (Auto) % Lymph % (Auto) % Gentry % (Auto) % Eos % (Auto) % Baso % (Auto) % Neut # (Auto) (1.4-6.5) K/uL Lymph # (Auto) (1.2-3.4) K/uL Gentry # (Auto) (0.11-0.59) K/uL Eos # (Auto) (0-0.5) K/uL Baso # (Auto) (0-0.2) K/uL Immature Gran # (Auto) (0.00-0.02) K/uL Absolute Nucleated RBC (0-0) K/uL Nucleated RBC % (auto) % Platelet Estimate (Normal) PT (9.0-12.0) Seconds INR (0.9-1.1) APTT (21.0-31.0) Seconds PTT Ratio VBG pH (7.36-7.41) VBG pCO2 (38-50) mmHg VBG pO2 mmHg VBG HCO3 mmol/L VBG O2 Saturation % VBG Base Excess mEq/L Barometric Pressure mm/Hg POC Sodium (135-144) mmol/L Sodium 143 (136-145) mmol/L POC Potassium (3.3-5.0) mmol/L Potassium 7.0 H* (3.5-5.1) mmol/L POC Chloride (101-112) mmol/L Chloride 105 (98-107) mmol/L Carbon Dioxide 17 L (21-32) mmol/L POC Total CO2 (24-31) mmol/L Anion Gap 21.0 H (3-11) POC Anion Gap (16-25) mmol/L POC BUN (7-18) mg/dl BUN 108 H (7-18) mg/dl Creatinine 3.29 H (0.6-1.4) mg/dl POC Creatinine (0.6-1.3) mg/dl Est Cr Clr Drug Dosing 15.7 ml/min Est GFR ( Amer) 20.0 Est GFR (Non-Af Amer) 17.2 BUN/Creatinine Ratio 32.8 H (10-20) Glucose 127 H (70-99) mg/dl POC Glucose (other) (70-99) mg/dl Lactate 12.3 H* (0.4-2.0) mmol/L Calcium 8.2 L (8.5-10.1) mg/dl POC Ioniz Calcium Pollo (1.12-1.32) mmol/l Magnesium 2.9 H (1.8-2.4) mg/dl Total Bilirubin 1.0 (0.2-1) mg/dl AST 2411 H (15-37) U/L ALT 1619 H (12-78) U/L Alkaline Phosphatase 100 (45-117) U/L Total Creatine Kinase 763 H (39-308) U/L CK-MB (CK-2) 14.7 H (0.5-3.6) ng/ml CK/CKMB % Calc 1.9 (0-3.0) Troponin I 0.386 H* (0-0.045) ng/ml Total Protein 5.1 L (6.4-8.2) gm/dl Albumin 2.4 L (3.4-5.0) gm/dl Globulin 2.7 (2.5-4.0) gm/dl Albumin/Globulin Ratio 0.9 (0.9-2) Procalcitonin 1.87 H (0-0.5) ng/ml Specimen Hemolysis Adenovirus (PCR) (NotDetected) B. pertussis DNA (PCR) (NotDetected) B.parapertussis DNA PCR (NotDetected) C. pneumoniae DNA (PCR) (NotDetected) Coronavirus OC43 (PCR) (NotDetected) Coronavirus HKU1 (PCR) (NotDetected) Coronavirus 229E (PCR) (NotDetected) COVID-19 PCR (NotDetected) Coronavirus NL63 (PCR) (NotDetected) Human Metapneumovir PCR (NotDetected) Influenza Type A (PCR) (NotDetected) Influenza Type B (PCR) (NotDetected) M. pneumoniae (PCR) (NotDetected) Parainfluenza 1 (PCR) (NotDetected) Parainfluenza 2 (PCR) (NotDetected) Parainfluenza 3 (PCR) (NotDetected) Parainfluenza 4 (PCR) (NotDetected) RSV (PCR) (NotDetected) Entero/Rhino (PCR) (NotDetected) Blood Type Antibody Screen Crossmatch 01/19/20 01/19/20 01/19/20 Range/Units 09:30 09:56 11:01 WBC (4.8-10.8) K/uL RBC (4.7-6.1) M/uL Hgb (14.0-18.0) g/dL POC Hgb (14.0-18.0) g/dl Hct (42-52) % POC Hct (42-52) % MCV (80-100) fL MCH (25-34) pg MCHC (32-36) g/dL RDW Std Deviation (36.4-46.3) fL RDW Coeff of Qiana (11.5-14.5) % Plt Count (130-400) K/uL MPV (7.4-10.4) fL Immature Gran % (Auto) % Neut % (Auto) % Lymph % (Auto) % Gentry % (Auto) % Eos % (Auto) % Baso % (Auto) % Neut # (Auto) (1.4-6.5) K/uL Lymph # (Auto) (1.2-3.4) K/uL Gentry # (Auto) (0.11-0.59) K/uL Eos # (Auto) (0-0.5) K/uL Baso # (Auto) (0-0.2) K/uL Immature Gran # (Auto) (0.00-0.02) K/uL Absolute Nucleated RBC (0-0) K/uL Nucleated RBC % (auto) % Platelet Estimate (Normal) PT (9.0-12.0) Seconds INR (0.9-1.1) APTT (21.0-31.0) Seconds PTT Ratio VBG pH 7.21 L (7.36-7.41) VBG pCO2 44 (38-50) mmHg VBG pO2 45 mmHg VBG HCO3 17 mmol/L VBG O2 Saturation 66.7 % VBG Base Excess -9.7 mEq/L Barometric Pressure 732.6 mm/Hg POC Sodium (135-144) mmol/L Sodium (136-145) mmol/L POC Potassium (3.3-5.0) mmol/L Potassium (3.5-5.1) mmol/L POC Chloride (101-112) mmol/L Chloride (98-107) mmol/L Carbon Dioxide (21-32) mmol/L POC Total CO2 (24-31) mmol/L Anion Gap (3-11) POC Anion Gap (16-25) mmol/L POC BUN (7-18) mg/dl BUN (7-18) mg/dl Creatinine (0.6-1.4) mg/dl POC Creatinine (0.6-1.3) mg/dl Est Cr Clr Drug Dosing ml/min Est GFR ( Amer) Est GFR (Non-Af Amer) BUN/Creatinine Ratio (10-20) Glucose (70-99) mg/dl POC Glucose (other) (70-99) mg/dl Lactate (0.4-2.0) mmol/L Calcium (8.5-10.1) mg/dl POC Ioniz Calcium Pollo (1.12-1.32) mmol/l Magnesium (1.8-2.4) mg/dl Total Bilirubin (0.2-1) mg/dl AST (15-37) U/L ALT (12-78) U/L Alkaline Phosphatase (45-117) U/L Total Creatine Kinase (39-308) U/L CK-MB (CK-2) (0.5-3.6) ng/ml CK/CKMB % Calc (0-3.0) Troponin I (0-0.045) ng/ml Total Protein (6.4-8.2) gm/dl Albumin (3.4-5.0) gm/dl Globulin (2.5-4.0) gm/dl Albumin/Globulin Ratio (0.9-2) Procalcitonin (0-0.5) ng/ml Specimen Hemolysis Adenovirus (PCR) Not Detected (NotDetected) B. pertussis DNA (PCR) Not Detected (NotDetected) B.parapertussis DNA PCR Not Detected (NotDetected) C. pneumoniae DNA (PCR) Not Detected (NotDetected) Coronavirus OC43 (PCR) Not Detected (NotDetected) Coronavirus HKU1 (PCR) Not Detected (NotDetected) Coronavirus 229E (PCR) Not Detected (NotDetected) COVID-19 PCR Not Detected (NotDetected) Coronavirus NL63 (PCR) Not Detected (NotDetected) Human Metapneumovir PCR Not Detected (NotDetected) Influenza Type A (PCR) Not Detected (NotDetected) Influenza Type B (PCR) Not Detected (NotDetected) M. pneumoniae (PCR) Not Detected (NotDetected) Parainfluenza 1 (PCR) Not Detected (NotDetected) Parainfluenza 2 (PCR) Not Detected (NotDetected) Parainfluenza 3 (PCR) Not Detected (NotDetected) Parainfluenza 4 (PCR) Not Detected (NotDetected) RSV (PCR) Not Detected (NotDetected) Entero/Rhino (PCR) DETECTED A* (NotDetected) Blood Type O Positive Antibody Screen NEGATIVE Crossmatch See Detail Imaging Data Radiologist's Impression: [facility], [place] [phone] XRay Report Patient: JACKIE APARICIOdmshraddha Date: 01/19/20 MR#: [id number]: [address] Acct ID:[id number]: [facility] Zip: [place] [address] Age: 74Location: 1E Sex: MRoom/Bed: [facility] Att Phy: Mary Jo Diaz, MDDiagnosis: SEPSIS,ALTERED MENTAL STATUS, SEIZURE LIKE ACTIVIT Valeria Phy: Lakisha Carson PA-CService Date: 01/20/20 Fam Phy:Interpreting Phy: Darian Mayen MD Admit Phy: Ninfa Barclay MD Ordering Phy: Jose Loepz PA-C cc: ~ XR chest 1V portable CLINICAL HISTORY: f/u COMPARISON STUDY: Chest radiograph and chest CT January 19, 2020. FINDINGS: Right internal jugular [id number]-Udbp is in place. There are median sternotomy wires. Emphysema is noted. Bibasilar airspace opacities, greater on the left are noted. Reticulonodular interstitial thickening within the lungs persist. There is no pneumothorax or pleural effusion. There is no evidence for pulmonary edema. Mild cardiomegaly is again noted. IMPRESSION: 1. No significant change in multifocal airspace opacities with left basilar consolidation. The findings favor multifocal pneumonia. 2. Emphysema. ACT 112: Negative or not required by law. Electronically signed by: Darian Mayen M.D. 01/20/2020 7:09 AM Dictated: 01/20/20 0708 Transcribed: 01/20/20 0708 [place], [place] [phone] CT Scan Report Patient: JACKIE APARICIO Date: 01/19/20 MR#: [id number]: [address] Acct ID:[id number]: Date: [address] [place] [address] Zip: [place] [id number] Age: 74Location: ED Sex: MRoom/Bed: Att Phy:Diagnosis: confused Valeria Phy: Lakisha Carson PA-CService Date: 01/19/20 Fam Phy:Interpreting Phy: Fab Callaway MD Admit Phy: Ordering Phy: Hayes Blake MD cc: ~ CT chest wo con CLINICAL HISTORY: Respiratory failure. History of small cell bladder carcinoma. COMPARISON STUDY: Chest x-ray dated 01/19/2020 CT DOSE: 844.37 mGy.cm TECHNIQUE: CT of the thorax was performed from the thoracic inlet to the lung bases. Images are reviewed in the axial, sagittal, and coronal planes. IV contrast was not administered for this examination. A dose lowering technique was utilized adhering to the principles of ALARA. FINDINGS: Thyroid: Imaged portions of the thyroid gland are normal in appearance. Thoracic aorta: There is no evidence of thoracic aortic aneurysm. There are dense atheromatous calcifications. There are calcifications within the proximal great vessels with possible left subclavian artery stenosis. Heart: The heart is mildly enlarged. There are coronary artery calcifications present. There are postsurgical changes of a midline sternotomy. There is a right-sided A-Port catheter present. Lungs and pleural spaces: There is pulmonary emphysema. There are multilobar nodular airspace opacities with a 5 cm area of masslike consolidation at the left lung base. There is lower lobe bronchial wall thickening and mucous plugging. Although an infectious/inflammatory process is favored, neoplasm cannot be excluded particularly within the left lower lobe at the level of a 5 cm opacity. A 6 week follow-up CT scan subsequent antibiotic therapy is recommended. There are no significant pleural effusions. Mediastinum: Mediastinal lymph nodes are at the upper limits of normal in size. Nallely: There is no evidence of pathologic hilar adenopathy given the limitations of a noncontrast study. Axilla: There is no evidence of pathologic axillary lymphadenopathy Upper abdomen: Partially visualized upper abdominal viscera is within normal limits. Skeletal structures: There are no lytic or blastic osseous lesions. IMPRESSION: 1. Pulmonary emphysema 2. Multilobar groundglass and nodular airspace opacities including a 5 cm masslike area of consolidation within the left lower lobe. In addition there is extensive lower lobe bronchial wall thickening and mucous plugging. 3. Although an infectious process is favored, neoplasm cannot be excluded, and a 6 week follow-up study since with antibiotic therapy is recommended. ACT 112: Negative or not required by law. Electronically signed by: Fab Callaway M.D. 01/19/2020 11:35 AM Dictated: 01/19/20 1128 Transcribed: 01/19/20 1134 [facility] [place] [phone] CT Scan Report Patient: JACKIE APARICIO JAdmit Date: 01/19/20 MR#: [id number]: [address] Acct ID:[id number]: [facility] Zip: [place] [address] Age: 74Location: ED Sex: MRoom/Bed: Att Phy:Diagnosis: confused Valeria Phy: Lakisha Carson PA-CService Date: 01/19/20 Fam Phy:Interpreting Phy: Fab Callaway MD Admit Phy: Ordering Phy: Hayes Blake MD cc: ~ CT head/brain wo con CLINICAL HISTORY: Acute change in mental status. HEAD TRAUMA COMPARISON STUDY: 12/31/2019 TECHNIQUE: Axial CT of the brain is performed from the vertex to the skull base. IV contrast was not administered for this examination. A dose lowering technique was utilized adhering to the principles of ALARA. CT DOSE: FINDINGS: No intra or extra-axial mass lesions are visualized. There is no CT evidence of acute cortical infarction. There is no evidence of midline shift. There is no acute hemorrhage. No calvarial fractures are visualized. There are minor white matter hypodensities likely on a small vessel basis. 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 This remains unchanged There is no evidence of pathologic ventricular dilatation. There are bilateral matter sinus air-fluid levels. There is opacification of several left-sided ethmoid air cells. IMPRESSION: 1. Persistent inflammatory changes in the paranasal sinuses 2. No acute intracranial findings ACT 112: Negative or not required by law. Electronically signed by: Fab Callaway M.D. 01/19/2020 11:35 AM Dictated: 01/19/20 1125 Transcribed: 01/19/20 1127 [facility] [place] [phone] XRay Report Patient: JACKIE APARICIO JAdmit Date: 01/19/20 MR#: [id number]: [address] Acct ID:[id number]: Date: [address] [place] [address] Zip: [place] [address] Age: 74Location: ED Sex: MRoom/Bed: Att Phy:Diagnosis: confused Valeria Phy: Lakisha Carson PA-CService Date: 01/19/20 [facility] Phy:Interpreting Phy: Kel Whalen Admit Phy: Ordering Phy: Hayes Blake MD cc: ~ XR chest 1V portable HISTORY: 74 years-old Male SEPSIS acute sepsis COMPARISON: Chest radiograph 01/08/2020, CT soft tissue neck 12/08/2019 TECHNIQUE: Portable AP view of the chest FINDINGS: Cardiac silhouette is enlarged. Prior median sternotomy and probable CABG. Unchanged positioning of the right IJ Lgrtws-a-Nqvi catheter. Moderate emphysema with chronic interstitial coarsening. Blunting of the costophrenic angles may reflect trace effusions. Persistent left basilar opacities. No pneumothorax or overt pulmonary edema. Degenerative changes of the shoulders and spine. IMPRESSION: 1. Persistent asymmetric left lung base opacities suggest atelectasis versus pneumonia. 2. Blunting of the costophrenic angles may reflect scarring/atelectasis versus trace effusions. 3. Moderate emphysema with chronic interstitial coarsening. ACT 112: Negative or not required by law. The above report was generated using voice recognition software. It may contain grammatical, syntax or spelling errors. Electronically signed by: Víctor Whalen M.D. 01/19/2020 9:49 AM Dictated: 01/19/20944 Transcribed: 01/19/20944 ECG Data Attestation: I personally reviewed and interpreted this ECG as follows: Indication: + altered mental status Rate (beats per minute): 49 Rhythm: + other (lesley complex bradycardia) ECG Intervals/blocks: + Complete heart block and + Left bundle branch block ECG Shoals: + Normal ECG ST segments: no ST depression and no ST elevation Comparison ECG Date: from (01/08/2020) Change: the following changes noted (NSR replaced by third degree block) MDM Narrative Patient was seen and evaluated as above in room C7 and immediately moved to B1. Review was performed of nursing notes and vital signs. I did review pertinent previous visits and patient history. After obtaining a thorough history and physical examination the above work up was performed. This is a 74-year-old male who arrives hypotensive bradycardic and hypothermic to the emergency department. A sepsis alert was initiated and the patient was given 30 mL's per kilogram of fluid. Patient was found to be anemic. The patient signed type and screen and consent for 1 unit of packed red blood cells. He was started on broad-spectrum antibiotics. The patient was originally thought to be in third-degree heart block however his potassium came back elevated higher than 7. At this point the patient was started on calcium as well as bicarbonate and insulin and dextrose. I did discuss the case with both the litigation attorney associate as well as the medicine team who did agree to admit the patient. An order was placed for continuous cardiac monitoring. The monitor shows a rate of 50 with wide complex rhythm. The patient was evaluated during the global COVID-19 pandemic, and that diagnosis was suspected/considered upon their initial presentation. Their evaluation, treatment and testing was consistent with current guidelines for patients who present with complaints or symptoms that may be related to COVID- 19. Impression & Plan Third degree heart block, Anemia, Acute kidney injury superimposed on CKD, Sepsis with multi-organ dysfunction Discharge Plan Visit Data Chief Complaint: Confusion Stated Complaint: confused ED Provider: Hayes Blake Discharge Problem: Third degree heart block, Anemia, Acute kidney injury superimposed on CKD, Sepsis with multi-organ dysfunction Patient Disposition: Admitted As Inpatient Discharge Instructions Interventions: ED Discharge Assessment Last Done: 01/19/20 14:05 Discharge Problem: Anemia Qualifiers: Anemia type: other cause Other causes of anemia: other cause, not classified Qualified Code(s): D64.89 - Other specified anemias
[2020-01-19 10:00] LABS: Hematocrit (blood only) 23.2 % (42-52); Hemoglobin 7.3 g/dL (14.0-18.0); Mean Corpuscular Hemoglobin 30.4 pg (25-34); Mean Corpuscular Hgb Conc 31.5 g/dL (32-36); Mean Corpuscular Volume 96.7 fL (80-100); Nucleated RBC # (auto) 0.14 K/uL (0-0); Nucleated RBC % (auto) 0.6 %; Platelet Count 105 K/uL (130-400); RDW Coefficient of Variation 19.2 % (11.5-14.5); White Blood Count 23.79 K/uL (4.8-10.8)
[2020-01-19 10:01] LABS: Immature Granulocytes % (auto) 0.8 %; Lymphocytes # (auto) 0.85 K/uL (1.2-3.4); Lymphocytes % (auto) 3.6 %; Monocytes # (auto) 0.86 K/uL (0.11-0.59); Monocytes % (auto) 3.6 %; Neutrophils # (auto) 21.88 K/uL (1.4-6.5); Platelet Estimate Decreased (Normal)
[2020-01-19] MEDS ORDERED: HYDROmorphone INJ 0.5 MG/0.5 ML SYR IV STA (10:01)
[2020-01-19] MEDS ORDERED: ACETAMINOPHEN 1000 MG/100 ML IV IV STA (10:01)
[2020-01-19] MEDS ORDERED: METOCLOPRAMIDE HCL INJ 5 MG/ML 2 ML VIAL IV ONE (10:02)
[2020-01-19 10:08] LABS: Albumin Globulin Ratio 0.9 (0.9-2); Albumin Level 2.4 gm/dl (3.4-5.0); BUN Creatinine Ratio 32.8 (10-20); Calcium 8.2 mg/dl (8.5-10.1); Creatinine Clr Calc Pharmacy 15.7 ml/min; Est GFR (Non-African American) 17.2; Globulin 2.7 gm/dl (2.5-4.0); Magnesium 2.9 mg/dl (1.8-2.4); Total Protein 5.1 gm/dl (6.4-8.2)
[2020-01-19 10:20] LABS: Creatine Kinase MB 14.7 ng/ml (0.5-3.6); Troponin I 0.386 ng/ml (0-0.045)
[2020-01-19] MEDS ORDERED: SODIUM CHLORIDE 0.9% 1000ML 250 ML IV ONE (10:51)
[2020-01-19] MEDS ORDERED: VANCOMYCIN CONSULT ACTIVE PRN (10:58)
[2020-01-19] MEDS ORDERED: VANCOMYCIN HCL 1,000 MG/270 ML BAG IV STA (10:58)
--- NOTE | 2020-01-19 11:36 | CT Scan Report ---
CT head/brain wo con CLINICAL HISTORY: Acute change in mental status. HEAD TRAUMA COMPARISON STUDY: 12/31/2019 TECHNIQUE: Axial CT of the brain is performed from the vertex to the skull base. IV contrast was not administered for this examination. A dose lowering technique was utilized adhering to the principles of ALARA. CT DOSE: FINDINGS: No intra or extra-axial mass lesions are visualized. There is no CT evidence of acute cortical infarc tion. There is no evidence of midline shift. There is no acute hemorrhage. No calvarial fractures ar e visualized. There are minor white matter hypodensities likely on a small vessel basis. There is an old right-side d basal ganglial lacunar infarct versus prominent perivascular space. This remains unchanged There is no evidence of pathologic ventricular dilatation. There are bilateral matter sinus air-fluid levels. There is opacification of several left-sided ethmo id air cells. IMPRESSION: 1. Persistent inflammatory changes in the paranasal sinuses 2. No acute intracranial findings ACT 112: Negative or not required by law. Electronically signed by: Fab Callaway M.D. 01/19/2020 11:35 AM
--- NOTE | 2020-01-19 11:36 | CT Scan Report ---
CT chest wo con CLINICAL HISTORY: Respiratory failure. History of small cell bladder carcinoma. COMPARISON STUDY: Chest x-ray dated 01/19/2020 CT DOSE: 844.37 mGy.cm TECHNIQUE: CT of the thorax was performed from the thoracic inlet to the lung bases. Images are revi ewed in the axial, sagittal, and coronal planes. IV contrast was not administered for this examinatio n. A dose lowering technique was utilized adhering to the principles of ALARA. FINDINGS: Thyroid: Imaged portions of the thyroid gland are normal in appearance. Thoracic aorta: There is no evidence of thoracic aortic aneurysm. There are dense atheromatous calcif ications. There are calcifications within the proximal great vessels with possible left subclavian ar robe stenosis. Heart: The heart is mildly enlarged. There are coronary artery calcifications present. There are post surgical changes of a midline sternotomy. There is a right-sided A-Port catheter present. Lungs and pleural spaces: There is pulmonary emphysema. There are multilobar nodular airspace opaciti es with a 5 cm area of masslike consolidation at the left lung base. There is lower lobe bronchial wa ll thickening and mucous plugging. Although an infectious/inflammatory process is favored, neoplasm c annot be excluded particularly within the left lower lobe at the level of a 5 cm opacity. A 6 week fo llow-up CT scan subsequent antibiotic therapy is recommended. There are no significant pleural effusi ons. Mediastinum: Mediastinal lymph nodes are at the upper limits of normal in size. Nallely: There is no evidence of pathologic hilar adenopathy given the limitations of a noncontrast stud y. Axilla: There is no evidence of pathologic axillary lymphadenopathy Upper abdomen: Partially visualized upper abdominal viscera is within normal limits. Skeletal structures: There are no lytic or blastic osseous lesions. IMPRESSION: 1. Pulmonary emphysema 2. Multilobar groundglass and nodular airspace opacities including a 5 cm masslike area of consolidat ion within the left lower lobe. In addition there is extensive lower lobe bronchial wall thickening a nd mucous plugging. 3. Although an infectious process is favored, neoplasm cannot be excluded, and a 6 week follow-up rebecca dy since with antibiotic therapy is recommended. ACT 112: Negative or not required by law. Electronically signed by: Fab Callaway M.D. 01/19/2020 11:35 AM
--- NOTE | 2020-01-19 11:41 | History & Physical Report ---
Date of Service January 19, 2020 Assessment & Plan (1) Sepsis with multi-organ dysfunction: 74 yo M with hx PAF, CAD, mitral regurg, COPD, CHF (EF 45%), bladder cancer s/p chemotherapy with bilateral nephrostomy tubes admitted for suspected sepsis with multiorgan failure, JUANITA on CKD with hyperkalemia, bradycardia with third-degree heart block, and acute on chronic hypoxic respiratory failure. Admitted to ICU - WBC 23.79, lactate 12.3, procal 1.8 - blood cultures pending - UA with culture ordered - trending procal - Resp viral panel positive only for rhino/enterovirus (covid19 neg) - Qsofa criteria: sys<100, altered mental status, RR>20 on higher o2 requirement - started empirically on vanc/zosyn, received one dose dapto and levofloxacin in ER - started on levophed for low MAP/diastolic in 30s/BP support - hypothermic to 35C on admission; started on bear hugger and warming - received 750 ml Fluid bolus in ER and 1 u pRBC - source less likely to be the rhino/entero, had significant pain on abdominal exam, possible intra-abdominal source causing likely bacteremia - continue to monitor mental status with hydration and progression of care (2) JUANITA (acute kidney injury): With acute kidney injury with creatinine up to 3.29 on admission with BUN 108 With metabolic acidosis, hyperkalemia Hydrated with 500 mL's of normal saline x3 and 250 mL's of normal saline x1 in the ER Likely secondary to ATN from hypotension and sepsis, some prerenal component Nephrostomy tubes are draining well and he does not urinate typically as per family Discussed possibility of dialysis with patient and family and they are thinking about it Follow serial labs Improve blood pressure (3) Hyperkalemia: K of 7 on admission to ED. Secondary to acute kidney injury. Had previous issues with this last admission. Somehow, oral potassium chloride is on his home medication reconciliation here and is on the home medication list that the daughter presents, however he was not supposed to be taking this based on discharge records from this facility from 1 week ago. This also likely contributed to his hyperkalemia. given 1 g Ca Gluconate, Insulin with D50, albuterol, 1 amp bicarb repeat BMP at 11am BMP Q4H consider kayexalate or repeating insulin, ca gluconate if K continues to be elevated Discussed possibility of dialysis with patient and family-they will think about it (4) Acute and chronic respiratory failure with hypoxia: chronically on 3L NC for COPD at home required escalation to 10L bipap in EMS/ED for proper O2 saturation recently discharged from hospital for pneumonia and was sent home on LInezolid and voriconazole O2 goal: >90% possible overlying CHF given crackles at bases on exam, CXR showing asymmetric LL base findings, moderate emphysema. CT chest shows more of an emphysematous picture with questionable masslike feature in left lower lobe, and extensive lower lobe bronchial wall thickening and mucous plugging Overlying respiratory acidosis 2/2 chronic COPD Continue home acetylcysteine nebulizers, albuterol nebulizer as needed (5) Acute delirium: Acute metabolic encephalopathy secondary to sepsis and renal failure Treating for both (6) CAD (coronary artery disease): hold statin in setting of elevated LFTs continue ASA Not on beta-bambi (7) S/P mitral valve repair: Noted (8) Malignant neoplasm metastatic from bladder: With bladder mass causing outlet obstruction requiring bilateral nephrostomy tubes With known metastases to the spine Holding home OxyContin in the setting of altered mental status Instead can use IV Dilaudid as needed as needed pain Patient and family have decided to stop receiving chemotherapy as it was palliative anyway and is causing too many problems Palliative care consultation requested (9) Paroxysmal atrial fibrillation: With a history of paroxysmal atrial fibrillation, is on Eliquis for anticoagulation Here with bradycardia and third-degree heart block likely secondary to hyperkalemia Holding home apixaban while critically ill in case of need for procedures Holding home amiodarone also due to bradycardia Monitor on telemetry (10) Anemia: Hg 7.3 on admission, likely secondary to antineoplastic therapy transfused 1 u pRBC upon admission can consider FOBT/iron studies for eval of bleeding source unsure if pt has ever had colonoscopy but would not be a good candidate for that at this time Present on Admission?: Yes (11) Chronic respiratory acidosis: As noted above (12) Metabolic acidosis, increased anion gap: most likely secondary to lactic acidosis (lactate 12.3) questionable mesenteric ischemia from end organ failure/low cardiac output with bradycardia received 1 amp bicarb in ED treat underlying sepsis as above Follow BMP (13) Third degree heart block: HR of 30 at home, responded to atropine IV questionable 3rd degree heart block on EKG from EMS EKG in ED showing sinus lupe vs. 3rd degree block with peaked t waves and widened QRS most likely secondary to Hyperkalemia repeat EKG tele monitoring external pacing pads as above for hyperkalemia treatment (14) Shock liver: AST 2411 ALt 1619 Alk phos 100 previously normal, no liver disease hx most likely end organ damage from septic shock repeat CMP in AM to follow progression (15) Antineoplastic chemotherapy induced pancytopenia: (16) S/P CABG (coronary artery bypass graft): (17) Chronic combined systolic and diastolic congestive heart failure: With lower extremity edema but with hypotension requiring pressors limiting diuresis EF 45% Checking echocardiogram Hold home furosemide (18) Elevated troponin: Mildly elevated troponin likely secondary to myocardial demand ischemia and poor perfusion during third-degree heart block ECG with left bundle branch block which is old and peaked T waves which are new Trend serial troponin, ECG Check echocardiogram (19) DVT prophylaxis: Eliquis placed on hold DVT ppx: SCDs, medical therapy held in setting of anemia and blood transfusion and possible need for procedure FEN/GI: NPO Code status: DNR/DNI Dispo: ICU Discussed very poor prognosis with patient and his family. Palliative care consultation is requested for goals of care and possible transition to home hospice if not improving History of Present Illness 74 yo M with PMH chronic combined systolic and diastolic CHF (45% 12/09/19), COPD, CAD, Mitral regurg s/p repair, PAF, metastatic bladder cancer with mets to bones s/p 2 rounds of chemotherapy, pancytopenia 2/2 chemotherapy, who presents to the ED by EMS with his daughter today after worsening mentation and "seizure like" activity. History mostly from daughter. She states that his mentation has been worsening for the past 2 days, with him getting more and more confused, unable to focus, not able to carry on a conversation. Denied any chest pain, trouble breathing, nausea, vomiting, changes in bowel movements. Daughter stated urine had been darker but no complaints from patient of pain with urination. Daughter also states that he has been moving his bowels less and had one episode of emesis on friday where he threw up the food he ate on friday. She states there have been no new covid exposures to either of them in the house, and the only people going in and out of the house were the nurses helping take care of him. The acute event this morning was described as him sitting on the edge of the bed when his entire torso all of a sudden started "helicoptering" and swaying in circles with additional flailing of his arms. She describes him as having been "shields in the face and blue in the arms" and then falling backwards and hitting the back of his head on the wall. He is being admitted to the ICU for septic vs. cardiogenic shock, bradycardia secondary to third-degree heart block, and acute kidney injury with hyperkalemia No pertinent contributory family history. Primary Care Provider: Lakisha Carson PA-C Allergies Allergy/AdvReac Type Severity Reaction Status Date / Time No Known Allergies Allergy Verified 01/19/20 10:15 Home Medications Home Medications Medication Instructions Recorded Confirmed Type Eliquis 5 mg PO BID 12/08/19 01/19/20 History albuterol sulfate 2 puff INHALATION QID PRN 12/08/19 01/19/20 History aspirin [Aspir-81] 81 mg PO QAM 12/08/19 01/19/20 History melatonin 5 mg PO HS 12/08/19 01/19/20 History olanzapine 2.5 mg PO HS 12/08/19 01/19/20 History oxybutynin chloride 10 mg PO QAM 12/08/19 01/19/20 History amiodarone 200 mg PO BID #60 tab 12/10/19 01/19/20 Rx atorvastatin 40 mg PO PM #30 tab 12/10/19 01/19/20 Rx oxycodone-acetaminophen [Percocet] 1 tab PO Q6H PRN #10 tab 12/14/19 01/19/20 Rx docusate sodium 100 mg capsule 100 mg PO BID PRN cap 12/31/19 01/19/20 History prednisone 10 mg PO DAILY #30 tab 01/09/20 01/19/20 Rx voriconazole 200 mg PO Q12H #20 tab 01/09/20 01/19/20 Rx acetylcysteine 4 ml INHALATION Q12R PRN #100 ml 01/10/20 01/19/20 Rx furosemide 20 mg PO DAILY PRN #20 tab 01/10/20 01/19/20 Rx ipratropium-albuterol 3 ml NEB Q6H PRN #90 ml 01/10/20 01/19/20 Rx ondansetron 4 mg PO Q6H PRN 01/19/20 01/19/20 History oxycodone 20 mg PO BID 01/19/20 01/19/20 History pantoprazole 20 mg PO QAM 01/19/20 01/19/20 History potassium chloride 20 meq PO QAM 01/19/20 01/19/20 History tamsulosin 0.4 mg PO BID 01/19/20 01/19/20 History Past Med/Surg History Medical History (Updated 01/19/20 @ 20:56 by Mary Jo Diaz MD) Abdominal aortic aneurysm S/p previous stent placement; per 12/08/19 CT scan - "Fusiform aneurysm dilation of the abdominal aorta with aortobiiliac stent graft. Aneurysm measures up to approximately 4.1 x 4.8 cm. Femoral-femoral bypass graft. Abdominal pain, lower Acute and chronic respiratory failure with hypoxia Acute kidney injury superimposed on CKD Anemia Hgb 6.9 on 12/08/19- did get packed RBCs when admitted to [facility] Bladder cancer DX 6 WEEKS AGO > HAS HAD 1ST ROUND CHEMO CAD (coronary artery disease) S/p CABG 3 vessel 2012 or 2013 Chronic combined systolic and diastolic congestive heart failure Will be following with [facility] Chronic respiratory acidosis COPD (chronic obstructive pulmonary disease) WELL CONTROLLED PER PT Cough DVT (deep venous thrombosis) left leg > 2016 > unknown cause Dyslipidemia Edema, peripheral JUST DC FROM [facility] FOR THIS PER PT 12/08/19 Hard of hearing Hypoalbuminemia Malignant neoplasm metastatic from bladder Metabolic acidosis, increased anion gap Mitral regurgitation S/p MV repair Nausea & vomiting Paroxysmal atrial fibrillation DX OCTOBER 2019 > NO CARDIOVERSIONS Poor historian Sepsis with multi-organ dysfunction Shock liver Status post admission to intensive care unit Third degree heart block Surgical History History of cardiac cath 5 yrs ago> no known cardiac stents History of CEA (carotid endarterectomy) 6 YRS AGO- NO MENTION OF CEA PER RECORDS- NO RECENT CAROTID IMAGING ON FILE EITHER History of endovascular stent graft for abdominal aortic aneurysm History of left hip replacement History of pelvic surgery Fractured pelvis repair History of tooth extraction Hx of appendectomy Hx of CABG 7 YRS AGO > ORTHODOX IN [place] > TRIPLE BYPASS> FOLLOWS DR. COOK IN [place] S/P mitral valve repair 2018 per records > [facility] Family History Father Colon cancer Social History Smoking Status: Former smoker Tobacco Type: Cigarettes Second Hand Exposure: Yes; Hx Alcohol Use: No Hx Substance Use: No Preferred Language: German Communication Ability: Effective Fur Cleaner Required: No Beliefs That Will Affect Care: None marital status: Unknown Current Living Situation: Family Current Living Situation Comment: Daughter Feels Safe at Home: Yes Assistive Devices: BiPap, Glasses and Oxygen - Continuous Review of Systems Constitutional: + fatigue, + weakness and + anorexia; no fever, no chills and no sweats Respiratory: + dyspnea; no cough, no change in sputum, no pain on inspiration and no wheezing Cardiovascular: + syncope and + edema; no chest pain and no palpitations Gastrointestinal: + abdominal pain and + vomiting; no nausea, no constipation, no diarrhea/loose stools, no blood in stools and no melena Genitourinary: no dysuria Neurologic: + syncope and + confusion Physical Exam Physical Exam: Constitutional: Chronically ill-appearing elderly male lying in bed on room air hunger with BiPAP Functional status Pulm: Clear to auscultation bilaterally moving air appropriately no retractions or increased work of breathing while on BiPAP, bibasilar crackles Cardiac: Difficult to auscultate over breathing, regular rate on telemetry monitoring, no murmurs gallops rubs appreciated Chest: Multiple bruises on the arms from the most likely previous IV sticks port in upper right chest GI: Tender to palpation of epigastric and right lower quadrant, hypoactive bowel sounds, nondistended, no guarding, no rebound Back: Bilateral nephrostomy tubes in place without surrounding erythema or irritation, small cystic structure located above right sided nephrostomy tube, no tenderness to palpation of flanks bilaterally Extremities: 3+ pitting edema bilaterally to mid haile, poor peripheral pulses Skin: Pale, edematous, multiple bruises from previous IV sticks, no rashes noted Neuro: Able to carry conversation but intermittently delirious and reaching for things that are not there, freely moving upper extremities on his own Results & Data Results & Data ([facility]) Vital Signs (Past 12 Hours) Vital Signs Temp Pulse Pulse Resp BP Pulse Ox 01/19/20 10:45 69 15 118/38 L 100 01/19/20 10:31 70 19 115/27 L 100 01/19/20 10:30 70 17 100 01/19/20 10:15 73 19 100 01/19/20 10:00 64 19 105/40 L 83 L 01/19/20 09:46 58 L 20 88/32 L 01/19/20 09:34 60 19 91/29 L 100 01/19/20 09:18 65 65 24 100 01/19/20 08:54 46 L 18 115/32 L 01/19/20 08:53 48 L 21 100/25 L 01/19/20 08:41 35 C L 48 L 22 115/32 L 96 Laboratory Results WBC 23.79 K/uL (4.8-10.8) H 01/19/20 09:30 RBC 2.40 M/uL (4.7-6.1) L 01/19/20 09:30 Hgb 7.3 g/dL (14.0-18.0) L 01/19/20 09:30 POC Hgb 7.1 g/dl (14.0-18.0) L 01/19/20 09:23 Hct 23.2 % (42-52) L 01/19/20 09:30 POC Hct 21 % (42-52) L 01/19/20 09:23 MCV 96.7 fL (80-100) 01/19/20 09:30 MCH 30.4 pg (25-34) 01/19/20 09:30 MCHC 31.5 g/dL (32-36) L 01/19/20 09:30 RDW Std Deviation 61.0 fL (36.4-46.3) H 01/19/20 09:30 RDW Coeff of Qiana 19.2 % (11.5-14.5) H 01/19/20 09:30 Plt Count 105 K/uL (130-400) L 01/19/20 09:30 MPV 13.0 fL (7.4-10.4) H 01/19/20 09:30 Immature Gran % (Auto) 0.8 % 01/19/20 09:30 Neut % (Auto) 92.0 % 01/19/20 09:30 Lymph % (Auto) 3.6 % 01/19/20 09:30 Howell % (Auto) 3.6 % 01/19/20 09:30 Eos % (Auto) 0.0 % 01/19/20 09:30 Baso % (Auto) 0.0 % 01/19/20 09:30 Neut # (Auto) 21.88 K/uL (1.4-6.5) H 01/19/20 09:30 Lymph # (Auto) 0.85 K/uL (1.2-3.4) L 01/19/20 09:30 Howell # (Auto) 0.86 K/uL (0.11-0.59) H 01/19/20 09:30 Eos # (Auto) 0.00 K/uL (0-0.5) 01/19/20 09:30 Baso # (Auto) 0.00 K/uL (0-0.2) 01/19/20 09:30 Immature Gran # (Auto) 0.20 K/uL (0.00-0.02) H 01/19/20 09:30 Absolute Nucleated RBC 0.14 K/uL (0-0) H 01/19/20 09:30 Nucleated RBC % (auto) 0.6 % 01/19/20 09:30 Platelet Estimate Decreased (Normal) L 01/19/20 09:30 PT 22.2 Seconds (9.0-12.0) H 01/19/20 09:30 INR 2.2 (0.9-1.1) H 01/19/20 09:30 APTT 33.3 Seconds (21.0-31.0) H 01/19/20 09:30 PTT Ratio 1.2 01/19/20 09:30 VBG pH 7.21 (7.36-7.41) L 01/19/20 09:30 VBG pCO2 44 mmHg (38-50) 01/19/20 09:30 VBG pO2 45 mmHg 01/19/20 09:30 VBG HCO3 17 mmol/L 01/19/20 09:30 VBG O2 Saturation 66.7 % 01/19/20 09:30 VBG Base Excess -9.7 mEq/L 01/19/20 09:30 Barometric Pressure 732.6 mm/Hg 01/19/20 09:30 POC Sodium 137 mmol/L (135-144) 01/19/20 09:23 Sodium 142 mmol/L (136-145) 01/19/20 11:54 POC Potassium 7.0 mmol/L (3.3-5.0) H* 01/19/20 09:23 Potassium 6.0 mmol/L (3.5-5.1) H 01/19/20 11:54 POC Chloride 104 mmol/L (101-112) 01/19/20 09:23 Chloride 105 mmol/L (98-107) 01/19/20 11:54 Carbon Dioxide 21 mmol/L (21-32) 01/19/20 11:54 POC Total CO2 18 mmol/L (24-31) L 01/19/20 09:23 Anion Gap 16.0 (3-11) H 01/19/20 11:54 POC Anion Gap 23.0 mmol/L (16-25) 01/19/20 09:23 POC BUN 107 mg/dl (7-18) H* 01/19/20 09:23 BUN 110 mg/dl (7-18) H 01/19/20 11:54 Creatinine 3.20 mg/dl (0.6-1.4) H 01/19/20 11:54 POC Creatinine 3.3 mg/dl (0.6-1.3) H 01/19/20 09:23 Est Cr Clr Drug Dosing 16.2 ml/min 01/19/20 11:54 Est GFR ( Amer) 20.7 01/19/20 11:54 Est GFR (Non-Af Amer) 17.8 01/19/20 11:54 BUN/Creatinine Ratio 34.4 (10-20) H 01/19/20 11:54 Glucose 193 mg/dl (70-99) H 01/19/20 11:54 POC Glucose (other) 131 mg/dl (70-99) H 01/19/20 09:23 Lactate 9.7 mmol/L (0.4-2.0) H* 01/19/20 11:53 Calcium 8.0 mg/dl (8.5-10.1) L 01/19/20 11:54 POC Ioniz Calcium Pollo 1.04 mmol/l (1.12-1.32) L 01/19/20 09:23 Magnesium 2.9 mg/dl (1.8-2.4) H 01/19/20 09:30 Total Bilirubin 1.0 mg/dl (0.2-1) 01/19/20 09:30 AST 2411 U/L (15-37) H 01/19/20 09:30 ALT 1619 U/L (12-78) H 01/19/20 09:30 Alkaline Phosphatase 100 U/L (45-117) 01/19/20 09:30 Total Creatine Kinase 763 U/L (39-308) H 01/19/20 09:30 CK-MB (CK-2) 14.7 ng/ml (0.5-3.6) H 01/19/20 09: CK/CKMB % Calc 1.9 (0-3.0) 01/19/20 09: Troponin I 0.386 ng/ml (0-0.045) H* 01/19/20 09:30 Total Protein 5.1 gm/dl (6.4-8.2) L 01/19/20 09:30 Albumin 2.4 gm/dl (3.4-5.0) L 01/19/20 09:30 Globulin 2.7 gm/dl (2.5-4.0) 01/19/20 09: Albumin/Globulin Ratio 0.9 (0.9-2) 01/19/20 09:30 Procalcitonin 1.87 ng/ml (0-0.5) H 01/19/20 09:30 Specimen Hemolysis 01/19/20 09:30 Adenovirus (PCR) Not Detected (NotDetected) 01/19/20 11:01 B. pertussis DNA (PCR) Not Detected (NotDetected) 01/19/20 11:01 B.parapertussis DNA PCR Not Detected (NotDetected) 01/19/20 11:01 C. pneumoniae DNA (PCR) Not Detected (NotDetected) 01/19/20 11:01 Coronavirus OC43 (PCR) Not Detected (NotDetected) 01/19/20 11:01 Coronavirus HKU1 (PCR) Not Detected (NotDetected) 01/19/20 11:01 Coronavirus 229E (PCR) Not Detected (NotDetected) 01/19/20 11:01 COVID-19 PCR Not Detected (NotDetected) 01/19/20 11:01 Coronavirus NL63 (PCR) Not Detected (NotDetected) 01/19/20 11:01 Human Metapneumovir PCR Not Detected (NotDetected) 01/19/20 11:01 Influenza Type A (PCR) Not Detected (NotDetected) 01/19/20 11:01 Influenza Type B (PCR) Not Detected (NotDetected) 01/19/20 11:01 M. pneumoniae (PCR) Not Detected (NotDetected) 01/19/20 11:01 Parainfluenza 1 (PCR) Not Detected (NotDetected) 01/19/20 11:01 Parainfluenza 2 (PCR) Not Detected (NotDetected) 01/19/20 11:01 Parainfluenza 3 (PCR) Not Detected (NotDetected) 01/19/20 11:01 Parainfluenza 4 (PCR) Not Detected (NotDetected) 01/19/20 11:01 RSV (PCR) Not Detected (NotDetected) 01/19/20 11:01 Entero/Rhino (PCR) DETECTED (NotDetected) A* 01/19/20 11:01 Blood Type O Positive 01/19/20 09:56 Antibody Screen NEGATIVE 01/19/20 09:56 Crossmatch See Detail 01/19/20 09:56 CT Chest: 1. Pulmonary emphysema 2. Multilobar groundglass and nodular airspace opacities including a 5 cm masslike area of consolidation within the left lower lobe. In addition there is extensive lower lobe bronchial wall thickening and mucous plugging. 3. Although an infectious process is favored, neoplasm cannot be excluded, and a 6 week follow-up study since with antibiotic therapy is recommended. CT Head: 1. Persistent inflammatory changes in the paranasal sinuses 2. No acute intracranial findings EKG interpretation: wide QRS, LBBB, peaked T waves, questionable third degree heart block vs. sinus lupe with shortened MN interval VB.21/44/45/17 anion gap: 21 Code Status & VTE Plan VTE Prophylaxis Plan VTE Prophylaxis will be ordered: Yes Supervising Physician Co-Signing Physician Notes I personally examined the patient and verified all small points of history and exam, discussed case, and agree with decision making with Dr. Barclay with the following additions/exceptions: This patient is a 74-year-old male with metastatic bladder cancer to the bones with bilateral nephrostomy tubes, COPD, CAD status post CABG and mitral valve repair, PAF on Eliquis, chronic combined systolic and diastolic CHF, anxiety disorder, AAA status post graft, chronic respiratory failure with hypoxia, and carotid artery stenosis, with recent admission for pneumonia and UTI along with hyperkalemia. He presents to the ER today after worsening encephalopathy and lethargy over the last 2 days after his daughter noted him to be sitting up on the side of his bed and flailing around, turned moralez in the face and blue in the limbs and then fell backwards. EMS was called and found him to be in third- degree heart block and he was given atropine. Upon arrival, he was found to be severely hyperkalemic, with acute kidney injury, shock liver, severe lactic acidosis, and hypotensive and hypothermic. He was also quite anemic at 7.3. Procalcitonin was elevated at 1.82. Troponin was mildly elevated at 0.386. Chest x-ray and chest CT significant for mucous plugging and left lower lobe masslike consolidation similar to previous. He also became hypoxic and was placed on BiPAP. He was treated for his hyperkalemia with IV insulin and D50, albuterol nebulizer, calcium gluconate, and 1 amp of sodium bicarbonate. He was placed on Levophed. When I saw him, he was mentating a little bit more and was on Levophed. I discussed his case with his daughter and son at the bedside as well. He denied any pain anywhere, denies shortness of breath and had been transitioned to an oxygen mask off of BiPAP. His heart rate was improved into the 50s. He denied chest pain or abdominal pain except for in the lower abdomen. History and ROS reviewed as above Vitals reviewed Gen: Cachectic, ill-appearing, no acute distress, drowsy at times but did wake up and answer most questions appropriately HEENT: Anicteric sclerae, EOMI, PERRL, oropharynx with very dry mucous membranes CV: Regular rhythm, bradycardic, 2/6 systolic murmur heard at the apex Pulm: With bibasilar crackles and rhonchi Abd: +BS soft minimal tenderness in the suprapubic region without guarding or rebound ND no masses or hernias Ext: 3+ pitting edema of the bilateral lower extremities to the thighs, 2+ DP pulses Skin: No rashes, warm/dry Neuro: Alert awake oriented x2, can move all 4 extremities but generally weak throughout Laboratory values reviewed, radiology reports reviewed, ECG reviewed 74-year-old male with history as above, here with acute kidney injury, hyperkalemia, third-degree heart block with cardiogenic versus septic shock, lactic acidosis, and acute on chronic respiratory failure with hypoxia. He is critically ill Case discussed with the rehabilitation clerk-admitted to the ICU Neuro: Hold home opioids and use as needed Dilaudid as needed for bony pain from cancer. He reports that his daughter is his decision maker and he defers to her for this. Continue home olanzapine at bedtime. CV: With 3rd degree heart block upon admission with heart rate in the 30s likely secondary to severe hyperkalemia. Correct the metabolic disturbances and this should improve. With a chronic LBBB and mildly reduced EF with known diastolic CHF, will check echocardiogram. Mildly elevated troponin likely myocardial demand ischemia-trend troponin and EKG. Monitor on telemetry for continued heart block. With a history of paroxysmal atrial fibrillation-none noted at this time, holding Eliquis and amiodarone as above. With a history of CAD status post CABG and mitral valve repair-holding statin for elevated LFTs, continue aspirin. Pulmonary: With acute on chronic respiratory failure with hypoxia, requiring 10 L on BiPAP upon admission and then weaned to oxygen mask. Typically is on 3 L nasal cannula at home since last admission. Continue respiratory support and wean off oxygen down to 3 L as able to. With a history of COPD. Continue acetylcysteine and albuterol for history of mucous plugging. CT chest with masslike consolidation which could be tumor versus pneumonia. Pulmonary/critical care is following. ID: With likely sepsis as above and lactic acidosis with multisystem organ failure. Hypothermia now improved with Kain hugger. UA was not collected at the time of admission but is now showing evidence of UTI. He was just admitted and had treatment for pneumonia as well as UTI with 2 different species of enterococcus as well as yeast not Emily albicans. He has nephrostomy tubes in place as well as a port. Follow blood cultures, urine culture, procalcitonin, CBC. Continue empiric Zosyn, vancomycin, and doxycycline. Did also get full treatment of voriconazole and will hold off on antifungal at this time. Gastrointestinal: With shock liver and significantly elevated LFTs. Likely secondary to hypotension and cardiogenic shock. Holding statin, follow LFTs. Keep n.p.o. for now until more awake and alert. Renal/: With acute kidney injury and hyperkalemia. With nephrostomy tubes in place draining urine, does not urinate through the penis. Continue tamsulosin and place Chiu catheter in case of bladder outlet obstruction contributing to acute kidney injury. Treatment for acute hyperkalemia as above. Continue to f ollow serial BMP. May end up needing dialysis. Endocrine: No history of diabetes. ICU hyperglycemia protocol. Heme: Worsening anemia with hemoglobin 7.3, with antineoplastic effect causing anemia and thrombocytopenia. Treating with palliative chemotherapy for bladder cancer which will now be discontinued. Transfused 1 unit PRBCs. Follow CBC in the morning. FEN: Has port in place, peripheral IV, n.p.o. for now, follow electrolytes as above with renal failure. Place Chiu catheter, has nephrostomy tubes in place. DVT prophylaxis-holding home Eliquis but could consider subcu heparin-we will defer to rehabilitation clerk. GI prophylaxis-PPI Disposition-admit to ICU, prognosis very guarded DNR/DNI as discussed with his daughter who is the HC POA. Palliative care consultation placed Resident Activity Tracking Resident Involvement: Resident Care Provided Care Provided: Adult Hospital Medicine (1) Anemia Anemia type: unspecified type Qualified Code(s): D64.9 - Anemia, unspecified
[2020-01-19] MEDS ORDERED: VANCOMYCIN HCL 1,250 MG in SODIUM CHLORIDE 0.9% 250 ML IV ONE ×2 (11:45→15:30)
[2020-01-19 12:21] LABS: BUN Creatinine Ratio 34.4 (10-20); Creatinine Clr Calc Pharmacy 16.2 ml/min; Est GFR (African American) 20.7; Est GFR (Non-African American) 17.8
[2020-01-19 12:21] LABS: Adenovirus PCR Not Detected (NotDetected); Bordetella parapertussis PCR Not Detected (NotDetected); Bordetella pertussis PCR Not Detected (NotDetected); Chlamydia pneumoniae PCR Not Detected (NotDetected); Coronavirus 229E PCR Not Detected (NotDetected); Coronavirus CoV-2 (COVID19)PCR Not Detected (NotDetected); Coronavirus HKU1 PCR Not Detected (NotDetected); Coronavirus NL63 PCR Not Detected (NotDetected); Coronavirus OC43PCR Not Detected (NotDetected); Human Metapneumovirus PCR Not Detected (NotDetected); Influenza A PCR Not Detected (NotDetected); Influenza B PCR Not Detected (NotDetected); Mycoplasma pneumoniae PCR Not Detected (NotDetected); Parainfluenza Virus 1 PCR Not Detected (NotDetected); Parainfluenza Virus 2 PCR Not Detected (NotDetected); Parainfluenza Virus 3 PCR Not Detected (NotDetected); Parainfluenza Virus 4 PCR Not Detected (NotDetected); Respiratory Syncytial VirusPCR Not Detected (NotDetected)
[2020-01-19 12:39] LABS: Rhinovirus/Enterovirus PCR DETECTED (NotDetected)
[2020-01-19] MEDS ORDERED: ICU PROTOCOL FOR HYPERGLYCEMIA PRN (14:48)
[2020-01-19] MEDS ORDERED: DOCUSATE SODIUM 100 MG CAP PO PRN (14:48)
[2020-01-19] MEDS ORDERED: ACETYLCYSTEINE 20% INHAL SOLN 4ML ***DISPENSED BY RESP. INH PRN (14:48)
[2020-01-19] MEDS ORDERED: ALBUT/IPRATROP 3MG/0.5MG NEB 3 ML VIAL NEB PRN (14:48)
[2020-01-19] MEDS ORDERED: ALBUTEROL HFA 8 GM INHALER INH PRN (14:48)
[2020-01-19] MEDS ORDERED: HYDROmorphone INJ 0.5 MG/0.5 ML SYR IV PRN (14:48)
--- NOTE | 2020-01-19 15:02 | Critical Care Consultation ---
Date of Consultation January 19, 2020 Assessment & Plan (1) Status post admission to intensive care unit: 74-year-old male with a past medical history of bladder cancer status post chemotherapy with pancytopenia, reduced ejection fraction, mitral regurgitation, paroxysmal atrial fibrillation and COPD presenting to the hospital in septic shock with multiorgan failure and hyperkalemia causing bradycardia. Patient was discussed with bedside RN. Assessment and Plan: -Septic shock with multiorgan failure -JUANITA -Hyperkalemia -Pancytopenia -Bradycardia -Metabolic encephalopathy -Acute hypoxemic respiratory failure with enterovirus/rhinovirus -Acute liver failure -Lactic acidosis Neurologic: Patient with metabolic encephalopathy. Avoid mind altering agents. CT head negative for acute findings. Pulmonary: CT chest with evidence of multilobar groundglass and nodular opacities with bronchial wall thickening. Left lower lobe consolidation of 5 cm noted. Patient is positive for enterovirus/rhinovirus. Continue droplet precautions. Continue antibiotics with vancomycin and Zosyn. We will add doxycycline as well. Continue aspiration precautions. Cardiovascular: Currently requiring Levophed to maintain mean arterial pressure above 65. Patient with a history of systolic heart failure and paroxysmal atrial fibrillation. Holding amiodarone at this time given bradycardia likely related to hyperkalemia. Heart rate appears to be improving with correction of hyper kalemia and fluid resuscitation. Cardiology has been consulted. Holding anticoagulation for his paroxysmal atrial fibrillation given his ongoing anemia. Patient will need pacer pads on place. Repeating EKG. Gastrointestinal: N.p.o. Stress ulcer prophylaxis: Famotidine 20 mg daily. LFTs with evidence of shock liver. Will obtain acetaminophen level given the acidosis and LFT derangements. INR is 2.2. Will check fibrinogen level. Renal: Patient with JUANITA. Continue fluid hydration. Judicious use of fluids given his underlying CHF and hypoalbuminemic state. Receiving blood as well. Treat hyperkalemia with conservative means at this time. He would be a very poor candidate for hemodialysis. May need to touch base with family if hyperkalemia persists. Infectious disease: We will need urine cultures from the bilateral nephrostomy tubes. Blood cultures pending. Procalcitonin elevated. Antibiotics as above. Hematologic: Patient with acute anemia receiving 1 unit packed RBCs. Check fibrinogen level. INR elevated. Possibly related to acute liver failure. Check peripheral smear. Endocrine: Insulin protocol per ICU. Lines and tubes: Port in place. Peripheral IVs in place. Nephrostomy tubes in place. VTE prophylaxis: SCD CODE STATUS: DNR/DNI Family at bedside: No family available at bedside. Disposition: Remain in the ICU today. Prognosis overall is extremely poor. Palliative care consulted. I have personally spent 43 minutes of critical care time in the direct management of this patient. This is a life/limb threatening event. This includes time spent evaluating patient, direct bedside care, chart review, placing orders, interpretation of diagnostic studies, discussion with consultants, patient, and family members, as well as other required patient management activities. This time is exclusive of all separately billable procedures, and teaching time and separate from and in addition to any other critical care service time. Thank you for allowing us to participate in the care of this patient. (2) Antineoplastic chemotherapy induced pancytopenia: (3) Acute respiratory failure with hypoxia: (4) Nephrostomy status: (5) Malignant neoplasm metastatic from bladder: (6) Mitral regurgitation: (7) S/P CABG (coronary artery bypass graft): (8) Paroxysmal atrial fibrillation: (9) Chronic combined systolic and diastolic congestive heart failure: History of Present Illness Reason for Consultation: Septic shock and renal failure with hyperkalemia Requesting Physician: Dr. Mary Jo Diaz Attending Physician: Mary Jo Diaz MD History of Present Illness 74-year-old male with a recent diagnosis of bladder cancer with metastatic disease to the bones, coronary artery disease, hypertension, paroxysmal atrial fibrillation and COPD who is presenting to the hospital with altered mental status and septic shock. Patient's history is a bit limited as he is lethargic. Per the HPI the hospitalist was able to discuss with the family regarding the events prior to admission. Apparently he was altered and had seizure-like activity. His mentation has been worsening for last couple days. He does endorse some increasing shortness of breath. Patient notes that he has been essentially bedbound the last several days. He notes that his urine has been less frequent. He does have bilateral nephrostomy tubes. He recently on chemotherapy. Lactic acid on arrival was 12.5. He was hypotensive in the ER and Levophed was started through his port. Patient received vancomycin, daptomycin and Zosyn in the ER. Patient was also found to be hyperkalemic with a potassium of 7. He was very bradycardic rate of 30 and did respond to atropine. He received calcium gluconate, insulin/D50, albuterol and 1 amp of bicarb. He also received 1.5 L of volume and is now getting a blood transfusion for his anemia. Allergies Allergy/AdvReac Type Severity Reaction Status Date / Time No Known Allergies Allergy Verified 01/19/20 10:15 Home Medications Home Medications Medication Instructions Recorded Confirmed Type Eliquis 5 mg PO BID 12/08/19 01/19/20 History albuterol sulfate 2 puff INHALATION QID PRN 12/08/19 01/19/20 History aspirin [Aspir-81] 81 mg PO QAM 12/08/19 01/19/20 History melatonin 5 mg PO HS 12/08/19 01/19/20 History olanzapine 2.5 mg PO HS 12/08/19 01/19/20 History oxybutynin chloride 10 mg PO QAM 12/08/19 01/19/20 History amiodarone 200 mg PO BID #60 tab 12/10/19 01/19/20 Rx atorvastatin 40 mg PO PM #30 tab 12/10/19 01/19/20 Rx oxycodone-acetaminophen [Percocet] 1 tab PO Q6H PRN #10 tab 12/14/19 01/19/20 Rx docusate sodium 100 mg capsule 100 mg PO BID PRN cap 12/31/19 01/19/20 History prednisone 10 mg PO DAILY #30 tab 01/09/20 01/19/20 Rx voriconazole 200 mg PO Q12H #20 tab 01/09/20 01/19/20 Rx acetylcysteine 4 ml INHALATION Q12R PRN #100 ml 01/10/20 01/19/20 Rx furosemide 20 mg PO DAILY PRN #20 tab 01/10/20 01/19/20 Rx ipratropium-albuterol 3 ml NEB Q6H PRN #90 ml 01/10/20 01/19/20 Rx ondansetron 4 mg PO Q6H PRN 01/19/20 01/19/20 History oxycodone 20 mg PO BID 01/19/20 01/19/20 History pantoprazole 20 mg PO QAM 01/19/20 01/19/20 History potassium chloride 20 meq PO QAM 01/19/20 01/19/20 History tamsulosin 0.4 mg PO BID 01/19/20 01/19/20 History Patient History Medical History Abdominal aortic aneurysm S/p previous stent placement; per 12/08/19 CT scan - "Fusiform aneurysm dilation of the abdominal aorta with aortobiiliac stent graft. Aneurysm measures up to approximately 4.1 x 4.8 cm. Femoral-femoral bypass graft. Abdominal pain, lower Acute and chronic respiratory failure with hypoxia Acute kidney injury superimposed on CKD Anemia Hgb 6.9 on 12/08/19- did get packed RBCs when admitted to [facility] Bladder cancer DX 6 WEEKS AGO > HAS HAD 1ST ROUND CHEMO CAD (coronary artery disease) S/p CABG 3 vessel 2012 or 2013 Chronic combined systolic and diastolic congestive heart failure Will be following with [facility] Chronic respiratory acidosis COPD (chronic obstructive pulmonary disease) WELL CONTROLLED PER PT Cough DVT (deep venous thrombosis) left leg > 2016 > unknown cause Dyslipidemia Edema, peripheral JUST DC FROM [facility] FOR THIS PER PT 12/08/19 Hard of hearing Hypoalbuminemia Malignant neoplasm metastatic from bladder Metabolic acidosis, increased anion gap Mitral regurgitation S/p MV repair Nausea & vomiting Paroxysmal atrial fibrillation DX OCTOBER 2019 > NO CARDIOVERSIONS Poor historian Sepsis with multi-organ dysfunction Third degree heart block Surgical History History of cardiac cath 5 yrs ago> no known cardiac stents History of CEA (carotid endarterectomy) 6 YRS AGO- NO MENTION OF CEA PER RECORDS- NO RECENT CAROTID IMAGING ON FILE EITHER History of endovascular stent graft for abdominal aortic aneurysm History of left hip replacement History of pelvic surgery Fractured pelvis repair History of tooth extraction Hx of appendectomy Hx of CABG 7 YRS AGO > [facility] [place] > TRIPLE BY[facility] repair [facility] per records > [facility] Family History Father Colon cancer Social History Smoking Status: Former smoker Tobacco Type: Cigarettes Second Hand Exposure: Yes; Hx Alcohol Use: No Hx Substance Use: No Preferred Language: [place] Communication Ability: Effective Hot Box Operator Required: No Beliefs That Will Affect Care: None marital status: Single Current Living Situation: Family Current Living Situation Comment: daughter Feels Safe at Home: Yes Assistive Devices: Oxygen - Continuous Review of Systems Review of Systems: All systems reviewed & are unremarkable except as noted in HPI & below Physical Exam Constitutional: Frail and cachectic appearing male who is tachypneic. Eyes: PERRL, conjunctivae normal, anicteric sclerae ENMT: external ear and nose normal, oropharynx normal Neck: normal visual inspection Respiratory: Bilateral rhonchi. Tachypneic. Cardiovascular: Rate/Rhythm: + bradycardic Gastrointestinal (Abdomen): normal bowel sounds, soft, nontender, no hepatosplenomegaly Musculoskeletal: no cyanosis or clubbing, extremities motor strength 5/5 Neurologic: PERRL, EOMI, accommodation nl, no face palsy, no dysarthria Psychiatric: A+Ox3, euthymic affect Results & Data Results & Data ([facility]) Vital Signs (Past 12 Hours) Vital Signs Temp Pulse Pulse Resp BP BP Pulse Ox 01/19/20 14:30 98.6 F 65 18 125/40 L 95 01/19/20 14:05 100 01/19/20 13:30 62 17 122/41 L 100 01/19/20 13:15 54 L 13 109/30 L 100 01/19/20 13:01 67 17 111/64 100 01/19/20 13:00 69 19 100 01/19/20 12:51 96.8 F L 69 14 111/64 100 01/19/20 12:48 63 16 110/30 L 100 01/19/20 12:46 65 15 91/74 L 100 01/19/20 12:45 67 16 100 01/19/20 12:35 67 12 111/31 L 100 01/19/20 12:34 70 17 100 01/19/20 12:30 58 L 11 L 106/35 L 100 01/19/20 12:21 96.1 F L 67 14 106/31 L 100 01/19/20 12:16 66 19 111/25 L 100 01/19/20 12:15 66 19 100 01/19/20 12:06 95.5 F L 60 18 118/29 L 91 01/19/20 12:05 62 16 118/29 L 89 L 01/19/20 12:00 62 19 97/43 L 91 01/19/20 11:54 62 21 110/28 L 91 01/19/20 11:46 95.4 F L 60 23 84/50 L 90 01/19/20 11:45 63 20 92 01/19/20 11:32 64 19 94 01/19/20 11:30 63 18 119/35 L 91 01/19/20 11:29 64 16 119/53 L 88 L 01/19/20 11:28 66 20 88 L 01/19/20 11:00 67 17 131/36 L 100 01/19/20 10:45 69 15 118/38 L 100 01/19/20 10:31 70 19 115/27 L 100 01/19/20 10:30 70 17 100 01/19/20 10:15 73 19 100 01/19/20 10:00 64 19 105/40 L 83 L 01/19/20 09:46 58 L 20 88/32 L 01/19/20 09:34 60 19 91/29 L 100 01/19/20 09:18 65 65 24 100 01/19/20 08:54 46 L 18 115/32 L 01/19/20 08:53 48 L 21 100/25 L 01/19/20 08:41 95 F L 48 L 22 115/32 L 96 vital signs and labs reviewed along with imaging. Coding Level of Care Code Critical Care 1st 30-74 mins Diagnoses Status post admission to intensive care unit Antineoplastic chemotherapy induced pancytopenia D61.810; T45.1X5A Acute respiratory failure with hypoxia J96.01 Nephrostomy status Z93.6 Malignant neoplasm metastatic from bladder C67.9 Mitral regurgitation I34.0 S/P CABG (coronary artery bypass graft) Z95.1 Paroxysmal atrial fibrillation I48.0 Chronic combined systolic and diastolic congestive heart failure I50.42 Time Spent (min) 43
[2020-01-19 15:47] LABS: BUN Creatinine Ratio 34.2 (10-20); Calcium 8.4 mg/dl (8.5-10.1); Creatinine Clr Calc Pharmacy 15.8 ml/min; Est GFR (African American) 20.1; Est GFR (Non-African American) 17.3
[2020-01-19 16:02] LABS: Troponin I 0.756 ng/ml (0-0.045)
[2020-01-19] MEDS ORDERED: INSULIN HUMAN REGULAR PER UNIT 10 UNITS in SYRINGE 9.9 ML IV STA (16:14)
[2020-01-19] MEDS ORDERED: DEXTROSE 50% 50 ML SYRINGE IV STA (16:15)
[2020-01-19 16:46] LABS: Fibrinogen 321 mg/dl (184-400)
--- NOTE | 2020-01-19 16:57 | XCELERA ---
[id number]
[2020-01-19] MEDS: DOXYCYCLINE HYCLATE 100 MG in DEXTROSE 5% 100 ML IV SCH (16:59)
[2020-01-19 17:04] LABS: Appearance Urine Turbid (Clear); Bacteria Urine Automated Negative (Negative); Blood Urine 2+ (Negative); Blood Urine 3+ (Negative); Color Urine Orange; Glucose Urine UA Negative (Negative); Glucose Urine UA Trace (Negative); Ketones Urine Negative (Negative); Leukocyte Esterase Urine 2+ (Negative); Leukocyte Esterase Urine 3+ (Negative); Nitrite Urine Positive (Negative); Protein Urine 2+ (Negative); Protein Urine 3+ (Negative); Specific Gravity Urine 1.022 (1.000-1.030); Urobilinogen Urine Negative (Negative); WBC Urine Automated >30 /hpf (0-5); pH Urine 5.5 (4.5-7.5)
[2020-01-19] MEDS: PIPERACILLIN/TAZOBACTAM 3.375 GM in DEXTROSE 5% 100 ML IV SCH (17:10)
[2020-01-19 17:11] LABS: Bilirubin Urine Negative (Negative); Ictotest Urine Negative (Negative)
[2020-01-19 17:12] LABS: Bilirubin Urine Negative (Negative); Ictotest Urine Negative (Negative)
[2020-01-19 17:43] LABS: RBC Urine Automated >30 /hpf (0-4)
[2020-01-19 17:46] LABS: RBC Urine Automated >30 /hpf (0-4)
[2020-01-19 18:57] LABS: BUN Creatinine Ratio 34.7 (10-20); Calcium 8.3 mg/dl (8.5-10.1); Creatinine Clr Calc Pharmacy 15.5 ml/min; Est GFR (African American) 19.7
[2020-01-19] MEDS: TAMSULOSIN HCL 0.4 MG CAP PO SCH (20:23)
[2020-01-19] MEDS ORDERED: MELATONIN 3 MG TAB PO SCH (21:00)
[2020-01-19] MEDS ORDERED: OLANZAPINE 2.5 MG TAB PO SCH (21:00)
--- NOTE | 2020-01-19 21:18 | Billing Data ---
Date of Service January 19, 2020 Coding Level of Care Code 63346 Initial Inpt Care Lvl 3
--- NOTE | 2020-01-19 21:58 | Pharmacy Report ---
Pharmacy Abx Initial Consult - Date of Service January 19, 2020 - Pharmacy Dosing Scope Date of Consult: 01/19/20 Consultation requested by: Dr. Barclay Pharmacy is consulted to initiate Vancomycin IV dosing therapy, order appropriate labs and adjust drug dose/frequency. - Subjective The patient is a 74 year old M admitted on 01/19/20 11:19. - Objective Height: 5 ft 10 in Weight: 58.2 kg Vital Signs (Past 12hrs): Vital Signs Temp Pulse Pulse Resp BP BP Pulse Ox 01/19/20 21:02 70 20 125/25 L 92 01/19/20 20:31 66 18 164/27 H 90 01/19/20 20:05 58 L 14 95 01/19/20 20:00 36.5 C 58 L 12 137/27 L 94 01/19/20 19:30 58 L 12 139/30 L 97 01/19/20 19:19 59 L 17 145/26 H 95 01/19/20 19:00 61 13 134/32 L 96 01/19/20 18:30 74 18 153/33 H 96 01/19/20 18:00 37 C 63 18 145/20 H 94 01/19/20 17:31 66 17 135/22 L 94 01/19/20 17:25 66 19 151/38 H 94 01/19/20 17:01 62 20 151/38 H 94 01/19/20 17:00 63 25 H 96 01/19/20 16:06 68 19 118/47 L 98 01/19/20 16:01 62 14 154/31 H 97 01/19/20 16:00 37 C 59 L 12 96 01/19/20 15:32 62 19 143/31 H 95 01/19/20 15:30 60 15 94 01/19/20 15:09 64 16 91 01/19/20 14:30 37 C 65 18 125/40 L 95 01/19/20 14:15 37 C 60 18 118/44 L 94 01/19/20 14:05 100 01/19/20 13:30 62 17 122/41 L 100 01/19/20 13:15 54 L 13 109/30 L 100 01/19/20 13:01 67 17 111/64 100 01/19/20 13:00 69 19 100 01/19/20 12:51 36.0 C L 69 14 111/64 100 01/19/20 12:48 63 16 110/30 L 100 01/19/20 12:46 65 15 91/74 L 100 01/19/20 12:45 67 16 100 01/19/20 12:35 67 12 111/31 L 01/19/20 12:34 70 17 01/19/20 12:30 58 L 11 L 106/35 L 01/19/20 12:21 35.6 C L 67 14 106/31 L 01/19/20 12:16 66 19 111/25 L 01/19/20 12:15 66 19 01/19/20 12:06 35.3 C L 60 18 118/29 L 91 01/19/20 12:05 62 16 118/29 L 89 L 01/19/20 12:00 62 19 97/43 L 01/19/20 11:54 62 21 110/28 L 91 01/19/20 11:46 35.2 C L 60 23 84/50 L 90 01/19/20 11:45 63 20 92 01/19/20 11:32 64 19 94 01/19/20 11:30 63 18 119/35 L 01/19/20 11:29 64 16 119/53 L 88 L 01/19/20 11:28 66 20 88 L 01/19/20 11:00 67 17 131/36 L 01/19/20 10:45 69 15 118/38 L 01/19/20 10:31 70 19 115/27 L 01/19/20 10:30 70 17 100 01/19/20 10:15 73 19 100 01/19/20 10:00 64 19 105/40 L 83 L Lab Results (24hrs): Laboratory Tests (24 Hours) 01/19/20 01/19/20 01/19/20 18:31 15:14 11:54 WBC Neut # (Auto) Creatinine 3.33 H 3.28 H 3.20 H Est Cr Clr Drug Dosing 15.5 15.8 16.2 Total Creatine Kinase Procalcitonin 01/19/20 01/19/20 01/19/20 09:30 09:30 09:30 WBC 23.79 H Neut # (Auto) 21.88 H Creatinine 3.29 H Est Cr Clr Drug Dosing 15.7 Total Creatine Kinase 763 H Procalcitonin 1.87 H Micro Results: 01/19/20 Unknown Urine Culture - Pending Urine,Kidney 01/19/20 Unknown Urine Culture - Pending Urine,Clean Catch 01/19/20 09:45 Aerobic Blood Culture - Pending Blood Anaerobic Blood Culture - Pending 01/19/20 09:50 Aerobic Blood Culture - Pending Blood Anaerobic Blood Culture - Pending - Risk Factors for Resistance * Hospitalization for 48 hours or more within the past 90 days * Immunocompromised (chemotherapy) * Antimicrobial use within the last 90 days [Zyvox and Vfend oral upon discharge from hospital recently.] - Assessment & Plan Assessment 74 year old M started on Vancomycin for Sepsis possibly pulmonary source. Patient has bladder cancer with mets. He was recently admitted here in hospital. Urine cultures at that time resulted in both E faecalis and E faecium. Pt was discharged on oral Zyvox. Plan Vancomycin IV * Patient with JUANITA, PK parameters were not calculated. * Loading dose: Vancomycin 1250 mg (21.5 mg/kg) IV x 1 given at 1600. * Maintenance dose not ordered due to poor renal function. * Will order one-time Vancomycin doses until renal function improved and stable. * Goal trough level for possible Pneumonia: 15 to 20 mcg/mL * A Random Vanc level is ordered for tomorrow AM with AM labs. Will re-dose if level falls within goal trough range. Pharmacy will continue to follow and will adjust dose/frequency as necessary. Thank you.
[2020-01-19 23:02] LABS: Troponin I 0.65 ng/ml (0-0.045)
[2020-01-19 23:43] LABS: BUN Creatinine Ratio 37.1 (10-20); Calcium 8.5 mg/dl (8.5-10.1); Est GFR (African American) 20.4; Est GFR (Non-African American) 17.6; Potassium 5.8 mmol/L (3.5-5.1)
[2020-01-20 02:51] LABS: Mean Corpuscular Hgb Conc 33.2 g/dL (32-36)
[2020-01-20 02:56] LABS: Hematocrit (blood only) 25.3 % (42-52); Hemoglobin 8.4 g/dL (14.0-18.0); Mean Corpuscular Volume 90.4 fL (80-100); RDW Coefficient of Variation 17.5 % (11.5-14.5); RDW Standard Deviation 53.5 fL (36.4-46.3)
[2020-01-20 03:02] LABS: INR 1.8 (0.9-1.1)
[2020-01-20 03:16] LABS: Albumin Level 2.2 gm/dl (3.4-5.0); BUN Creatinine Ratio 36.4 (10-20); Calcium 7.9 mg/dl (8.5-10.1); Est GFR (African American) 20.4; Est GFR (Non-African American) 17.6; Magnesium 2.6 mg/dl (1.8-2.4); Potassium 5.8 mmol/L (3.5-5.1)
[2020-01-20 03:18] LABS: Platelet Count 55 K/uL (130-400)
[2020-01-20 03:19] LABS: Eosinophils # (auto) 0.01 K/uL (0-0.5); Immature Granulocytes # (auto) 0.07 K/uL (0.00-0.02); Immature Granulocytes % (auto) 0.3 %; Lymphocytes # (auto) 0.41 K/uL (1.2-3.4); Lymphocytes % (auto) 1.8 %; Monocytes # (auto) 0.37 K/uL (0.11-0.59); Monocytes % (auto) 1.6 %; Neutrophils # (auto) 22.14 K/uL (1.4-6.5); Neutrophils % (auto) 96.3 %; Platelet Estimate Decreased (Normal)
[2020-01-20] MEDS ORDERED: DEXTROSE 50% 50 ML SYRINGE IV ONE (03:36)
[2020-01-20] MEDS ORDERED: CALCIUM GLUCONATE 10% 1,000 MG in SODIUM CHLORIDE 0.9% 50 ML IV STA (03:36)
[2020-01-20 03:45] LABS: Albumin Globulin Ratio 0.9 (0.9-2); Bilirubin,Total 0.9 mg/dl (0.2-1); Globulin 2.5 gm/dl (2.5-4.0); Phosphorus 4.9 mg/dl (2.5-4.9); Total Protein 4.7 gm/dl (6.4-8.2); Troponin I 0.572 ng/ml (0-0.045)
[2020-01-20] MEDS: DOXYCYCLINE HYCLATE 100 MG in DEXTROSE 5% 100 ML IV SCH (03:48)
[2020-01-20] MEDS ORDERED: INSULIN HUMAN REGULAR PER UNIT 6 UNITS in SYRINGE 5.94 ML IV ONE (04:00)
[2020-01-20] MEDS: PIPERACILLIN/TAZOBACTAM 3.375 GM in DEXTROSE 5% 100 ML IV SCH (06:07)
--- NOTE | 2020-01-20 07:11 | XRay Report ---
XR chest 1V portable CLINICAL HISTORY: f/u COMPARISON STUDY: Chest radiograph and chest CT January 19, 2020. FINDINGS: Right internal jugular [id number] is in place. There are median sternotomy wires. Emphys cely is noted. Bibasilar airspace opacities, greater on the left are noted. Reticulonodular interstiti al thickening within the lungs persist. There is no pneumothorax or pleural effusion. There is no mauricio dence for pulmonary edema. Mild cardiomegaly is again noted. IMPRESSION: 1. No significant change in multifocal airspace opacities with left basilar consolidation. The findin gs favor multifocal pneumonia. 2. Emphysema. ACT 112: Negative or not required by law. Electronically signed by: Darian Mayen M.D. 01/20/2020 7:09 AM
[2020-01-20] MEDS ORDERED: VANCOMYCIN HCL 500 MG in 0.9 % SODIUM CHLORIDE 100 ML IV ONE (07:30)
--- NOTE | 2020-01-20 08:24 | Hospitalist Progress Note ---
Date of Service January 20, 2020 Assessment & Plan (1) Need for comfort care: 74 yo M with hx PAF, CAD, mitral regurg, COPD, CHF (EF 45%), bladder cancer s/p chemotherapy with bilateral nephrostomy tubes admitted for suspected sepsis with multiorgan failure, JUANITA on CKD with hyperkalemia, bradycardia with third-degree heart block, and acute on chronic hypoxic respiratory failure. After discussion with the patient and family at the bedside he is transition to comfort care measures all treatment and therapeutic medications were stopped except for medications aimed at controlling his symptoms. Patient understands that he likely will from this while in the hospital. Family is supportive but tearful at the bedside (2) Sepsis with multi-organ dysfunction: - Resp viral panel positive for rhino/enterovirus (covid19 neg) - Qsofa criteria: sys<100, altered mental status, RR>20 on higher o2 requirement Antibiotics and pressors stopped - source less likely to be the rhino/entero, had significant pain on abdominal exam, possible intra-abdominal source causing likely bacteremia, his urine with chronic nephrostomy tubes or even his lungs (3) JUANITA (acute kidney injury): With acute kidney injury with bun/creatinine remaining elevated 118/3.24 With metabolic acidosis, hyperkalemia We will no longer check laboratories (4) Acute and chronic respiratory failure with hypoxia: chronically on 3L NC for COPD at home Patient is not wish to be on BiPAP any longer he is on high flow oxygen at this present time he saturating easily remain on high flow oxygen on the floor (5) Malignant neoplasm metastatic from bladder: With bladder mass causing outlet obstruction requiring bilateral nephrostomy tubes With known metastases to the spine Patient will have parenteral opiates anxiolytics control his symptoms at this time no further treatment has been decided upon by the family (6) Chronic combined systolic and diastolic congestive heart failure: With lower extremity edema but with hypotension requiring pressors limiting diuresis EF 45% echocardiogram 01/18 has EF remain around 45% and severe MR noted (7) CAD (coronary artery disease): (8) S/P mitral valve repair: Noted (9) Paroxysmal atrial fibrillation: Amiodarone and Eliquis have been discontinued (10) Anemia: Anemia of chronic disease and also associate with chemotherapy (11) Shock liver: AST 2411 ALt 1619 Alk phos 100 previously normal, no liver disease hx most likely end organ damage from septic shock (12) Antineoplastic chemotherapy induced pancytopenia: (13) Elevated troponin: Mildly elevated troponin likely secondary to myocardial demand ischemia and poor perfusion during third-degree heart block ECG with left bundle branch block which is old and peaked T waves which are new Trend serial troponin, ECG regional wall motion is also seen but maybe conduction related Admission and Anticipated Discharge Date Admission Date: January 19, 2020 Subjective I met with the patient and his family in the room in the ICU this morning. There was discussions regarding pursuing comfort care measures. I engage the patient in this discussion. He did voice a desire to not pursue continued aggressive management. He understands that he has been declining despite treatment for his cancer and other chronic health conditions including significant COPD. He understands that without treating these things he will likely and not leave the hospital. His family was supportive with this decision and we progress towards comfort care in the late morning early afternoon of 01/20/2020 Review of Systems Review of Systems: Moderate distress and fatigue no headache, blurry or double vision no speech or swallowing issues no chest pain, pressure or palpitations Significant dyspnea shortness of breath Persistent abdominal pain nausea and dry heaves no dysuria, hematuria or frequency Myalgias and arthralgias are persistently present no back pain, CVA tenderness or radicular pain no bruising, bleeding or rashes He did begin global weakness inability to stand Physical Exam Physical Exam: The patient appeared chronically ill and wasted Vital signs as documented. Head exam is normocephalic atraumatic no scleral icterus Neck is without JVD, thyromegaly, or carotid bruits. Lungs diminished with some coarse breath sounds prolonged expiratory phase and overall poor air movement in both lung ponce Cardiac exam, Rhythm is regular.. No murmurs, rubs or gallops. Abdominal exam reveals hypoactive bowel sounds distended and tympanitic Extremities are mild to moderately edematous Neurologic exam is alert and oriented, no focal loss of strength or sensation overall generally weak Skin is without bruises or rashes Psychologically is without concerns for anxiety or depression however the patient is worn out. Results & Data Results & Data ([facility]) Vital Signs (Past 12 Hours) Vital Signs Temp Pulse Pulse Resp BP Pulse Ox 01/20/20 07:26 72 18 94 01/20/20 06:00 62 13 141/35 H 96 01/20/20 05:30 64 14 133/40 L 97 01/20/20 05:00 67 12 117/42 L 97 01/20/20 04:30 71 12 113/34 L 94 01/20/20 04:00 97.9 F 67 21 135/46 L 95 01/20/20 03:30 66 18 114/35 L 96 01/20/20 03:21 65 12 95 01/20/20 02:30 69 18 135/29 L 96 01/20/20 02:00 65 13 126/32 L 97 01/20/20 01:30 65 15 127/33 L 97 01/20/20 01:00 65 13 120/33 L 97 01/20/20 00:30 64 16 130/32 L 97 01/20/20 00:00 97.7 F 64 18 120/29 L 96 01/19/20 23:30 64 13 122/34 L 96 01/19/20 23:22 63 14 96 01/19/20 23:00 62 12 128/28 L 98 01/19/20 22:30 63 11 L 134/28 L 98 01/19/20 22:00 62 14 139/28 L 96 01/19/20 21:44 61 13 127/31 L 94 01/19/20 21:30 61 15 130/22 L 92 01/19/20 21:02 70 20 125/25 L 92 01/19/20 20:31 66 18 164/27 H 90 PG Care Time/CCT Total # of Minutes Spent Total Time Spent with Patient: Total time spent is greater than 50% in coordination of care (as documented) at patient's floor/unit and/or counseling patient: Coding Level of Care Code 99231 Subseq Hosp Care Lvl 3 Diagnoses Need for comfort care Sepsis with multi-organ dysfunction A41.9; R65.20 JUANITA (acute kidney injury) N17.9 Acute and chronic respiratory failure with hypoxia J96.21 Malignant neoplasm metastatic from bladder C67.9 Chronic combined systolic and diastolic congestive heart failure I50.42 CAD (coronary artery disease) I25.10 S/P mitral valve repair Z98.890 Paroxysmal atrial fibrillation I48.0 Anemia D64.9 Anemia type: unspecified type Shock liver K72.00 Antineoplastic chemotherapy induced pancytopenia D61.810; T45.1X5A Elevated troponin R79.89 (1) Anemia Anemia type: unspecified type Qualified Code(s): D64.9 - Anemia, unspecified
--- NOTE | 2020-01-20 08:50 | Critical Care Progress Note ---
Date of Service January 20, 2020 Assessment & Plan (1) Status post admission to intensive care unit: 74-year-old male with a past medical history of bladder cancer status post chemotherapy with pancytopenia, reduced ejection fraction, mitral regurgitation, paroxysmal atrial fibrillation and COPD presenting to the hospital in septic shock with multiorgan failure and hyperkalemia causing bradycardia. Patient was discussed with bedside RN. Assessment and Plan: -Septic shock with multiorgan failure -JUANITA -Hyperkalemia -Pancytopenia -Bradycardia -Metabolic encephalopathy -Acute hypoxemic respiratory failure with enterovirus/rhinovirus -Acute liver failure -Lactic acidosis Neurologic: Metabolic encephalopathy improving. Will use low-dose opiates for pain as needed. Pain control be very important in this case given his metastatic cancer. Palliative care consulted. Pulmonary: CT chest with evidence of multilobar groundglass and nodular opacities with bronchial wall thickening. Left lower lobe consolidation of 5 cm noted. Patient is positive for enterovirus/rhinovirus. Continue droplet precautions. Continue antibiotics with vancomycin and Zosyn. We will add doxycycline as well. Continue aspiration precautions. Cannot rule out superimposed bacterial pneumonia. Wean high flow nasal cannula to maintain sats of 88 to 92%. Cardiovascular: Patient is off vasopressors. Patient with a history of systolic heart failure and paroxysmal atrial fibrillation. Holding amiodarone at this time given bradycardia likely related to hyperkalemia. Heart rate appears to be improving with correction of hyperkalemia and fluid resuscitation. Cardiology has been consulted. Holding anticoagulation for his paroxysmal atrial fibrillation given his ongoing anemia. Echo with an EF of 45 to 50%. Right ventricle normal in size and function. Gastrointestinal: Okay for ice chips and clear liquid diet. Stress ulcer prophylaxis: Famotidine 20 mg daily. LFTs with evidence of shock liver. Acetaminophen level normal. INR improving to 1.8. Fibrinogen level was 321. Possible component of colonic ischemia on presentation. Renal: Patient with JUANITA. Continue fluid hydration. Judicious use of fluids given his underlying CHF and hypoalbuminemic state. Receiving blood as well. Treat hyperkalemia with conservative means at this time. He would be a very poor candidate for hemodialysis. Patient given Kayexalate overnight. Potassium is currently 5.8. We will repeat a BMP at noon. Lactic acidosis is improving. Infectious disease: We will need urine cultures from the bilateral nephrostomy tubes. Blood cultures and urine cultures pending. Procalcitonin elevated. Antibiotics as above. Continue droplet precautions. Hematologic: Platelet counts dropping likely related to consumption from sepsis and recent chemotherapy. Fibrinogen checked yesterday with a normal level. No evidence of DIC. Holding anticoagulation at this time. Endocrine: Insulin protocol per ICU. Lines and tubes: Port in place. Peripheral IVs in place. Nephrostomy tubes in place. VTE prophylaxis: SCD CODE STATUS: DNR/DNI. Prognosis extremely poor. Palliative care consult. Patient is stable to be transferred to the floor at this time. Family at bedside: No family available at bedside. Thank you for allowing us to participate in the care of this patient. (2) Antineoplastic chemotherapy induced pancytopenia: (3) Acute respiratory failure with hypoxia: (4) Nephrostomy status: (5) Malignant neoplasm metastatic from bladder: (6) Mitral regurgitation: (7) S/P CABG (coronary artery bypass graft): (8) Paroxysmal atrial fibrillation: (9) Chronic combined systolic and diastolic congestive heart failure: Admission and Anticipated Discharge Date Admission Date: January 19, 2020 Subjective Patient is currently laying in bed. He endorses some shortness of breath. Currently on high flow nasal cannula. All pressors since midnight. Denies any chest pain currently. Endorses a sore throat dry mouth. Review of Systems Review of Systems: All systems reviewed & are unremarkable except as noted in HPI & below Physical Exam Eyes: PERRL, conjunctivae normal, anicteric sclerae ENMT: external ear and nose normal, oropharynx normal Neck: normal visual inspection Respiratory: + tachypneic Auscultation: + crackles Cardiovascular: Rate/Rhythm: + bradycardic Gastrointestinal (Abdomen): normal bowel sounds, soft, nontender, no hepatosplenomegaly Musculoskeletal: no cyanosis or clubbing, extremities motor strength 5/5 Neurologic: PERRL, EOMI, accommodation nl, no face palsy, no dysarthria Psychiatric: A+Ox3, euthymic affect Results & Data Results & Data ([facility]) Vital Signs (Past 12 Hours) Vital Signs Temp Pulse Pulse Resp BP Pulse Ox 01/20/20 07:26 72 18 94 01/20/20 06:00 62 13 141/35 H 96 01/20/20 05:30 64 14 133/40 L 97 01/20/20 05:00 67 12 117/42 L 97 01/20/20 04:30 71 12 113/34 L 94 01/20/20 04:00 97.9 F 67 21 135/46 L 95 01/20/20 03:30 66 18 114/35 L 96 01/20/20 03:21 65 12 95 01/20/20 02:30 69 18 135/29 L 96 01/20/20 02:00 65 13 126/32 L 97 01/20/20 01:30 65 15 127/33 L 97 01/20/20 01:00 65 13 120/33 L 97 01/20/20 00:30 64 16 130/32 L 97 01/20/20 00:00 97.7 F 64 18 120/29 L 96 01/19/20 23:30 64 13 122/34 L 96 01/19/20 23:22 63 14 96 01/19/20 23:00 62 12 128/28 L 98 01/19/20 22:30 63 11 L 134/28 L 98 01/19/20 22:00 62 14 139/28 L 96 01/19/20 21:44 61 13 127/31 L 94 01/19/20 21:30 61 15 130/22 L 92 01/19/20 21:02 70 20 125/25 L 92 reviewed vital signs and labs Coding Level of Care Code 81202 Subseq Hosp Care Lvl 3 Diagnoses Status post admission to intensive care unit Antineoplastic chemotherapy induced pancytopenia D61.810; T45.1X5A Acute respiratory failure with hypoxia J96.01 Nephrostomy status Z93.6 Malignant neoplasm metastatic from bladder C67.9 Mitral regurgitation I34.0 S/P CABG (coronary artery bypass graft) Z95.1 Paroxysmal atrial fibrillation I48.0 Chronic combined systolic and diastolic congestive heart failure I50.42
[2020-01-20] MEDS ORDERED: PANTOprazole 40 MG TAB PO SCH (09:00)
[2020-01-20] MEDS ORDERED: SODIUM POLYSTYRENE SULFONATE 15G/60ML SUSP PO SCH (09:00)
[2020-01-20] MEDS ORDERED: ASPIRIN 81 MG ECTAB PO SCH (09:00)
[2020-01-20] MEDS: TAMSULOSIN HCL 0.4 MG CAP PO SCH (09:29)
--- NOTE | 2020-01-20 09:50 | Cardiology Consultation ---
Date of Consultation January 20, 2020 Assessment & Plan (1) Junctional bradycardia: (2) Elevated troponin: (3) Sepsis with multi-organ dysfunction: (4) Acute and chronic respiratory failure with hypoxia: (5) Hyperkalemia: (6) JUANITA (acute kidney injury): (7) Mitral regurgitation: (8) S/P mitral valve repair: (9) CAD (coronary artery disease): (10) S/P CABG (coronary artery bypass graft): (11) Chronic combined systolic and diastolic congestive heart failure: (12) Edema, peripheral: (13) Paroxysmal atrial fibrillation: ASSESSMENT/PLAN: 1. Junctional bradycardia: Likely due to his hyperkalemia which has since improved. With improvement of potassium level, he appears to be in sinus rhythm on telemetry. If he is not moving towards comfort measures, would recommend repeating ECG. Amiodarone was discontinued on presentation. 2. Elevated troponin: He did not present with acute coronary syndrome. Elevated troponins likely due to his other acute comorbidities, representing demand ischemia. Ischemic evaluation not recommended. 3. Acute chronic respiratory failure with hypoxia: As per critical care team. Imaging has suggested pneumonia and he is being treated with antibiotics. 4. Chronic combined systolic and diastolic CHF: He is not hypervolemic and based on presentation, was likely hypovolemic. No diuretics at this time. 5. Mitral regurgitation s/p MV repair: Moderate to severe mitral regurgitation reported on most recent echo, performed yesterday. Conservative management recommended. 6. CAD s/p CABG x 3: No angina. Beta-bambi was discontinued in the past by other providers while on amiodarone. No statin therapy currently due to signifi cantly elevated transaminase levels. On aspirin therapy. 7. Edema: Intravascularly. Edema likely in part to hypoalbuminemia. 8. Paroxysmal atrial fibrillation: Was on Eliquis but this has been held due to worsening thrombocytopenia and in the setting of anemia. Was on amiodarone but this was held for junctional bradycardia and also in the setting of severe transaminase elevation. If necessary, could resume low-dose beta-bambi for rate control but currently, he is in sinus rhythm. 9. Hyperkalemia: As per critical care team and primary service. 10. Acute renal insufficiency: As per other providers. 11. Disposition: Poor prognosis. He appears to have declined since originally meeting him in November of 2019 while hospitalized. Past of care consultation is pending during this hospital stay. Please call for any other questions or concerns. Cardiology will sign off at this time. Patient care discussed with Critical Care attending. Thank you for allowing me to participate in the care of your patient. Please call for any other questions or concerns. Sincerely, eKvin Akhtar M.D. History of Present Illness Reason for Consultation: 3rd degree heart block Requesting Physician: Dr. Blake Attending Physician: Aaron Macias MD History of Present Illness Mr. 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 He also has a history of left lower extremity DVT in 2016. He underwent CABG x3 in 2012 or 2013 in the [place] area. He later had a mitral valve repair in 2017 in [place]. He was diagnosed with bladder cancer in October of 2019 when he developed obstructive uropathy with acute kidney injury. He was treated at [facility] from November 01 to November 20, 2019. During that hospitalization, carvedilol, enalapril, Lasix, Plavix, and potassium chloride were discontinued. He apparently was having issues with hypotension, prompting discontinuation of beta-bambi and CATE-inhibitor and Lasix was discontinued due to renal issues with his obstructive uropathy. Plavix was discontinued with placement of his nephrostomy tubes. Only 3 days later on November 23, 2019, he was admitted to [facility] with atrial fibrillation where he was hospitalized for 1 day and sent home on amiodarone 400 mg twice daily for loading dose and then 200 mg twice daily. He was anticoagulated. He has had the following studies/ procedures: 1. CABG x3 [place]. 2. Mitral valve repair 2017 [place]. 3. Echo 01/19/2020: Mildly reduced LV systolic function. EF 45-50%. Basal inferior and posterior akinesis. Septal motion consistent with conduction abnormality. Moderate to severe MR. Mild left atrial dilation. He was hospitalized on 01/19/2020 with worsening mentation/confusion and possible seizure-like activity pre-hospital. While here, he was noted to be in acute renal failure, acute hepatic failure, and with significant hyperkalemia and junctional bradycardia on ECG. He admits that he has not been eating or drinking much prior to this hospitalization. He states that he has not had much of an appetite. He states that his breathing has gotten better but he remains short of breath. He has abdominal pain and has noted lower extremity swelling but denies fevers or chills. He denies chest pain, syncope, palpitations. When discussing with critical care team, it appears as though there has been discussion of home hospice and possibly comfort measures at some point. Palliative care consultation is pending this hospitalization however they have evaluated him during recent hospitalization. With improvement of his potassium, he now appears to be in sinus rhythm on telemetry. He was given Levophed for blood pressure support discontinued. He is on broad-spectrum antibiotics. He was given intravenous fluids. Amiodarone was discontinued given his bradycardia. Review of systems: As above. Review of systems otherwise negative/unremarkable. Family history: Father with colon cancer. Mother with lung cancer. No known premature CAD. Social history: Quit smoking in approximately 2004 after approximately 30 pack years. No alcohol. No drugs. Lives with his daughter, Majo Hinton, in [place]. He has 3 children. Grandchildren. He is but . He was alone in his hospital room. Allergies Allergy/AdvReac Type Severity Reaction Status Date / Time No Known Allergies Allergy Verified 01/19/20 10:15 Home Medications Home Medications Medication Instructions Recorded Confirmed Type Eliquis 5 mg PO BID 12/08/19 01/19/20 History albuterol sulfate 2 puff INHALATION QID PRN 12/08/19 01/19/20 History aspirin [Aspir-81] 81 mg PO QAM 12/08/19 01/19/20 History melatonin 5 mg PO HS 12/08/19 01/19/20 History olanzapine 2.5 mg PO HS 12/08/19 01/19/20 History oxybutynin chloride 10 mg PO QAM 12/08/19 01/19/20 History amiodarone 200 mg PO BID #60 tab 12/10/19 01/19/20 Rx atorvastatin 40 mg PO PM #30 tab 12/10/19 01/19/20 Rx oxycodone-acetaminophen [Percocet] 1 tab PO Q6H PRN #10 tab 12/14/19 01/19/20 Rx docusate sodium 100 mg capsule 100 mg PO BID PRN cap 12/31/19 01/19/20 History prednisone 10 mg PO DAILY #30 tab 01/09/20 01/19/20 Rx voriconazole 200 mg PO Q12H #20 tab 01/09/20 01/19/20 Rx acetylcysteine 4 ml INHALATION Q12R PRN #100 ml 01/10/20 01/19/20 Rx furosemide 20 mg PO DAILY PRN #20 tab 01/10/20 01/19/20 Rx ipratropium-albuterol 3 ml NEB Q6H PRN #90 ml 01/10/20 01/19/20 Rx ondansetron 4 mg PO Q6H PRN 01/19/20 01/19/20 History oxycodone 20 mg PO BID 01/19/20 01/19/20 History pantoprazole 20 mg PO QAM 01/19/20 01/19/20 History potassium chloride 20 meq PO QAM 01/19/20 01/19/20 History tamsulosin 0.4 mg PO BID 01/19/20 01/19/20 History Patient History Medical History Abdominal aortic aneurysm S/p previous stent placement; per 12/08/19 CT scan - "Fusiform aneurysm dilation of the abdominal aorta with aortobiiliac stent graft. Aneurysm measures up to approximately 4.1 x 4.8 cm. Femoral-femoral bypass graft. Abdominal pain, lower Acute and chronic respiratory failure with hypoxia Acute kidney injury superimposed on CKD Anemia Hgb 6.9 on 12/08/19- did get packed RBCs when admitted to [facility] Bladder cancer CAD (coronary artery disease) S/p CABG 3 vessel 2012 or 2013 Chronic combined systolic and diastolic congestive heart failure Will be following with [facility] Chronic respiratory acidosis COPD (chronic obstructive pulmonary disease) WELL CONTROLLED PER PT Cough DVT (deep venous thrombosis) left leg > 2016 > unknown cause Dyslipidemia Edema, peripheral Hard of hearing Hypoalbuminemia Malignant neoplasm metastatic from bladder Metabolic acidosis, increased anion gap Mitral regurgitation S/p MV repair Nausea & vomiting Paroxysmal atrial fibrillation DX OCTOBER 2019 > NO CARDIOVERSIONS Poor historian Sepsis with multi-organ dysfunction Shock liver Status post admission to intensive care unit Third degree heart block Surgical History History of cardiac cath 5 yrs ago> no known cardiac stents History of CEA (carotid endarterectomy) 6 YRS AGO- NO MENTION OF CEA PER RECORDS- NO RECENT CAROTID IMAGING ON FILE EITHER History of endovascular stent graft for abdominal aortic aneurysm History of left hip replacement History of pelvic surgery Fractured pelvis repair History of tooth extraction Hx of appendectomy Hx of CABG 7 YRS AGO > [facility] IN [place] > TRIPLE BYPASS> FOLLOWS DR. COOK IN [place] S/P mitral valve repair 2018 per records > [facility] Family History Father Colon cancer Social History Smoking Status: Former smoker Tobacco Type: Cigarettes Second Hand Exposure: Yes; Hx Alcohol Use: No Hx Substance Use: No Preferred Language: Sami Communication Ability: Effective Maternal Fetal Physician Required: No Beliefs That Will Affect Care: None marital status: Unknown Current Living Situation: Family Current Living Situation Comment: Daughter Feels Safe at Home: Yes Assistive Devices: BiPap, Glasses and Oxygen - Continuous Physical Exam Physical Exam: Gen.: Ill-appearing, but no acute distress. Cachectic. Alert and oriented to self and year. He did not know the month or place. HEENT: Anicteric sclera. Neck: No JVD. Bilateral carotid bruit. Normal carotid upstrokes bilaterally. Cardiac: PMI was nondisplaced. No ventricular heave. Regular rate and rhythm. Normal S1-S2. 1/6 systolic murmur. No rubs, or gallops. Pulmonary: Decreased breath sounds bilaterally. Abdomen: Soft, nondistended, with normoactive bowel sounds. No bruits noted. Diffuse abdominal tenderness. Extremities: 1+ radial pulses bilaterally. 2+ posterior tibialis pulses bilaterally. 3+ bilateral lower extremity edema. No cyanosis. Psychiatric: Affect appears appropriate. Results & Data ([facility]) Vital Signs (Past 12 Hours) Vital Signs Temp Pulse Pulse Resp BP Pulse Ox 01/20/20 07:26 72 18 94 01/20/20 06:00 62 13 141/35 H 96 01/20/20 05:30 64 14 133/40 L 97 01/20/20 05:00 67 12 117/42 L 97 01/20/20 04:30 71 12 113/34 L 94 01/20/20 04:00 36.6 C 67 21 135/46 L 95 01/20/20 03:30 66 18 114/35 L 96 01/20/20 03:21 65 12 95 01/20/20 02:30 69 18 135/29 L 96 01/20/20 02:00 65 13 126/32 L 97 01/20/20 01:30 65 15 127/33 L 97 01/20/20 01:00 65 13 120/33 L 97 01/20/20 00:30 64 16 130/32 L 97 01/20/20 00:00 36.5 C 64 18 120/29 L 96 01/19/20 23:30 64 13 122/34 L 96 01/19/20 23:22 63 14 96 01/19/20 23:00 62 12 128/28 L 98 01/19/20 22:30 63 11 L 134/28 L 98 01/19/20 22:00 62 14 139/28 L 96 01/19/20 21:44 61 13 127/31 L 94 Intake & Output 01/18/20 01/19/20 01/20/20 01/21/20 06:59 06:59 06:59 06:59 Intake Total 2516.493 / 2516.493 110 / 110 Output Total 550 / 550 Balance 1966.493 / 1966.493 110 / 110 Weight 58.2 kg Laboratory Results Laboratory Results - last 24 hr 01/19/20 01/19/20 01/19/20 09:23 09:30 09:30 WBC 23.79 H RBC 2.40 L Hgb 7.3 L POC Hgb 7.1 L Hct 23.2 L POC Hct 21 L MCV 96.7 MCH 30.4 MCHC 31.5 L RDW Std Deviation 61.0 H RDW Coeff of Qiana 19.2 H Plt Count 105 L MPV 13.0 H Immature Gran % (Auto) 0.8 Neut % (Auto) 92.0 Lymph % (Auto) 3.6 Arthur % (Auto) 3.6 Eos % (Auto) 0.0 Baso % (Auto) 0.0 Neut # (Auto) 21.88 H Lymph # (Auto) 0.85 L Arthur # (Auto) 0.86 H Eos # (Auto) 0.00 Baso # (Auto) 0.00 Immature Gran # (Auto) 0.20 H Absolute Nucleated RBC 0.14 H Nucleated RBC % (auto) 0.6 Platelet Estimate Decreased L Peripher Smr Path Cons PT 22.2 H INR 2.2 H APTT 33.3 H PTT Ratio 1.2 Fibrinogen VBG pH VBG pCO2 VBG pO2 VBG HCO3 VBG O2 Saturation VBG Base Excess Barometric Pressure POC Sodium 137 Sodium POC Potassium 7.0 H* Potassium POC Chloride 104 Chloride Carbon Dioxide POC Total CO2 18 L Anion Gap POC Anion Gap 23.0 POC BUN 107 H* BUN Creatinine POC Creatinine 3.3 H Est Cr Clr Drug Dosing Est GFR ( Amer) Est GFR (Non-Af Amer) BUN/Creatinine Ratio Glucose POC Glucose (other) 131 H Lactate Calcium POC Ioniz Calcium Pollo 1.04 L Phosphorus Magnesium Total Bilirubin AST ALT Alkaline Phosphatase Total Creatine Kinase CK-MB (CK-2) CK/CKMB % Calc Troponin I Total Protein Albumin Globulin Albumin/Globulin Ratio Procalcitonin Specimen Hemolysis Urine Color Urine Appearance Urine pH Ur Specific [place] Urine Protein Urine Glucose (UA) Urine Ketones Urine Blood Urine Nitrite Urine Bilirubin Urine Urobilinogen Ur Leukocyte Esterase Urine WBC (Auto) Urine RBC (Auto) U Hyaline Cast (Auto) U Epithel Cells (Auto) Urine Bacteria (Auto) Urine Yeast Nasal Screen MRSA (PCR) Random Vancomycin Amiodarone Desmethylamiodarone Acetaminophen Adenovirus (PCR) B. pertussis DNA (PCR) B.parapertussis DNA PCR C. pneumoniae DNA (PCR) Coronavirus OC43 (PCR) Coronavirus HKU1 (PCR) Coronavirus 229E (PCR) COVID-19 PCR Coronavirus NL63 (PCR) Human Metapneumovir PCR Influenza Type A (PCR) Influenza Type B (PCR) M. pneumoniae (PCR) Parainfluenza 1 (PCR) Parainfluenza 2 (PCR) Parainfluenza 3 (PCR) Parainfluenza 4 (PCR) RSV (PCR) Entero/Rhino (PCR) Blood Type Antibody Screen Crossmatch 01/19/20 01/19/20 01/19/20 09:30 09:30 09:30 WBC RBC Hgb POC Hgb Hct POC Hct MCV MCH MCHC RDW Std Deviation RDW Coeff of Qiana Plt Count MPV Immature Gran % (Auto) Neut % (Auto) Lymph % (Auto) Arthur % (Auto) Eos % (Auto) Baso % (Auto) Neut # (Auto) Lymph # (Auto) Arthur # (Auto) Eos # (Auto) Baso # (Auto) Immature Gran # (Auto) Absolute Nucleated RBC Nucleated RBC % (auto) Platelet Estimate Peripher Smr Path Cons PT INR APTT PTT Ratio Fibrinogen VBG pH VBG pCO2 VBG pO2 VBG HCO3 VBG O2 Saturation VBG Base Excess Barometric Pressure POC Sodium Sodium 143 POC Potassium Potassium 7.0 H* POC Chloride Chloride 105 Carbon Dioxide 17 L POC Total CO2 Anion Gap 21.0 H POC Anion Gap POC BUN BUN 108 H Creatinine 3.29 H POC Creatinine Est Cr Clr Drug Dosing 15.7 Est GFR ( Amer) 20.0 Est GFR (Non-Af Amer) 17.2 BUN/Creatinine Ratio 32.8 H Glucose 127 H POC Glucose (other) Lactate 12.3 H* Calcium 8.2 L POC Ioniz Calcium Pollo Phosphorus Magnesium 2.9 H Total Bilirubin 1.0 AST 2411 H ALT 1619 H Alkaline Phosphatase 100 Total Creatine Kinase 763 H CK-MB (CK-2) 14.7 H CK/CKMB % Calc 1.9 Troponin I 0.386 H* Total Protein 5.1 L Albumin 2.4 L Globulin 2.7 Albumin/Globulin Ratio 0.9 Procalcitonin 1.87 H Specimen Hemolysis Urine Color Urine Appearance Urine pH Ur Specific [place] Urine Protein Urine Glucose (UA) Urine Ketones Urine Blood Urine Nitrite Urine Bilirubin Urine Urobilinogen Ur Leukocyte Esterase Urine WBC (Auto) Urine RBC (Auto) U Hyaline Cast (Auto) U Epithel Cells (Auto) Urine Bacteria (Auto) Urine Yeast Nasal Screen MRSA (PCR) Random Vancomycin Amiodarone Desmethylamiodarone Acetaminophen Adenovirus (PCR) B. pertussis DNA (PCR) B.parapertussis DNA PCR C. pneumoniae DNA (PCR) Coronavirus OC43 (PCR) Coronavirus HKU1 (PCR) Coronavirus 229E (PCR) COVID-19 PCR Coronavirus NL63 (PCR) Human Metapneumovir PCR Influenza Type A (PCR) Influenza Type B (PCR) M. pneumoniae (PCR) Parainfluenza 1 (PCR) Parainfluenza 2 (PCR) Parainfluenza 3 (PCR) Parainfluenza 4 (PCR) RSV (PCR) Entero/Rhino (PCR) Blood Type Antibody Screen Crossmatch 01/19/20 01/19/20 01/19/20 09:30 09:56 09:56 WBC RBC Hgb POC Hgb Hct POC Hct MCV MCH MCHC RDW Std Deviation RDW Coeff of Qiana Plt Count MPV Immature Gran % (Auto) Neut % (Auto) Lymph % (Auto) Arthur % (Auto) Eos % (Auto) Baso % (Auto) Neut # (Auto) Lymph # (Auto) Arthur # (Auto) Eos # (Auto) Baso # (Auto) Immature Gran # (Auto) Absolute Nucleated RBC Nucleated RBC % (auto) Platelet Estimate Peripher Smr Path Cons PT INR APTT PTT Ratio Fibrinogen VBG pH 7.21 L VBG pCO2 44 VBG pO2 45 VBG HCO3 17 VBG O2 Saturation 66.7 VBG Base Excess -9.7 Barometric Pressure 732.6 POC Sodium Sodium POC Potassium Potassium POC Chloride Chloride Carbon Dioxide POC Total CO2 Anion Gap POC Anion Gap POC BUN BUN Creatinine POC Creatinine Est Cr Clr Drug Dosing Est GFR ( Amer) Est GFR (Non-Af Amer) BUN/Creatinine Ratio Glucose POC Glucose (other) Lactate Calcium POC Ioniz Calcium Pollo Phosphorus Magnesium Total Bilirubin AST ALT Alkaline Phosphatase Total Creatine Kinase CK-MB (CK-2) CK/CKMB % Calc Troponin I Total Protein Albumin Globulin Albumin/Globulin Ratio Procalcitonin Specimen Hemolysis Urine Color Urine Appearance Urine pH Ur Specific [place] Urine Protein Urine Glucose (UA) Urine Ketones Urine Blood Urine Nitrite Urine Bilirubin Urine Urobilinogen Ur Leukocyte Esterase Urine WBC (Auto) Urine RBC (Auto) U Hyaline Cast (Auto) U Epithel Cells (Auto) Urine Bacteria (Auto) Urine Yeast Nasal Screen MRSA (PCR) Random Vancomycin Amiodarone Pending Desmethylamiodarone Pending Acetaminophen Adenovirus (PCR) B. pertussis DNA (PCR) B.parapertussis DNA PCR C. pneumoniae DNA (PCR) Coronavirus OC43 (PCR) Coronavirus HKU1 (PCR) Coronavirus 229E (PCR) COVID-19 PCR Coronavirus NL63 (PCR) Human Metapneumovir PCR Influenza Type A (PCR) Influenza Type B (PCR) M. pneumoniae (PCR) Parainfluenza 1 (PCR) Parainfluenza 2 (PCR) Parainfluenza 3 (PCR) Parainfluenza 4 (PCR) RSV (PCR) Entero/Rhino (PCR) Blood Type O Positive Antibody Screen NEGATIVE Crossmatch See Detail 01/19/20 01/19/20 01/19/20 11:01 11:53 11:54 WBC RBC Hgb POC Hgb Hct POC Hct MCV MCH MCHC RDW Std Deviation RDW Coeff of Qiana Plt Count MPV Immature Gran % (Auto) Neut % (Auto) Lymph % (Auto) Arthur % (Auto) Eos % (Auto) Baso % (Auto) Neut # (Auto) Lymph # (Auto) Arthur # (Auto) Eos # (Auto) Baso # (Auto) Immature Gran # (Auto) Absolute Nucleated RBC Nucleated RBC % (auto) Platelet Estimate Peripher Smr Path Cons PT INR APTT PTT Ratio Fibrinogen VBG pH VBG pCO2 VBG pO2 VBG HCO3 VBG O2 Saturation VBG Base Excess Barometric Pressure POC Sodium Sodium 142 POC Potassium Potassium 6.0 H POC Chloride Chloride 105 Carbon Dioxide 21 POC Total CO2 Anion Gap 16.0 H POC Anion Gap POC BUN BUN 110 H Creatinine 3.20 H POC Creatinine Est Cr Clr Drug Dosing 16.2 Est GFR ( Amer) 20.7 Est GFR (Non-Af Amer) 17.8 BUN/Creatinine Ratio 34.4 H Glucose 193 H POC Glucose (other) Lactate 9.7 H* Calcium 8.0 L POC Ioniz Calcium Pollo Phosphorus Magnesium Total Bilirubin AST ALT Alkaline Phosphatase Total Creatine Kinase CK-MB (CK-2) CK/CKMB % Calc Troponin I Total Protein Albumin Globulin Albumin/Globulin Ratio Procalcitonin Specimen Hemolysis Urine Color Urine Appearance Urine pH Ur Specific [place] Urine Protein Urine Glucose (UA) Urine Ketones Urine Blood Urine Nitrite Urine Bilirubin Urine Urobilinogen Ur Leukocyte Esterase Urine WBC (Auto) Urine RBC (Auto) U Hyaline Cast (Auto) U Epithel Cells (Auto) Urine Bacteria (Auto) Urine Yeast Nasal Screen MRSA (PCR) Random Vancomycin Amiodarone Desmethylamiodarone Acetaminophen Adenovirus (PCR) Not Detected B. pertussis DNA (PCR) Not Detected B.parapertussis DNA PCR Not Detected C. pneumoniae DNA (PCR) Not Detected Coronavirus OC43 (PCR) Not Detected Coronavirus HKU1 (PCR) Not Detected Coronavirus 229E (PCR) Not Detected COVID-19 PCR Not Detected Coronavirus NL63 (PCR) Not Detected Human Metapneumovir PCR Not Detected Influenza Type A (PCR) Not Detected Influenza Type B (PCR) Not Detected M. pneumoniae (PCR) Not Detected Parainfluenza 1 (PCR) Not Detected Parainfluenza 2 (PCR) Not Detected Parainfluenza 3 (PCR) Not Detected Parainfluenza 4 (PCR) Not Detected RSV (PCR) Not Detected Entero/Rhino (PCR) DETECTED A* Blood Type Antibody Screen Crossmatch 01/19/20 01/19/20 01/19/20 14:45 15:14 15:14 WBC RBC Hgb POC Hgb Hct POC Hct MCV MCH MCHC RDW Std Deviation RDW Coeff of Qiana Plt Count MPV Immature Gran % (Auto) Neut % (Auto) Lymph % (Auto) Arthur % (Auto) Eos % (Auto) Baso % (Auto) Neut # (Auto) Lymph # (Auto) Arthur # (Auto) Eos # (Auto) Baso # (Auto) Immature Gran # (Auto) Absolute Nucleated RBC Nucleated RBC % (auto) Platelet Estimate Peripher Smr Path Cons PT INR APTT PTT Ratio Fibrinogen VBG pH VBG pCO2 VBG pO2 VBG HCO3 VBG O2 Saturation VBG Base Excess Barometric Pressure POC Sodium Sodium 142 POC Potassium Potassium 6.0 H POC Chloride Chloride 105 Carbon Dioxide 25 POC Total CO2 Anion Gap 13.0 H POC Anion Gap POC BUN BUN 112 H Creatinine 3.28 H POC Creatinine Est Cr Clr Drug Dosing 15.8 Est GFR ( Amer) 20.1 Est GFR (Non-Af Amer) 17.3 BUN/Creatinine Ratio 34.2 H Glucose 172 H POC Glucose (other) Lactate 5.4 H* Calcium 8.4 L POC Ioniz Calcium Pollo Phosphorus Magnesium Total Bilirubin AST ALT Alkaline Phosphatase Total Creatine Kinase CK-MB (CK-2) CK/CKMB % Calc Troponin I 0.756 H* Total Protein Albumin Globulin Albumin/Globulin Ratio Procalcitonin Specimen Hemolysis Urine Color Urine Appearance Urine pH Ur Specific [place] Urine Protein Urine Glucose (UA) Urine Ketones Urine Blood Urine Nitrite Urine Bilirubin Urine Urobilinogen Ur Leukocyte Esterase Urine WBC (Auto) Urine RBC (Auto) U Hyaline Cast (Auto) U Epithel Cells (Auto) Urine Bacteria (Auto) Urine Yeast Nasal Screen MRSA (PCR) Negative Random Vancomycin Amiodarone Desmethylamiodarone Acetaminophen Adenovirus (PCR) B. pertussis DNA (PCR) B.parapertussis DNA PCR C. pneumoniae DNA (PCR) Coronavirus OC43 (PCR) Coronavirus HKU1 (PCR) Coronavirus 229E (PCR) COVID-19 PCR Coronavirus NL63 (PCR) Human Metapneumovir PCR Influenza Type A (PCR) Influenza Type B (PCR) M. pneumoniae (PCR) Parainfluenza 1 (PCR) Parainfluenza 2 (PCR) Parainfluenza 3 (PCR) Parainfluenza 4 (PCR) RSV (PCR) Entero/Rhino (PCR) Blood Type Antibody Screen Crossmatch 01/19/20 01/19/20 01/19/20 15:14 18:31 18:31 WBC RBC Hgb POC Hgb Hct POC Hct MCV MCH MCHC RDW Std Deviation RDW Coeff of Qiana Plt Count MPV Immature Gran % (Auto) Neut % (Auto) Lymph % (Auto) Arthur % (Auto) Eos % (Auto) Baso % (Auto) Neut # (Auto) Lymph # (Auto) Arthur # (Auto) Eos # (Auto) Baso # (Auto) Immature Gran # (Auto) Absolute Nucleated RBC Nucleated RBC % (auto) Platelet Estimate Peripher Smr Path Cons PT INR APTT PTT Ratio Fibrinogen 321 VBG pH VBG pCO2 VBG pO2 VBG HCO3 VBG O2 Saturation VBG Base Excess Barometric Pressure POC Sodium Sodium 142 POC Potassium Potassium 6.0 H POC Chloride Chloride 105 Carbon Dioxide 27 POC Total CO2 Anion Gap 11.0 POC Anion Gap POC BUN BUN 116 H Creatinine 3.33 H POC Creatinine Est Cr Clr Drug Dosing 15.5 Est GFR ( Amer) 19.7 Est GFR (Non-Af Amer) 17.0 BUN/Creatinine Ratio 34.7 H Glucose 236 H POC Glucose (other) Lactate Calcium 8.3 L POC Ioniz Calcium Pollo Phosphorus Magnesium Total Bilirubin AST ALT Alkaline Phosphatase Total Creatine Kinase CK-MB (CK-2) CK/CKMB % Calc Troponin I Total Protein Albumin Globulin Albumin/Globulin Ratio Procalcitonin Specimen Hemolysis Urine Color Urine Appearance Urine pH Ur Specific [place] Urine Protein Urine Glucose (UA) Urine Ketones Urine Blood Urine Nitrite Urine Bilirubin Urine Urobilinogen Ur Leukocyte Esterase Urine WBC (Auto) Urine RBC (Auto) U Hyaline Cast (Auto) U Epithel Cells (Auto) Urine Bacteria (Auto) Urine Yeast Nasal Screen MRSA (PCR) Random Vancomycin Amiodarone Desmethylamiodarone Acetaminophen 10 Adenovirus (PCR) B. pertussis DNA (PCR) B.parapertussis DNA PCR C. pneumoniae DNA (PCR) Coronavirus OC43 (PCR) Coronavirus HKU1 (PCR) Coronavirus 229E (PCR) COVID-19 PCR Coronavirus NL63 (PCR) Human Metapneumovir PCR Influenza Type A (PCR) Influenza Type B (PCR) M. pneumoniae (PCR) Parainfluenza 1 (PCR) Parainfluenza 2 (PCR) Parainfluenza 3 (PCR) Parainfluenza 4 (PCR) RSV (PCR) Entero/Rhino (PCR) Blood Type Antibody Screen Crossmatch 01/19/20 01/19/20 01/19/20 18:31 18:31 22:19 WBC RBC Hgb POC Hgb Hct POC Hct MCV MCH MCHC RDW Std Deviation RDW Coeff of Qiana Plt Count MPV Immature Gran % (Auto) Neut % (Auto) Lymph % (Auto) Arthur % (Auto) Eos % (Auto) Baso % (Auto) Neut # (Auto) Lymph # (Auto) Arthur # (Auto) Eos # (Auto) Baso # (Auto) Immature Gran # (Auto) Absolute Nucleated RBC Nucleated RBC % (auto) Platelet Estimate Peripher Smr Path Cons Pending PT INR APTT PTT Ratio Fibrinogen VBG pH VBG pCO2 VBG pO2 VBG HCO3 VBG O2 Saturation VBG Base Excess Barometric Pressure POC Sodium Sodium 143 POC Potassium Potassium 5.8 H POC Chloride Chloride 105 Carbon Dioxide 24 POC Total CO2 Anion Gap 14.0 H POC Anion Gap POC BUN BUN 120 H Creatinine 3.24 H POC Creatinine Est Cr Clr Drug Dosing 16.0 Est GFR ( Amer) 20.4 Est GFR (Non-Af Amer) 17.6 BUN/Creatinine Ratio 37.1 H Glucose 132 H POC Glucose (other) Lactate 4.2 H* Calcium 8.5 POC Ioniz Calcium Pollo Phosphorus Magnesium Total Bilirubin AST ALT Alkaline Phosphatase Total Creatine Kinase CK-MB (CK-2) CK/CKMB % Calc Troponin I 0.650 H* Total Protein Albumin Globulin Albumin/Globulin Ratio Procalcitonin Specimen Hemolysis Urine Color Urine Appearance Urine pH Ur Specific [place] Urine Protein Urine Glucose (UA) Urine Ketones Urine Blood Urine Nitrite Urine Bilirubin Urine Urobilinogen Ur Leukocyte Esterase Urine WBC (Auto) Urine RBC (Auto) U Hyaline Cast (Auto) U Epithel Cells (Auto) Urine Bacteria (Auto) Urine Yeast Nasal Screen MRSA (PCR) Random Vancomycin Amiodarone Desmethylamiodarone Acetaminophen Adenovirus (PCR) B. pertussis DNA (PCR) B.parapertussis DNA PCR C. pneumoniae DNA (PCR) Coronavirus OC43 (PCR) Coronavirus HKU1 (PCR) Coronavirus 229E (PCR) COVID-19 PCR Coronavirus NL63 (PCR) Human Metapneumovir PCR Influenza Type A (PCR) Influenza Type B (PCR) M. pneumoniae (PCR) Parainfluenza 1 (PCR) Parainfluenza 2 (PCR) Parainfluenza 3 (PCR) Parainfluenza 4 (PCR) RSV (PCR) Entero/Rhino (PCR) Blood Type Antibody Screen Crossmatch 01/19/20 01/19/20 01/20/20 Unknown Unknown 02:39 WBC RBC Hgb POC Hgb Hct POC Hct MCV MCH MCHC RDW Std Deviation RDW Coeff of Qiana Plt Count MPV Immature Gran % (Auto) Neut % (Auto) Lymph % (Auto) Arthur % (Auto) Eos % (Auto) Baso % (Auto) Neut # (Auto) Lymph # (Auto) Arthur # (Auto) Eos # (Auto) Baso # (Auto) Immature Gran # (Auto) Absolute Nucleated RBC Nucleated RBC % (auto) Platelet Estimate Peripher Smr Path Cons PT INR APTT PTT Ratio Fibrinogen VBG pH VBG pCO2 VBG pO2 VBG HCO3 VBG O2 Saturation VBG Base Excess Barometric Pressure POC Sodium Sodium POC Potassium Potassium POC Chloride Chloride Carbon Dioxide POC Total CO2 Anion Gap POC Anion Gap POC BUN BUN Creatinine POC Creatinine Est Cr Clr Drug Dosing Est GFR ( Amer) Est GFR (Non-Af Amer) BUN/Creatinine Ratio Glucose POC Glucose (other) Lactate Calcium POC Ioniz Calcium Pollo Phosphorus Magnesium Total Bilirubin AST ALT Alkaline Phosphatase Total Creatine Kinase CK-MB (CK-2) CK/CKMB % Calc Troponin I Total Protein Albumin Globulin Albumin/Globulin Ratio Procalcitonin Specimen Hemolysis Urine Color [place] Urine Appearance Turbid A Turbid A Urine pH 5.0 5.5 Ur Specific [place] 1.020 1.022 Urine Protein 3+ H 2+ H Urine Glucose (UA) Trace H Negative Urine Ketones Negative Negative Urine Blood 3+ H 2+ H Urine Nitrite Positive A Positive A Urine Bilirubin Negative Negative Urine Urobilinogen Negative Negative Ur Leukocyte Esterase 2+ H 3+ H Urine WBC (Auto) >30 H >30 H Urine RBC (Auto) >30 H >30 H U Hyaline Cast (Auto) 1-5 1-5 U Epithel Cells (Auto) 5-10 H 10-20 H Urine Bacteria (Auto) Negative Negative Urine Yeast Not Reportable Nasal Screen MRSA (PCR) Random Vancomycin 18.1 Amiodarone Desmethylamiodarone Acetaminophen Adenovirus (PCR) B. pertussis DNA (PCR) B.parapertussis DNA PCR C. pneumoniae DNA (PCR) Coronavirus OC43 (PCR) Coronavirus HKU1 (PCR) Coronavirus 229E (PCR) COVID-19 PCR Coronavirus NL63 (PCR) Human Metapneumovir PCR Influenza Type A (PCR) Influenza Type B (PCR) M. pneumoniae (PCR) Parainfluenza 1 (PCR) Parainfluenza 2 (PCR) Parainfluenza 3 (PCR) Parainfluenza 4 (PCR) RSV (PCR) Entero/Rhino (PCR) Blood Type Antibody Screen Crossmatch 01/20/20 01/20/20 01/20/20 02:39 02:39 02:39 WBC 23.00 H RBC 2.80 L Hgb 8.4 L POC Hgb Hct 25.3 L POC Hct MCV 90.4 D MCH 30.0 MCHC 33.2 RDW Std Deviation 53.5 H RDW Coeff of Qiana 17.5 H Plt Count 55 L MPV Immature Gran % (Auto) 0.3 Neut % (Auto) 96.3 Lymph % (Auto) 1.8 Arthur % (Auto) 1.6 Eos % (Auto) 0.0 Baso % (Auto) 0.0 Neut # (Auto) 22.14 H Lymph # (Auto) 0.41 L Arthur # (Auto) 0.37 Eos # (Auto) 0.01 Baso # (Auto) 0.00 Immature Gran # (Auto) 0.07 H Absolute Nucleated RBC Nucleated RBC % (auto) Platelet Estimate Decreased L Peripher Smr Path Cons PT INR APTT PTT Ratio Fibrinogen VBG pH VBG pCO2 VBG pO2 VBG HCO3 VBG O2 Saturation VBG Base Excess Barometric Pressure POC Sodium Sodium 143 POC Potassium Potassium 5.8 H POC Chloride Chloride 107 Carbon Dioxide 28 POC Total CO2 Anion Gap 8.0 POC Anion Gap POC BUN BUN 118 H Creatinine 3.24 H POC Creatinine Est Cr Clr Drug Dosing 16.0 Est GFR ( Amer) 20.4 Est GFR (Non-Af Amer) 17.6 BUN/Creatinine Ratio 36.4 H Glucose 117 H POC Glucose (other) Lactate Calcium 7.9 L POC Ioniz Calcium Pollo Phosphorus 4.9 Magnesium 2.6 H Total Bilirubin 0.9 AST 2551 H ALT 1743 H Alkaline Phosphatase 103 Total Creatine Kinase CK-MB (CK-2) CK/CKMB % Calc Troponin I 0.572 H* Total Protein 4.7 L Albumin 2.2 L Globulin 2.5 Albumin/Globulin Ratio 0.9 Procalcitonin 5.76 H Specimen Hemolysis Urine Color Urine Appearance Urine pH Ur Specific [place] Urine Protein Urine Glucose (UA) Urine Ketones Urine Blood Urine Nitrite Urine Bilirubin Urine Urobilinogen Ur Leukocyte Esterase Urine WBC (Auto) Urine RBC (Auto) U Hyaline Cast (Auto) U Epithel Cells (Auto) Urine Bacteria (Auto) Urine Yeast Nasal Screen MRSA (PCR) Random Vancomycin Amiodarone Desmethylamiodarone Acetaminophen Adenovirus (PCR) B. pertussis DNA (PCR) B.parapertussis DNA PCR C. pneumoniae DNA (PCR) Coronavirus OC43 (PCR) Coronavirus HKU1 (PCR) Coronavirus 229E (PCR) COVID-19 PCR Coronavirus NL63 (PCR) Human Metapneumovir PCR Influenza Type A (PCR) Influenza Type B (PCR) M. pneumoniae (PCR) Parainfluenza 1 (PCR) Parainfluenza 2 (PCR) Parainfluenza 3 (PCR) Parainfluenza 4 (PCR) RSV (PCR) Entero/Rhino (PCR) Blood Type Antibody Screen Crossmatch 01/20/20 01/20/20 02:39 05:43 WBC RBC Hgb POC Hgb Hct POC Hct MCV MCH MCHC RDW Std Deviation RDW Coeff of Qiana Plt Count MPV Immature Gran % (Auto) Neut % (Auto) Lymph % (Auto) Arthur % (Auto) Eos % (Auto) Baso % (Auto) Neut # (Auto) Lymph # (Auto) Arthur # (Auto) Eos # (Auto) Baso # (Auto) Immature Gran # (Auto) Absolute Nucleated RBC Nucleated RBC % (auto) Platelet Estimate Peripher Smr Path Cons PT 18.0 H INR 1.8 H APTT PTT Ratio Fibrinogen VBG pH VBG pCO2 VBG pO2 VBG HCO3 VBG O2 Saturation VBG Base Excess Barometric Pressure POC Sodium Sodium POC Potassium Potassium POC Chloride Chloride Carbon Dioxide POC Total CO2 Anion Gap POC Anion Gap POC BUN BUN Creatinine POC Creatinine Est Cr Clr Drug Dosing Est GFR ( Amer) Est GFR (Non-Af Amer) BUN/Creatinine Ratio Glucose POC Glucose (other) Lactate 2.5 H* Calcium POC Ioniz Calcium Pollo Phosphorus Magnesium Total Bilirubin AST ALT Alkaline Phosphatase Total Creatine Kinase CK-MB (CK-2) CK/CKMB % Calc Troponin I Total Protein Albumin Globulin Albumin/Globulin Ratio Procalcitonin Specimen Hemolysis Urine Color Urine Appearance Urine pH Ur Specific [place] Urine Protein Urine Glucose (UA) Urine Ketones Urine Blood Urine Nitrite Urine Bilirubin Urine Urobilinogen Ur Leukocyte Esterase Urine WBC (Auto) Urine RBC (Auto) U Hyaline Cast (Auto) U Epithel Cells (Auto) Urine Bacteria (Auto) Urine Yeast Nasal Screen MRSA (PCR) Random Vancomycin Amiodarone Desmethylamiodarone Acetaminophen Adenovirus (PCR) B. pertussis DNA (PCR) B.parapertussis DNA PCR C. pneumoniae DNA (PCR) Coronavirus OC43 (PCR) Coronavirus HKU1 (PCR) Coronavirus 229E (PCR) COVID-19 PCR Coronavirus NL63 (PCR) Human Metapneumovir PCR Influenza Type A (PCR) Influenza Type B (PCR) M. pneumoniae (PCR) Parainfluenza 1 (PCR) Parainfluenza 2 (PCR) Parainfluenza 3 (PCR) Parainfluenza 4 (PCR) RSV (PCR) Entero/Rhino (PCR) Blood Type Antibody Screen Crossmatch Diagnostic Findings Telemetry personally reviewed: Sinus rhythm. ECG personally reviewed from 01/19/2020 at 8:46 a.m.: Junctional bradycardia 49 beats per minute. LBBB. Echocardiogram report reviewed as noted in HPI. CT chest 01/19/2020: Pulmonary emphysema. Multi lobar ground-glass and nodular airspace opacities including a 5 cm mass like area of consolidation within the left lower lobe. Medications Administered Current Inpatient Medications Acetylcysteine (Acetylcysteine 20% Inhal Soln 4ml Dispensed By Resp.) 4 ml INH Q12R PRN PRN Reason: Cough or secretions Stop: 02/18/20 14:47 Albuterol (Albuterol Hfa 8 Gm Inhaler) 2 puffs INH QID PRN PRN Reason: Shortness Of Breath Or Wheezin Stop: 02/18/20 14:47 Albuterol (Albut/Ipratrop 3mg/0.5mg Neb 3 Ml Vial) 3 ml NEB Q6H PRN PRN Reason: shortness of breath or wheezin Stop: 02/18/20 14:47 Aspirin (Aspirin 81 Mg Ectab) 81 mg PO QAM REJI Stop: 02/19/20 08:59 Last Admin: 01/20/20 09:29 Dose: 81 mg Documented by: Docusate Sodium (Docusate Sodium 100 Mg Cap) 100 mg PO BID PRN PRN Reason: Constipation Stop: 02/18/20 14:47 Hydromorphone HCl (Hydromorphone Inj 0.5 Mg/0.5 Ml Syr) 0.5 mg IV Q2H PRN PRN Reason: Moderate Pain (4,5,6) on NRS Stop: 02/02/20 14:47 Last Admin: 01/19/20 20:48 Dose: 0.5 mg Documented by: Norepinephrine Bitartrate 8 mg (/ Dextrose) 508 mls @ 0 mls/hr IV .Q0M REJI; Protocol Stop: 02/18/20 09:29 Last Titration: 01/19/20 23:47 Dose: 0 mcg/kg/min, 0 mls/hr Documented by: Piperacillin Sod/Tazobactam (Sod 3.375 gm/ Dextrose) 115 mls @ 28.75 mls/hr IV Q12H REJI; Protocol Stop: 01/21/20 17:59 Last Admin: 01/20/20 06:07 Dose: 28.8 mls/hr Documented by: Doxycycline Hyclate 100 mg/ (Dextrose) 110 mls @ 50 mls/hr IV Q12H REJI Stop: 01/26/20 15:59 Last Infusion: 01/20/20 05:50 Dose: Infused Documented by: Miscellaneous (Icu Protocol For Hyperglycemia) 1 ea N/A PRN PRN; Protocol PRN Reason: Hyperglycemia Protocol Stop: 01/21/20 14:47 Miscellaneous Information (Vancomycin Consult Active) 1 ea N/A UD PRN PRN Reason: Consult Stop: 02/18/20 10:57 Miscellaneous Information (Piperacill/Tazobac Consult Active) 1 ea N/A UD PRN PRN Reason: Consult Stop: 02/18/20 14:47 Pantoprazole Sodium (Pantoprazole 40 Mg Tab) 40 mg PO QAM [facility] Stop: 02/19/20 08:59 Last Admin: 01/20/20 09:29 Dose: 40 mg Documented by: Sodium Polystyrene Sulfonate (Sodium Polystyrene Sulfonate 15g/60ml Susp) 15 gm PO TID REJI Stop: 02/19/20 08:59 Last Admin: 01/20/20 09:29 Dose: 15 gm Documented by: Tamsulosin HCl (Tamsulosin Hcl 0.4 Mg Cap) 0.4 mg PO BID [facility] Stop: 02/18/20 20:59 Last Admin: 01/20/20 09:29 Dose: 0.4 mg Documented by: PG Care Time/CCT Total # of Minutes Spent Total Time Spent with Patient: Total time spent is greater than 50% in coordination of care (as documented) at patient's floor/unit and/or counseling patient: Coding Level of Care Code 33601 Initial Inpt Care Lvl 3 Diagnoses Junctional bradycardia R00.1 Elevated troponin R79.89 Sepsis with multi-organ dysfunction A41.9; R65.20 Acute and chronic respiratory failure with hypoxia J96.21 Hyperkalemia E87.5 JUANITA (acute kidney injury) N17.9 Mitral regurgitation I34.0 S/P mitral valve repair Z98.890 CAD (coronary artery disease) I25.10 S/P CABG (coronary artery bypass graft) Z95.1 Chronic combined systolic and diastolic congestive heart failure I50.42 Edema, peripheral R60.9 Paroxysmal atrial fibrillation I48.0
[2020-01-20] MEDS ORDERED: DAPTOMYCIN CONSULT ACTIVE PRN (10:38)
[2020-01-20] MEDS ORDERED: ATROPINE SULFATE 1% OP SOLN 2 ML BTL SL PRN (13:08)
[2020-01-20] MEDS ORDERED: haloperidoL 1 MG TAB PO PRN (13:08)
[2020-01-20] MEDS ORDERED: ONDANSETRON INJ 2 MG/ML 2 ML VIAL IV PRN (13:08)
[2020-01-20] MEDS ORDERED: LORazepam 0.5 MG/1 ML VIAL IV PRN ×2 (13:08)
[2020-01-20] MEDS ORDERED: PROMETHAZINE HCL 12.5 MG in SODIUM CHLORIDE 0.9% 50 ML IV PRN (13:08)
[2020-01-20] MEDS ORDERED: SCOPOLAMINE 1.5 MG TDSY TD SCH (13:30)
[2020-01-20] MEDS: MoRPHine SULFATE 2 MG/ML CARP IV PRN ×3 (15:19→20:22)
--- NOTE | 2020-01-20 15:32 | Palliative Care Consultation ---
Date of Consultation January 20, 2020 Assessment & Plan (1) Palliative care encounter: This patient is a 74 year old male presented to the hospital with altered mental status and possible seizures. This gentleman has had multiple recent hospitalizations and is known to the palliative care service from his recent admission on January 06. Additional, extensive PMH includes: CKD, S/D CHF, HLD, COPD, CAD s/p CABG x3 in 2013, MVR (2018) & metastatic bladder cancer (Dx 10/2019) and a DVT in his LLE in 2015. He received cancer treatment in [facility] in October. He did not tolerate chemotherapy and developed atrial fibrillation. An ECHO showed his EF to be 45-50%. This adm ission the patient was in the ICU and for a brief time was on vasoactive medications. The patient required hi-flow oxygen and is currently on 40 Liters (75%). Palliative Care was consulted to discuss goals of care. While in the ICU, discussion was held with nursing, the hospitalist, and retail sales clerk where all parties agreed to transition to comfort measures only. -The patient had just been transferred up to room 263, a private room. -The patient and multiple family members including his three adult children, sister and niece were in the room. -The patient was arousable, appears lethargic, but was interactive and able to answer questions. -His main complaint was dizziness and nausea. Zofran IV administered by nursing with + relief. -The patient stated he is struggling to breath. He does not appear to be using accessory muscles at this time, but is in tripod position. -Lengthy discussion about what to expect at end of life held with Majo, his one daughter. -Discussed that his life expectancy is likely hours to a few days. Discussion held regarding medication administration, symptoms that will be observed, etc. -All questions answered. Discussion held with nursing about symptom management and low threshold for morphine administration. -Eventual decrease of oxygen will be important once patient is less interactive and has adequate air hunger management with Morphine. -Patient daughter requesting blood pressure to be obtained Q4 hours. Staff notified. -PPS 20% (2) Junctional bradycardia: (3) Third degree heart block: (4) Sepsis with multi-organ dysfunction: (5) Acute and chronic respiratory failure with hypoxia: (6) Goals of care, counseling/discussion: History of Present Illness Reason for Consultation: Goals of care Requesting Physician: Dr. Macias Attending Physician: Aaron Macias MD History of Present Illness This patient is a 74 year old male presented to the hospital with altered mental status and possible seizures. This gentleman has had multiple recent hospitalizations and is known to the palliative care service from his recent admission on January 06. Additional, extensive PMH includes: CKD, S/D CHF, HLD, COPD, CAD s/p CABG x3 in 2012, MVR (2017) & metastatic bladder cancer (Dx 10/2019) and a DVT in his LLE in 2015. He received cancer treatment in [facility] in October. He did not tolerate chemotherapy and developed atrial fibrillation. An ECHO showed his EF to be 45-50%. This admission the patient was in the ICU and for a brief time was on vasoactive medications. The patient required hiflow oxygen and is currently on 40 Liters (75%). Palliative Care was consulted to discuss goals of care. Please see A/P for further details. Thank you kindly for involving us with this unfortunate patient. Allergies Allergy/AdvReac Type Severity Reaction Status Date / Time No Known Allergies Allergy Verified 01/19/20 10:15 Home Medications Home Medications Medication Instructions Recorded Confirmed Type Eliquis 5 mg PO BID 12/08/19 01/19/20 History albuterol sulfate 2 puff INHALATION QID PRN 12/08/19 01/19/20 History aspirin [Aspir-81] 81 mg PO QAM 12/08/19 01/19/20 History melatonin 5 mg PO HS 12/08/19 01/19/20 History olanzapine 2.5 mg PO HS 12/08/19 01/19/20 History oxybutynin chloride 10 mg PO QAM 12/08/19 01/19/20 History amiodarone 200 mg PO BID #60 tab 12/10/19 01/19/20 Rx atorvastatin 40 mg PO PM #30 tab 12/10/19 01/19/20 Rx oxycodone-acetaminophen [Percocet] 1 tab PO Q6H PRN #10 tab 12/14/19 01/19/20 Rx docusate sodium 100 mg capsule 100 mg PO BID PRN cap 12/31/19 01/19/20 History prednisone 10 mg PO DAILY #30 tab 01/09/20 01/19/20 Rx voriconazole 200 mg PO Q12H #20 tab 01/09/20 01/19/20 Rx acetylcysteine 4 ml INHALATION Q12R PRN #100 ml 01/10/20 01/19/20 Rx furosemide 20 mg PO DAILY PRN #20 tab 01/10/20 01/19/20 Rx ipratropium-albuterol 3 ml NEB Q6H PRN #90 ml 01/10/20 01/19/20 Rx ondansetron 4 mg PO Q6H PRN 01/19/20 01/19/20 History oxycodone 20 mg PO BID 01/19/20 01/19/20 History pantoprazole 20 mg PO QAM 01/19/20 01/19/20 History potassium chloride 20 meq PO QAM 01/19/20 01/19/20 History tamsulosin 0.4 mg PO BID 01/19/20 01/19/20 History Patient History Medical History Abdominal aortic aneurysm S/p previous stent placement; per 12/08/19 CT scan - "Fusiform aneurysm dilation of the abdominal aorta with aortobiiliac stent graft. Aneurysm measures up to approximately 4.1 x 4.8 cm. Femoral-femoral bypass graft. Abdominal pain, lower Acute and chronic respiratory failure with hypoxia Acute kidney injury superimposed on CKD Anemia Hgb 6.9 on 12/08/19- did get packed RBCs when admitted to [facility] Bladder cancer CAD (coronary artery disease) S/p CABG 3 vessel 2012 or 2013 Chronic combined systolic and diastolic congestive heart failure Follows with Heart failure program Chronic respiratory acidosis COPD (chronic obstructive pulmonary disease) WELL CONTROLLED PER PT Cough DVT (deep venous thrombosis) left leg > 2015 > unknown cause Dyslipidemia Edema, peripheral Hard of hearing Hypoalbuminemia Malignant neoplasm metastatic from bladder Metabolic acidosis, increased anion gap Mitral regurgitation S/p MV repair Nausea & vomiting Paroxysmal atrial fibrillation DX OCTOBER 2019 > NO CARDIOVERSIONS Poor historian Sepsis with multi-organ dysfunction Shock liver Status post admission to intensive care unit Third degree heart block Surgical History History of cardiac cath 5 yrs ago> no known cardiac stents History of CEA (carotid endarterectomy) 6 YRS AGO- NO MENTION OF CEA PER RECORDS- NO RECENT CAROTID IMAGING ON FILE EITHER History of endovascular stent graft for abdominal aortic aneurysm History of left hip replacement History of pelvic surgery Fractured pelvis repair History of tooth extraction Hx of appendectomy Hx of CABG 7 YRS AGO > [facility] [place] > TRIPLE BYPASS> [facility]P mitral valve repair 2018 per records > [facility] Family History Father Colon cancer Social History Smoking Status: Former smoker Tobacco Type: Cigarettes Second Hand Exposure: Yes; Hx Alcohol Use: No Hx Substance Use: No Preferred Language: Guamanian Communication Ability: Effective Heel Sprayer First Required: No Beliefs That Will Affect Care: None marital status: Unknown Current Living Situation: Family Current Living Situation Comment: Daughter Feels Safe at Home: Yes Assistive Devices: Glasses and Oxygen - Continuous Review of Systems Review of Systems: General: Pt reports being tired HEENT: Pt reports + dizziness CV: Pt denies chest pain Resp: Pt reports feeling SOB GI: Pt denies abdominal pain. + nausea Physical Exam Constitutional: + acute distress, + ill appearing, + thin, + frail appearing, cooperative and + lethargic Neck: trachea midline, no thyromegaly Respiratory: + cough and + tripod positioning Auscultation: + rhonchi and + wheezes Cardiovascular: Rate/Rhythm: regular rate Heart Sounds: normal S1 and normal S2 Gastrointestinal (Abdomen): normal bowel sounds, soft, nontender, no hepatosplenomegaly Skin: no rashes, warm and dry Psychiatric: A+Ox3, euthymic affect he is tuckering out Results & Data ([facility]) Vital Signs (Past 12 Hours) Vital Signs Temp Pulse Pulse Pulse Resp BP Pulse Ox 01/20/20 13:30 69 18 90 01/20/20 13:00 71 19 105/26 L 91 01/20/20 12:32 69 17 94/26 L 89 L 01/20/20 12:30 68 16 92 01/20/20 12:00 70 22 94 01/20/20 11:31 70 21 99/25 L 89 L 01/20/20 11:30 65 25 H 90 01/20/20 11:22 64 18 85 L 01/20/20 11:00 64 22 01/20/20 10:30 63 18 114/25 L 01/20/20 10:01 63 16 93/22 L 01/20/20 10:00 64 18 01/20/20 09:32 62 21 133/26 L 01/20/20 09:30 66 13 01/20/20 09:00 62 20 108/28 L 91 01/20/20 08:31 64 14 01/20/20 08:01 76 17 95/40 L 92 01/20/20 08:00 81 19 94 01/20/20 07:30 75 24 114/39 L 94 01/20/20 07:26 72 18 94 01/20/20 07:00 68 19 119/37 L 94 01/20/20 06:45 69 16 96 01/20/20 06:00 62 13 141/35 H 96 01/20/20 05:30 64 14 133/40 L 97 01/20/20 05:00 67 12 117/42 L 97 01/20/20 04:30 71 12 113/34 L 94 01/20/20 04:00 36.6 C 67 21 135/46 L 95 PG Care Time/CCT Total # of Minutes Spent Total Time Spent with Patient: Total time spent is greater than 50% in coordination of care (as documented) at patient's floor/unit and/or counseling patient: 100 Coding Level of Care Code 72790 Inpt Consult Level 4 Diagnoses Palliative care encounter Z51.5 Junctional bradycardia R00.1 Third degree heart block I44.2 Sepsis with multi-organ dysfunction A41.9; R65.20 Acute and chronic respiratory failure with hypoxia J96.21 Goals of care, counseling/discussion Z71.89 Time Spent (min) 100 Time Spent Midlevel Total time spent 100 minutes with > 50% of that time spent assessing the patient, discussing goals of care and symptom management with family, patient, and IDT
[2020-01-20] MEDS: CHECK SCOPOLAMINE PATCH PLACEMENT SCH ×2 (15:51→23:49)
[2020-01-21] MEDS: MoRPHine SULFATE 2 MG/ML CARP IV PRN ×3 (00:13→04:58)
[2020-01-21] MEDS ORDERED: HEPARIN 100 UNIT/ML 5ML FLUSH FLUSH PRN (01:11)
[2020-01-21] MEDS ORDERED: MoRPHine SULFATE 2 MG/ML CARP IV STA (05:19)
--- NOTE | 2020-01-21 07:53 | Discharge Summary ---
Date of Service January 21, 2020 Principal Diagnosis pt was pronounced 0740, 01/21/20 cause of was metastatic bladder cancer Discharge Exam pt was examined for 60 seconds with no spontaneous respirations of heart tones and was pronounced Discharge Data Allergies Allergy/AdvReac Type Severity Reaction Status Date / Time No Known Allergies Allergy Verified 01/19/20 10:15 Consultations 01/19/20 09:06 Consult Cardiology Stat 01/19/20 09:36 Consult Record Label Internship Stat 01/19/20 10:04 ED Decision to Admit Stat 01/19/20 11:19 Consult Record Label Internship Routine 01/19/20 14:48 Consult Case Management - Discharge Planning Routine Consult Palliative Care Stat 01/20/20 13:08 Consult Case Management - Discharge Planning Routine Consult Palliative Care Routine Ordered Studies 01/19/20 08:56 CT head/brain wo con Stat 01/19/20 09:32 CT chest wo con Stat Hospital Course (1) Need for comfort care: 74 yo M with hx PAF, CAD, mitral regurg, COPD, CHF (EF 45%), bladder cancer s/p chemotherapy with bilateral nephrostomy tubes admitted for suspected sepsis with multiorgan failure, JUANITA on CKD with hyperkalemia, bradycardia with third-degree heart block, and acute on chronic hypoxic respiratory failure. pt was pronounced at 0740 01/21/2020. Family is supportive but tearful at the bedside the problem list below is from earlier in the hospital stay: (2) Sepsis with multi-organ dysfunction: - Resp viral panel positive for rhino/enterovirus (covid19 neg) - Qsofa criteria: sys<100, altered mental status, RR>20 on higher o2 requirement Antibiotics and pressors stopped - source less likely to be the rhino/entero, had significant pain on abdominal exam, possible intra-abdominal source causing likely bacteremia, his urine with chronic nephrostomy tubes or even his lungs (3) JUANITA (acute kidney injury): With acute kidney injury with bun/creatinine remaining elevated 118/3.24 With metabolic acidosis, hyperkalemia We will no longer check laboratories (4) Acute and chronic respiratory failure with hypoxia: chronically on 3L NC for COPD at home Patient is not wish to be on BiPAP any longer he is on high flow oxygen at this present time he saturating easily remain on high flow oxygen on the floor (5) Malignant neoplasm metastatic from bladder: With bladder mass causing outlet obstruction requiring bilateral nephrostomy tubes With known metastases to the spine Patient will have parenteral opiates anxiolytics control his symptoms at this time no further treatment has been decided upon by the family (6) Chronic combined systolic and diastolic congestive heart failure: With lower extremity edema but with hypotension requiring pressors limiting diuresis EF 45% echocardiogram 01/18 has EF remain around 45% and severe MR noted (7) CAD (coronary artery disease): hold statin in setting of elevated LFTs continue ASA Not on beta-bambi (8) S/P mitral valve repair: Noted (9) Paroxysmal atrial fibrillation: Amiodarone and Eliquis have been discontinued (10) Anemia: Anemia of chronic disease and also associate with chemotherapy (11) Shock liver: AST 2411 ALt 1619 Alk phos 100 previously normal, no liver disease hx most likely end organ damage from septic shock (12) Antineoplastic chemotherapy induced pancytopenia: (13) Elevated troponin: Mildly elevated troponin likely secondary to myocardial demand ischemia and poor perfusion during third-degree heart block ECG with left bundle branch block which is old and peaked T waves which are new Trend serial troponin, ECG regional wall motion is also seen but maybe conduction related Total Time Total Time Spent Total Time Spent (In Minutes): greater than 30 minutes were spent to prepare this discharge Discharge Plan Discharge Items Reason For Visit: SEPSIS,ALTERED MENTAL STATUS, SEIZURE LIKE ACTIVIT Medications and DC Order Prescriptions: No Action docusate sodium 100 mg capsule 100 mg PO BID PRN (Reason: Constipation) RF: 0 pantoprazole 20 mg Tablet,Delayed Release (Dr/Ec) 20 mg PO QAM RF: 0 tamsulosin 0.4 mg Capsule 0.4 mg PO BID RF: 0 ondansetron 4 mg tablet,disintegrating 4 mg PO Q6H PRN (Reason: Nausea/Vomiting) RF: 0 oxycodone 20 mg Tablet 20 mg PO BID RF: 0 potassium chloride 20 mEq Tablet Extended Release 20 meq PO QAM RF: 0 oxybutynin chloride 10 mg Tablet Extended Release 24hr 10 mg PO QAM RF: 0 olanzapine 2.5 mg Tablet 2.5 mg PO HS RF: 0 aspirin [Aspir-81] 81 mg Tablet,Delayed Release (Dr/Ec) 81 mg PO QAM RF: 0 melatonin 5 mg Tablet 5 mg PO HS RF: 0 Eliquis 5 mg Tablet 5 mg PO BID RF: 0 albuterol sulfate 90 mcg/actuation Hfa Aerosol Inhaler 2 puff INHALATION QID PRN (Reason: Shortness Of Breath Or Wheezing) RF: 0 amiodarone 200 mg tablet 200 mg PO BID Qty: 60 RF: 0 atorvastatin 40 mg tablet 40 mg PO PM Qty: 30 RF: 0 oxycodone-acetaminophen [Percocet] 5-325 mg tablet 1 tab PO Q6H PRN (Reason: pain) Qty: 10 RF: 0 prednisone 10 mg tablet 10 mg PO DAILY Qty: 30 RF: 0 voriconazole 200 mg tablet 200 mg PO Q12H Qty: 20 RF: 0 furosemide 20 mg tablet 20 mg PO DAILY PRN (Reason: edema) Qty: 20 RF: 0 acetylcysteine 200 mg/mL (20 %) Solution 4 ml inhalation Q12R PRN (Reason: Cough or secretions) Qty: 100 RF: 0 ipratropium-albuterol 0.5 mg-3 mg(2.5 mg base)/3 mL Solution For Nebulization 3 ml NEB Q6H PRN (Reason: shortness of breath or wheezing) Qty: 90 RF: 0 Admission Data Admit Date/Time: 01/19/20 11:19 Attending Provider: Aaron Macias Admit Provider: Ninfa Barclay Primary Care Provider: Lakisha Carson Other Providers: Luther Chambers ; Teresita Ross ; Dion Fernandes ; Mary Jo Diaz Coding Level of Care Code D/C Day Management >30 mins Diagnoses Need for comfort care Sepsis with multi-organ dysfunction A41.9; R65.20 JUANITA (acute kidney injury) N17.9 Acute and chronic respiratory failure with hypoxia J96.21 Malignant neoplasm metastatic from bladder C67.9 Chronic combined systolic and diastolic congestive heart failure I50.42 CAD (coronary artery disease) I25.10 S/P mitral valve repair Z98.890 Paroxysmal atrial fibrillation I48.0 Anemia D64.9 Anemia type: unspecified type Shock liver K72.00 Antineoplastic chemotherapy induced pancytopenia D61.810; T45.1X5A Elevated troponin R79.89
[2020-01-21] MEDS ORDERED: DAPTOmycin 350 MG in SYRINGE 0 ML IV SCH (09:00)
--- NOTE | 2020-01-21 12:06 | Electrocardiogram Report ---
Test Reason : Blood Pressure : / mmHG Vent. Rate : 049 BPM Atrial Rate : 048 BPM P-R Int : 000 ms QRS Dur : 164 ms QT Int : 572 ms P-R-T Axes : 000 050 084 degrees QTc Int : 516 ms Poor data quality, interpretation may be adversely affected Wide QRS rhythm with uncertain atrial rhythm Left bundle branch block Abnormal ECG When compared with ECG of 08-JAN-2020 08:42, Wide QRS rhythm has replaced Sinus rhythm Confirmed by Dion Fernandes ([id number]) on 01/21/2020 12:06:06 PM Referred By: ED Confirmed By:Dion Fernandes
--- NOTE | 2020-01-21 12:15 | Electrocardiogram Report ---
Test Reason : Blood Pressure : / mmHG Vent. Rate : 062 BPM Atrial Rate : 062 BPM P-R Int : 172 ms QRS Dur : 150 ms QT Int : 560 ms P-R-T Axes : 000 046 121 degrees QTc Int : 568 ms Normal sinus rhythm Left bundle branch block Abnormal ECG When compared with ECG of 19-JAN-2020 08:46, (unconfirmed) Sinus rhythm has replaced Wide QRS rhythm Confirmed by Dion Fernandes ([id number]) on 01/21/2020 12:15:20 PM Referred By: REFERRED SELF Confirmed By:Dion Fernandes
== END 2020-01-21 07:40 | disposition expired | DRG 871 ==
LOC: ED 08:41 → SUATTDRO 11:19 → 1E 11:19 → 2W 01-20 13:29